=== PATIENT | male | born 1990 | race Caucasian/White ===

== ENCOUNTER 2019-12-18 14:39 | Emergency (ER) | payer OTHER, SELFPAY ==
[2019-12-18] VITALS (7 sets, daily range): BP systolic 110–143; BP diastolic 62–96; PULSE 89–99; RESP 18; TEMP 36.4; O2SAT 95–98; BMI 44.4
[2019-12-18 16:46] LABS: Alanine Aminotransferase 54 U/L (0-41); Albumin Level 4.7 g/dL (3.5-5.2); Alkaline Phosphatase 79 IU/L (40-130); Anion Gap 15.4 (5-19); Aspartate Amino Transferase 24 U/L (0-40); Basophils # 0.1 10^3/uL (0.0-0.1); Basophils % 0.6 %; Blood Urea Nitrogen 10 mg/dL (6-20); Calcium 10.2 mg/dL (8.5-10.5); Carbon Dioxide 28 mmol/L (22-29); Chloride 101 mmol/L (98-107); Eosinophils # 0.1 10^3/uL (0.0-0.8); Eosinophils % 1.3 %; Globulin 2.9 g/dL (1.3-4.6); Glucose 94 mg/dL (65-115); Hematocrit 54.6 % (42.0-52.0); Hemoglobin 17.5 g/dL (11.7-16.6); Lymphocytes # 2.1 10^3/uL (0.8-4.8); Lymphocytes % 24.3 %; Mean Corpuscular HGB Conc 32.1 g/dL (30.0-36.0); Mean Corpuscular Hemoglobin 28.7 pg (28.0-34.0); Mean Corpuscular Volume 89.5 fL (80-94); Monocytes # 0.8 10^3/uL (0.2-0.9); Neutrophils # 5.7 10^3/uL (1.8-7.7); Neutrophils % 64.6 %; Nucleated Red Blood Cells % 0 %; Osmolality Calculated 286 mOsm/kg (285-295); Platelet Count 295 10^3/cmm (130-400); Potassium 4.4 mmol/L (3.5-5.1); Red Cell Distribution Width 12.2 % (12.1-15.1); Sodium 140 mmol/L (136-145); Total Bilirubin 0.4 mg/dL (0.15-1.2); Total Protein 7.6 g/dL (6.6-8.7); White Blood Count 8.8 10^3/uL (4.0-10.0)
--- NOTE | 2019-12-18 17:28 | W.ED.GIBLEED ---
HPI - GI Bleed General: Chief complaint: GI Bleed Stated complaint: blood in stool Time Seen by Provider: 12/18/19 17:16 History of Present Illness: HPI Narrative: Patient is a 29-year-old male who comes to the ED with abdominal pain and bloody diarrhea. Past medical history of GERD, anxiety and hypertension. Past surgical history of appendectomy and cholecystectomy. Patient says symptoms started today. He has had about 4 episodes of bright red bloody diarrhea. Patient showed me a picture that he took of his stool today and there is a considerable amount of bright red blood mixed in with brown diarrhea stool. His last episode of bloody diarrhea was around 2 or 3 PM today. he has never had any symptoms like this in the past. He is also having some intense abdominal pain. Patient says he started having abdominal pain about 2 days ago but it was more mild. Today when he got up the abdominal pain was a lot worse. Abdominal pain is located in the central part of the abdomen and he rates the pain an 8 out of 10. He also feels nauseous but has not had any episodes of vomiting. Patient says the last thing he ate was a burrito from [employer] last night. Associated symptoms: Reports abdominal pain and nausea; Denies chills, fever(s), headache(s), rash or vomiting Review of Systems Const: Denies: fever(s), chills or fatigue Eyes: Denies: change in vision or eye discomfort ENMT: Denies: throat pain, odynophagia, nasal discharge or nasal congestion Card: Denies: chest pain, palpitations, edema, swelling of feet/ankles, dyspnea on exertion or orthopnea Resp: Denies: dyspnea, productive cough or non-productive cough GI: Reports: abdominal pain, nausea, diarrhea and hematochezia (bright red blood); Denies: vomiting or constipation : Denies: flank pain, difficulty urinating, dysuria or hematuria Musc: Denies: neck pain, back pain or extremity swelling Skin/Breast: Denies: rash or new lesions Neuro: Denies: headache(s), numbness in extremities or weakness in extremities [facility] ED PFSH: Medical History Anxiety Social History Smoking and tobacco status: never smoked Second hand smoke exposure: No Alcohol intake: never Lives independently: Yes Household members: spouse Marital status: Current occupational status: unemployed History of recent travel: No Current gender identity: Male Physical Exam Const: COMMON NORMALS: patient oriented x3 and alert GENERAL APPEARANCE: cooperative; not comfortable (pt appeared uncomfortable due to abdominal pain.) HENMT: COMMON NORMALS: normocephalic HEAD & SCALP: normocephalic MOUTH: Normal oral and palatal mucosa present THROAT: posterior oropharynx normal and uvula midline Eye: COMMON NORMALS: Equal, round and reactive pupils present PUPIL: Yes Equal, round and reactive pupils present Neck/C-Spine: COMMON NORMALS: supple GENERAL: Yes normal visual inspection Resp: COMMON NORMALS: normal respiratory effort, No retractions, No use of accessory muscles and clear to auscultation bilaterally AUSCULTATION: clear to auscultation bilaterally Cardio: COMMON NORMALS: regular rate, regular rhythm, S1 normal heart sound present, S2 normal heart sound present, No gallops present (Cardio), No clicks present (Cardio), No murmurs present (Cardio) and Peripheral pulses 2+ throughout RATE: regular rate RHYTHM: regular rhythm HEART SOUNDS: S1 normal heart sound present and S2 normal heart sound present PERIPHERAL PULSES: Peripheral pulses 2+ throughout GI: COMMON NORMALS: Normal to inspection, nondistended, normoactive bowel sounds present, Soft to palpation and no masses INSPECTION: Yes central obesity PALPATION: Yes Soft to palpation and Yes Tenderness to palpation present (GI) Details: other (central abdominal tenderness) : COMMON NORMALS: Yes no CVA tenderness BLADDER/KIDNEY EXAM: Yes no CVA tenderness Back/Pelvis: COMMON NORMALS: no CVA tenderness Extremity: COMMON NORMALS: normal to inspection and no pedal edema Neuro: COMMON NORMALS: patient oriented x3 and moves all extremities SENSORIUM/ORIENTATION: Yes alert Skin: COMMON NORMALS: no rashes or lesions noted GENERAL SKIN EXAM: no rashes or lesions noted and dry skin Course Vital Signs: Vital signs: Vital Signs Temperature 97.6 F 12/18/19 15:07 Pulse Rate 98 12/18/19 21:38 Respiratory Rate 18 12/18/19 21:38 Blood Pressure 118/96 12/18/19 21:38 Pulse Oximetry 95 12/18/19 21:38 MDM - GI Bleed MDM Narrative: Medical decision making narrative: Patient is a 29-year-old male who comes to the ED with abdominal pain, nausea, bloody diarrhea. Symptoms started today. Patient has a past medical history of GERD, hypertension and IBS. Patient had no episodes of bloody diarrhea while here on the unit. CT of the abdomen pelvis showed Mild dilatation and wall enhancement in the terminal ileum. This could be infectious or inflammatory, including Crohn's disease. No evidence for obstruction. Patient was diagnosed with terminal ileitis and was given IV fluids, Flagyl, ciprofloxacin, Zofran, morphine and Dilaudid while here in the ED. Patient's abdominal pain and symptoms improved. He was discharged and told to return to the ED for reevaluation in 2 days and to bring in stool sample for testing. He was sent home with a prescription for Flagyl, ciprofloxacin, loperamide, Zofran, Medrol Dosepak. I placed a GI referral with case management. Patient will see his PCP in 5 days for reevaluation. I told patient he can return to the ED at any time if symptoms worsen. Patient understood and agreed with plan. Lab Data: Attestation: I reviewed the patient's lab results. Labs: Lab Results 12/18/19 12/18/19 12/18/19 Range/Units 16:23 16:23 16:23 WBC 8.8 (4.0-10.0) 10^3/ uL RBC 6.10 H (4.1-5.3) 10^6/u L Hgb 17.5 H (11.7-16.6) g/dL Hct 54.6 H (42.0-52.0) % MCV 89.5 (80-94) fL MCH 28.7 (28.0-34.0) pg MCHC 32.1 (30.0-36.0) g/dL RDW 12.2 (12.1-15.1) % Plt Count 295 (130-400) 10^3/c mm MPV 10.0 (7.4-10.4) fL Neut % (Auto) 64.6 % Lymph % (Auto) 24.3 % [place] % (Auto) 9.0 % Eos % (Auto) 1.3 % Baso % (Auto) 0.6 % Neut # (Auto) 5.7 (1.8-7.7) 10^3/u L Lymph # (Auto) 2.1 (0.8-4.8) 10^3/u L [place] # (Auto) 0.8 (0.2-0.9) 10^3/u L Eos # (Auto) 0.1 (0.0-0.8) 10^3/u L Baso # (Auto) 0.1 (0.0-0.1) 10^3/u L Nucleated RBC % (a uto) 0 % Nucleated RBCs # 0.0 /100WBC ESR 6 (0-10) mm/hr Sodium 140 (136-145) mmol/L Potassium 4.4 (3.5-5.1) mmol/L Chloride 101 (98-107) mmol/L Carbon Dioxide 28 (22-29) mmol/L Anion Gap 15.4 (5-19) BUN 10 (6-20) mg/dL Creatinine 1.0 (0.7-1.2) mg/dL GFR Calculation 89.0 L (90-130) mL/min Glucose 94 (65-115) mg/dL Calculated Osmolal ity 286 (285-295) mOsm/k g Calcium 10.2 (8.5-10.5) mg/dL Total Bilirubin 0.4 (0.15-1.2) mg/dL AST 24 (0-40) U/L ALT 54 H (0-41) U/L Alkaline Phosphata se 79 (40-130) IU/L C-Reactive Protein (0.0-4.9) mg/L Total Protein 7.6 (6.6-8.7) g/dL Albumin 4.7 (3.5-5.2) g/dL Globulin 2.9 (1.3-4.6) g/dL /12/31 Range/Units 16:23 WBC (4.0-10.0) 10^3/ uL RBC (4.1-5.3) 10^6/u L Hgb (11.7-16.6) g/dL Hct (42.0-52.0) % MCV (80-94) fL MCH (28.0-34.0) pg MCHC (30.0-36.0) g/dL RDW (12.1-15.1) % Plt Count (130-400) 10^3/c mm MPV (7.4-10.4) fL Neut % (Auto) % Lymph % (Auto) % [place] % (Auto) % Eos % (Auto) % Baso % (Auto) % Neut # (Auto) (1.8-7.7) 10^3/u L Lymph # (Auto) (0.8-4.8) 10^3/u L [place] # (Auto) (0.2-0.9) 10^3/u L Eos # (Auto) (0.0-0.8) 10^3/u L Baso # (Auto) (0.0-0.1) 10^3/u L Nucleated RBC % (a uto) % Nucleated RBCs # /100WBC ESR (0-10) mm/hr Sodium (136-145) mmol/L Potassium (3.5-5.1) mmol/L Chloride (98-107) mmol/L Carbon Dioxide (22-29) mmol/L Anion Gap (5-19) BUN (6-20) mg/dL Creatinine (0.7-1.2) mg/dL GFR Calculation (90-130) mL/min Glucose (65-115) mg/dL Calculated Osmolal ity (285-295) mOsm/k g Calcium (8.5-10.5) mg/dL Total Bilirubin (0.15-1.2) mg/dL AST (0-40) U/L ALT (0-41) U/L Alkaline Phosphata se (40-130) IU/L C-Reactive Protein 2.9 (0.0-4.9) mg/L Total Protein (6.6-8.7) g/dL Albumin (3.5-5.2) g/dL Globulin (1.3-4.6) g/dL Imaging Data^: CT Abd/Pel: Attestation: I personally reviewed and interpreted this imaging study as follows: Radiologist's impression: [address] [address] [address] Scan Report Signed Patient: Aaron Cortes Unit #: [id number] : 1990 Age/Sex: 29 / M ADM Date: 12/18/19 Loc: ER Room/Bed: Attending Dr: Ordering Provider/Ordering MD: Gustabo Negrete Date of Service: 12/18/19 Procedure(s): CT abdomen pelvis w con* [id number] Accession Number(s): [id number] Report Number: [id number] PROCEDURE INFORMATION: Exam: CT Abdomen And Pelvis With Contrast Exam date and time: 12/18/2019 5:46 PM Age: 29 years old Clinical indication: Abdominal pain; Generalized; Prior surgery; Surgery date: 6+ months; Surgery type: Appy, gb; Patient HX: Abd pain w bloody stool and nausea; Additional info: Abdominal pain, bloody stool TECHNIQUE: Imaging protocol: Computed tomography of the abdomen and pelvis with intravenous contrast. Radiation optimization: All CT scans at this facility use at least one of these dose optimization techniques: automated exposure control; mA and/or kV adjustment per patient size (includes targeted exams where dose is matched to clinical indication); or iterative reconstruction. Contrast material: OMNI 300; Contrast volume: 95 ml; Contrast route: 20G; COMPARISON: CT abdomen pelvis w con* [id number] 04/02/2014 10:10 PM RADIATION DOSE METRICS: Total DLP: 2052.91 mGy-cm FINDINGS: Lungs: Calcified granuloma in the right lower lobe. Liver: Mild diffuse fatty infiltration of the liver. Gallbladder and bile ducts: Cholecystectomy. The bile ducts are normal. Pancreas: Normal. No ductal dilation. Spleen: Calcified granulomas in the spleen. Adrenals: Normal. No mass. Kidneys and ureters: Normal. No hydronephrosis. Stomach and bowel: The descending colon and rectum are decompressed. Stomach is unremarkable. Mildly dilated terminal ileum which measures 2.6 cm with slight wall enhancement. No visible wall thickening. The remainder of the small bowel is unremarkable. Appendix: The appendix is surgically absent. Intraperitoneal space: Unremarkable. No free air. No significant fluid collection. Vasculature: Unremarkable. No abdominal aortic aneurysm. Lymph nodes: Subcentimeter mesenteric lymph nodes are most likely reactive. Bladder: Unremarkable as visualized. Reproductive: Unremarkable as visualized. Bones/joints: Unremarkable. No acute fracture. Soft tissues: Unremarkable. CT/CT abdomen pelvis w con* [id number] IMPRESSION: 1. Mild dilatation and wall enhancement in the terminal ileum. This could be infectious or inflammatory, including Crohn's disease. No evidence for obstruction. Radiation Dose CTDIVOL = (mGy): DLP = 2052.91 (mGy-cm) Dictated By: Jimmy Leon Signed By: Jimmy Leon Signed Date/Time: 12/18/191843 DD/ 42 Discharge Plan Discharge Patient Disposition: Home, Self-Care Clinical Impression: Ileitis, terminal Qualifiers: Digestive disease complication type: with rectal bleeding Qualified Code(s): K50.011 - Crohn's disease of small intestine with rectal bleeding Condition: Stable Prescriptions: New ciprofloxacin HCl 500 mg tablet 500 mg PO BID 7 Days Qty: 14 RF: 0 loperamide 2 mg capsule 2 mg PO Q4H PRN (Reason: loose stool) Qty: 30 RF: 0 Flagyl 500 mg tablet 500 mg PO Q6H 7 Days Qty: 28 RF: 0 Zofran 4 mg tablet 4 mg PO Q8H Qty: 20 RF: 0 Medrol (German) 4 mg tablets,dose pack See Rx Instructions .ROUTE .COMPLEX Qty: 21 RF: 0 No Action losartan 100 mg tablet 100 mg PO DAILY Qty: 30 RF: 3 omeprazole 40 mg capsule,delayed release(DR/EC) 40 mg PO BID Qty: 60 RF: 2 sucralfate [Carafate] 1 gram tablet 1 gm PO Q6H PRN (Reason: UNKNOWN) RF: 0 Wellbutrin XL 150 mg tablet extended release 24 hr 150 mg PO DAILY RF: 0 Discharge Orders: Discharge Order (Routine); Ordered 12/18/19 Ordered By: Gustabo Negrete Referrals: Nitza Rodriguez MD [Primary Care Provider] - Discharge Diet: Advance as tolerated Discharge Activity: Increase activity as tolerated Patient Instructions: Full Liquid Diet, Crohn Disease (ED), Clear Liquid Diet (ED), Gastroenteritis (ED) Activity Restrictions/Additional Instructions: Schedule an appointment with your PCP within 5 days for reevaluation. Start your diet slow and advance diet slowly, I would start with clear liquid diet and then progress as tolerated. Take full course of the antibiotics as prescribed. You can take loperamide to help with diarrhea symptoms. Also provide you with some Zofran that she can take for any nausea. Take the full course of steroids as prescribed. I placed an order for a GI specialist referral for you with case management. Someone should be contacting you within the next week to set up an appointment. You can also discuss with your PCP about GI specialist referral when you see them next week. Take Tylenol for daily pain. Return to ED within the next 2 days- collect stool sample at home and bring into ED with you. Discharge Date/Time: 12/18/19 21:54 Coding Level of Care Code ED Quality Manager for [facility] Fwd Exam Comprehensive
--- NOTE | 2019-12-18 17:45 | CTR_ITS ---
PROCEDURE INFORMATION: Exam: CT Abdomen And Pelvis With Contrast Exam date and time: 12/18/2019 5:46 PM Age: 29 years old Clinical indication: Abdominal pain; Generalized; Prior surgery; Surgery date: 6+ months; Surgery type: Appy, gb; Patient HX: Abd pain w bloody stool and nausea; Additional info: Abdominal pain, bloody stool TECHNIQUE: Imaging protocol: Computed tomography of the abdomen and pelvis with intravenous contrast. Radiation optimization: All CT scans at this facility use at least one of these dose optimization techniques: automated exposure control; mA and/or kV adjustment per patient size (includes targeted exams where dose is matched to clinical indication); or iterative reconstruction. Contrast material: OMNI 300; Contrast volume: 95 ml; Contrast route: 20G; COMPARISON: CT abdomen pelvis w con* [id number] 04/02/2014 10:10 PM RADIATION DOSE METRICS: Total DLP: 2052.91 mGy-cm FINDINGS: Lungs: Calcified granuloma in the right lower lobe. Liver: Mild diffuse fatty infiltration of the liver. Gallbladder and bile ducts: Cholecystectomy. The bile ducts are normal. Pancreas: Normal. No ductal dilation. Spleen: Calcified granulomas in the spleen. Adrenals: Normal. No mass. Kidneys and ureters: Normal. No hydronephrosis. Stomach and bowel: The descending colon and rectum are decompressed. Stomach is unremarkable. Mildly dilated terminal ileum which measures 2.6 cm with slight wall enhancement. No visible wall thickening. The remainder of the small bowel is unremarkable. Appendix: The appendix is surgically absent. Intraperitoneal space: Unremarkable. No free air. No significant fluid collection. Vasculature: Unremarkable. No abdominal aortic aneurysm. Lymph nodes: Subcentimeter mesenteric lymph nodes are most likely reactive. Bladder: Unremarkable as visualized. Reproductive: Unremarkable as visualized. Bones/joints: Unremarkable. No acute fracture. Soft tissues: Unremarkable. CT/CT abdomen pelvis w con* [id number] IMPRESSION: 1. Mild dilatation and wall enhancement in the terminal ileum. This could be infectious or inflammatory, including Crohn's disease. No evidence for obstruction. Radiation Dose CTDIVOL = (mGy): DLP = 2052.91 (mGy-cm)
[2019-12-18] MEDS: ondansetron 2 mg/ML SDV 2 mL 4 MG IVP (17:57)
[2019-12-18] MEDS: sodium chloride 0.9% 1,000 ML 999 ML IV ×2 (17:57→20:19)
[2019-12-18] MEDS: morphine 4 mg/mL SDV 1 mL IVP ×2 (18:08→19:05)
[2019-12-18] MEDS: iohexol 300 mg/mL 100 mL Btl IV (18:27)
[2019-12-18] MEDS: ciprofloxacin 400 MG/200 ML PREMIX 200 MG IV (19:06)
[2019-12-18 19:26] LABS: C Reactive Protein 2.9 mg/L (0.0-4.9)
[2019-12-18 20:14] LABS: Erythrocyte Sedimentation Rate 6 mm/hr (0-10)
[2019-12-18] MEDS: HYDROmorphone 1 mg/mL INJ 1 mL IVP (20:20)
[2019-12-18] MEDS: metroNIDAZOLE IV 500 MG/100 ML PREMIX 100 MG IV (20:23)
[2019-12-18] MEDS: diphenhydrAMINE 50 mg/mL SDV 1mL 25 MG IVP ×2 (20:44→21:32)
[2019-12-18] MEDS: HYDROcodone-acetaminophen 7.5-325 mg Tablet 1 TAB PO (21:36)
--- NOTE | 2019-12-18 21:38 | PC.NURSE ---
IV D/C'd intact. Pressure dressing in place.
--- NOTE | 2019-12-20 12:08 | DCPLANNER ---
Addendum entered by Anny Gonzales 12/20/19 12:10: this was documented on wrong chart Original Note: route delivery manager had message to schedule a follow up appointment for patient with ortho. route delivery manager called the ortho clinic, spoke with Nitza, gave clinic patients information. route delivery manager was told that patients information would be printed and reviewed. Clinic will call high risk case manager and patient with appointment information
--- NOTE | 2019-12-20 12:14 | DCPLANNER ---
global product manager had message to schedule a follow up appointment with general surgery. global product manager called [facility], spoke with Debbie, gave clinic patients information. global product manager was told that patients information would be printed and reviewed. Clinic will call patient with appointment information.
--- NOTE | 2019-12-28 10:25 | DCPLANNER ---
Patient had an appointment scheduled for 12.22.19 with [facility]. Patient did attend the appointment.
== END 2019-12-18 21:54 | disposition home or self-care (01) ==
PROVIDERS: Nurse Practitioner Family; Emergency Provider Physician Assistant; PCP Family Medicine
DX: K50.011 Crohn's disease of small intestine with rectal bleeding (principal)
CPT/HCPCS: 12345; 36415; 74177; 80053; 85025; 85651; 86140; 96365; 96368; 96375; 96376; 99283; 99284; J0744; J1170; J1200; J2270; J2405; J2930; J7030; Q9967; S0030

== ENCOUNTER 2019-12-19 12:52 | Outpatient (CLI) | payer OTHER, SELFPAY | END 2019-12-19 12:53 | disposition home or self-care (01) | LOC: LAB 12:55 | PROVIDERS: PCP Family Medicine; Visit Provider Emergency Medicine | DX: K52.9 Noninfective gastroenteritis and colitis, unspecified (principal) | CPT/HCPCS: 87506 ==

== ENCOUNTER 2019-12-20 10:12 | Emergency (ER) | payer OTHER, SELFPAY ==
[2019-12-20 10:14] VITALS: BP 161/91; PULSE 107; RESP 18; TEMP 36.9; O2SAT 97; BMI 44.4
--- NOTE | 2019-12-20 10:28 | W.ED.ABDPA2 ---
HPI - Abdominal Pain General: Chief Complaint: Abdominal Pain Stated Complaint: RECTAL BLEEDING Time Seen by Provider: 12/20/19 10:14 Source: patient and family Mode of arrival: ambulatory Limitations: no limitations History of Present Illness: HPI narrative: Patient is a very nice 29-year-old male who presents to the ED today for reevaluation for his abdominal pain and bloody stools. Patient tells me he began experiencing upper abdominal pain approximately 4 days ago. He states 2 days ago he began noticing hematochezia. He is having anywhere from 2-4 bloody stools per day. Patient was seen here on 12/17 and diagnosed with ileitis and prescribed Cipro, Flagyl, Zofran, Imodium, and steroids. Patient states his abdominal pain is continuing to worsen. He reports pain seems to now radiate into his back. He states last night he began vomiting and has had a total of 3-4 episodes of nonbloody vomit has not been running fevers. No urinary symptoms. He does have a history of GERD and IBS. He reports bringing in a stool sample yesterday for testing (I contacted lab who had orders for a bacterial panel). Of note patient has pictures with his bloody stool and there does appear to be appoximately 1/2-1 cup of bright red blood mixed in with small pieces of formed stool. MD elicited complaint: abdominal pain Pertinent past history: other (GERD, IBS) Onset (ago): day(s) Pain Consistency: constant Location: Epigastric Severity: moderate Radiation: back Relieving factors: nothing Associated Symptoms: Reports chills, hematochezia, nausea and vomiting; Denies coffee ground emesis, dysuria, fever(s), hematemesis, fecal incontinence, melena and syncope Treatments prior to arrival: other (abx, zofran, steroids ) Review of Systems General: Reports: 10 or more systems reviewed and unremarkable except in HPI and below Const: Reports: chills; Denies: fever(s), body aches, change in appetite, change in weight, fatigue or malaise Eyes: Denies: change in vision, blurry vision or photophobia ENMT: Denies: throat pain, enlarged tonsils or odynophagia Card: Denies: chest pain, palpitations, edema, lightheadedness, syncope, pre-syncope or orthopnea Resp: Denies: dyspnea, productive cough, non-productive cough, hemoptysis or chest congestion GI: Reports: abdominal pain, nausea, vomiting and hematochezia; Denies: hematemesis, coffee ground emesis, fecal incontinence, pain on defecation, melena, white/light colored stool or steatorrhea : Denies: flank pain, difficulty urinating, dysuria, urinary frequency, urinary urgency or urinary hesitancy Musc: Denies: neck pain, back pain, extremity pain or extremity swelling Skin/Breast: Denies: rash Neuro: Denies: headache(s), numbness in extremities, weakness in extremities or sensory changes PFSH ED PFSH: Medical History (Updated 12/20/19 @ 12:18 by JADA Alvarez) Anxiety Social History Smoking and tobacco status: never smoked Second hand smoke exposure: No Alcohol intake: never Lives independently: Yes Household members: spouse Marital status: Current occupational status: unemployed History of recent travel: No Current gender identity: Male Physical Exam Const: COMMON NORMALS: patient oriented x3, no limitations and alert GENERAL APPEARANCE: cooperative and in distress (appears slightly uncomfortable due to pain) NUTRITIONAL APPEARANCE: obese HENMT: COMMON NORMALS: normocephalic and atraumatic HEAD & SCALP: normocephalic and atraumatic Resp: COMMON NORMALS: normal respiratory effort and clear to auscultation bilaterally AUSCULTATION: clear to auscultation bilaterally Cardio: COMMON NORMALS: regular rhythm RATE: tachycardic RHYTHM: regular rhythm GI: COMMON NORMALS: Normal to inspection, nondistended, normoactive bowel sounds present, Soft to palpation, No hepatosplenomegaly present and no masses PALPATION: Yes Soft to palpation, Yes Tenderness to palpation present (GI) (throughout upper abdomen) and Yes No hepatosplenomegaly present : COMMON NORMALS: Yes no CVA tenderness BLADDER/KIDNEY EXAM: Yes no CVA tenderness Back/Pelvis: COMMON NORMALS: no CVA tenderness Extremity: COMMON NORMALS: normal to inspection Neuro: COMMON NORMALS: patient oriented x3 SENSORIUM/ORIENTATION: Yes alert Skin: COMMON NORMALS: no rashes or lesions noted GENERAL SKIN EXAM: no rashes or lesions noted Course Vital Signs: Vital signs: Vital Signs Temperature 98.4 F 12/20/19 10:14 Pulse Rate 107 H 12/20/19 10:14 Respiratory Rate 18 12/20/19 12:16 Blood Pressure 161/91 12/20/19 10:14 Pulse Oximetry 98 12/20/19 12:16 MDM - Abdominal Pain MDM Narrative: Medical decision making narrative: After reexamining and speaking to patient further he tells me approximately 2 weeks ago he saw his PCP because he was complaining of burping and tasting blood. Again he has not had any episodes of hematemesis. He was placed on Carafate and Omeprazole at that visit. He complains of pain mainly to his epigastrium region. He does have a history of GERD. I think it is reasonable to believe patient may have developed a gastric ulcer. His H/H is stable from last visit. CT scan showing resolved ileitis from previous visit. We will have him continue taking Carafate 3-4x daily as well as 40 mg twice daily of the Omeprazole. Case management will work on getting him set up with either Dr. Marlow or general surgery for possible EGD and/or colonoscopy. Of note patient's stool sample he provided yesterday came back negative for occult blood. He did not have any episodes of diarrhea or vomiting while in the ED today. He did have pictures on his phone that showed obvious dark red blood in his stool-they did not appear melanotic. Recommend he continue current medications prescribed to him on last visit. We will give him something he can take for pain as this seems to be a main concern for him and his . Lab Data: Labs: Lab Results 12/20/19 12/20/19 12/20/19 Range/Units 10:28 10:28 10:28 WBC 17.6 H (4.0-10.0) 10^3/ uL RBC 5.95 H (4.1-5.3) 10^6/u L Hgb 17.5 H (11.7-16.6) g/dL Hct 54.8 H (42.0-52.0) % MCV 92.1 (80-94) fL MCH 29.4 (28.0-34.0) pg MCHC 31.9 (30.0-36.0) g/dL RDW 12.4 (12.1-15.1) % Plt Count 288 (130-400) 10^3/c mm MPV 10.0 (7.4-10.4) fL Neut % (Auto) 80.5 % Lymph % (Auto) 10.9 % [place] % (Auto) 7.6 % Eos % (Auto) 0.1 % Baso % (Auto) 0.2 % Neut # (Auto) 14.1 H (1.8-7.7) 10^3/u L Lymph # (Auto) 1.9 (0.8-4.8) 10^3/u L [place] # (Auto) 1.3 H (0.2-0.9) 10^3/u L Eos # (Auto) 0.0 (0.0-0.8) 10^3/u L Baso # (Auto) 0.0 (0.0-0.1) 10^3/u L Nucleated RBC % (a uto) 0 % Nucleated RBCs # 0.0 /100WBC PT 12.30 (10.5-13.3) SECO NDS INR 0.89 (0.8-1.2) APTT 20.8 L (23.9-36.7) SECO NDS Sodium 138 (136-145) mmol/L Potassium 4.5 (3.5-5.1) mmol/L Chloride 101 (98-107) mmol/L Carbon Dioxide 25 (22-29) mmol/L Anion Gap 16.5 (5-19) BUN 16 (6-20) mg/dL Creatinine 0.9 (0.7-1.2) mg/dL GFR Calculation 100.5 (90-130) mL/min Glucose 110 (65-115) mg/dL Calculated Osmolal ity 283 L (285-295) mOsm/k g Lactate (0.5-2.2) mmol/L Calcium 9.3 (8.5-10.5) mg/dL Total Bilirubin 0.2 (0.15-1.2) mg/dL AST 37 (0-40) U/L ALT 106 H (0-41) U/L Alkaline Phosphata se 100 (40-130) IU/L Total Protein 6.8 (6.6-8.7) g/dL Albumin 4.5 (3.5-5.2) g/dL Globulin 2.3 (1.3-4.6) g/dL Lipase (13-60) U/L Urine Color (Yellow) Urine Appearance (CLEAR) Urine pH (5-7) Ur Specific Gravit y (1.005-1.030) Urine Protein (Negative) Urine Glucose (UA) (Normal) Urine Ketones (Negative) Urine Blood (Negative) Urine Nitrate (Negative) Urine Bilirubin (NEGATIVE) Urine Urobilinogen (Negative) mg/dL Ur Leukocyte Illy ase (Negative) 12/20/19 12/20/19 12/20/19 Range/Units 10:28 10:28 11:00 WBC (4.0-10.0) 10^3/ uL RBC (4.1-5.3) 10^6/u L Hgb (11.7-16.6) g/dL Hct (42.0-52.0) % MCV (80-94) fL MCH (28.0-34.0) pg MCHC (30.0-36.0) g/dL RDW (12.1-15.1) % Plt Count (130-400) 10^3/c mm MPV (7.4-10.4) fL Neut % (Auto) % Lymph % (Auto) % [place] % (Auto) % Eos % (Auto) % Baso % (Auto) % Neut # (Auto) (1.8-7.7) 10^3/u L Lymph # (Auto) (0.8-4.8) 10^3/u L [place] # (Auto) (0.2-0.9) 10^3/u L Eos # (Auto) (0.0-0.8) 10^3/u L Baso # (Auto) (0.0-0.1) 10^3/u L Nucleated RBC % (a uto) % Nucleated RBCs # /100WBC PT (10.5-13.3) SECO NDS INR (0.8-1.2) APTT (23.9-36.7) SECO NDS Sodium (136-145) mmol/L Potassium (3.5-5.1) mmol/L Chloride (98-107) mmol/L Carbon Dioxide (22-29) mmol/L Anion Gap (5-19) BUN (6-20) mg/dL Creatinine (0.7-1.2) mg/dL GFR Calculation (90-130) mL/min Glucose (65-115) mg/dL Calculated Osmolal ity (285-295) mOsm/k g Lactate 1.4 (0.5-2.2) mmol/L Calcium (8.5-10.5) mg/dL Total Bilirubin (0.15-1.2) mg/dL AST (0-40) U/L ALT (0-41) U/L Alkaline Phosphata se (40-130) IU/L Total Protein (6.6-8.7) g/dL Albumin (3.5-5.2) g/dL Globulin (1.3-4.6) g/dL Lipase 33 (13-60) U/L Urine Color Straw (Yellow) Urine Appearance Clear (CLEAR) Urine pH 6.5 (5-7) Ur Specific Gravit y 1.010 (1.005-1.030) Urine Protein Neg (Negative) Urine Glucose (UA) Norm (Normal) Urine Ketones Negative (Negative) Urine Blood Neg (Negative) Urine Nitrate Negative (Negative) Urine Bilirubin Neg (NEGATIVE) Urine Urobilinogen Norm (Negative) mg/dL Ur Leukocyte Lily ase Negative (Negative) Imaging Data ^: CT Abd/Pel: Radiologist's impression: [place] [address] CT Scan Report Signed Patient: Aaron Cortes Unit #: [id number] : 1990 Age/Sex: 29 / M ADM Date: 12/20/19 Loc: ER Room/Bed: Attending Dr: Ordering Provider/Ordering MD: Paula Tovar Date of Service: 12/20/19 Procedure(s): CT abdomen pelvis w con* [id number] Accession Number(s): [id number] Report Number: [id number] WS: [id number] CT ABDOMEN AND PELVIS WITH CONTRAST HISTORY: upper abdominal pain; worsening; hematochezia TECHNIQUE: Imaging performed of the abdomen and pelvis with IV contrast. Single phase imaging of the abdomen. Coronal and sagittal reformats are submitted. All CT scans at [facility] use at least one of these dose optimization techniques: automated exposure control; mA and/or kV adjustment per patient size (includes targeted exams where dose is matched to clinical indication); or iterative reconstruction. IV CONTRAST: Omnipaque 300; 95 mL IV. Oral contrast: No DLP: 2147.34 mGy.cm COMPARISON: 12/18/2019 Lower thorax: Benign RIGHT lower lobe granuloma. Heart is normal size. No hiatal hernia. Liver/biliary system: Normal size with no intrahepatic dilatation. Gallbladder: Our cholecystectomy. Pancreas: Normal. Spleen: Normal spleen with granulomata. Adrenal glands: Normal. Right kidney: Normal. Left kidney: Normal. Aorta: Normal. Lymphadenopathy: None. Free fluid: None. GI tract: Significant improvement in the wall thickening and hyperemia at the terminal ileum. Prior appendectomy. Abdominal wall: Unremarkable abdominal wall. No hernia. Pelvis: No free fluid or adenopathy. Bones: Benign bone islands in the pelvis and hips. CT/CT abdomen pelvis w con* [id number] IMPRESSION: 1. Resolved hyperemia and inflammatory changes at the cecum. 2. No free air or ascites. Dictated By: Cathleen Carrillo DO Signed By: Cathleen Carrillo DO Signed Date/Time: 12/20/19 1154 DD/ 1150 Discharge Plan Discharge Patient Disposition: Home, Self-Care Clinical Impression: Gastric ulcer Qualifiers: Gastric ulcer chronicity: acute Gastric ulcer complication status: without hemorrhage or perforation Qualified Code(s): K25.3 - Acute gastric ulcer without hemorrhage or perforation Condition: Stable Prescriptions: New tramadol 50 mg tablet 50 mg PO Q6H PRN (Reason: pain) Qty: 14 RF: 0 No Action losartan 100 mg tablet 100 mg PO DAILY Qty: 30 RF: 3 omeprazole 40 mg capsule,delayed release(DR/EC) 40 mg PO BID Qty: 60 RF: 2 sucralfate [Carafate] 1 gram tablet 1 gm PO Q6H PRN (Reason: UNKNOWN) RF: 0 Wellbutrin XL 150 mg tablet extended release 24 hr 150 mg PO DAILY RF: 0 ciprofloxacin HCl 500 mg tablet 500 mg PO BID 7 Days Qty: 14 RF: 0 loperamide 2 mg capsule 2 mg PO Q4H PRN (Reason: loose stool) Qty: 30 RF: 0 Flagyl 500 mg tablet 500 mg PO Q6H 7 Days Qty: 28 RF: 0 Zofran 4 mg tablet 4 mg PO Q8H Qty: 20 RF: 0 Medrol (German) 4 mg tablets,dose pack See Rx Instructions .ROUTE .COMPLEX Qty: 21 RF: 0 Discharge Orders: Discharge Order (Routine); Ordered 12/20/19 Ordered By: Paula Tovar Referrals: Nitza Rodriguez MD [Primary Care Provider] - Patient Instructions: Peptic Ulcer (ED), Gastritis (ED), Diet for Ulcers and Gastritis (ED), Gastroesophageal Reflux Disease (ED) Activity Restrictions/Additional Instructions: Case management will work on getting you set up with provider to evaluate you for need for an EGD and/or colonoscopy. Follow diet recommendations as we discussed. Carafate to be taken 3-4x daily with meals. You may return to ED for any concerns you may have. Coding Level of Care Code ED Application Helper for Chg Fwd Exam Comprehensive
--- NOTE | 2019-12-20 10:29 | CT_ITS ---
WS: [id number] CT ABDOMEN AND PELVIS WITH CONTRAST HISTORY: upper abdominal pain; worsening; hematochezia TECHNIQUE: Imaging performed of the abdomen and pelvis with IV contrast. Single phase imaging of the abdomen. Coronal and sagittal reformats are submitted. All CT scans at [facility] use at least one of these dose optimization techniques: automated exposure control; mA and/or kV adjustment per patient size (includes targeted exams where dose is matched to clinical indication); or iterativ e reconstruction. IV CONTRAST: Omnipaque 300; 95 mL IV. Oral contrast: No DLP: 2147.34 mGy.cm COMPARISON: 12/18/2019 Lower thorax: Benign RIGHT lower lobe granuloma. Heart is normal size. No hiatal hernia. Liver/biliary system: Normal size with no intrahepatic dilatation. Gallbladder: Our cholecystectomy. Pancreas: Normal. Spleen: Normal spleen with granulomata. Adrenal glands: Normal. Right kidney: Normal. Left kidney: Normal. Aorta: Normal. Lymphadenopathy: None. Free fluid: None. GI tract: Significant improvement in the wall thickening and hyperemia at the terminal ileum. Prior a ppendectomy. Abdominal wall: Unremarkable abdominal wall. No hernia. Pelvis: No free fluid or adenopathy. Bones: Benign bone islands in the pelvis and hips. CT/CT abdomen pelvis w con* [id number] IMPRESSION: 1. Resolved hyperemia and inflammatory changes at the cecum. 2. No free air or ascites.
[2019-12-20 10:36] LABS: Basophils % 0.2 %; Eosinophils % 0.1 %; Hematocrit 54.8 % (42.0-52.0); Hemoglobin 17.5 g/dL (11.7-16.6); Lymphocytes # 1.9 10^3/uL (0.8-4.8); Lymphocytes % 10.9 %; Mean Corpuscular HGB Conc 31.9 g/dL (30.0-36.0); Mean Corpuscular Hemoglobin 29.4 pg (28.0-34.0); Mean Corpuscular Volume 92.1 fL (80-94); Monocytes # 1.3 10^3/uL (0.2-0.9); Monocytes % 7.6 %; Neutrophils # 14.1 10^3/uL (1.8-7.7); Neutrophils % 80.5 %; Nucleated Red Blood Cells % 0 %; Platelet Count 288 10^3/cmm (130-400); Red Blood Count 5.95 10^6/uL (4.1-5.3); Red Cell Distribution Width 12.4 % (12.1-15.1); White Blood Count 17.6 10^3/uL (4.0-10.0)
[2019-12-20 10:45] LABS: INR 0.89 (0.8-1.2)
[2019-12-20 10:46] LABS: Partial Thromboplastin Time 20.8 SECONDS (23.9-36.7)
[2019-12-20 10:51] LABS: Lactate (Lactic Acid level) 1.4 mmol/L (0.5-2.2)
[2019-12-20 10:58] LABS: Slide Review Slide Review Perform
[2019-12-20 11:03] LABS: Alanine Aminotransferase 106 U/L (0-41); Albumin Level 4.5 g/dL (3.5-5.2); Alkaline Phosphatase 100 IU/L (40-130); Anion Gap 16.5 (5-19); Aspartate Amino Transferase 37 U/L (0-40); Blood Urea Nitrogen 16 mg/dL (6-20); Calcium 9.3 mg/dL (8.5-10.5); Carbon Dioxide 25 mmol/L (22-29); Chloride 101 mmol/L (98-107); Creatinine Clr Calc Pharmacy 152.4016; Globulin 2.3 g/dL (1.3-4.6); Glomerular Filtration Rate 100.5 mL/min (90-130); Glucose 110 mg/dL (65-115); Osmolality Calculated 283 mOsm/kg (285-295); Potassium 4.5 mmol/L (3.5-5.1); Sodium 138 mmol/L (136-145); Total Bilirubin 0.2 mg/dL (0.15-1.2); Total Protein 6.8 g/dL (6.6-8.7)
[2019-12-20 11:04] LABS: Lipase 33 U/L (13-60)
[2019-12-20] MEDS: sodium chloride 0.9% 1,000 ML 999 ML IV (11:12)
[2019-12-20 11:13] VITALS: RESP 18
[2019-12-20] MEDS: ondansetron 2 mg/ML SDV 2 mL 4 MG IVP (11:13)
[2019-12-20] MEDS: morphine 4 mg/mL SDV 1 mL IVP (11:13)
[2019-12-20] MEDS: iohexol 300 mg/mL 100 mL Btl IV (11:30)
[2019-12-20 11:37] LABS: Add Urine Microscopic? NO
[2019-12-20] MEDS: lidocaine 2% viscous 15 ML, aluminum-mag hydrox-simethicon 30 ML, sucralfate oral liq 1 GM PO (11:42)
[2019-12-20 11:43] LABS: Urine Appearance Clear (CLEAR); Urine Color Straw (Yellow)
[2019-12-20 11:44] LABS: Bilirubin Urine Neg (NEGATIVE); Blood Urine Neg (Negative); Glucose Urine UA Norm (Normal); Ketones Urine Negative (Negative); Leukocyte Esterase Urine Negative (Negative); Nitrate Urine Negative (Negative); Protein Urine Neg (Negative); Urobilinogen Urine Norm (Negative); pH Urine 6.5 (5-7)
[2019-12-20 12:16] VITALS: RESP 18; O2SAT 98
[2019-12-20] MEDS: HYDROmorphone 1 mg/mL INJ 1 mL IVP (12:16)
[2019-12-20] MEDS: diphenhydrAMINE 50 mg/mL SDV 1mL IVP (12:41)
[2019-12-20 12:55] VITALS: BP 149/100; PULSE 85; RESP 18; O2SAT 95
== END 2019-12-20 12:55 | disposition home or self-care (01) ==
PROVIDERS: Emergency Provider Physician Assistant; PCP Family Medicine
DX: K25.3 Acute gastric ulcer without hemorrhage or perforation (principal)
CPT/HCPCS: 12345; 36415; 74177; 80053; 81003; 82274; 83605; 83690; 85025; 85610; 85730; 87506; 96360; 96374; 96375; 99283; J1170; J1200; J2270; J2405; J7030; Q9967

== ENCOUNTER 2019-12-26 15:00 | Emergency (ER) | payer OTHER, SELFPAY ==
[2019-12-26 15:10] VITALS: BMI 44.4
[2019-12-26 15:39] VITALS: BP 161/98; PULSE 114; RESP 16; TEMP 36.9; O2SAT 97
--- NOTE | 2019-12-26 15:42 | ED_ITS ---
HPI - General Adult General: Chief complaint: General Medical Stated complaint: had contact with +covid Time Seen by Provider: 12/26/19 15:30 History of Present Illness: HPI narrative: Patient is a 29-year-old male comes to the ED for contact with known COVID-19 positive patient. Patient's uncle lives with him and he recently tested positive for COVID-19. Patient says he has no signs or symptoms. He denies fever, chills, body aches, shortness of breath, sore throat, rhinorrhea. Associated symptoms: Deny chest pain, dyspnea, headache(s), nausea, rash, palpitations or vomiting Review of Systems Const: Denies: fever(s), chills or fatigue Eyes: Denies: change in vision or eye discomfort ENMT: Denies: throat pain, odynophagia, nasal discharge or nasal congestion Card: Denies: chest pain, palpitations, edema, swelling of feet/ankles, dyspnea on exertion or orthopnea Resp: Denies: dyspnea, productive cough or non-productive cough GI: Denies: abdominal pain, nausea, vomiting, diarrhea, constipation or hematochezia : Denies: flank pain, difficulty urinating, dysuria or hematuria Musc: Denies: neck pain, back pain or extremity swelling Skin/Breast: Denies: rash or new lesions Neuro: Denies: headache(s), numbness in extremities or weakness in extremities PFSH ED PFSH: Medical History Anxiety Blood in stool Surgical History History of laparoscopic cholecystectomy Status post laparoscopic appendectomy Family History Denies family history of Anesthesia complication Bleeding disorder Social History Smoking and tobacco status: never smoked Second hand smoke exposure: No Alcohol intake: never Lives independently: Yes Household members: spouse Marital status: Current occupational status: unemployed History of recent travel: No Current gender identity: Male Physical Exam Const: COMMON NORMALS: no acute distress, patient oriented x3, healthy appearing and alert GENERAL APPEARANCE: cooperative, comfortable and well hydrated; not ill appearing HENMT: COMMON NORMALS: normocephalic HEAD & SCALP: normocephalic MOUTH: Normal oral and palatal mucosa present THROAT: posterior oropharynx normal and uvula midline Neck/C-Spine: COMMON NORMALS: supple GENERAL: Yes normal visual inspection Resp: COMMON NORMALS: normal respiratory effort, No retractions, No use of accessory muscles and clear to auscultation bilaterally EFFORT & INSPECTION: Yes able to speak in complete sentences and No respiratory distress AUSCULTATION: clear to auscultation bilaterally Cardio: COMMON NORMALS: regular rate, regular rhythm, S1 normal heart sound present, S2 normal heart sound present, No gallops present (Cardio), No clicks present (Cardio), No murmurs present (Cardio) and Peripheral pulses 2+ throughout RATE: regular rate RHYTHM: regular rhythm HEART SOUNDS: S1 normal heart sound present and S2 normal heart sound present PERIPHERAL PULSES: Peripheral pulses 2+ throughout GI: COMMON NORMALS: Normal to inspection, nondistended, normoactive bowel sounds present, Soft to palpation, non-tender and no masses PALPATION: Yes Soft to palpation : COMMON NORMALS: Yes no CVA tenderness BLADDER/KIDNEY EXAM: Yes no CVA tenderness Back/Pelvis: COMMON NORMALS: no CVA tenderness Extremity: COMMON NORMALS: normal to inspection Neuro: COMMON NORMALS: patient oriented x3 and moves all extremities SENSORIUM/ORIENTATION: Yes alert Skin: GENERAL SKIN EXAM: dry skin Course Vital Signs: Vital signs: Vital Signs Temperature 98.4 F 12/26/19 15:39 Pulse Rate 70 12/26/19 17:06 Respiratory Rate 18 12/26/19 17:06 Blood Pressure 118/74 12/26/19 17:06 Pulse Oximetry 98 12/26/19 17:06 MDM - General Adult MDM Narrative: Medical decision making narrative: Patient is a 29-year-old male who comes to the ED for known contact with COVID-19 positive patient. Patient's uncle lives with him and he just recently tested positive for COVID- 19. Patient has no symptoms. COVID-19 testing was performed and is pending. Patient was told to self quarantine for 14 days or until COVID-19 test results. Patient agreed with and understood plan. Discharge Plan Discharge Patient Disposition: Home, Self-Care Clinical Impression: Encounter for screening laboratory testing for COVID-19 virus Condition: Stable Prescriptions: No Action losartan 100 mg tablet 100 mg PO DAILY Qty: 30 RF: 3 omeprazole 40 mg capsule,delayed release(DR/EC) 40 mg PO BID Qty: 60 RF: 2 tramadol 50 mg tablet 50 mg PO Q6H PRN (Reason: pain) Qty: 14 RF: 0 sucralfate [Carafate] 1 gram tablet 1 gm PO Q6H PRN (Reason: UNKNOWN) RF: 0 Wellbutrin XL 150 mg tablet extended release 24 hr 150 mg PO DAILY RF: 0 loperamide 2 mg capsule 2 mg PO Q4H PRN (Reason: loose stool) Qty: 30 RF: 0 Zofran 4 mg tablet 4 mg PO Q8H Qty: 20 RF: 0 Medrol (German) 4 mg tablets,dose pack See Rx Instructions .ROUTE .COMPLEX Qty: 21 RF: 0 Discharge Orders: Discharge Order (Routine); Ordered 12/26/19 Ordered By: Gustabo Negrete Referrals: Nitza Rodriguez MD [Primary Care Provider] - Discharge Diet: Regular Discharge Activity: Limit activity as instructed Activity Restrictions/Additional Instructions: Self quarantine for the next 14 days. Schedule follow-up appointment with your PCP in the next 2 weeks. You will hear back from lab on test results in the next 2 to 4 days. If test is negative you can stop doing her quarantine. Return to ED with any shortness of breath or respiratory problems. Discharge Date/Time: 12/26/19 17:08 Coding Level of Care Code ED Motor Vehicle Clerk for Ambrocio Fwrena Exam Comprehensive
[2019-12-26 17:06] VITALS: BP 118/74; PULSE 70; RESP 18; O2SAT 98
[2019-12-28 19:26] LABS: Quest SARS-CoV-2 RNA DETECTED (NOT DETECTED)
== END 2019-12-26 17:08 | disposition home or self-care (01) ==
LOC: ER 16:21
PROVIDERS: Emergency Provider Physician Assistant; PCP Family Medicine
DX: Z20.828 Contact with and (suspected) exposure to other viral communicable diseases (principal)
CPT/HCPCS: 12345; 87635; 99281; 99282

== ENCOUNTER → 2020-01-07 12:19 | Outpatient (BNVA) | payer OTHER, SELFPAY | PROVIDERS: PCP Family Medicine; Visit Provider Nurse Practitioner Family | DX: Z11.59 Encounter for screening for other viral diseases (principal) | CPT/HCPCS: 87635 ==

== ENCOUNTER 2020-01-19 06:00 | Day surgery (SDC) | payer OTHER, SELFPAY ==
[2020-01-18 11:12] VITALS: BMI 45.1
[2020-01-19 06:23] VITALS: BP 157/105; PULSE 90; RESP 18; TEMP 35.5; O2SAT 98
--- NOTE | 2020-01-19 06:32 | W.PM.OPSUD ---
Surgery/Procedure H&P Update DATE OF PROCEDURE: January 19, 2020 DATE H&P PERFORMED: 12/22/19 H&P UPDATE INFORMATION: I have reviewed H&P completed within last 30 days, I have examined patient prior to procedure and No changes to prior documentation (That the patient was tested positive for COVID-19 before few weeks and he did not have any symptoms and was self quarantine) PREOP DIAGNOSIS: Bleeding per rectum PRIMARY INDICATION FOR PROCEDURE: The same. PLANNED PROCEDURE: Operation Date: 01/19/20 07:00 Proposed Procedures p EGD/COLON 33330 [id number] K21.9 K50.011(Not Applicable) - Alexis Salgado MD s Colonoscopy(Not Applicable) - Alexis Salgado MD
[2020-01-19] MEDS: sodium chloride 0.9% 1,000 ML 30 ML IV (06:35)
--- NOTE | 2020-01-19 06:49 | ANES.PREANE2 ---
Pre-Anesthetic Assessment Pre-Anesthetic Assessment: Height/Weight: Height 1.68 m Weight 127.006 kg Temp Pulse Resp BP Pulse Ox 96 F L 90 18 157/105 98 01/19/20 06:23 01/19/20 06:23 01/19/20 06:23 01/19/20 06:23 01/19/20 06:23 Preop Diagnosis: Bleeding per rectum Proposed Procedure: Operation Date: 01/19/20 07:00 Proposed Procedures p EGD/COLON 36400 14373 K21.9 K50.011(Not Applicable) - Alexis Salgado MD s Colonoscopy(Not Applicable) - Alexis Salgado MD Was Beta Vilma taken within 24 hours: N/A Last intake: Intake Last Liquid Date 01/18/20 Last Liquid Time 21:00 Last Solid Date 01/17/20 Last Solid Time 10:00 Last Intake: 06:50 Social: Social History: No alcohol and No tobacco Exam: Pre-Anes Outpt Exam: alert, oriented x 3 and clear to auscultation bilaterally Airway: Submandibular: WNL MP: 2 Pulmonary: Pulmonary: None reported Comments: positive covid 25 days ago CV/HEM: CV/HEM: HTN : : None reported Hepatic: Hepatic: None reported GI: GI: GERD (controlled with meds ) Metabolic: Metabolic: Morbid obesity Musc/skel: Musc/skel: None reported Neuropsych: Neuropsych: Anxiety Anesthetic Plan: ASA status: 2 Anesthesia: Anesthesia Evaluation and MAC Meds/Allergies Current Medications: Current Medications Generic Name Dose Route Start Last Admin Trade Name Freq PRN Reason Stop Dose Admin Sodium Chloride 1,000 mls @ 30 ml s/hr 01/19/20 06:20 01/19/20 06:35 Sodium Chloride 0.9% IV 01/20/20 06:19 30 mls/hr .Q24H YURI Administration PFSH Anesthesia PFSH: Medical History (Updated 01/07/20 @ 10:22 by DIAMANTE Naranjo) Anxiety Blood in stool Surgical History History of laparoscopic cholecystectomy Status post laparoscopic appendectomy Family History Denies family history of Anesthesia complication Bleeding disorder Social History Smoking and tobacco status: never smoked Second hand smoke exposure: No Alcohol intake: never Lives independently: Yes Household members: spouse Marital status: Current occupational status: unemployed History of recent travel: No Current gender identity: Male Data Anesthesia Cardiac Studies: No Data to Display
[2020-01-19 07:22] VITALS: BP 108/87; PULSE 104; RESP 16; TEMP 36.4; O2SAT 97
--- NOTE | 2020-01-19 07:32 | ANE.PACU2 ---
Inpatient post-anesthesia follow up: Vital signs: Temperature 97.5 F Pulse Rate 104 Respiratory Rate 16 Blood Pressure 108/87 Pulse Oximetry 97 Oxygen Delivery Me thod Nasal Cannula Oxygen Flow Rate 3 Fraction of Inspir ed Oxygen Hydration adequate: Yes Nausea and vomiting: No Pain level: 1 Mental status: Baseline
[2020-01-19 07:37] VITALS: BP 115/74; PULSE 77; RESP 18; TEMP 36.4; O2SAT 96
== END 2020-01-19 07:45 | disposition home or self-care (01) ==
PROVIDERS: PCP Family Medicine; Visit Provider Surgery
PROC: 0DJ08ZZ Inspection of Upper Intestinal Tract, Via Natural or Artificial Opening Endoscopic (ICD-10-PCS; CPT 43235; principal; 2020-01-19 07:00)
PROC: 0DJD8ZZ Inspection of Lower Intestinal Tract, Via Natural or Artificial Opening Endoscopic (ICD-10-PCS; CPT 45378; 2020-01-19 07:00)
DX: K62.5 Hemorrhage of anus and rectum (principal); K21.9 Gastro-esophageal reflux disease without esophagitis; K29.70 Gastritis, unspecified, without bleeding; I10 Essential (primary) hypertension; E66.01 Morbid (severe) obesity due to excess calories; Z68.42 Body mass index [BMI] 45.0-49.9, adult
CPT/HCPCS: 12345; 43235; 45378; 82274; 83630; 87493; 87506; J2001; J2704; J7030

== ENCOUNTER 2020-04-23 13:16 | Emergency (ER) | payer BC, SELFPAY ==
[2020-04-23 13:37] VITALS: BP 149/73; PULSE 97; RESP 16; TEMP 36.9; O2SAT 98; BMI 45.1
--- NOTE | 2020-04-23 14:26 | W.ED.EXTPRO ---
HPI - Extremity Problem General: Chief complaint: Extremity Injury, Upper Stated complaint: INJURY TO L SHOULDER Time Seen by Provider: 04/23/20 14:24 History of Present Illness: HPI Narrative: Patient felt a pop his left shoulder when speaking a son up and it hurts to move his arm now complains about pain radiates shoulder down to the hand this happened yesterday Complaint: extremity pain Onset (ago): day(s) Pain Consistency: constant Location: left and upper extremity Severity scale (1-10): 4 Quality: aching Radiation: distal Relieving factors: immobilization Exacerbating factors: range of motion Associated symptoms: Reports no associated symptoms; Deny chest pain, fever(s) or rash Review of Systems Const: Denies: fever(s), chills or body aches Eyes: Denies: change in vision or blurry vision ENMT: Denies: throat pain or nasal congestion Card: Denies: chest pain or dyspnea on exertion Resp: Denies: dyspnea, productive cough or non-productive cough GI: Denies: abdominal pain, nausea or vomiting : Denies: difficulty urinating Musc: Reports: extremity pain (Left shoulder radiating down to left hand hurt after picking at his son felt a pop) Skin/Breast: Denies: rash Neuro: Denies: headache(s) Psych: Denies: anxiety or depression Pedro/Lymph: Denies: easy bruising PFSH ED PFSH: Medical History (Updated 04/23/20 @ 14:21 by DIAMANTE Sullivan) Anxiety Blood in stool Surgical History History of laparoscopic cholecystectomy Status post laparoscopic appendectomy Family History Denies family history of Anesthesia complication Bleeding disorder Social History Smoking and tobacco status: never smoked Second hand smoke exposure: No Alcohol intake: never Lives independently: Yes Household members: spouse Marital status: Current occupational status: unemployed History of recent travel: No Current gender identity: Male Physical Exam Const: COMMON NORMALS: no acute distress, average body habitus and patient oriented x3 HENMT: COMMON NORMALS: normocephalic HEAD & SCALP: normal to inspection and normocephalic FACE & SINUS: normal facial exam Eye: COMMON NORMALS: conjunctivae normal GENERAL EYE: appearance normal, both eyes and all related structures CONJUNCTIVA: Yes conjunctivae normal Neck/C-Spine: COMMON NORMALS: no JVD Chest: COMMONS NORMALS: normal inspection of the chest Resp: COMMON NORMALS: normal respiratory effort and clear to auscultation bilaterally AUSCULTATION: clear to auscultation bilaterally Cardio: COMMON NORMALS: no JVD, regular rate and regular rhythm RATE: regular rate RHYTHM: regular rhythm GI: COMMON NORMALS: Normal to inspection, nondistended, normoactive bowel sounds present Extremity: COMMON NORMALS: normal to inspection NARRATIVE EXTREMITY EXAM: Positive Apley scratch test positive resistive arm test pain anterior rotator cuff area Neuro: COMMON NORMALS: patient oriented x3 Course Vital Signs: Vital signs: Vital Signs Temperature 98.4 F 04/23/20 13:37 Pulse Rate 97 04/23/20 13:37 Respiratory Rate 16 04/23/20 13:37 Blood Pressure 149/73 04/23/20 13:37 Pulse Oximetry 98 04/23/20 13:37 Discharge Plan Discharge Patient Disposition: Home Clinical Impression: Rotator cuff injury Qualifiers: Encounter type: initial encounter Laterality: left Qualified Code(s): S46.002A - Unspecified injury of muscle(s) and tendon(s) of the rotator cuff of left shoulder, initial encounter Condition: Stable Prescriptions: New Daypro 600 mg tablet 600 mg PO TID Qty: 21 RF: 0 No Action losartan 100 mg tablet 100 mg PO BEDTIME Qty: 30 RF: 5 bupropion HCl [Wellbutrin XL] 300 mg tablet extended release 24 hr 300 mg PO QDAY Qty: 30 RF: 4 omeprazole 40 mg capsule,delayed release(DR/EC) See Rx Instructions .ROUTE .COMPLEX Qty: 60 RF: 4 buspirone 7.5 mg tablet 7.5 mg PO BID Qty: 60 RF: 4 cyclobenzaprine 10 mg tablet 10 mg PO TID PRN (Reason: muscle spasm) Qty: 30 RF: 0 sucralfate [Carafate] 1 gram tablet 1 gm PO BID RF: 0 Discharge Orders: Discharge Order (Routine); Ordered 04/23/20 Ordered By: Harley Kaiser Referrals: Nitza Rodriguez MD [Primary Care Provider] - Discharge Diet: Usual diet Discharge Activity: Increase activity as tolerated Patient Instructions: Rotator Cuff Injury (ED) Activity Restrictions/Additional Instructions: Follow-up with medical provider as directed. Take medications as prescribed. Return to the ER or your medical provider if condition worsens. Please read and understand discharge instructions. If any questions ask please. Ice to the area as needed. Wear sling next 2 to 3 days. Do exercises that I described to you for the next couple weeks. Coding Level of Care Code ED Dialysis Patient Care Technician for Ambrocio Stratton
[2020-04-23] MEDS: TRAMadol 50 mg Tablet PO (14:36)
== END 2020-04-23 14:49 ==
PROVIDERS: Emergency Provider Nurse Practitioner Family; PCP Family Medicine
DX: S46.002A Unspecified injury of muscle(s) and tendon(s) of the rotator cuff of left shoulder, initial encounter (principal); X50.0XXA Overexertion from strenuous movement or load, initial encounter
CPT/HCPCS: 12345; 99281; 99283

== ENCOUNTER → 2020-04-25 10:23 | Outpatient (BNVA) | payer BC, SELFPAY | PROVIDERS: PCP Family Medicine; Visit Provider Family Medicine | DX: S46.002A Unspecified injury of muscle(s) and tendon(s) of the rotator cuff of left shoulder, initial encounter (principal); X58.XXXA Exposure to other specified factors, initial encounter | CPT/HCPCS: 73030 ==

== ENCOUNTER 2020-05-01 18:38 | Emergency (ER) | payer BC, SELFPAY ==
[2020-05-01] VITALS (7 sets, daily range): BP systolic 120–162; BP diastolic 70–110; PULSE 83–113; RESP 18–20; TEMP 36.8; O2SAT 94–99; BMI 46.7
--- NOTE | 2020-05-01 18:47 | XRR_ITS ---
PROCEDURE INFORMATION: Exam: XR Right Shoulder Exam date and time: 05/01/2020 7:28 PM Age: 29 years old Clinical indication: Injury or trauma; Fall; Blunt trauma (contusions or hematomas); Shoulder; Right TECHNIQUE: Imaging protocol: XR Right shoulder. Views: 2 or more views. COMPARISON: CR XR shoulder LT min 2V* [id number] 04/25/2020 10:26 AM FINDINGS: Bones/joints: The humeral head is dislocated anteriorly.. There is no obvious fracture. Soft tissues: Normal. XR/XR shoulder RT min 2V* [id number] IMPRESSION: Anterior dislocation of the shoulder joint.
[2020-05-01] MEDS: LORazepam 2 mg/mL INJ 1 mL 1 MG IM (19:38)
[2020-05-01] MEDS: morphine 4 mg/mL SDV 1 mL IM (19:38)
--- NOTE | 2020-05-01 19:58 | W.ED.FALL ---
HPI - Fall General: Chief Complaint: Fall Stated Complaint: FALL, SHOULDER PAIN Time Seen by Provider: 05/01/20 19:29 Source: patient and EMS Mode of arrival: EMS Limitations: no limitations History of Present Illness: HPI Narrative: 29-year-old male who fell off a porch just prior to arrival. Is roughly 4 feet and landed on his right arm notes right shoulder pain. He is unable to move his shoulder and appears to have a shoulder dislocation on exam. States pain is sharp nature rates it a 7 out of 10. Denies any other injuries. Denies hitting his head. Denies any loss consciousness. Associated symptoms-after fall: Denies abdominal pain, chest pain, headache(s) or neck pain Review of Systems Const: Denies: fever(s), chills, body aches or change in appetite Eyes: Denies: blurry vision or eye discomfort ENMT: Denies: throat pain or dental pain Card: Denies: chest pain Resp: Denies: dyspnea GI: Denies: abdominal pain, nausea, vomiting or diarrhea : Denies: dysuria Musc: Denies: neck pain or back pain Skin/Breast: Denies: rash Neuro: Denies: headache(s) Psych: Denies: depression Pedro/Lymph: Denies: easy bruising All/Imm: Denies: urticaria PFSH ED PFSH: Medical History Anxiety Blood in stool Surgical History History of laparoscopic cholecystectomy Status post laparoscopic appendectomy Family History Denies family history of Anesthesia complication Bleeding disorder Social History Smoking and tobacco status: never smoked Second hand smoke exposure: No Alcohol intake: never Lives independently: Yes Household members: spouse Marital status: Current occupational status: unemployed History of recent travel: No Current gender identity: Male Physical Exam Const: COMMON NORMALS: no acute distress, patient oriented x3 and healthy appearing HENMT: COMMON NORMALS: normocephalic and atraumatic HEAD & SCALP: normocephalic and atraumatic Eye: COMMON NORMALS: Equal, round and reactive pupils present and EOMs intact bilaterally PUPIL: Yes Equal, round and reactive pupils present Neck/C-Spine: COMMON NORMALS: full ROM and supple Chest: COMMONS NORMALS: normal inspection of the chest and normal palpation of entire chest wall Resp: COMMON NORMALS: normal respiratory effort, No retractions, No use of accessory muscles and clear to auscultation bilaterally AUSCULTATION: clear to auscultation bilaterally Cardio: COMMON NORMALS: regular rate, regular rhythm and No murmurs present (Cardio) RATE: regular rate RHYTHM: regular rhythm GI: COMMON NORMALS: Normal to inspection, nondistended, normoactive bowel sounds present, Soft to palpation, non-tender and no masses PALPATION: Yes Soft to palpation Extremity: NARRATIVE EXTREMITY EXAM: Tenderness over right shoulder with obvious dislocation. Distal pulses and sensation are intact. Neuro: COMMON NORMALS: patient oriented x3, moves all extremities and no focal motor deficits Psych: COMMON NORMALS: mental status grossly normal, Normal thought process present and cooperative THOUGHT PROCESS: Normal thought process present Skin: COMMON NORMALS: no rashes or lesions noted and no wounds GENERAL SKIN EXAM: no rashes or lesions noted Procedures Orthopedic Joint Reduction Joint #1: Time Out Performed: Yes Side: right Joint Reduction Location: shoulder Analgesia: procedural sedation Shoulder Technique Used (if applicable): traction/counter-traction Post-reduction neuro exam: intact Post-reduction vascular: intact Post Reduction X-Ray Obtained: Yes Post Reduction X-Ray Results: reduced Splint Applied: Yes Patient Tolerated Procedure: well Procedural Sedation Indication: fracture/dislocation reduction ASA Class: I Time of Last PO Intake: 14:47 Preparation: monitor worker applied, pulse oximeter, supplemental O2 applied, suction/airway equipment at bedside and IV secured IV Propofol dose (mg): 100 Patient Tolerated Procedure: well Complications: none Course Vital Signs: Vital signs: Vital Signs Temperature 98.3 F 05/01/20 19:00 Pulse Rate 106 H 05/01/20 20:40 Respiratory Rate 18 05/01/20 20:40 Blood Pressure 137/96 05/01/20 20:40 Pulse Oximetry 98 05/01/20 19:00 MDM - Fall MDM Narrative: Medical decision making narrative: Patient presents here with shoulder dislocation patient was sedated here and had successful reduction. The neuro exam after is intact. Patient placed in a sling as a shoulder immobilizer would not fit around due to his size. Patient is to follow-up with orthopedics and return if worsening. He understands agrees to plan. Imaging Data^: X-ray right shoulder: Attestation: I personally reviewed and interpreted this imaging study as follows: My impression: Right shoulder dislocation Discharge Plan Discharge Patient Disposition: Home Clinical Impression: Dislocation of shoulder region Qualifiers: Encounter type: initial encounter Laterality: right Qualified Code(s): S43.004A - Unspecified dislocation of right shoulder joint, initial encounter Condition: Stable Prescriptions: New [place] 5-325 mg tablet 1 tab PO Q6H PRN (Reason: pain) Qty: 14 RF: 0 No Action betamethasone acet,sod phos [Celestone Soluspan] 6 mg/mL suspension 6 mg IM ONCE Qty: 1 RF: 0 dexamethasone sodium phosphate 4 mg/mL solution 4 mg IM ONCE Qty: 1 RF: 0 tramadol 50 mg tablet 50 mg PO Q8H PRN (Reason: pain) Qty: 30 RF: 0 losartan 100 mg tablet 100 mg PO BEDTIME Qty: 30 RF: 5 bupropion HCl [Wellbutrin XL] 300 mg tablet extended release 24 hr 300 mg PO QDAY Qty: 30 RF: 4 omeprazole 40 mg capsule,delayed release(DR/EC) See Rx Instructions .ROUTE .COMPLEX Qty: 60 RF: 4 buspirone 7.5 mg tablet 7.5 mg PO BID Qty: 60 RF: 4 cyclobenzaprine 10 mg tablet 10 mg PO TID PRN (Reason: muscle spasm) Qty: 30 RF: 0 Daypro 600 mg tablet 600 mg PO TID Qty: 21 RF: 0 sucralfate [Carafate] 1 gram tablet 1 gm PO BID RF: 0 Discharge Orders: Discharge Order (Routine); Ordered 05/01/20 Ordered By: Nelyl Georges Referrals: Omkar Edwards MD [Physician] - 1-3 days Nitza Rodriguez MD [Primary Care Provider] - Discharge Diet: Advance as tolerated Discharge Activity: Resume usual activity Patient Instructions: Shoulder Dislocation (ED) Coding Level of Care Code ED Copper Flotation Operator for Mel Fwd Exam Comprehensive
--- NOTE | 2020-05-01 20:24 | XRR_ITS ---
PROCEDURE INFORMATION: Exam: XR Right Shoulder Exam date and time: 05/01/2020 8:38 PM Age: 29 years old Clinical indication: Abnormal findings; Abnormal imaging study of the limbs; Right shoulder; Additional info: Post redutction TECHNIQUE: Imaging protocol: XR Right shoulder. Views: 1 view. COMPARISON: CR XR shoulder RT min 2V* [id number] 05/01/2020 7:06 PM FINDINGS: Bones/joints: A single postreduction view of the right shoulder now shows normal anatomic position of the humerus in relation to the glenoid. No fractures are seen. Soft tissues: Normal. XR/XR shoulder RT 1V [id number] IMPRESSION: The humerus has been reduced to normal position. No fracture seen.
[2020-05-01] MEDS: propofol 10 mg/mL SDV 20 mL 100 MG IVP (20:30)
[2020-05-01] MEDS: morphine 4 mg/mL SDV 1 mL IVP (20:52)
[2020-05-01] MEDS: HYDROcodone-acetaminophen 5-325 mg Tablet 2 TAB PO (21:22)
--- NOTE | 2020-05-02 08:48 | DCPLANNER ---
accounting manager cpa had message to schedule a follow up appointment for patient with ortho. accounting manager cpa called the ortho clinic, spoke with Shanelle, gave clinic patients information. accounting manager cpa was told that patients information would be printed and reviewed. Clinic will call patient with appointment information.
--- NOTE | 2020-05-03 14:20 | DCPLANNER ---
Patient has a follow up appointment scheduled for Tuesday, April 28, 2020 at 10:[address] Edwards. Clinic will call patient with appointment information.
--- NOTE | 2020-05-12 11:46 | DCPLANNER ---
Patient had a follow up appointment scheduled for 05.09.20 with ortho - patient did attend appointment.
== END 2020-05-01 21:33 | disposition home or self-care (01) ==
PROVIDERS: Emergency Provider Emergency Medicine; PCP Family Medicine
DX: S43.004A Unspecified dislocation of right shoulder joint, initial encounter (principal); W17.89XA Other fall from one level to another, initial encounter
CPT/HCPCS: 12345; 23650; 73020; 73030; 96372; 96374; 96375; 99283; 99284; J2060; J2270; J2704

== ENCOUNTER → 2020-05-09 10:21 | Outpatient (BNVA) | payer BC, SELFPAY | PROVIDERS: PCP Family Medicine; Referring Provider Emergency Medicine; Visit Provider Orthopaedic Surgery | DX: M25.511 Pain in right shoulder (principal) | CPT/HCPCS: 73030 ==

== ENCOUNTER 2020-06-14 17:05 | Emergency (ER) | payer BC, SELFPAY ==
--- NOTE | 2020-06-14 17:07 | XR_ITS ---
WS: [id number] Right shoulder, 3 views, 06/14/2020 Clinical Data: pain Comparison: Right shoulder, 05/09/2020 Findings: No fractures or dislocations are seen. The AC joint is normal. The adjacent right clavicle, right sca pula and ribs are normal. The soft tissues are unremarkable. XR/XR shoulder RT min 2V* [id number] Impression: Negative right shoulder.
[2020-06-14 17:09] VITALS: BP 161/92; PULSE 103; RESP 20; TEMP 36.3; O2SAT 96; BMI 45.1
--- NOTE | 2020-06-14 17:16 | ED_ITS ---
HPI - Extremity Problem General: Chief complaint: Extremity Injury, Upper Stated complaint: R SHOULDER PAIN Time Seen by Provider: 06/14/20 17:07 Source: patient Mode of arrival: ambulatory Limitations: no limitations History of Present Illness: HPI Narrative: 29-year-old male who was seen roughly a month ago for right shoulder dislocation. He states he fell today on that shoulder and felt a pop. He states he had a pain. He states is able to move his arm but is having a sharp pain in his shoulder when he moves his arm. He states pain is improved with rest. He states pain is a 3 out of 10. Denies any other injuries when he fell. Denies hitting his head. Associated symptoms: Deny chest pain, fever(s) or rash Review of Systems Const: Denies: fever(s), chills, body aches or change in appetite Eyes: Denies: blurry vision or eye discomfort ENMT: Denies: throat pain or dental pain Card: Denies: chest pain Resp: Denies: dyspnea GI: Denies: abdominal pain, nausea, vomiting or diarrhea : Denies: dysuria Musc: Reports: joint pain Skin/Breast: Denies: rash Neuro: Denies: headache(s) Psych: Denies: depression Pedro/Lymph: Denies: easy bruising All/Imm: Denies: urticaria PFSH ED PFSH: Medical History (Updated 06/14/20 @ 17:18 by Nelly Georges MD) Anxiety Blood in stool Surgical History History of laparoscopic cholecystectomy Status post laparoscopic appendectomy Family History Denies family history of Anesthesia complication Bleeding disorder Social History Smoking and tobacco status: never smoked Second hand smoke exposure: No Alcohol intake: never Lives independently: Yes Household members: spouse Marital status: Current occupational status: unemployed History of recent travel: No Current gender identity: Male Physical Exam Const: COMMON NORMALS: no acute distress, patient oriented x3 and healthy appearing HENMT: COMMON NORMALS: normocephalic and atraumatic HEAD & SCALP: normocephalic and atraumatic Eye: COMMON NORMALS: Equal, round and reactive pupils present and EOMs intact bilaterally PUPIL: Yes Equal, round and reactive pupils present Neck/C-Spine: COMMON NORMALS: full ROM and supple Chest: COMMONS NORMALS: normal inspection of the chest and normal palpation of entire chest wall Resp: COMMON NORMALS: normal respiratory effort, No retractions, No use of accessory muscles and clear to auscultation bilaterally AUSCULTATION: clear to auscultation bilaterally Cardio: COMMON NORMALS: regular rate, regular rhythm and No murmurs present (Cardio) RATE: regular rate RHYTHM: regular rhythm GI: COMMON NORMALS: Normal to inspection, nondistended, normoactive bowel sounds present, Soft to palpation, non-tender and no masses PALPATION: Yes Soft to palpation Extremity: NARRATIVE EXTREMITY EXAM: Slight tenderness over right shoulder does have pain with movement. Does not appear to be dislocated distal pulses and sensation are intact Neuro: COMMON NORMALS: patient oriented x3, moves all extremities and no focal motor deficits Psych: COMMON NORMALS: mental status grossly normal, Normal thought process present and cooperative THOUGHT PROCESS: Normal thought process present Skin: COMMON NORMALS: no rashes or lesions noted and no wounds GENERAL SKIN EXAM: no rashes or lesions noted Course Vital Signs: Vital signs: Vital Signs Temperature 97.3 F L 06/14/20 17:09 Pulse Rate 103 H 06/14/20 17:09 Respiratory Rate 20 H 06/14/20 17:09 Blood Pressure 161/92 06/14/20 17:09 Pulse Oximetry 96 06/14/20 17:09 MDM - Extremity (Nontraumatic) MDM Narrative: Medical decision making narrative: Aaron presents here with shoulder pain after a fall. He has no signs of dislocation. His x-ray is normal. We will place him on pain meds he is to follow-up with his orthopedist or his PCP in 2 to 4 days. He is return if worsening. He understands and agrees to plan. Imaging Data^: xr r shoulder: Attestation: I personally reviewed and interpreted this imaging study as fo llows: My impression: no acute abnormality Discharge Plan Discharge Patient Disposition: Home Clinical Impression: Acute shoulder pain Qualifiers: Laterality: right Qualified Code(s): M25.511 - Pain in right shoulder Condition: Stable Prescriptions: [place] 5-325 mg tablet 1 tab PO Q6H PRN (Reason: pain) Qty: 14 RF: 0 Naprosyn 500 mg tablet 500 mg PO BID PRN (Reason: pain) Qty: 20 RF: 0 No Action betamethasone acet,sod phos [Celestone Soluspan] 6 mg/mL suspension 6 mg IM ONCE Qty: 1 RF: 0 dexamethasone sodium phosphate 4 mg/mL solution 4 mg IM ONCE Qty: 1 RF: 0 tramadol 50 mg tablet 50 mg PO Q8H PRN (Reason: pain) Qty: 30 RF: 0 losartan 100 mg tablet 100 mg PO BEDTIME Qty: 30 RF: 5 bupropion HCl [Wellbutrin XL] 300 mg tablet extended release 24 hr 300 mg PO QDAY Qty: 30 RF: 4 omeprazole 40 mg capsule,delayed release(DR/EC) See Rx Instructions .ROUTE .COMPLEX Qty: 60 RF: 4 buspirone 7.5 mg tablet 7.5 mg PO BID Qty: 60 RF: 4 cyclobenzaprine 10 mg tablet 10 mg PO TID PRN (Reason: muscle spasm) Qty: 30 RF: 0 sucralfate [Carafate] 1 gram tablet See Rx Instructions PO Q6H PRN (Reason: stomach upset) Qty: 120 RF: 0 Daypro 600 mg tablet 600 mg PO TID Qty: 21 RF: 0 [place] 5-325 mg tablet 1 tab PO Q6H PRN (Reason: pain) Qty: 14 RF: 0 Discharge Orders: Discharge ED (Routine); Ordered 06/14/20 Ordered By: Nelly Georges Referrals: Nitza Rodriguez MD [Primary Care Provider] - 1-3 days Discharge Diet: Advance as tolerated Discharge Activity: Resume usual activity Patient Instructions: Shoulder Sprain (ED) Coding Level of Care Code ED Set Up Mechanic Crown Assembly Machine for Chg Fwd Exam Comprehensive
[2020-06-14] MEDS: HYDROcodone-acetaminophen 7.5-325 mg Tablet 1 TAB PO (17:20)
== END 2020-06-14 17:44 | disposition home or self-care (01) ==
PROVIDERS: Emergency Provider Emergency Medicine; PCP Family Medicine
DX: M25.511 Pain in right shoulder (principal)
CPT/HCPCS: 12345; 73030; 99281; 99283

== ENCOUNTER 2020-06-29 20:00 | Outpatient (CLI) | payer BC, SELFPAY | END 2020-06-29 20:01 | disposition home or self-care (01) | LOC: SLEEP 06-30 09:36 | PROVIDERS: PCP Family Medicine; Visit Provider Family Medicine | DX: G47.33 Obstructive sleep apnea (adult) (pediatric) (principal) | CPT/HCPCS: 95811 ==

== ENCOUNTER 2020-12-17 14:42 | Emergency (ER) | payer BC, SELFPAY ==
[2020-12-17 14:49] VITALS: BP 178/107; PULSE 98; RESP 16; TEMP 36.8; O2SAT 98; BMI 50.0
[2020-12-17 14:53] VITALS: O2SAT 98
--- NOTE | 2020-12-17 15:02 | ED_ITS ---
HPI - Abdominal Pain General: Chief Complaint: Abdominal Pain Stated Complaint: head pain, abdomen pain Time Seen by Provider: 12/17/20 14:51 History of Present Illness: HPI narrative: Patient is a 30-year-old male comes to the ED with abdominal pain. Patient says symptoms started 3 days ago. Patient also has nausea, vomiting and diarrhea as well. He reports also having some blood in his stool as well. Patient says he has had an episode like this before in the past and CT findings suggested possible Crohn's disease. His abdominal pain is generalized all in the upper abdomen. He rates his pain an 8 out of 10. Associated Symptoms: Reports diarrhea, hematochezia, nausea and vomiting; Denies chills, constipation, dysuria, fever(s) and hematuria Review of Systems Const: Denies: fever(s), chills or fatigue Eyes: Denies: change in vision or eye discomfort ENMT: Denies: throat pain, odynophagia, nasal discharge or nasal congestion Card: Denies: chest pain, palpitations, edema, swelling of feet/ankles, dyspnea on exertion or orthopnea Resp: Denies: dyspnea, productive cough or non-productive cough GI: Reports: abdominal pain, nausea, vomiting, diarrhea and hematochezia; Denies: constipation : Denies: flank pain, difficulty urinating, dysuria or hematuria Musc: Denies: neck pain, back pain or extremity swelling Skin/Breast: Denies: rash or new lesions Neuro: Denies: headache(s), numbness in extremities or weakness in extremities PFS ED PFSH: Medical History Anxiety Blood in stool Surgical History History of laparoscopic cholecystectomy Status post laparoscopic appendectomy Family History Denies family history of Anesthesia complication Bleeding disorder Social History Smoking and tobacco status: never smoked Second hand smoke exposure: No Alcohol intake: never Lives independently: Yes Household members: spouse Marital status: Current occupational status: unemployed History of recent travel: No Current gender identity: Male Physical Exam Const: COMMON NORMALS: patient oriented x3 and alert GENERAL APPEARANCE: cooperative; not comfortable (Uncomfortable due to pain) NUTRITIONAL APPEARANCE: obese HENMT: COMMON NORMALS: normocephalic HEAD & SCALP: normocephalic MOUTH: Normal oral and palatal mucosa present THROAT: posterior oropharynx normal and uvula midline Neck/C-Spine: COMMON NORMALS: supple GENERAL: Yes normal visual inspection Resp: COMMON NORMALS: normal respiratory effort, No retractions, No use of accessory muscles and clear to auscultation bilaterally AUSCULTATION: clear to auscultation bilaterally Cardio: COMMON NORMALS: regular rate, regular rhythm, S1 normal heart sound p resent, S2 normal heart sound present, No gallops present (Cardio), No clicks present (Cardio), No murmurs present (Cardio) and Peripheral pulses 2+ throughout RATE: regular rate RHYTHM: regular rhythm HEART SOUNDS: S1 normal heart sound present and S2 normal heart sound present PERIPHERAL PULSES: Peripheral pulses 2+ throughout GI: COMMON NORMALS: Normal to inspection, nondistended, normoactive bowel sounds present, Soft to palpation and no masses INSPECTION: Yes central obesity PALPATION: Yes Soft to palpation and Yes Tenderness to palpation present (GI) (generalized bilateral upper abdominal tenderness. No point tenderness ) Details: LUQ and RUQ : COMMON NORMALS: Yes no CVA tenderness BLADDER/KIDNEY EXAM: Yes no CVA tenderness Back/Pelvis: COMMON NORMALS: no CVA tenderness Extremity: COMMON NORMALS: normal to inspection Neuro: COMMON NORMALS: patient oriented x3 SENSORIUM/ORIENTATION: Yes alert GAIT: Yes Normal gait present Skin: GENERAL SKIN EXAM: dry skin Course Reevaluation(s): Reevaluation #1: After patient got IV fluids, Zofran and some Dilaudid his symptoms were controlled. Vital Signs: Vital signs: Vital Signs Temperature 98.2 F 12/17/20 14:49 Pulse Rate 94 12/17/20 18:03 Respiratory Rate 18 12/17/20 17:43 Blood Pressure 159/108 12/17/20 18:03 Pulse Oximetry 97 12/17/20 18:03 MDM - Abdominal Pain MDM Narrative: Medical decision making narrative: Patient is a 30-year-old male comes to the ED with abdominal pain, nausea vomiting and diarrhea. Upon exam patient has some mild generalized upper abdominal tenderness. Rest of exam is benign. All labs are normal. CT of abdomen pelvis showed no acute findings. Patient symptoms were controlled with IV meds and fluids. Patient was diagnosed with viral gastroenteritis and discharged home. I sent patient home with a prescription for Zofran and dicyclomine. Follow-up with PCP in 7 to 10 days reevaluation. Return to ED precautions given. Patient understood agree with plan. Lab Data: Attestation: I reviewed the patient's lab results. Labs: Lab Results 12/17/20 12/17/20 12/17/20 Range/Units 15:36 15:48 15:48 WBC 7.0 (4.0-10.0) 10^3/ uL RBC 6.01 H (4.1-5.3) 10^6/u L Hgb 17.5 H (11.7-16.6) g/dL Hct 49.9 (42.0-52.0) % MCV 83.0 (80-94) fL MCH 29.1 (28.0-34.0) pg MCHC 35.1 (30.0-36.0) g/dL RDW 12.1 (12.1-15.1) % Plt Count 281 (130-400) 10^3/c mm MPV 10.0 (7.4-10.4) fL Neut % (Auto) 64.7 % Lymph % (Auto) 22.3 % Upson % (Auto) 9.7 % Eos % (Auto) 2.1 % Baso % (Auto) 0.9 % Neut # (Auto) 4.54 (1.8-7.7) 10^3/u L Lymph # (Auto) 1.6 (0.8-4.8) 10^3/u L Upson # (Auto) 0.7 (0.2-0.9) 10^3/u L Eos # (Auto) 0.2 (0.0-0.8) 10^3/u L Baso # (Auto) 0.1 (0.0-0.1) 10^3/u L Nucleated RBC % (a uto) 0 % Nucleated RBCs # 0.0 /100WBC Sodium 135 L (136-145) mmol/L Potassium 4.1 (3.5-5.1) mmol/L Chloride 101 (98-107) mmol/L Carbon Dioxide 25 (22-29) mmol/L Anion Gap 13.1 (5-19) BUN 15 (6-20) mg/dL Creatinine 1.1 (0.7-1.2) mg/dL GFR Calculation 79.1 L (90-130) mL/min Glucose 109 (65-115) mg/dL Calculated Osmolal ity 281 L (285-295) mOsm/k g Calcium 8.6 (8.5-10.5) mg/dL Total Bilirubin 0.4 (0.15-1.2) mg/dL AST 39 (0-40) U/L ALT 45 H (0-41) U/L Alkaline Phosphata se 116 (40-130) IU/L C-Reactive Protein 7.7 H (0.0-4.9) mg/L Total Protein 6.9 (6.6-8.7) g/dL Albumin 4.1 (3.5-5.2) g/dL Globulin 2.8 (1.3-4.6) g/dL Lipase 30 (13-60) U/L Urine Color Yellow (Yellow) Urine Appearance Clear (CLEAR) Urine pH 7 (5-7) Ur Specific Gravit y 1.015 (1.005-1.030) Urine Protein Neg (Negative) Urine Glucose (UA) Norm (Normal) Urine Ketones Negative (Negative) Urine Blood Neg (Negative) Urine Nitrate Negative (Negative) Urine Bilirubin Neg (Negative) Urine Urobilinogen 4 H (Negative) mg/dL Ur Leukocyte Lily ase Negative (Negative) Urine RBC None (0-2) /hpf Urine WBC Rare (0-5) /hpf Ur Squamous Epith Cells 0-4 H (0-5) /hpf Amorphous Sediment Not Reportable Urine Bacteria Trace (NONE) /hpf Imaging Data ^: CT Abd/Pel: Attestation: I personally reviewed and interpreted this imaging study as follows: Radiologist's impression: [address] [address] [address] Scan Report Signed Patient: Aaron Cortes Unit #: [id number] : 1990 Age/Sex: 30 / M ADM Date: 12/17/20 Loc: ER Room/Bed: Attending Dr: Ordering Provider/Ordering MD: Gustabo Negrete Date of Service: 06/06/21 Procedure(s): CT abdomen pelvis w con* [id number] Accession Number(s): [id number] Report Number: [id number] PROCEDURE INFORMATION: Exam: CT Abdomen And Pelvis With Contrast Exam date and time: 12/17/2020 3:34 PM Age: 30 years old Clinical indication: Abdominal pain; Epigastric; Prior surgery; Surgery date: 6+ months; Surgery type: Gb, appy; Patient HX: C/O upper abd pain w n/v/d x 3 days; Additional info: Abdom pain, n/v/diarrhea TECHNIQUE: Imaging protocol: Computed tomography of the abdomen and pelvis with contrast. Radiation optimization: All CT scans at this facility use at least one of these dose optimization techniques: automated exposure control; mA and/or kV adjustment per patient size (includes targeted exams where dose is matched to clinical indication); or iterative reconstruction. Contrast material: OMNI 300; Contrast volume: 95 ml; Contrast route: INTRAVENOUS (IV); COMPARISON: CT abdomen pelvis w con* [id number] 12/20/2019 11:22 AM RADIATION DOSE METRICS: Total DLP (mGy-cm): 1875.21 FINDINGS: Liver: Normal. No mass. Gallbladder and bile ducts: Cholecystectomy. Nondilated biliary system. Pancreas: Normal. No ductal dilation. Spleen: Normal. No splenomegaly. Adrenal glands: Normal. No mass. Kidneys and ureters: Normal. No hydronephrosis. Stomach and bowel: Unremarkable. No obstruction. No mucosal thickening. Appendix: In appendectomy is suspected. Intraperitoneal space: Unremarkable. No free air. No significant fluid collection. Vasculature: Unremarkable. No abdominal aortic aneurysm. Lymph nodes: Unremarkable. No enlarged lymph nodes. Urinary bladder: Unremarkable as visualized. Reproductive: Unremarkable as visualized. Bones/joints: Unremarkable. No acute fracture. Soft tissues: Unremarkable. CT/CT abdomen pelvis w con* [id number] IMPRESSION: 1. Negative for acute pathology in the abdomen or pelvis. 2. No significant changes from comparison imaging. Radiation Dose CTDIVOL = (mGy): DLP = 1875.21 (mGy-cm) Dictated By: Kiran Enciso Signed By: Kiran Enciso Signed Date/Time: 12/17/201637 DD/ 35 Discharge Plan Discharge Patient Disposition: Home Clinical Impression: Viral gastroenteritis Condition: Stable Prescriptions: New ondansetron 4 mg tablet,disintegrating 4 mg PO Q8H Qty: 15 RF: 0 dicyclomine 20 mg tablet 20 mg PO QID PRN (Reason: abdominal pain) Qty: 30 RF: 0 No Action azithromycin 250 mg tablet See Rx Instructions PO .COMPLEX Qty: 6 RF: 0 benzonatate [Tessalon Perles] 100 mg capsule 100 mg PO TID PRN (Reason: cough) Qty: 20 RF: 0 losartan 100 mg tablet 100 mg PO BEDTIME Qty: 30 RF: 5 bupropion HCl [Wellbutrin XL] 300 mg tablet extended release 24 hr 300 mg PO QDAY Qty: 30 RF: 4 omeprazole 40 mg capsule,delayed release(DR/EC) See Rx Instructions .ROUTE .COMPLEX Qty: 60 RF: 4 buspirone 7.5 mg tablet 7.5 mg PO BID Qty: 60 RF: 4 cyclobenzaprine 10 mg tablet 10 mg PO TID PRN (Reason: muscle spasm) Qty: 30 RF: 0 sucralfate [Carafate] 1 gram tablet See Rx Instructions PO Q6H PRN (Reason: stomach upset) Qty: 120 RF: 0 Daypro 600 mg tablet 600 mg PO TID Qty: 21 RF: 0 Naprosyn 500 mg tablet 500 mg PO BID PRN (Reason: pain) Qty: 20 RF: 0 Discharge Orders: Discharge ED (Routine); Ordered 12/17/20 Ordered By: Gustabo Negrete Referrals: Nitza Rodriguez MD [Primary Care Provider] - Discharge Diet: Advance as tolerated Discharge Activity: Increase activity as tolerated Patient Instructions: Gastroenteritis (ED) Activity Restrictions/Additional Instructions: Follow-up with medical provider as directed in 5 to 7 days for reevaluation. Drink plenty of fluids and stay hydrated. Start with clear liquid diet and slowly advance as tolerated. Take medications as prescribed. Return to the ER or your medical provider if condition worsens. Please read and understand discharge instructions. Thank you for choosing [facility] for your healthcare needs today. Arsen roberts realize this is an emergency room and that we are providing you with a medical screening exam and this may not be complete and all inclusive of all the testing and or work up that you may need to determine your ailment or severity of your illness. It is very important that you follow up as instructed or that you return to the Emergency Department should you have concerns or if your condition changes or worsens in any way. 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
--- NOTE | 2020-12-17 15:24 | CTR_ITS ---
PROCEDURE INFORMATION: Exam: CT Abdomen And Pelvis With Contrast Exam date and time: 12/17/2020 3:34 PM Age: 30 years old Clinical indication: Abdominal pain; Epigastric; Prior surgery; Surgery date: 6+ months; Surgery type: Gb, appy; Patient HX: C/O upper abd pain w n/v/d x 3 days; Additional info: Abdom pain, n/v/diarrhea TECHNIQUE: Imaging protocol: Computed tomography of the abdomen and pelvis with contrast. Radiation optimization: All CT scans at this facility use at least one of these dose optimization techniques: automated exposure control; mA and/or kV adjustment per patient size (includes targeted exams where dose is matched to clinical indication); or iterative reconstruction. Contrast material: OMNI 300; Contrast volume: 95 ml; Contrast route: INTRAVENOUS (IV); COMPARISON: CT abdomen pelvis w con* [id number] 12/20/2019 11:22 AM RADIATION DOSE METRICS: Total DLP (mGy-cm): 1875.21 FINDINGS: Liver: Normal. No mass. Gallbladder and bile ducts: Cholecystectomy. Nondilated biliary system. Pancreas: Normal. No ductal dilation. Spleen: Normal. No splenomegaly. Adrenal glands: Normal. No mass. Kidneys and ureters: Normal. No hydronephrosis. Stomach and bowel: Unremarkable. No obstruction. No mucosal thickening. Appendix: In appendectomy is suspected. Intraperitoneal space: Unremarkable. No free air. No significant fluid collection. Vasculature: Unremarkable. No abdominal aortic aneurysm. Lymph nodes: Unremarkable. No enlarged lymph nodes. Urinary bladder: Unremarkable as visualized. Reproductive: Unremarkable as visualized. Bones/joints: Unremarkable. No acute fracture. Soft tissues: Unremarkable. CT/CT abdomen pelvis w con* [id number] IMPRESSION: 1. Negative for acute pathology in the abdomen or pelvis. 2. No significant changes from comparison imaging. Radiation Dose CTDIVOL = (mGy): DLP = 1875.21 (mGy-cm)
[2020-12-17] MEDS: iohexol 300 mg/mL 100 mL Btl IV (15:56)
[2020-12-17] MEDS: ondansetron 2 mg/ML SDV 2 mL 4 MG IVP (16:01)
[2020-12-17] MEDS: HYDROmorphone 1 mg/mL INJ 1 mL IVP ×2 (16:01→17:43)
[2020-12-17] MEDS: sodium chloride 0.9% 1,000 ML 999 ML IV (16:02)
[2020-12-17 16:06] VITALS: BP 124/90; PULSE 99; O2SAT 96
[2020-12-17 16:08] LABS: Basophils # 0.1 10^3/uL (0.0-0.1); Basophils % 0.9 %; Eosinophils # 0.2 10^3/uL (0.0-0.8); Eosinophils % 2.1 %; Hematocrit 49.9 % (42.0-52.0); Hemoglobin 17.5 g/dL (11.7-16.6); Lymphocytes # 1.6 10^3/uL (0.8-4.8); Lymphocytes % 22.3 %; Mean Corpuscular HGB Conc 35.1 g/dL (30.0-36.0); Mean Corpuscular Hemoglobin 29.1 pg (28.0-34.0); Monocytes # 0.7 10^3/uL (0.2-0.9); Monocytes % 9.7 %; Neutrophils # 4.54 10^3/uL (1.8-7.7); Neutrophils % 64.7 %; Nucleated Red Blood Cells % 0 %; Platelet Count 281 10^3/cmm (130-400); Red Blood Count 6.01 10^6/uL (4.1-5.3); Red Cell Distribution Width 12.1 % (12.1-15.1)
[2020-12-17 16:12] LABS: Glucose Urine UA Norm (Normal); Protein Urine Neg (Negative); Specific Gravity, Urine 1.015 (1.005-1.030); Urine Appearance Clear (CLEAR); Urine Color Yellow (Yellow); pH Urine 7 (5-7)
[2020-12-17 16:13] LABS: Add Urine Culture? No; Bacteria Urine TRACE /hpf; Bilirubin Urine Neg (Negative); Blood Urine Neg (Negative); Ketones Urine Negative (Negative); Leukocyte Esterase Urine Negative (Negative); Nitrate Urine Negative (Negative); Squamous Epithelial Cell Urine 0-4 /hpf (0-5); Urobilinogen Urine 4 mg/dL (Negative); WBC Urine RARE /hpf (0-5)
[2020-12-17 16:18] LABS: Alanine Aminotransferase 45 U/L (0-41); Albumin Level 4.1 g/dL (3.5-5.2); Alkaline Phosphatase 116 IU/L (40-130); Anion Gap 13.1 (5-19); Aspartate Amino Transferase 39 U/L (0-40); Blood Urea Nitrogen 15 mg/dL (6-20); C Reactive Protein 7.7 mg/L (0.0-4.9); Calcium 8.6 mg/dL (8.5-10.5); Carbon Dioxide 25 mmol/L (22-29); Chloride 101 mmol/L (98-107); Globulin 2.8 g/dL (1.3-4.6); Glomerular Filtration Rate 79.1 mL/min (90-130); Glucose 109 mg/dL (65-115); Lipase 30 U/L (13-60); Osmolality Calculated 281 mOsm/kg (285-295); Potassium 4.1 mmol/L (3.5-5.1); Sodium 135 mmol/L (136-145); Total Bilirubin 0.4 mg/dL (0.15-1.2); Total Protein 6.9 g/dL (6.6-8.7)
[2020-12-17] MEDS: diphenhydrAMINE 50 mg/mL SDV 1mL 25 MG IVP (17:42)
[2020-12-17] MEDS: lidocaine 2% viscous 15 ML, aluminum-mag hydrox-simethicon 30 ML, sucralfate oral liq 1 GM PO (17:42)
[2020-12-17 17:43] VITALS: RESP 18
[2020-12-17 18:03] VITALS: BP 159/108; PULSE 94; O2SAT 97
== END 2020-12-17 18:05 | disposition home or self-care (01) ==
PROVIDERS: Emergency Provider Physician Assistant; PCP Family Medicine
DX: A08.4 Viral intestinal infection, unspecified (principal)
CPT/HCPCS: 74177; 80053; 81001; 83690; 85025; 86140; 96361; 96374; 96375; 96376; 99284; J1170; J1200; J2405; J2930; J7030; Q9967

== ENCOUNTER 2020-12-20 12:13 | Emergency (ER) | payer BC, SELFPAY ==
[2020-12-20 12:40] VITALS: BP 163/106; PULSE 100; RESP 18; TEMP 37; O2SAT 96; BMI 50.0
--- NOTE | 2020-12-20 14:21 | ED_ITS ---
HPI - Abdominal Pain General: Chief Complaint: Abdominal Pain Stated Complaint: abdominal pain Time Seen by Provider: 12/20/20 14:18 History of Present Illness: HPI narrative: 30-year-old male presents to the emergency room from home. States he was recently here reviewing the chart was 2 days ago. He was thought to have gastritis at that time feels like he is not getting any better is concerned he may have something else going on. He told he has inflammatory bowel disease but does not from either his Crohn's or ulcerative colitis. He is not having any bloody diarrhea is not any hematochezia melena hematemesis coffee-ground emesis denies dysuria urgency or frequency. Is not having any chest pain. He previously had a cholecystectomy and an appendectomy. MD elicited complaint: abdominal pain Onset (ago): day(s) Pain Consistency: intermittent Location: Epigastric Severity: moderate Quality: cramping Radiation: none Migration to: no migration Exacerbating factors: nothing Relieving factors: nothing Associated Symptoms: Reports GI cramping, nausea and poor appetite; Denies anorexia, belching, bloating, change in bowel habits, change in stool character, chills, coffee ground emesis, constipation, diarrhea, dyspepsia, dysuria, excessive flatus, fever(s), heartburn, hematochezia, hematuria, hematemesis, fecal incontinence, loose stools, melena, syncope and vomiting Review of Systems Const: Denies: fever(s) or chills ENMT: Denies: throat pain, ear or mastoid pain, nasal discharge or nasal congestion Card: Denies: syncope Resp: Denies: dyspnea, productive cough or non-productive cough GI: Reports: nausea and GI cramping; Denies: vomiting, hematemesis, coffee ground emesis, heartburn, diarrhea, constipation, bloating, belching, excessive flatus, fecal incontinence, change in bowel habits, change in stool character, hematochezia or melena : Denies: dysuria or hematuria Skin/Breast: Denies: rash or pruritus PFSH ED PFSH: Medical History (Updated 12/20/20 @ 17:59 by Piero Sahni DO) Anxiety Blood in stool Surgical History History of laparoscopic cholecystectomy Status post laparoscopic appendectomy Family History Denies family history of Anesthesia complication Bleeding disorder Social History Smoking and tobacco status: never smoked Second hand smoke exposure: No Alcohol intake: never Lives independently: Yes Household members: spouse Marital status: Current occupational status: unemployed History of recent travel: No Current gender identity: Male Physical Exam Const: COMMON NORMALS: no acute distress GENERAL APPEARANCE: cooperative and comfortable ORIENTATION/CONSCIOUSNESS: Yes awake, Yes oriented to person, Yes oriented to place and Yes oriented to time HENMT: COMMON NORMALS: normocephalic, atraumatic, hearing grossly normal bilaterally and external ears normal HEAD & SCALP: normocephalic and atraumatic EXTERNAL EAR: Yes external ears normal Neck/C-Spine: COMMON NORMALS: no JVD Resp: COMMON NORMALS: normal respiratory effort, No retractions, No use of ac cessory muscles and clear to auscultation bilaterally AUSCULTATION: clear to auscultation bilaterally Cardio: COMMON NORMALS: no JVD, regular rate, regular rhythm and No murmurs present (Cardio) RATE: regular rate RHYTHM: regular rhythm GI: COMMON NORMALS: Soft to palpation and No hepatosplenomegaly present AUSCULTATION: Yes normoactive bowel sounds PALPATION: Yes Soft to palpation, No Tenderness to palpation present (GI), No Guarding due to palpation present (GI) and Yes No hepatosplenomegaly present Extremity: COMMON NORMALS: normal to inspection, capillary refill normal, no clubbing, cyanosis or edema, no calf tenderness and no pedal edema Neuro: SENSORIUM/ORIENTATION: Yes oriented to person, Yes oriented to place and Yes oriented to time Skin: COMMON NORMALS: no rashes or lesions noted GENERAL SKIN EXAM: no rashes or lesions noted Course Vital Signs: Vital signs: Vital Signs Temperature 98.6 F 12/20/20 12:40 Pulse Rate 89 12/20/20 18:21 Respiratory Rate 18 12/20/20 18:21 Blood Pressure 159/101 12/20/20 18:21 Pulse Oximetry 96 12/20/20 18:21 MDM - Abdominal Pain MDM Narrative: Medical decision making narrative: Patient improved some wound. He has had fluids emergency room on a PPI given promethazine to use as needed if this persists he will need EGD reviewed with him return if has further problems otherwise follow-up with primary care. Lab Data: Labs: Lab Results 12/20/20 12/20/20 12/20/20 Range/Units 14:57 14:57 15:00 WBC 12.7 H (4.0-10.0) 10^3/ uL RBC 6.58 H (4.1-5.3) 10^6/u L Hgb 18.9 H (11.7-16.6) g/dL Hct 56.6 H (42.0-52.0) % MCV 86.0 (80-94) fL MCH 28.7 (28.0-34.0) pg MCHC 33.4 (30.0-36.0) g/dL RDW 19.4 H (12.1-15.1) % Plt Count 292 (130-400) 10^3/c mm MPV 9.6 (7.4-10.4) fL Neut % (Auto) 73.1 % Lymph % (Auto) 15.6 % Bay % (Auto) 8.2 % Eos % (Auto) 1.5 % Baso % (Auto) 0.7 % Neut # (Auto) 9.30 H (1.8-7.7) 10^3/u L Lymph # (Auto) 2.0 (0.8-4.8) 10^3/u L Bay # (Auto) 1.1 H (0.2-0.9) 10^3/u L Eos # (Auto) 0.2 (0.0-0.8) 10^3/u L Baso # (Auto) 0.1 (0.0-0.1) 10^3/u L Nucleated RBC % (a uto) 0 % Nucleated RBCs # 0.0 /100WBC Sodium Cancelled Potassium Cancelled Chloride Cancelled Carbon Dioxide Cancelled Anion Gap Cancelled BUN Cancelled Creatinine Cancelled GFR Calculation Cancelled Glucose Cancelled Calculated Osmolal ity Cancelled Calcium Cancelled Total Bilirubin Cancelled AST Cancelled ALT Cancelled Alkaline Phosphata se Cancelled Total Protein Cancelled Albumin Cancelled Globulin Cancelled Lipase Cancelled Urine Color Yellow (Yellow) Urine Appearance Clear (CLEAR) Urine pH 5 (5-7) Ur Specific Gravit y 1.015 (1.005-1.030) Urine Protein Neg (Negative) Urine Glucose (UA) Norm (Normal) Urine Ketones Negative (Negative) Urine Blood Neg (Negative) Urine Nitrate Negative (Negative) Urine Bilirubin Neg (Negative) Urine Urobilinogen Norm (Negative) mg/dL Ur Leukocyte Lily ase Negative (Negative) 12/20/20 12/20/20 Range/Units 16:10 17:27 WBC (4.0-10.0) 10^3/ uL RBC (4.1-5.3) 10^6/u L Hgb (11.7-16.6) g/dL Hct (42.0-52.0) % MCV (80-94) fL MCH (28.0-34.0) pg MCHC (30.0-36.0) g/dL RDW (12.1-15.1) % Plt Count (130-400) 10^3/c mm MPV (7.4-10.4) fL Neut % (Auto) % Lymph % (Auto) % Bay % (Auto) % Eos % (Auto) % Baso % (Auto) % Neut # (Auto) (1.8-7.7) 10^3/u L Lymph # (Auto) (0.8-4.8) 10^3/u L Bay # (Auto) (0.2-0.9) 10^3/u L Eos # (Auto) (0.0-0.8) 10^3/u L Baso # (Auto) (0.0-0.1) 10^3/u L Nucleated RBC % (a uto) % Nucleated RBCs # /100WBC Sodium Cancelled 138 Potassium Cancelled 3.9 Chloride Cancelled 100 Carbon Dioxide Cancelled 26 Anion Gap Cancelled 15.9 BUN Cancelled 13 Creatinine Cancelled 0.7 GFR Calculation Cancelled 133.3 H Glucose Cancelled 80 Calculated Osmolal ity Cancelled 285 Calcium Cancelled 8.7 Total Bilirubin Cancelled 0.5 AST Cancelled 20 ALT Cancelled 34 Alkaline Phosphata se Cancelled 113 Total Protein Cancelled 6.3 L Albumin Cancelled 4.2 Globulin Cancelled 2.1 Lipase Cancelled 38 Urine Color (Yellow) Urine Appearance (CLEAR) Urine pH (5-7) Ur Specific Gravit y (1.005-1.030) Urine Protein (Negative) Urine Glucose (UA) (Normal) Urine Ketones (Negative) Urine Blood (Negative) Urine Nitrate (Negative) Urine Bilirubin (Negative) Urine Urobilinogen (Negative) mg/dL Ur Leukocyte Lily ase (Negative) Discharge Plan Discharge Patient Disposition: Home Clinical Impression: Abdominal pain Condition: Stable Prescriptions: New pantoprazole 40 mg tablet,delayed release (DR/EC) 40 mg PO DAILY 56 Days RF: 0 promethazine 25 mg tablet 25 mg PO Q6H PRN (Reason: nausea and vomiting) Qty: 30 RF: 0 No Action azithromycin 250 mg tablet See Rx Instructions PO .COMPLEX Qty: 6 RF: 0 benzonatate [Tessalon Perles] 100 mg capsule 100 mg PO TID PRN (Reason: cough) Qty: 20 RF: 0 losartan 100 mg tablet 100 mg PO BEDTIME Qty: 30 RF: 5 bupropion HCl [Wellbutrin XL] 300 mg tablet extended release 24 hr 300 mg PO QDAY Qty: 30 RF: 4 omeprazole 40 mg capsule,delayed release(DR/EC) See Rx Instructions .ROUTE .COMPLEX Qty: 60 RF: 4 buspirone 7.5 mg tablet 7.5 mg PO BID Qty: 60 RF: 4 cyclobenzaprine 10 mg tablet 10 mg PO TID PRN (Reason: muscle spasm) Qty: 30 RF: 0 sucralfate [Carafate] 1 gram tablet See Rx Instructions PO Q6H PRN (Reason: stomach upset) Qty: 120 RF: 0 Daypro 600 mg tablet 600 mg PO TID Qty: 21 RF: 0 Naprosyn 500 mg tablet 500 mg PO BID PRN (Reason: pain) Qty: 20 RF: 0 ondansetron 4 mg tablet,disintegrating 4 mg PO Q8H Qty: 15 RF: 0 dicyclomine 20 mg tablet 20 mg PO QID PRN (Reason: abdominal pain) Qty: 30 RF: 0 Discharge Orders: Discharge ED (Routine); Ordered 12/20/20 Ordered By: Piero Sahni Referrals: Nitza Rodriguez MD [Primary Care Provider] - Discharge Diet: Usual diet Discharge Activity: Increase activity as tolerated Patient Instructions: Abdominal Pain (ED), Opioid Safety Activity Restrictions/Additional Instructions: If symptoms persist follow-up with your PCP to be evaluated for a's and endoscopy of your stomach. Coding Level of Care Code ED Transportation Engineering Technician for Chg Fwd Exam Comprehensive
[2020-12-20] MEDS: sodium chloride 0.9% 1,000 ML 999 ML IV ×2 (15:00→16:50)
[2020-12-20] MEDS: ondansetron 2 mg/ML SDV 2 mL 4 MG IVP (15:02)
[2020-12-20 15:09] LABS: Basophils # 0.1 10^3/uL (0.0-0.1); Basophils % 0.7 %; Eosinophils # 0.2 10^3/uL (0.0-0.8); Eosinophils % 1.5 %; Hematocrit 56.6 % (42.0-52.0); Hemoglobin 18.9 g/dL (11.7-16.6); Lymphocytes % 15.6 %; Mean Corpuscular HGB Conc 33.4 g/dL (30.0-36.0); Mean Corpuscular Hemoglobin 28.7 pg (28.0-34.0); Mean Platelet Volume 9.6 fL (7.4-10.4); Monocytes # 1.1 10^3/uL (0.2-0.9); Monocytes % 8.2 %; Neutrophils % 73.1 %; Nucleated Red Blood Cells % 0 %; Platelet Count 292 10^3/cmm (130-400); Red Blood Count 6.58 10^6/uL (4.1-5.3); Red Cell Distribution Width 19.4 % (12.1-15.1); White Blood Count 12.7 10^3/uL (4.0-10.0)
[2020-12-20 15:31] LABS: Add Urine Microscopic? NO; Charge for UA Resulting for Rev
[2020-12-20 15:41] LABS: Bilirubin Urine Neg (Negative); Blood Urine Neg (Negative); Glucose Urine UA Norm (Normal); Ketones Urine Negative (Negative); Leukocyte Esterase Urine Negative (Negative); Nitrate Urine Negative (Negative); Protein Urine Neg (Negative); Specific Gravity, Urine 1.015 (1.005-1.030); Urine Appearance Clear (CLEAR); Urine Color Yellow (Yellow); Urobilinogen Urine Norm (Negative); pH Urine 5 (5-7)
[2020-12-20] MEDS: acetaminophen 325 mg Tablet 650 MG PO (17:14)
[2020-12-20 17:54] LABS: Alanine Aminotransferase 34 U/L (0-41); Albumin Level 4.2 g/dL (3.5-5.2); Alkaline Phosphatase 113 IU/L (40-130); Anion Gap 15.9 (5-19); Aspartate Amino Transferase 20 U/L (0-40); Blood Urea Nitrogen 13 mg/dL (6-20); Calcium 8.7 mg/dL (8.5-10.5); Carbon Dioxide 26 mmol/L (22-29); Chloride 100 mmol/L (98-107); Globulin 2.1 g/dL (1.3-4.6); Glomerular Filtration Rate 133.3 mL/min (90-130); Glucose 80 mg/dL (65-115); Lipase 38 U/L (13-60); Osmolality Calculated 285 mOsm/kg (285-295); Potassium 3.9 mmol/L (3.5-5.1); Sodium 138 mmol/L (136-145); Total Bilirubin 0.5 mg/dL (0.15-1.2); Total Protein 6.3 g/dL (6.6-8.7)
[2020-12-20 18:21] VITALS: BP 159/101; PULSE 89; RESP 18; O2SAT 96
== END 2020-12-20 18:23 | disposition home or self-care (01) ==
PROVIDERS: Physician Assistant; Emergency Provider Family Medicine; PCP Family Medicine
DX: R10.9 Unspecified abdominal pain (principal)
CPT/HCPCS: 36415; 80053; 81003; 83690; 85025; 96361; 96374; 99283; J2405; J7030

== ENCOUNTER → 2021-12-11 11:52 | Outpatient (BNVA) | payer SELFPAY | PROVIDERS: PCP Family Medicine; Visit Provider Nurse Practitioner Family | DX: I10 Essential (primary) hypertension (principal); F41.9 Anxiety disorder, unspecified; E66.9 Obesity, unspecified; J30.2 Other seasonal allergic rhinitis; R05.9 Cough, unspecified | CPT/HCPCS: 80053; 80061 ==

== ENCOUNTER → 2022-02-26 18:33 | Outpatient (BNVA) | payer OTHER, SELFPAY | PROVIDERS: PCP Family Medicine; Visit Provider Emergency Medicine | DX: M25.511 Pain in right shoulder (principal) | CPT/HCPCS: 73030 ==

== ENCOUNTER → 2022-05-02 11:22 | Outpatient (BNVA) | payer OTHER, SELFPAY | PROVIDERS: PCP Family Medicine; Visit Provider Nurse Practitioner Family | DX: E66.01 Morbid (severe) obesity due to excess calories (principal); G56.02 Carpal tunnel syndrome, left upper limb; G56.01 Carpal tunnel syndrome, right upper limb; I10 Essential (primary) hypertension; F41.9 Anxiety disorder, unspecified; K21.9 Gastro-esophageal reflux disease without esophagitis | CPT/HCPCS: 80053; 80061 ==

== ENCOUNTER → 2022-09-09 10:05 | Outpatient (BNVA) | payer OTHER, SELFPAY | PROVIDERS: PCP Family Medicine; Visit Provider Nurse Practitioner Family | DX: E66.01 Morbid (severe) obesity due to excess calories (principal); J32.0 Chronic maxillary sinusitis; F41.9 Anxiety disorder, unspecified; I10 Essential (primary) hypertension; K21.9 Gastro-esophageal reflux disease without esophagitis | CPT/HCPCS: 80053; 80061 ==

== ENCOUNTER 2023-02-15 12:03 | Emergency (ER) | payer OTHER, SELFPAY ==
[2023-02-15 12:17] VITALS: BP 126/90; PULSE 101; RESP 18; TEMP 36.4; O2SAT 96; BMI 47.2
--- NOTE | 2023-02-15 13:14 | W.ED.SKABFB ---
HPI - Skin/Abscess/Foreign Bdy General: Chief complaint: Skin/Abscess/Foreign Body Stated complaint: stung by wasps Time Seen by Provider: 02/15/23 12:27 History of Present Illness: 32-year-old male presents emerged department after getting stung by wasp on his right forearm approximately 45 minutes prior to arrival. He states he feels like he has an itchy throat and a red swollen area to the right forearm. He states the pain on his right forearm is a 2 out of 10 at present. He states he initially was going to take 50 mg of Benadryl at home but then forgot to take Benadryl and came to the emergency department instead. He states he does feel slightly nauseated at present. He denies numbness or tingling to the extremity. He denies shortness of breath or dizziness. Associated symptoms: Reports nausea Review of Systems General: Reports: 10 or more systems reviewed and unremarkable except in HPI and below ENMT: Reports: other (Scratchy throat) GI: Reports: nausea Skin/Breast: Reports: erythema, skin pain and other (Insect sting right forearm) [facility] ED PFSH: Medical History (Updated 02/15/23 @ 13:[address] MD) Anxiety Blood in stool Surgical History History of laparoscopic cholecystectomy Status post laparoscopic appendectomy Family History Denies family history of Anesthesia complication Bleeding disorder Social History Smoking and tobacco status: never smoked Second hand smoke exposure: No Alcohol intake: never Substance/Drug Use: never Lives independently: Yes Household members: spouse Marital status: Current occupational status: unemployed Current gender identity: Male Physical Exam Const: COMMON NORMALS: no acute distress, average body habitus, patient oriented x3, no limitations, healthy appearing, alert and well nourished GENERAL APPEARANCE: cooperative HENMT: COMMON NORMALS: normocephalic, hearing grossly normal bilaterally, external ears normal, TM's normal bilaterally, Normal external nose present, Normal nasal mucous membranes and turbinates present, moist oral mucous membranes and oropharynx normal HEAD & SCALP: normocephalic NOSE: Normal external nose present and Normal nasal mucous membranes and turbinates present EXTERNAL EAR: Yes external ears normal TYMPANIC MEMBRANE: TM's normal bilaterally Eye: COMMON NORMALS: Equal, round and reactive pupils present and EOMs intact bilaterally GENERAL EYE: appearance normal, both eyes and all related structures PUPIL: Yes Equal, round and reactive pupils present Neck/C-Spine: COMMON NORMALS: full ROM Chest: COMMONS NORMALS: normal inspection of the chest Resp: COMMON NORMALS: normal respiratory effort, No use of accessory muscles and clear to auscultation bilaterally EFFORT & INSPECTION: Yes able to speak in complete sentences AUSCULTATION: clear to auscultation bilaterally Cardio: COMMON NORMALS: regular rate, regular rhythm, S1 normal heart sound present, S2 normal heart sound present and Peripheral pulses 2+ throughout RATE: regular rate RHYTHM: regular rhythm HEART SOUNDS: S1 normal heart sound present and S2 normal heart sound present PERIPHERAL PULSES: Peripheral pulses 2+ throughout GI: COMMON NORMALS: Normal to inspection, nondistended, normoactive bowel sounds present, Soft to palpation and non-tender PALPATION: Yes Soft to palpation Extremity: COMMON NORMALS: full ROM and capillary refill normal RIGHT UPPER EXTREMITY: Yes lower arm (1 cm circular area of erythema and palpable edema to the dorsal aspect of t) Neuro: COMMON NORMALS: patient oriented x3 SENSORIUM/ORIENTATION: Yes alert GAIT: Yes Normal gait present MOTOR EXAM: 5/5 motor strength present throughout Psych: COMMON NORMALS: mental status grossly normal and Normal thought process present THOUGHT PROCESS: Normal thought process present Skin: NARRATIVE SKIN EXAM: Insect sting to the right dorsal forearm. GENERAL SKIN EXAM: erythema Course Vital Signs: Vital signs: Vital Signs Temperature 97.6 F 02/15/23 12:17 Pulse Rate 101 H 02/15/23 12:17 Respiratory Rate 18 02/15/23 12:17 Blood Pressure 126/90 02/15/23 12:17 Pulse Oximetry 96 02/15/23 12:17 Oxygen Delivery Me thod Room Air 02/15/23 12:17 MDM - Skin/Abscess/Foreign Bdy Medicial Decision Making Physical exam completed and documented I will provide the patient hydroxyzine, Pepcid and Zofran while here in the emergency department. I will also send him home with prescription of corticosteroids-prednisone as well as Pepcid and have him follow-up with his primary care provider as needed. Medical Records I reviewed the patient's medical records. Discharge Plan Discharge Patient Disposition: Home Clinical Impression: Allergic reaction to wasp sting Condition: Stable Prescriptions: New prednisone 20 mg tablet 40 mg PO DAILY 5 Days Qty: 10 0RF No Action ondansetron 4 mg tablet,disintegrating 4 mg PO Q8H Qty: 60 0RF bupropion HCl [Wellbutrin XL] 300 mg tablet extended release 24 hr 300 mg PO QDAY Qty: 30 4RF buspirone 7.5 mg tablet 7.5 mg PO BID Qty: 60 4RF pantoprazole [Protonix] 40 mg tablet,delayed release (DR/EC) 40 mg PO DAILY 30 Days Qty: 30 0RF cyclobenzaprine 10 mg tablet 10 mg PO TID PRN (Reason: muscle spasm) Qty: 90 0RF ketorolac 10 mg tablet 10 mg PO QID PRN (Reason: pain) 5 Days Qty: 20 0RF Discharge Orders: Discharge ED (Routine); Ordered 02/15/23 Ordered By: Alex Way Referrals: Nitza Rodriguez MD [Primary Care Provider] - Patient Instructions: Opioid Safety, Pain Management Coding Level of Care Code ED Vision Therapist for Ambrocio Stratton
[2023-02-15] MEDS: famotidine 20 mg Tablet PO (13:39)
[2023-02-15] MEDS: ondansetron 4 MG Tablet PO (13:39)
[2023-02-15] MEDS: hyDROXYzine 25 mg Capsule PO (13:39)
[2023-02-15 13:44] VITALS: BP 147/103; PULSE 96; RESP 18; O2SAT 96
== END 2023-02-15 13:45 | disposition home or self-care (01) ==
PROVIDERS: Emergency Provider Internal Medicine; PCP Family Medicine
DX: T63.461A Toxic effect of venom of wasps, accidental (unintentional), initial encounter (principal)
CPT/HCPCS: 99283; Q0162

== ENCOUNTER → 2023-02-28 11:26 | Outpatient (BNVA) | payer OTHER, SELFPAY | PROVIDERS: PCP Family Medicine; Visit Provider Nurse Practitioner Family | DX: F41.9 Anxiety disorder, unspecified (principal); I10 Essential (primary) hypertension; K21.9 Gastro-esophageal reflux disease without esophagitis; E66.01 Morbid (severe) obesity due to excess calories | CPT/HCPCS: 80053; 80061; 84443 ==

== ENCOUNTER 2023-05-22 08:04 | Day surgery (SDC) | payer BC, SELFPAY ==
[2023-05-22 08:16] VITALS: BMI 46.7
[2023-05-22] MEDS: sodium chloride 0.9% 1,000 ML 30 ML IV (08:23)
[2023-05-22 08:25] VITALS: BP 158/102
--- NOTE | 2023-05-22 08:25 | ANES.PREANE2 ---
Pre-Anesthetic Assessment Height/Weight: Height 1.75 m Weight 143.789 kg BP O2 Del Method 158/102 Room Air 05/22/23 08:25 05/22/23 08:16 Preop Diagnosis: GERD Operation Date: 05/22/23 09:15 Proposed Procedures p EGD 93811,k21.9(Not Applicable) - Aden Savage MD Familial anesthetic complications: none Was Beta Vilma taken within 24 hours: N/A Was Clonidine taken within 24 hours: N/A Last intake: Intake Last Liquid Date 05/21/23 Last Liquid Time 23:30 Last Solid Date 05/21/23 Last Solid Time 18:00 Social No alcohol and No tobacco Exam alert, oriented x 3, clear to auscultation bilaterally and regular rate & rhythm Airway Submandibular: within normal limits Cervical ROM: within normal limits Mallampati: Class II Dentition: full Pulmonary Sleep Apnea CPAP CV/HEM None reported None reported Hepatic None reported GI Gastroesophageal Reflux Disease Metabolic Morbid Obesity Neuropsych Anxiety Anesthetic Plan ASA status: 2 Anesthesia: MAC Risk of > 500 ml blood loss (7ml/kg in children): No Medications/Allergies Home Medications Medication Instructions Recorded Confirmed Last Taken Type bupropion HCl 300 mg 24 hr tablet, 300 mg PO QDAY #30 tabs 05/06/23 05/22/23 05/21/23 Rx extended release (Wellbutrin XL) buspirone 7.5 mg tablet 7.5 mg PO BID #60 tabs 05/06/23 05/22/23 05/21/23 Rx cyclobenzaprine 10 mg tablet 10 mg PO TID PRN muscle spasm #90 05/06/23 05/20/23 Unknown Rx tabs ibuprofen 800 mg tablet 800 mg PO TID PRN pain #90 tabs 05/06/23 05/20/23 Unknown Rx pantoprazole 40 mg tablet,delayed 40 mg PO BID 30 days #60 tabs 05/06/23 05/22/23 05/21/23 Rx release (Protonix) pen needle, diabetic 32 gauge x #100 ea 05/06/23 05/19/23 Unknown Rx 5/32 (Comfort EZ Pen [place]) Allergies Allergy/AdvReac Type Severity Reaction Status Date / Time latex Allergy Severe ALGY-Hives Verified 05/20/23 09:55 ketorolac [Toradol] Allergy ALGY-Hives Verified 05/20/23 09:55 Current Medications Generic Name Dose Route Start Last Admin Trade Name Yoseph PRN Reason Stop Dose Admin Sodium Chloride 1,000 mls @ 30 mls/hr 05/22/23 08:15 05/22/23 08:23 Sodium Chloride 0.9% IV 05/23/23 08:14 30 mls/hr .Q24H YURI Administration PFSH Anesthesia Medical History (Updated 05/06/23 @ 14:52 by Alicia Robertson NP) Anxiety Blood in stool Surgical History (Updated 05/19/23 @ 14:23 by WILBERTO Min) History of laparoscopic cholecystectomy Status post laparoscopic appendectomy Family History Denies family history of Anesthesia complication Bleeding disorder Social History Smoking and tobacco/nicotine status: never used tobacco/nicotine Second hand smoke exposure: No Alcohol intake: never Substance/Drug Use: never Lives independently: Yes Household members: spouse Marital status: Current occupational status: unemployed Current gender identity: Male Data Anesthesia Cardiac Studies: No Data to Display
--- NOTE | 2023-05-22 09:41 | P.HPUD_ITS ---
Surgery/Procedure H&P Update DATE OF PROCEDURE: May 22, 2023 DATE H&P PERFORMED: 05/19/23 H&P UPDATE INFORMATION: I have reviewed H&P completed within last 30 days, I have examined patient prior to procedure, No changes to prior documentation and H&P is in [facility] [place] EMR on date indicated PREOP DIAGNOSIS: GERD PLANNED PROCEDURE: Operation Date: 05/22/23 09:15 Proposed Procedures p EGD 40942,k21.9(Not Applicable) - Aden Savage MD
[2023-05-22 10:46] VITALS: BP 136/98; PULSE 111; RESP 12; TEMP 36.1; O2SAT 94
[2023-05-22 11:01] VITALS: BP 150/106; PULSE 87; RESP 16; O2SAT 96
[2023-05-22 11:13] VITALS: BP 118/79; PULSE 86; RESP 16; O2SAT 98
--- NOTE | 2023-05-22 12:00 | ANE.PACU2 ---
Inpatient post-anesthesia follow up: Airway intact: Yes Vital signs: Temperature 97.0 F Pulse Rate 86 Respiratory Rate 16 Blood Pressure 118/79 Pulse Oximetry 98 Oxygen Delivery Me thod Room Air Oxygen Flow Rate 4 Fraction of Inspir ed Oxygen Hydration adequate: Yes Nausea and vomiting: No Pain level: 2 Mental status: Baseline
== END 2023-05-22 11:16 | disposition home or self-care (01) ==
PROVIDERS: PCP Family Medicine; Visit Provider Surgery
PROC: 0DJ08ZZ Inspection of Upper Intestinal Tract, Via Natural or Artificial Opening Endoscopic (ICD-10-PCS; CPT 43235; principal; 2023-05-22 09:15)
DX: K21.00 Gastro-esophageal reflux disease with esophagitis, without bleeding; K29.80 Duodenitis without bleeding; K29.50 Unspecified chronic gastritis without bleeding; G47.30 Sleep apnea, unspecified; K21.9 Gastro-esophageal reflux disease without esophagitis; E66.01 Morbid (severe) obesity due to excess calories; Z68.42 Body mass index [BMI] 45.0-49.9, adult
CPT/HCPCS: 43239; 88305; 88342; J2704; J7030

== ENCOUNTER 2023-08-24 18:46 | Emergency (ER) | payer BC, SELFPAY ==
--- NOTE | 2023-08-24 18:48 | ECG_ITS ---
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 Measurements Intervals [place] Rate: 112 P: 54 [place]: 133 QRS: 44 QRSD: 88 T: 60 QT: 303 QTc: 415 Interpretive Statements SINUS TACHYCARDIA ABNORMAL RHYTHM ECG Compared to ECG 08/13/2018 18:44:42 Sinus rhythm no longer present Electronically Signed On 08-25-2023 14:18:02 MODEL DRESSER by Kiran Patton M.D. [id number] f
[2023-08-24 18:50] VITALS: BP 192/146; PULSE 124; RESP 17; TEMP 36.7; O2SAT 97; BMI 46.5
--- NOTE | 2023-08-24 18:56 | XRR_ITS ---
PROCEDURE INFORMATION: Exam: XR Chest Exam date and time: 08/24/2023 7:18 PM Age: 33 years old Clinical indication: Angina pectoris; Patient HX: Sudden onset chest pain; HTN; No previous cardiac HX TECHNIQUE: Imaging protocol: Radiologic exam of the chest. Views: 1 view. COMPARISON: CR XR chest 1V [id number] 08/13/2018 7:20 PM FINDINGS: Lungs: Unremarkable. No consolidation. Pleural spaces: Unremarkable. No pleural effusion. No pneumothorax. Heart/Mediastinum: Unremarkable. No cardiomegaly. Bones/joints: Unremarkable. XR/XR chest 1V portable [id number] IMPRESSION: No acute findings.
--- NOTE | 2023-08-24 18:56 | CTR_ITS ---
PROCEDURE INFORMATION: Exam: CT Abdomen And Pelvis With Contrast Exam date and time: 08/24/2023 7:25 PM Age: 33 years old Clinical indication: Abdominal pain; Generalized; Prior surgery; Surgery date: 6+ months; Surgery type: Gb. Appy; Patient HX: Diffuse abd pain with nausea; Additional info: Severe abd pain, TECHNIQUE: Imaging protocol: Computed tomography of the abdomen and pelvis with contrast. Radiation optimization: All CT scans at this facility use at least one of these dose optimization techniques: automated exposure control; mA and/or kV adjustment per patient size (includes targeted exams where dose is matched to clinical indication); or iterative reconstruction. Contrast material: OMNI 350; Contrast volume: 100 ml; Contrast route: INTRAVENOUS (IV); COMPARISON: CT abdomen pelvis w con* [id number] 12/17/2020 3:52 PM RADIATION DOSE METRICS: Total DLP (mGy-cm): 1906.13 FINDINGS: Liver: Normal. No mass. Gallbladder and bile ducts: There has been a cholecystectomy. Pancreas: Normal. No ductal dilation. Spleen: Normal. No splenomegaly. Adrenal glands: Normal. No mass. Kidneys and ureters: Normal. No hydronephrosis. Stomach and bowel: Unremarkable. No obstruction. No mucosal thickening. Appendix: There has been an appendectomy. Intraperitoneal space: Unremarkable. No free air. No significant fluid collection. Vasculature: Unremarkable. No abdominal aortic aneurysm. Lymph nodes: Unremarkable. No enlarged lymph nodes. Urinary bladder: Unremarkable as visualized. Reproductive: Unremarkable as visualized. Bones/joints: Unremarkable. No acute fracture. Soft tissues: Unremarkable. CT/CT abdomen pelvis w con* [id number] IMPRESSION: No acute intra-abdominal findings.
--- NOTE | 2023-08-24 18:59 | ED_ITS ---
HPI - Chest Pain 2 General: Chief Complaint: Chest Pain Stated Complaint: ABD\Chest Pain Time Seen by Provider: 08/24/23 18:48 History of Present Illness: 33-year-old male patient comes in today with mid abdominal pain radiating to his back after lifting a heavy object at work. 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 Patient reports lifting a heavy object onto the back of a truck when he felt sudden sharp pain in his mid abdomen going straight through to his back. Patient appears in severe pain. Patient has a history of depression and anxiety, GERD. Associated symptoms: Reports abdominal pain Review of Systems 2 General: Reports: 10 or more systems reviewed and unremarkable except in HPI and below GI: Reports: abdominal pain PFSH ED 2 PFSH: Medical History (Updated 08/24/23 @ 20:11 by DIAMANTE Ng) Blood in stool Anxiety Surgical History (Updated 06/16/23 @ 08:12 by Kamla Singh RN) History of laparoscopic cholecystectomy Status post laparoscopic appendectomy Family History Denies family history of Anesthesia complication Bleeding disorder Social History Smoking and tobacco/nicotine status: never used tobacco/nicotine Second hand smoke exposure: No Alcohol intake: never Substance/Drug Use: never Lives independently: Yes Household members: spouse Marital status: Current occupational status: unemployed Current gender identity: Male Physical Exam 2 Const: COMMON NORMALS: alert HENMT: COMMON NORMALS: normocephalic HEAD & SCALP: normocephalic Neck/C-Spine: COMMON NORMALS: full ROM Resp: COMMON NORMALS: normal respiratory effort GI: AUSCULTATION: Yes normoactive bowel sounds PALPATION: Yes Tenderness to palpation present (GI) Back/Pelvis: LUMBAR SPINE/LOWER BACK: Yes paraspinal muscle tenderness Extremity: COMMON NORMALS: normal to inspection Neuro: SENSORIUM/ORIENTATION: Yes alert Skin: COMMON NORMALS: turgor normal GENERAL SKIN EXAM: turgor normal Course 2 Vital Signs: Vital signs: Vital Signs Temperature 98.1 F 08/24/23 18:50 Pulse Rate 124 H 08/24/23 18:50 Respiratory Rate 18 08/24/23 20:14 Blood Pressure 192/146 08/24/23 18:50 Pulse Oximetry 97 08/24/23 18:50 Oxygen Delivery Me thod Room Air 08/24/23 18:50 MDM - Chest Pain Medical Decision Making 33-year-old male patient comes in today for complaints of mid abdominal pain radiating to his back. Patient has a history of GERD and depression. Patient appears in moderate to severe pain. Abdomen is tender. Respirations are even lungs are clear to auscultation. Patient was lifting a heavy object when his pain started. Differential diagnosis includes muscle strain, abdominal wall hernia, hiatal hernia, ACS, lumbar strain. Troponin was less than 6. CBC CMP was unremarkable. CT of the abdomen and pelvis noted no intra-abdominal findings. Chest x-ray was normal. Believe patient probably has a muscle strain of the abdomen and a lumbar strain. Recommend medication for pain and discomfort. Recommend follow-up with primary care. Patient reported understanding. Lab Data 08/24/23 19:04 08/24/23 19:04 Radiology Impressions Abdomen/Pelvis CT 08/24/23 18:56 IMPRESSION: No acute intra-abdominal findings. Chest X-Ray 08/24/23 18:56 IMPRESSION: No acute findings. Laboratory Results WBC 11.92 10^3/uL (3.29-11.43) H 08/24/23 19:04 RBC 6.27 10^6/uL (3.85-5.65) H 08/24/23 19:04 Hgb 18.10 g/dL (11.27-16.99) H 08/24/23 19:04 Hct 54.7 % (37-53) H 08/24/23 19:04 MCV 87.2 fl (82-101) 08/24/23 19:04 MCH 28.9 pg (27-33) 08/24/23 19:04 MCHC 33.1 g/dL (30-55) 08/24/23 19:04 RDW 12.1 % (12.1-15.1) 08/24/23 19:04 Plt Count 300 10^3/cmm (157-399) 08/24/23 19:04 MPV 9.6 fL (7.4-10.4) 08/24/23 19:04 Neut % (Auto) 72.5 % 08/24/23 19:04 Lymph % (Auto) 17.5 % 08/24/23 19:04 [place] % (Auto) 8.8 % 08/24/23 19:04 Eos % (Auto) 0.6 % 08/24/23 19:04 Baso % (Auto) 0.3 % 08/24/23 19:04 Neut # (Auto) 8.64 10^3/uL (1.8-7.7) H 08/24/23 19:04 Lymph # (Auto) 2.1 10^3/uL (0.8-4.8) 08/24/23 19:04 [place] # (Auto) 1.1 10^3/uL (0.2-0.9) H 08/24/23 19:04 Eos # (Auto) 0.1 10^3/uL (0.0-0.8) 08/24/23 19:04 Baso # (Auto) 0.0 10^3/uL (0.0-0.1) 08/24/23 19:04 Nucleated RBC % (auto) 0 % 08/24/23 19:04 Nucleated RBCs # 0.0 /100WBC 08/24/23 19:04 Sodium 141 mmol/L (136-145) 08/24/23 19:04 Potassium 3.9 mmol/L (3.5-5.1) 08/24/23 19:04 Chloride 102 mmol/L (98-107) 08/24/23 19:04 Carbon Dioxide 26 mmol/L (22-29) 08/24/23 19:04 Anion Gap 16.9 (5-19) 08/24/23 19:04 BUN 13 mg/dL (6-20) 08/24/23 19:04 Creatinine 1.0 mg/dL (0.7-1.2) 08/24/23 19:04 GFR Calculation 86.6 mL/min (90-130) L 08/24/23 19:04 Glucose 99 mg/dL (65-115) 08/24/23 19:04 Calculated Osmolality 292 mOsm/kg (285-295) 08/24/23 19:04 Calcium 9.2 mg/dL (8.5-10.5) 08/24/23 19:04 Total Bilirubin 0.6 mg/dL (0.15-1.2) 08/24/23 19:04 AST 23 U/L (0-40) 08/24/23 19:04 ALT 44 U/L (0-41) H 08/24/23 19:04 Alkaline Phosphatase 87 U/L (40-130) 08/24/23 19:04 Troponin T Baseline 7 ng/L (0-15) 08/24/23 19:04 Total Protein 7.0 g/dL (6.6-8.7) 08/24/23 19:04 Albumin 4.5 g/dL (3.5-5.2) 08/24/23 19:04 Globulin 2.5 g/dL (1.3-4.6) 08/24/23 19:04 Lipase 35 U/L (13-60) 08/24/23 19:04 All radiology interpretation(s) finalized by discharge EKG Data EKG 1: EKG interpretation date: 08/24/23 EKG interpretation time: 18:55 Prior EKG tracings: not available for review Interpretation: EKG shows a sinus tachycardia with a regular rate at [address] elevation or ectopy is noted. No prior exam available for comparison. Artifact is present on the EKG. Computer generated interpretation: Sinus tachycardia, abnormal rhythm EKG, interpretation based on default age of 41, unconfirmed report. Discharge Plan Discharge Patient Disposition: Home Clinical Impression: Abdominal muscle strain Qualifiers: Encounter type: initial encounter Qualified Code(s): S39.011A - Strain of muscle, fascia and tendon of abdomen, initial encounter Condition: Stable Prescriptions: New hydrocodone-acetaminophen 5-325 mg tablet 1 tab PO Q6H PRN (Reason: pain) Qty: 10 0RF diclofenac sodium 75 mg tablet,delayed release (DR/EC) 75 mg PO BID PRN (Reason: pain) Qty: 20 0RF No Action bupropion HCl [Wellbutrin XL] 300 mg tablet extended release 24 hr 300 mg PO QDAY Qty: 30 4RF buspirone 7.5 mg tablet 7.5 mg PO BID Qty: 60 4RF cyclobenzaprine 10 mg tablet 10 mg PO TID PRN (Reason: muscle spasm) Qty: 90 0RF pantoprazole [Protonix] 40 mg tablet,delayed release (DR/EC) 40 mg PO BID 30 Days Qty: 60 4RF (DME) pen needle, diabetic [Comfort EZ Pen [place]] 32 gauge x 5/32 needle See Rx Instructions .Route Qty: 100 2RF Rx Instructions: As directed cephalexin 500 mg capsule 500 mg PO TID 10 Days Qty: 30 0RF Rexulti 0.5 mg tablet 0.5 mg PO DAILY 30 Days Qty: 30 0RF Discharge Orders: Discharge ED (Routine); Ordered 08/24/23 Ordered By: Derrick Green Referrals: Nitza Rodriguez MD [Primary Care Provider] - Discharge Diet: Usual diet Discharge Activity: Increase activity as tolerated Patient Instructions: Muscle Strain (ED) Activity Restrictions/Additional Instructions: Home and rest. Activity as tolerated. Gentle stretching and range of motion exercises. Drink plenty of water and fluids. Follow-up with primary care for further instructions. Return to ED for new concerns. Coding Level of Care Code ED Crook Operator for Ambrocio Stratton
[2023-08-24 19:10] LABS: Basophils % 0.3 %; Eosinophils # 0.1 10^3/uL (0.0-0.8); Eosinophils % 0.6 %; Hematocrit 54.7 % (37-53); Lymphocytes # 2.1 10^3/uL (0.8-4.8); Lymphocytes % 17.5 %; Mean Corpuscular HGB Conc 33.1 g/dL (30-55); Mean Corpuscular Hemoglobin 28.9 pg (27-33); Mean Corpuscular Volume 87.2 fl (82-101); Mean Platelet Volume 9.6 fL (7.4-10.4); Monocytes # 1.1 10^3/uL (0.2-0.9); Monocytes % 8.8 %; Neutrophils # 8.64 10^3/uL (1.8-7.7); Neutrophils % 72.5 %; Nucleated Red Blood Cells % 0 %; Platelet Count 300 10^3/cmm (157-399); Red Blood Count 6.27 10^6/uL (3.85-5.65); Red Cell Distribution Width 12.1 % (12.1-15.1); White Blood Count 11.92 10^3/uL (3.29-11.43)
[2023-08-24] MEDS: ondansetron 2 mg/ML SDV 2 mL 8 MG IVP (19:10)
[2023-08-24 19:12] VITALS: RESP 20
[2023-08-24] MEDS: fentaNYL 50 mcg/mL INJ 2mL 140 MCG IVP (19:12)
[2023-08-24 19:26] VITALS: BP 140/109; PULSE 113; RESP 16; O2SAT 96
[2023-08-24] MEDS: iohexol 350 mg/mL 500 mL Btl (per mL) IV (19:27)
[2023-08-24 19:32] LABS: Alanine Aminotransferase 44 U/L (0-41); Albumin Level 4.5 g/dL (3.5-5.2); Alkaline Phosphatase 87 U/L (40-130); Anion Gap 16.9 (5-19); Aspartate Amino Transferase 23 U/L (0-40); Blood Urea Nitrogen 13 mg/dL (6-20); Calcium 9.2 mg/dL (8.5-10.5); Carbon Dioxide 26 mmol/L (22-29); Chloride 102 mmol/L (98-107); Creatinine Clr Calc Pharmacy 149.3592; Globulin 2.5 g/dL (1.3-4.6); Glomerular Filtration Rate 86.6 mL/min (90-130); Glucose 99 mg/dL (65-115); Lipase 35 U/L (13-60); Osmolality Calculated 292 mOsm/kg (285-295); Potassium 3.9 mmol/L (3.5-5.1); Sodium 141 mmol/L (136-145); Total Bilirubin 0.6 mg/dL (0.15-1.2)
[2023-08-24 19:35] LABS: Troponin(5th) Baseline 7 ng/L (0-15)
[2023-08-24] MEDS: diphenhydrAMINE 50 mg/mL SDV 1mL 25 MG IVP (19:38)
[2023-08-24] MEDS: labetalol 5 mg/mL SDV 20mL 20 MG IVP (19:40)
[2023-08-24 19:56] VITALS: BP 159/131; PULSE 109; RESP 19; O2SAT 97
[2023-08-24 20:14] VITALS: RESP 18
[2023-08-24] MEDS: HYDROmorphone 1 mg/mL INJ 1 mL IVP (20:14)
[2023-08-24 21:20] VITALS: BP 180/147; PULSE 95; RESP 18; O2SAT 94
== END 2023-08-24 21:24 | disposition home or self-care (01) ==
PROVIDERS: Emergency Provider Nurse Practitioner Family; PCP Family Medicine
DX: S39.011A Strain of muscle, fascia and tendon of abdomen, initial encounter (principal); X50.0XXA Overexertion from strenuous movement or load, initial encounter; Y99.0 Civilian activity done for income or pay
CPT/HCPCS: 71045; 74177; 80053; 83690; 84484; 85025; 93005; 96374; 96375; 99285; J1170; J1200; J2405; J3010; J3490; Q9967

== ENCOUNTER 2023-08-25 23:19 | Observation (INO) | payer BC, SELFPAY ==
[2023-08-25 23:59] VITALS: BMI 51.6
[2023-08-26] VITALS (14 sets, daily range): BP systolic 105–139; BP diastolic 77–83; PULSE 67–95; RESP 15–22; TEMP 36.4–36.7; O2SAT 93–98
--- NOTE | 2023-08-26 00:12 | P.HP_ITS ---
Providers/Chief Complaint Admitting Physician: Miguel Robins Primary Care Provider: Nitza Rodriguez MD Chief Complaint: Colitis History of Present Illness Aaron Cortes is a 33 year old male admitted directly from [facility] where he presented with RUQ abdominal pain and nausea with finding of hepatic flexure colitis on CT. He has Hx cholycystectomy. CBD not dilated. No suspicion of hepatobiliary disease. Request was made for transfer for treatment of colitis. He received Zosyn. He denies any history of recurrent abdominal pain, hematochezia or autoimmune history in himself. He has an aunt with history of Crohn's. Review of Systems Const: Denies: fever(s), chills, body aches or malaise ENMT: Denies: throat pain Card: Denies: chest pain, edema, pre-syncope or dyspnea on exertion Resp: Denies: dyspnea, productive cough, change in phlegm color or hemoptysis GI: Reports: abdominal pain and nausea; Denies: vomiting, diarrhea, constipation, hematochezia or melena : Denies: flank pain, difficulty urinating, urinary frequency or hematuria Musc: Denies: back pain, joint swelling or joint redness Skin/Breast: Denies: rash or new lesions Neuro: Denies: headache(s), numbness in extremities, weakness in extremities, dizziness, confusion or seizure-like activity Medications/Allergies Home Medications Medication Instructions Recorded Confirmed Last Taken Type bupropion HCl 300 mg 24 hr tablet, 300 mg PO QDAY #30 tabs 05/06/23 08/26/23 08/25/23 08:00 Rx extended release (Wellbutrin XL) buspirone 7.5 mg tablet 7.5 mg PO BID #60 tabs 05/06/23 08/26/23 08/25/23 08:00 Rx pantoprazole 40 mg tablet,delayed 40 mg PO BID 30 days #60 tabs 05/06/23 08/26/23 08/25/23 08:00 Rx release (Protonix) pen needle, diabetic 32 gauge x #100 ea 05/06/23 08/15/23 Unknown Rx (Comfort EZ Pen [place]) hydrocodone 5 mg-acetaminophen 325 1 tab PO Q6H PRN pain #10 tabs 08/24/23 08/26/23 Unknown Rx mg tablet Allergies Allergy/AdvReac Type Severity Reaction Status Date / Time latex Allergy Severe ALGY-Hives Verified 06/16/23 08:09 ketorolac [Toradol] Allergy ALGY-Hives Verified 06/16/23 08:09 morphine Allergy ALGY-Rash Verified 08/24/23 18:57 PFSH Acute PFSH: Medical History Blood in stool Anxiety Surgical History History of laparoscopic cholecystectomy Status post laparoscopic appendectomy Family History Denies family history of Anesthesia complication Bleeding disorder Social History Smoking and tobacco/nicotine status: never used tobacco/nicotine Second hand smoke exposure: No Alcohol intake: never Substance/Drug Use: never Lives independently: Yes Household members: spouse Marital status: Current occupational status: unemployed Current gender identity: Male Vitals/I&O/Wt Last Vital Signs Temp 97.7 F 08/26/23 00:00 Pulse 95 08/26/23 00:00 Resp 21 H 08/26/23 00:00 BP 119/77 08/26/23 00:00 Pulse Ox 96 08/26/23 00:00 Weight last 48 hrs Weight 145.15 kg Physical Exam Const: COMMON NORMALS: patient oriented x3 and alert GENERAL APPEARANCE: cooperative NUTRITIONAL APPEARANCE: obese ORIENTATION/CONSCIOUSNESS: Yes awake HENMT: COMMON NORMALS: oropharynx normal Neck/C-Spine: COMMON NORMALS: no JVD Resp: COMMON NORMALS: normal respiratory effort and clear to auscultation bilaterally AUSCULTATION: clear to auscultation bilaterally Cardio: COMMON NORMALS: no JVD, regular rhythm, S1 normal heart sound present, S2 normal heart sound present and No murmurs present (Cardio) RHYTHM: regular rhythm HEART SOUNDS: S1 normal heart sound present and S2 normal heart sound present GI: COMMON NORMALS: Normal to inspection, nondistended, normoactive bowel sounds present PALPATION: Yes Soft to palpation and Yes Tenderness to palpation present (GI) Details: RUQ Extremity: COMMON NORMALS: no joint enlargement and no pedal edema Neuro: COMMON NORMALS: patient oriented x3 and moves all extremities SENSORIUM/ORIENTATION: Yes alert Skin: COMMON NORMALS: no rashes or lesions noted GENERAL SKIN EXAM: no rashes or lesions noted A&P Assessment and plan (1) Colitis: Reviewed vitals, CBC, CMP, CT abdomen pelvis, ER documentation, discussed with ER physician, hepatic flexure colitis, cause unclear, does not have history of autoimmune condition, recurrent abdominal pain, this is appears to be first episode. Has history of cholecystectomy. CBD not dilated. Will assess for upper quadrant ultrasound as well. For now continue Zosyn empirically. He has not had diarrhea. Discussed with him to let us know in case developing diarrhea so we can collect a stool sample. Severe anuseam For now n.p.o., bowel rest, sips chips and meds. Antiemetics as needed. Severe pain and severe nausea. Pain control, currently requiring IV Dilaudid, states that he is allergic to morphine, but did respond to Dilaudid and MSF although he had to be given with Benadryl for itching/rash. Requested 0.4 mg every 4 hours as needed. Has history of colonoscopy back in 2019 which was unremarkable. Has history of gastritis. On PPI twice daily. Switch to IV at this time. Plan GERD: Takes Protonix twice daily will switch to IV for now. Attestations Medical Necessity Statement*: Place in observation for additional assessment management of colitis with severe pain, severe nausea. and High MDM includes amount and/or complexity of data reviewed/ordered [ resulted lab(s)/test(s), ordered lab(s)/test(s) and other healthcare professional discussion] and described risk of complication, morbidity or mortality of management as documented Diagnoses Colitis K52.9
--- NOTE | 2023-08-26 00:20 | US_ITS ---
WS: [id number] RIGHT UPPER QUADRANT ULTRASOUND HISTORY: RUQ pain, Hx cholecystectomy COMPARISON: 03/26/2012 Liver: 15.3 cm in length. The liver is extremely poorly visualized due to patient's body habitus and hepatic steatosis. It would be difficult to exclude a mass or hepatic abnormality. The bile ducts are not adequately visualized. Portal Vein: Not adequately visualized. Gallbladder: Surgically absent. CBD: 0.6 cm, poorly visualized. Pancreas: Not visualized. Right kidney: 10.0 cm in length. Normal size and echogenicity. No hydronephrosis or mass. Aorta and IVC: Not visualized. No ascites. IMPRESSION: 1. Extremely limited evaluation of the RIGHT upper quadrant. It would be difficult to exclude pathol ogy due to the technically limited evaluation. 2. Gallbladder is surgically absent.
[2023-08-26] MEDS: pantoprazole 40 mg SDV IVP ×2 (00:24→08:22)
[2023-08-26] MEDS: ondansetron 2 mg/ML SDV 2 mL 4 MG IVP (00:24)
[2023-08-26] MEDS: lactated ringers 1,000 ML 100 ML IV ×2 (00:25→08:22)
[2023-08-26] MEDS: diphenhydrAMINE 25 mg Capsule PO ×4 (00:58→22:43)
[2023-08-26] MEDS: HYDROmorphone 1 mg/mL INJ 1 mL 0.4 MG IVP (01:06)
[2023-08-26 01:22] LABS: SARS Covid-2 Antigen negative (Negative)
[2023-08-26 02:49] LABS: Influenza A Not Detected (NOT DETECT); Influenza A H1 Not Detected (NOT DETECT); Influenza A H1-2009 Not Detected (NOT DETECT); Influenza A H3 Not Detected (NOT DETECT); Influenza B Not Detected (NOT DETECT)
[2023-08-26 02:57] LABS: Results from Genmark
[2023-08-26] MEDS: HYDROmorphone 1 mg/mL INJ 1 mL IVP ×4 (03:15→21:15)
[2023-08-26] MEDS: piperacillin-tazobactam 3.375 GM in sodium chloride 0.9% (plus) 50 ML IV ×3 (04:17→21:08)
[2023-08-26 05:15] LABS: Basophils % 0.5 %; Eosinophils # 0.1 10^3/uL (0.0-0.8); Eosinophils % 0.7 %; Hematocrit 49.1 % (37-53); Lymphocytes # 1.8 10^3/uL (0.8-4.8); Lymphocytes % 20.7 %; Mean Corpuscular HGB Conc 32.6 g/dL (30-55); Mean Corpuscular Volume 89.1 fl (82-101); Monocytes # 0.9 10^3/uL (0.2-0.9); Monocytes % 10.1 %; Neutrophils # 5.98 10^3/uL (1.8-7.7); Neutrophils % 67.4 %; Nucleated Red Blood Cells % 0 %; Platelet Count 234 10^3/cmm (157-399); Red Blood Count 5.51 10^6/uL (3.85-5.65); Red Cell Distribution Width 12.4 % (12.1-15.1); White Blood Count 8.87 10^3/uL (3.29-11.43)
[2023-08-26 05:39] LABS: Alanine Aminotransferase 36 U/L (0-41); Albumin Level 3.7 g/dL (3.5-5.2); Alkaline Phosphatase 76 U/L (40-130); Anion Gap 12.8 (5-19); Aspartate Amino Transferase 21 U/L (0-40); Blood Urea Nitrogen 11 mg/dL (6-20); Calcium 8.4 mg/dL (8.5-10.5); Carbon Dioxide 27 mmol/L (22-29); Chloride 103 mmol/L (98-107); Globulin 2.7 g/dL (1.3-4.6); Glomerular Filtration Rate 86.6 mL/min (90-130); Glucose 98 mg/dL (65-115); Osmolality Calculated 287 mOsm/kg (285-295); Potassium 3.8 mmol/L (3.5-5.1); Sodium 139 mmol/L (136-145); Total Bilirubin 0.7 mg/dL (0.15-1.2); Total Protein 6.4 g/dL (6.6-8.7)
--- NOTE | 2023-08-26 09:11 | PC.PHAR ---
pt states he takes care of his own medications-pt states he has a build up of bupropion xl 300mg qam ext shows last filled 05/06/23 30d/s,buspar 7.5mg bid ext shows last filled 05/06/23 30d/s,protonix 40mg bid ext shows last filled 05/06/23 30d/s-pt states no longer taking flexeril 10mg tid prn ext shows last filled 05/06/23 30d/s-notes are made in the pharmacy comments
--- NOTE | 2023-08-26 09:51 | W.PM.EVENTAC ---
Event Note Event Note: No active emesis Abdomen soft Patient complaining of pain right upper quadrant No signs of peritonitis He does not have a gallbladder Hemodynamically stable Plan is to keep him in the hospital for 1 more day continue IV antibiotics and advance diet, continue IV fluids Patient is stating that his bowel movements were regular he has not noticed liquid stool Advance diet to GI soft Continue Zosyn
[2023-08-26] MEDS: lidocaine 2% viscous 15 ML, aluminum-mag hydrox-simethicon 30 ML, sucralfate oral liq 1 GM PO (10:02)
[2023-08-26] MEDS: oxyCODONE-APAP 10-325 mg Tablet 1 TAB PO ×2 (10:47→18:15)
[2023-08-27] VITALS (13 sets, daily range): BP systolic 121–154; BP diastolic 75–83; PULSE 73–86; RESP 14–20; TEMP 36.3–37.1; O2SAT 94–97
[2023-08-27] MEDS: lactated ringers 1,000 ML 50 ML IV (00:55)
[2023-08-27] MEDS: oxyCODONE-APAP 10-325 mg Tablet 1 TAB PO ×3 (00:56→19:34)
[2023-08-27] MEDS: HYDROmorphone 1 mg/mL INJ 1 mL IVP ×3 (03:38→12:27)
[2023-08-27] MEDS: piperacillin-tazobactam 3.375 GM in sodium chloride 0.9% (plus) 50 ML IV ×3 (04:44→20:38)
[2023-08-27 06:06] LABS: Basophils % 0.4 %; Eosinophils # 0.1 10^3/uL (0.0-0.8); Eosinophils % 1.6 %; Hematocrit 46.9 % (37-53); Lymphocytes # 1.6 10^3/uL (0.8-4.8); Lymphocytes % 23.8 %; Mean Corpuscular HGB Conc 32.2 g/dL (30-55); Mean Corpuscular Hemoglobin 28.7 pg (27-33); Mean Corpuscular Volume 89.2 fl (82-101); Monocytes # 0.7 10^3/uL (0.2-0.9); Monocytes % 10.2 %; Neutrophils # 4.35 10^3/uL (1.8-7.7); Neutrophils % 63.4 %; Nucleated Red Blood Cells % 0 %; Platelet Count 223 10^3/cmm (157-399); Red Blood Count 5.26 10^6/uL (3.85-5.65); Red Cell Distribution Width 12.2 % (12.1-15.1); White Blood Count 6.86 10^3/uL (3.29-11.43)
[2023-08-27 06:34] LABS: Alanine Aminotransferase 32 U/L (0-41); Albumin Level 3.6 g/dL (3.5-5.2); Alkaline Phosphatase 70 U/L (40-130); Anion Gap 13.9 (5-19); Aspartate Amino Transferase 17 U/L (0-40); Blood Urea Nitrogen 10 mg/dL (6-20); Calcium 8.2 mg/dL (8.5-10.5); Carbon Dioxide 27 mmol/L (22-29); Chloride 103 mmol/L (98-107); Globulin 2.4 g/dL (1.3-4.6); Glomerular Filtration Rate 97.8 mL/min (90-130); Glucose 122 mg/dL (65-115); Osmolality Calculated 290 mOsm/kg (285-295); Potassium 3.9 mmol/L (3.5-5.1); Sodium 140 mmol/L (136-145); Total Bilirubin 0.3 mg/dL (0.15-1.2)
--- NOTE | 2023-08-27 10:21 | MRR_ITS ---
PROCEDURE INFORMATION: Exam: MR Abdomen Without Contrast Exam date and time: 08/27/2023 5:56 PM Age: 33 years old Clinical indication: Abdominal pain; Localized; Right upper quadrant (ruq); Additional info: Cbd dilation ruq pain TECHNIQUE: Imaging protocol: Magnetic resonance imaging of the abdomen without contrast. COMPARISON: CT abdomen pelvis w con* [id number] 08/24/2023 7:25 PM FINDINGS: Liver: No mass. Gallbladder and bile ducts: Cholecystectomy. No common bile duct dilation. No filling defects in the common bile duct. Pancreas: Unremarkable. No ductal dilation. Spleen: Unremarkable. No splenomegaly. Adrenal glands: Unremarkable. No mass. Kidneys and ureters: Unremarkable. No solid mass. No hydronephrosis. Stomach and bowel: Visualized stomach and intestines are unremarkable. Intraperitoneal space: No free fluid. Vasculature: No abdominal aortic aneurysm. Bones/joints: Unremarkable. Soft tissues: Unremarkable. MR/MR MRCP [id number] IMPRESSION: Unremarkable abdomen.
[2023-08-27] MEDS: HYDROmorphone 1 mg/mL INJ 1 mL 0.4 MG IVP ×2 (17:46→22:27)
--- NOTE | 2023-08-27 18:26 | P.PN_ITS ---
Subjective 2 Subjective: Patient is stating that he is not ready to be discharged he is in a lot of pain MRCP requested Vitals/I&O/Wt Last Vital Signs Temp 97.9 F 08/27/23 16:02 Pulse 86 08/27/23 16:02 Resp 14 08/27/23 17:46 BP 151/75 08/27/23 16:02 Pulse Ox 95 08/27/23 16:02 O2 Del Method Room Air 08/27/23 16:02 08/27/23 08/27/23 08/27/23 06:59 14:59 22:59 Intake Total 1801.667 / 3688.334 1210 / 1210 50 / 1260 Output Total 750 / 1250 750 / 750 Balance 1051.667 / 2438.334 460 / 460 50 / 510 Weight last 48 hrs Weight 149.459 kg Weight 146.374 kg Weight 145.15 kg Physical Exam 2 Narrative: Reproducible pain right upper quadrant [place] I do not see any sign of peritonitis or rigidity or guarding Awake and alert morbid obese at the bedside Currently on room air Tolerating diet Breakfast tray at the bedside Patient upset after hearing discharge planning Data 08/27/23 05:26 08/28/23 04:50 A&P Assessment and plan (1) Anxiety: (2) Essential hypertension: (3) Obesity: (4) GERD (gastroesophageal reflux disease): (5) Colitis: Plan I have counseled patient not to rely on opioids anymore because he is getting constipated Will request MRCP to rule out acute GI pathological changes I do not anticipate any findings on MRCP because I think his pain is musculoskeletal in origin Full code Discharge tomorrow, tolerating diet, continue current diet plan Colitis: Improving Attestations 2 Medical Necessity Statement*: Discharge tomorrow Diagnoses Anxiety F41.9 Essential hypertension I10 Obesity E66.9 GERD (gastroesophageal reflux disease) K21.9 Colitis K52.9
[2023-08-28] VITALS: BP 105/70; PULSE 87; RESP 18; TEMP 36.4; O2SAT 94
[2023-08-28] MEDS: piperacillin-tazobactam 3.375 GM in sodium chloride 0.9% (plus) 50 ML IV (03:50)
[2023-08-28 03:51] VITALS: RESP 18
[2023-08-28] MEDS: oxyCODONE-APAP 10-325 mg Tablet 1 TAB PO ×2 (03:51→09:59)
[2023-08-28 04:00] VITALS: BP 148/88; PULSE 78; RESP 18; TEMP 36.5; O2SAT 97
[2023-08-28 05:40] VITALS: RESP 16
[2023-08-28 05:40] LABS: Alanine Aminotransferase 31 U/L (0-41); Albumin Level 3.7 g/dL (3.5-5.2); Alkaline Phosphatase 71 U/L (40-130); Anion Gap 12.8 (5-19); Aspartate Amino Transferase 18 U/L (0-40); Blood Urea Nitrogen 10 mg/dL (6-20); Calcium 8.5 mg/dL (8.5-10.5); Carbon Dioxide 28 mmol/L (22-29); Chloride 102 mmol/L (98-107); Globulin 2.5 g/dL (1.3-4.6); Glomerular Filtration Rate 86.6 mL/min (90-130); Glucose 117 mg/dL (65-115); Osmolality Calculated 288 mOsm/kg (285-295); Potassium 3.8 mmol/L (3.5-5.1); Sodium 139 mmol/L (136-145); Total Bilirubin 0.2 mg/dL (0.15-1.2); Total Protein 6.2 g/dL (6.6-8.7)
[2023-08-28] MEDS: HYDROmorphone 1 mg/mL INJ 1 mL 0.4 MG IVP (05:40)
[2023-08-28 07:41] VITALS: BP 143/82; PULSE 85; RESP 17; O2SAT 96
[2023-08-28 09:59] VITALS: RESP 16
--- NOTE | 2023-08-28 10:19 | PM.DCS ---
Discharge Providers Date of Admission: 08/25/23 23:19 Date of Discharge: August 28, 2023 Attending Provider at Admission: Miguel Robins Attending Provider at Discharge: Michelle Lou MD Primary Care Provider: Nitza Rodriguez MD Diagnoses at Discharge Discharge Diagnosis (1) Colitis: Status: Acute Reason for Visit Reason for Visit: Colitis Hospital Course Hospital Course 33-year male who was admitted to the hospital from an outside facility on request of the patient for management of mild colitis, he remained afebrile no leukocytosis, he is not experiencing any vomiting but he is complaining of significant right upper quadrant pain with nausea no emesis at all, his pain is reproducible right costochondral junction and right subcostal margin he does not have a gallbladder which is evident on his gallbladder ultrasound his gallbladder was removed 2 years ago, will request MRCP to make sure there is no retained stone otherwise he should be able to go home on oral antibiotics and opioids. I do believe his pain is related to musculoskeletal costochondritis was a muscle cramp. Patient is upset that we are not transfer him to [place]. There is no acute indication for him to be transferred from the hospital. He has already been transferred from an outside facility to our facility on his request. Patient is stating that he is allergic to morphine and he is requesting for Dilaudid earlier than the prescribed time MRCP did not show any acute pathological changes. It likely etiology of pain is muscle tear versus musculoskeletal. I have asked patient not to take hydrocodone at home and only stick with Tylenol. Physical Exam Narrative: Awake and alert Right subcostal margin tenderness on palpation Awake and alert Morbid obese Family at the bedside S1, S2 Currently on room air Discharge Data Studies Completed and Pending Completed Studies During Hospitalization Category Date Time Status US gall bladder [id number] Routine Ultrasound 08/26/23 00:20 Completed Pending at discharge Category Date Time Status Comprehensive Metabolic Panel AM LABS Lab 08/28/23 04:00 Ordered Laboratory Results WBC 6.86 10^3/uL (3.29-11.43) 08/27/23 05:26 RBC 5.26 10^6/uL (3.85-5.65) 08/27/23 05:26 Hgb 15.10 g/dL (11.27-16.99) 08/27/23 05:26 Hct 46.9 % (37-53) 08/27/23 05:26 MCV 89.2 fl (82-101) 08/27/23 05:26 MCH 28.7 pg (27-33) 08/27/23 05:26 MCHC 32.2 g/dL (30-55) 08/27/23 05:26 RDW 12.2 % (12.1-15.1) 08/27/23 05:26 Plt Count 223 10^3/cmm (157-399) 08/27/23 05:26 MPV 10.0 fL (7.4-10.4) 08/27/23 05:26 Neut % (Auto) 63.4 % 08/27/23 05:26 Lymph % (Auto) 23.8 % 08/27/23 05:26 [place] % (Auto) 10.2 % 08/27/23 05:26 Eos % (Auto) 1.6 % 08/27/23 05:26 Baso % (Auto) 0.4 % 08/27/23 05:26 Neut # (Auto) 4.35 10^3/uL (1.8-7.7) 08/27/23 05:26 Lymph # (Auto) 1.6 10^3/uL (0.8-4.8) 08/27/23 05:26 [place] # (Auto) 0.7 10^3/uL (0.2-0.9) 08/27/23 05:26 Eos # (Auto) 0.1 10^3/uL (0.0-0.8) 08/27/23 05:26 Baso # (Auto) 0.0 10^3/uL (0.0-0.1) 08/27/23 05:26 Nucleated RBC % (auto) 0 % 08/27/23 05:26 Nucleated RBCs # 0.0 /100WBC 08/27/23 05:26 Sodium 140 mmol/L (136-145) 08/27/23 05:26 Potassium 3.9 mmol/L (3.5-5.1) 08/27/23 05:26 Chloride 103 mmol/L (98-107) 08/27/23 05:26 Carbon Dioxide 27 mmol/L (22-29) 08/27/23 05:26 Anion Gap 13.9 (5-19) 08/27/23 05:26 BUN 10 mg/dL (6-20) 08/27/23 05:26 Creatinine 0.9 mg/dL (0.7-1.2) 08/27/23 05:26 GFR Calculation 97.8 mL/min (90-130) 08/27/23 05:26 Glucose 122 mg/dL (65-115) H 08/27/23 05:26 Calculated Osmolality 290 mOsm/kg (285-295) 08/27/23 05:26 Calcium 8.2 mg/dL (8.5-10.5) L 08/27/23 05:26 Total Bilirubin 0.3 mg/dL (0.15-1.2) 08/27/23 05:26 AST 17 U/L (0-40) 08/27/23 05:26 ALT 32 U/L (0-41) 08/27/23 05:26 Alkaline Phosphatase 70 U/L (40-130) 08/27/23 05:26 Total Protein 6.0 g/dL (6.6-8.7) L 08/27/23 05:26 Albumin 3.6 g/dL (3.5-5.2) 08/27/23 05:26 Globulin 2.4 g/dL (1.3-4.6) 08/27/23 05:26 Influenza A (H1) PCR Not detected (NOT DETECT) 08/26/23 00:50 Influ A (H1/09) PCR Not detected (NOT DETECT) 08/26/23 00:50 Influenza A (H3) PCR Not detected (NOT DETECT) 08/26/23 00:50 Influenza Type A (PCR) Not detected (NOT DETECT) 08/26/23 00:50 Influenza Type B (PCR) Not detected (NOT DETECT) 08/26/23 00:50 SARS-CoV-2 Ag (Rapid) negative (Negative) 08/26/23 00:50 Vitals Last Vital Signs Temp 97.6 F 08/27/23 04:00 Pulse 78 08/27/23 04:00 Resp 18 08/27/23 04:00 BP 121/82 08/27/23 04:00 Pulse Ox 96 08/27/23 04:00 O2 Del Method Room Air 08/27/23 04:00 Discharge Plan Discharge Patient Disposition: Home Condition: Stable Prescriptions: New ciprofloxacin HCl 500 mg tablet 500 mg PO BID Qty: 10 0RF metronidazole 500 mg tablet 500 mg PO BID 5 Days Qty: 10 0RF sennosides-docusate sodium [Senna-S] 8.6-50 mg tablet 1 tab-cap PO BID PRN (Reason: constipation) Qty: 5 0RF Continued buspirone 7.5 mg tablet 7.5 mg PO BID Qty: 60 4RF pantoprazole [Protonix] 40 mg tablet,delayed release (DR/EC) 40 mg PO BID 30 Days Qty: 60 4RF (DME) pen needle, diabetic [Comfort EZ Pen [place]] 32 gauge x 5/32 needle See Rx Instructions .Route Qty: 100 2RF Rx Instructions: As directed ibuprofen 800 mg tablet 800 mg PO TID PRN (Reason: Pain) diclofenac sodium 75 mg tablet,delayed release (DR/EC) 75 mg PO BID PRN (Reason: Pain) Wellbutrin XL 300 mg tablet extended release 24 hr 300 mg PO QAM hydrocodone-acetaminophen 5-325 mg tablet 1 tab PO Q6H PRN (Reason: pain) Qty: 10 0RF Discontinued cephalexin 500 mg capsule 500 mg PO TID Rx Instructions: for 10 days (rx filled 08/15/23) Discharge Orders: Discharge Order (Routine); Ordered 08/28/23 Ordered By: Michelle Lou Referrals: Nitza Rodriguez MD [Primary Care Provider] - 09/03/23 10:00 am Discharge Diet: GI Soft Discharge Activity: Increase activity as tolerated Patient Instructions: Ciprofloxacin (By mouth), Metronidazole (By mouth), Colitis (ED), GI (Gastrointestinal) Soft Diet (GEN), Opioid Safety Discharge Attestations Time Spent in Discharge Care*: greater than 30 min Quality Metrics Clinical Quality Measures [ No reported AMI, CVA or VTE this stay] Coding Level of Care Code Acute Code for [facility] Fwd Diagnoses Colitis K52.9
== END 2023-08-28 11:53 | disposition home or self-care (01) ==
PROVIDERS: Admitting Provider Internal Medicine; PCP Family Medicine; Visit Provider Internal Medicine
DX: K52.9 Noninfective gastroenteritis and colitis, unspecified (principal); F41.9 Anxiety disorder, unspecified; I10 Essential (primary) hypertension; E66.01 Morbid (severe) obesity due to excess calories; Z68.43 Body mass index [BMI] 50.0-59.9, adult; K21.9 Gastro-esophageal reflux disease without esophagitis; Z79.891 Long term (current) use of opiate analgesic; K59.00 Constipation, unspecified; Z90.49 Acquired absence of other specified parts of digestive tract
CPT/HCPCS: 36415; 74181; 76705; 80053; 85025; 87426; 87631; C9113; G0378; G0379; J1170; J2405; J2543; J7120

== ENCOUNTER 2023-08-29 14:30 | Emergency (ER) | payer BC, SELFPAY ==
[2023-08-29 14:42] VITALS: BP 152/110; PULSE 119; RESP 17; TEMP 36.6; O2SAT 97; BMI 50.8
--- NOTE | 2023-08-29 15:08 | ED_ITS ---
HPI - Allergic Reaction General: Chief complaint: Allergic Reaction Stated complaint: allergic reaction Time Seen by Provider: 08/29/23 14:47 Source: patient Mode of arrival: ambulatory Limitations: no limitations History of Present Illness: HPI narrative: Patient is a 33-year-old male presents to ED today for complaints of an allergic reaction/itching/facial rash that started today. Patient states he was recently in the hospital for treatment of colitis and given antibiotics (Zosyn) while there. He was also given pain medications. He remembers feeling itchy then and states he was treated with IV Benadryl. Upon discharge he was placed on Cipro and Flagyl. He states without the Benadryl the rash has appeared. He is complaining of diffuse pruritus with rash to his face and neck MD complaint: allergic reaction and facial swelling Onset (ago): hour(s) Exposure: medication Associated symptoms: Reports itching; Deny dizziness, nausea or vomiting Severity: mild Treatment prior to arrival: none Previous Allergic Reaction History: none Review of Systems Const: Denies: fever(s), chills, body aches, fatigue or malaise Eyes: Denies: change in vision, blurry vision, blind spots, photophobia, floaters or seeing flashes ENMT: Reports: other (throat itching, denies throat swelling); Denies: throat pain, odynophagia, nasal discharge, nasal congestion or sinus pain Card: Denies: chest pain, palpitations, lightheadedness, syncope or pre- syncope Resp: Denies: dyspnea GI: Denies: nausea or vomiting Musc: Denies: neck pain, back pain, extremity pain or joint pain Skin/Breast: Reports: rash and pruritus Neuro: Denies: headache(s), numbness in extremities, weakness in extremities, sensory changes or dizziness PFS ED PFSH: Medical History Colitis Blood in stool Anxiety Surgical History History of laparoscopic cholecystectomy Status post laparoscopic appendectomy Family History Denies family history of Anesthesia complication Bleeding disorder Social History Smoking and tobacco/nicotine status: never used tobacco/nicotine Second hand smoke exposure: No Alcohol intake: never Substance/Drug Use: never Lives independently: Yes Household members: spouse Marital status: Current occupational status: unemployed Current gender identity: Male Physical Exam Const: COMMON NORMALS: no acute distress, patient oriented x3, no limitations, alert and well nourished GENERAL APPEARANCE: cooperative ORIENTATION/CONSCIOUSNESS: Yes awake, Yes oriented to person, Yes oriented to place and Yes oriented to time HENMT: COMMON NORMALS: normocephalic, atraumatic and Normal external nose present HEAD & SCALP: normal to inspection, normocephalic and atraumatic FACE & SINUS: normal facial exam and other (scattered redness to face/anterior and posterior neck) NOSE: Normal external nose present MOUTH: Normal oral and palatal mucosa present, lip normal and other (no angioedema) Eye: GENERAL EYE: appearance normal, both eyes and all related structures and normal light reflex DIRECT OPHTHALMOSCOPY: Yes normal light reflex Neck/C-Spine: COMMON NORMALS: no lymphadenopathy Resp: COMMON NORMALS: normal respiratory effort and clear to auscultation bilaterally AUSCULTATION: clear to auscultation bilaterally Cardio: COMMON NORMALS: regular rate and regular rhythm RATE: regular rate RHYTHM: regular rhythm Neuro: CRAIG COMA SCALE: document GCS findings [place] coma scale eye opening: Spontaneous [place] coma scale verbal response: Orientated [place] coma scale motor response: [place] commands Craig coma scale total score: 15 COMMON NORMALS: patient oriented x3 SENSORIUM/ORIENTATION: Yes alert, Yes oriented to person, Yes oriented to place and Yes oriented to time Skin: RASHES: rashes noted Course Vital Signs: Vital signs: Vital Signs Temperature 97.8 F 08/29/23 14:42 Pulse Rate 113 H 08/29/23 15:55 Respiratory Rate 16 08/29/23 15:55 Blood Pressure 173/102 08/29/23 15:55 Pulse Oximetry 95 08/29/23 15:55 Oxygen Delivery Me thod Room Air 08/29/23 15:55 MDM - Allergic Reaction Medical Decision Making Patient here for diffuse pruritus and rash to his face and neck. Patient states he began feeling itchy while he was in the hospital receiving IV Zosyn and Dilaudid. He states he was discharged home with Cipro and Flagyl as they were treating a mild colitis. Patient states he has had Dilaudid before without allergic reaction. My guess is that his symptoms are related to a Penicillin rash. As he was just discharged yesterday it most likely will take time to get out of his system. He has no concern for anaphylactic reaction. He was given IV Solu-Medrol, Benadryl, and Pepcid here with relief of his itching. He can continue Benadryl at home. Will place him on a steroid taper. Medical Records I reviewed the patient's medical records. No radiology studies performed this visit Discharge Plan Discharge Patient Disposition: Home Clinical Impression: Allergic reaction Qualifiers: Encounter type: initial encounter Qualified Code(s): T78.40XA - Allergy, unspecified, initial encounter Condition: Stable Prescriptions: New prednisone 10 mg tablet 10 mg PO DAILY 10 Days Qty: 20 0RF Rx Instructions: Take 5 tabs on day 1-2, 4 tabs on day 3, 3 tabs on day 4, 2 tabs on day 5, and 1 tab on day 6 No Action buspirone 7.5 mg tablet 7.5 mg PO BID Qty: 60 4RF pantoprazole [Protonix] 40 mg tablet,delayed release (DR/EC) 40 mg PO BID 30 Days Qty: 60 4RF (DME) pen needle, diabetic [Comfort EZ Pen [place]] 32 gauge x 5/32 needle See Rx Instructions .Route Qty: 100 2RF Rx Instructions: As directed ibuprofen 800 mg tablet 800 mg PO TID PRN (Reason: Pain) diclofenac sodium 75 mg tablet,delayed release (DR/EC) 75 mg PO BID PRN (Reason: Pain) Wellbutrin XL 300 mg tablet extended release 24 hr 300 mg PO QAM ciprofloxacin HCl 500 mg tablet 500 mg PO BID Qty: 10 0RF metronidazole 500 mg tablet 500 mg PO BID 5 Days Qty: 10 0RF Senna-S 8.6-50 mg tablet 1 tab-cap PO BID PRN (Reason: constipation) Qty: 5 0RF hydrocodone-acetaminophen 5-325 mg tablet 1 tab PO Q6H PRN (Reason: pain) Qty: 10 0RF Discharge Orders: Discharge ED (Routine); Ordered 08/29/23 Ordered By: Paula Tovar Referrals: Nitza Rodriguez MD [Primary Care Provider] - Patient Instructions: Allergic Reaction Activity Restrictions/Additional Instructions: As we discussed you may continue Benadryl 50 mg up to every 4-6 hours as needed for rash and itching. We will place you on steroids. You can continue your current medications. Coding Level of Care Code ED Phlebotomy Manager for [facility]
[2023-08-29] MEDS: famotidine 20 mg/2 mL INJ 40 MG IVP (15:25)
[2023-08-29] MEDS: diphenhydrAMINE 50 mg/mL SDV 1mL IVP (15:25)
[2023-08-29] MEDS: methylPREDNISolone sod succ 125 mg/2 mL INJ IVP (15:25)
[2023-08-29 15:55] VITALS: BP 173/102; PULSE 113; RESP 16; O2SAT 95
== END 2023-08-29 16:22 | disposition home or self-care (01) ==
PROVIDERS: Emergency Provider Physician Assistant; PCP Family Medicine
DX: L27.0 Generalized skin eruption due to drugs and medicaments taken internally (principal); T36.0X5A Adverse effect of penicillins, initial encounter
CPT/HCPCS: 96374; 96375; 99284; J1200; J2930; J3490

== ENCOUNTER → 2023-09-18 16:24 | Outpatient (BNVA) | payer BC, SELFPAY | PROVIDERS: PCP Family Medicine; Visit Provider Nurse Practitioner Family | DX: Z72.51 High risk heterosexual behavior (principal) | CPT/HCPCS: 86695; 86696 ==

== ENCOUNTER 2023-11-26 11:11 | Emergency (ER) | payer BC, SELFPAY ==
[2023-11-26 11:16] VITALS: BP 178/112; PULSE 100; RESP 18; TEMP 36.7; O2SAT 96
--- NOTE | 2023-11-26 11:21 | CT_ITS ---
WS: [id number] CT CHEST, ABDOMEN, AND PELVIS TECHNIQUE: Contrast-enhanced CT of the chest, abdomen, and pelvis with coronal and sagittal reformatt ed images. CLINICAL INFORMATION: trauma COMPARISON: None. DLP: 1826.[address] scans at [facility] use at least one of these dose optimization techniques: automated e xposure control; mA and/or kV adjustment per patient size (includes targeted exams where dose is matc hed to clinical indication); or iterative reconstruction. CT CHEST: Lungs are well aerated. No acute pulmonary infiltrates. Slight bibasal atelectasis. No pneumothorax. Calcified granuloma RIGHT lower lobe. Normal caliber thoracic aorta. No mediastinal or hilar lymphade nopathy. No axillary lymphadenopathy. Normal visualized thoracic spine. Shallow inspiration. Small es ophageal hernia. No visualized rib fractures. CT ABDOMEN AND PELVIS: Diffuse fatty infiltration of the liver. Prior cholecystectomy. No evidence of hepatic laceration. No rmal spleen. Small esophageal hernia. Normal pancreas. Adrenal glands are normal. Normal renal parenc hymal enhancement. Normal caliber abdominal aorta. No free fluid in the pelvis. Normal lumbar spine. CT/CT chest abdpel w/*[id number] IMPRESSION: No acute traumatic findings in the chest abdomen or pelvis
--- NOTE | 2023-11-26 11:23 | ED_ITS ---
HPI - Fall 2 General: Chief Complaint: Fall Stated Complaint: Fall, Sob Time Seen by Provider: 11/26/23 11:17 History of Present Illness: Patient tripped on some stairs and fell hitting the side of his chest and his abdomen on the right side. He is having upper abdominal pain and lower right chest and rib pain. Patient has history of obesity, depression and anxiety. He is not short of breath. Did not hit his head. No loss of consciousness. No altered mental status. He has a bruise on his right abdomen. Review of Systems 2 Narrative: Constitutional symptoms: Negative except as documented in HPI. Skin symptoms: Negative except as documented in HPI. Eye symptoms: Negative except as documented in HPI. ENMT symptoms: Negative except as documented in HPI. Respiratory symptoms: Negative except as documented in HPI. Cardiovascular symptoms: Negative except as documented in HPI. Gastrointestinal symptoms: Negative except as documented in HPI. Genitourinary symptoms: Negative except as documented in HPI. Musculoskeletal symptoms: Negative except as documented in HPI. Neurologic symptoms: Negative except as documented in HPI. Psychiatric symptoms: Negative except as documented in HPI. Endocrine symptoms: Negative except as documented in HPI. PFSH ED 2 PFSH: Medical History Colitis Blood in stool Anxiety Surgical History History of laparoscopic cholecystectomy Status post laparoscopic appendectomy Family History Denies family history of Anesthesia complication Bleeding disorder Social History Smoking and tobacco/nicotine status: never used tobacco/nicotine Second hand smoke exposure: No Alcohol intake: never Substance/Drug Use: never Lives independently: Yes Household members: spouse Marital status: Current occupational status: unemployed Current gender identity: Male Physical Exam 2 Narrative: EXAM NARRATIVE: General: Alert, patient appears in some distress from pain. Skin: Warm, dry. Head: Normocephalic, atraumatic. Neck: Supple, trachea midline. Eye: Extraocular movements are intact. Ears, nose, mouth and throat: mucosa moist. Cardiovascular: Regular, Normal peripheral perfusion. Respiratory: Lungs are clear to auscultation, respirations are non-labored, breath sounds are equal, Symmetrical chest wall expansion. Patient has tenderness to palpation over his lower right lateral chest wall. Gastrointestinal: Soft, right upper quadrant tenderness to palpation, Non distended, Normal bowel sounds. Musculoskeletal: Normal ROM, no deformity. Neurological: Alert and oriented, No focal neurological deficit observed. Psychiatric: Cooperative, appropriate mood & affect. Course 2 Vital Signs: Vital signs: Vital Signs Temperature 98.0 F 11/26/23 11:16 Pulse Rate 79 11/26/23 13:00 Respiratory Rate 16 11/26/23 13:00 Blood Pressure 164/85 11/26/23 13:00 Pulse Oximetry 93 11/26/23 13:00 Oxygen Delivery Me thod Room Air 11/26/23 13:00 MDM - Fall Medical Decision Making Medical decision making: Differential diagnosis including but not limited to and based on the above HPI, review of systems and physical exam: Patient with traumatic right lower chest and right upper quadrant pain. CT of the chest abdomen pelvis with contrast was ordered. Also basic lab work with a lactate. Orders placed to evaluate differential diagnosis based on the above differential, HPI and physical exam Lab Review: Laboratory results were reviewed and interpreted by myself the emergency room physician. White count is 6. Hemoglobin is 17. BUN and creatinine are [address] of the chest abdomen pelvis: There is no acute process. Fatty liver. Otherwise unremarkable. No rib fractures. No pneumothorax. This was reviewed and interpreted by myself the emergency room physician. I also reviewed the radiology report and discussed the findings with the radiologist on-call. I reviewed the patient's medical record. Reexamination: Patient with no increased work of breathing. No altered mental status. He states pain is still present so some Dilaudid was given. Assessment and plan: Rib contusions Abdominal contusion -P.o. [place] and IV Dilaudid and Zofran. - Discharged home - Discussed findings and plan with patient. Answered any questions. - All laboratory values were reviewed and interpreted personally by myself, the ER physician - All imaging was reviewed and interpreted personally by myself, the ER physician. - Evaluation and treatment of this problem were appropriate in the emergency setting Lab Data 11/26/23 11:36 11/26/23 11:36 Radiology Impressions Chest/Abdomen/Pelvis CT 11/26/23 11:21 IMPRESSION: No acute traumatic findings in the chest abdomen or pelvis Laboratory Results WBC 6.44 10^3/uL (3.29-11.43) 11/26/23 11:36 RBC 5.89 10^6/uL (3.85-5.65) H 11/26/23 11:36 Hgb 17.20 g/dL (11.27-16.99) H 11/26/23 11:36 Hct 51.2 % (37-53) 11/26/23 11:36 MCV 86.9 fl (82-101) 11/26/23 11:36 MCH 29.2 pg (27-33) 11/26/23 11:36 MCHC 33.6 g/dL (30-55) 11/26/23 11:36 RDW 12.1 % (12.1-15.1) 11/26/23 11:36 Plt Count 265 10^3/cmm (157-399) 11/26/23 11:36 MPV 9.6 fL (7.4-10.4) 11/26/23 11:36 Neut % (Auto) 64.1 % 11/26/23 11:36 Lymph % (Auto) 21.4 % 11/26/23 11:36 Wise % (Auto) 9.5 % 11/26/23 11:36 Eos % (Auto) 3.6 % 11/26/23 11:36 Baso % (Auto) 0.9 % 11/26/23 11:36 Neut # (Auto) 4.13 10^3/uL (1.8-7.7) 11/26/23 11:36 Lymph # (Auto) 1.4 10^3/uL (0.8-4.8) 11/26/23 11:36 Wise # (Auto) 0.6 10^3/uL (0.2-0.9) 11/26/23 11:36 Eos # (Auto) 0.2 10^3/uL (0.0-0.8) 11/26/23 11:36 Baso # (Auto) 0.1 10^3/uL (0.0-0.1) 11/26/23 11:36 Nucleated RBC % (auto) 0 % 11/26/23 11:36 Nucleated RBCs # 0.0 /100WBC 11/26/23 11:36 Sodium 143 mmol/L (136-145) 11/26/23 11:36 Potassium 4.0 mmol/L (3.5-5.1) 11/26/23 11:36 Chloride 107 mmol/L (98-107) 11/26/23 11:36 Carbon Dioxide 24 mmol/L (22-29) 11/26/23 11:36 Anion Gap 16.0 (5-19) 11/26/23 11:36 BUN 12 mg/dL (6-20) 11/26/23 11:36 Creatinine 0.8 mg/dL (0.7-1.2) 11/26/23 11:36 GFR Calculation 112.0 mL/min (90-130) 11/26/23 11:36 Glucose 95 mg/dL (65-115) 11/26/23 11:36 Calculated Osmolality 296 mOsm/kg (285-295) H 11/26/23 11:36 Lactic Acid 1.3 mmol/L (0.5-2.2) 11/26/23 11:36 Calcium 9.2 mg/dL (8.5-10.5) 11/26/23 11:36 Total Bilirubin 0.6 mg/dL (0.15-1.2) 11/26/23 11:36 AST 32 U/L (0-40) 11/26/23 11:36 ALT 48 U/L (0-41) H 11/26/23 11:36 Alkaline Phosphatase 112 U/L (40-130) 11/26/23 11:36 Total Protein 7.1 g/dL (6.6-8.7) 11/26/23 11:36 Albumin 4.1 g/dL (3.5-5.2) 11/26/23 11:36 Globulin 3.0 g/dL (1.3-4.6) 11/26/23 11:36 All radiology interpretation(s) finalized by discharge Discharge Plan Discharge Patient Disposition: Home Clinical Impression: Rib contusion, Abdominal wall contusion Condition: Stable Prescriptions: New cyclobenzaprine 10 mg tablet 10 mg PO Q8H Qty: 20 0RF diclofenac sodium 50 mg tablet,delayed release (DR/EC) 50 mg PO Q12H Qty: 20 0RF Miralax 17 gram/dose powder 17 g PO DAILY Qty: 510 0RF Rx Instructions: Take 1 scoop daily while taking pain medications. hydrocodone-acetaminophen 10-300 mg tablet 1 tab PO Q8H PRN (Reason: pain) Qty: 20 0RF No Action (DME) pen needle, diabetic [Comfort EZ Pen [place]] 32 gauge x 5/32 needle See Rx Instructions .Route Qty: 100 2RF Rx Instructions: As directed aripiprazole [Abilify] 2 mg tablet 2 mg PO DAILY 30 Days Qty: 30 0RF Wellbutrin XL 300 mg tablet extended release 24 hr 300 mg PO QAM 90 Days Qty: 90 1RF buspirone 7.5 mg tablet 7.5 mg PO BID Qty: 60 4RF pantoprazole [Protonix] 40 mg tablet,delayed release (DR/EC) 40 mg PO BID 30 Days Qty: 60 4RF sennosides-docusate sodium [Senna-S] 8.6-50 mg tablet 1 tab-cap PO BID PRN (Reason: constipation) Qty: 5 0RF Discharge Orders: Discharge ED (Routine); Ordered 11/26/23 Ordered By: Fay Mazariegos Referrals: Nitza Rodriguez MD [Primary Care Provider] - 4-7 days Discharge Diet: Usual diet Discharge Activity: Increase activity as tolerated Patient Instructions: Rib Contusion (ED), Opioid Safety, Pain Management Activity Restrictions/Additional Instructions: Thank you for choosing [facility] for your healthcare needs today. Please realize this is an emergency room and that we are providing you with a medical screening exam and this may not be complete and all inclusive of all the testing and or work up that you may need to determine your ailment or severity of your illness. You have been screened and evaluated and felt safe for discharge. Health conditions do change or evolve sometimes and as such it is important that you follow up with your Primary Doctor to be re checked, 3-5 days is a general good time frame for follow up. You are always welcome to return to the ED for re assessment if your symptoms are worsening or you have new concerns Coding Level of Care Code ED Manager Location for [facility]
[2023-11-26 11:47] LABS: Basophils # 0.1 10^3/uL (0.0-0.1); Basophils % 0.9 %; Eosinophils # 0.2 10^3/uL (0.0-0.8); Eosinophils % 3.6 %; Hematocrit 51.2 % (37-53); Lymphocytes # 1.4 10^3/uL (0.8-4.8); Lymphocytes % 21.4 %; Mean Corpuscular HGB Conc 33.6 g/dL (30-55); Mean Corpuscular Hemoglobin 29.2 pg (27-33); Mean Corpuscular Volume 86.9 fl (82-101); Mean Platelet Volume 9.6 fL (7.4-10.4); Monocytes # 0.6 10^3/uL (0.2-0.9); Monocytes % 9.5 %; Neutrophils # 4.13 10^3/uL (1.8-7.7); Neutrophils % 64.1 %; Nucleated Red Blood Cells % 0 %; Platelet Count 265 10^3/cmm (157-399); Red Blood Count 5.89 10^6/uL (3.85-5.65); Red Cell Distribution Width 12.1 % (12.1-15.1); White Blood Count 6.44 10^3/uL (3.29-11.43)
[2023-11-26 12:02] LABS: Alanine Aminotransferase 48 U/L (0-41); Albumin Level 4.1 g/dL (3.5-5.2); Alkaline Phosphatase 112 U/L (40-130); Aspartate Amino Transferase 32 U/L (0-40); Blood Urea Nitrogen 12 mg/dL (6-20); Calcium 9.2 mg/dL (8.5-10.5); Carbon Dioxide 24 mmol/L (22-29); Chloride 107 mmol/L (98-107); Creatinine Clr Calc Pharmacy 180.6375; Glucose 95 mg/dL (65-115); Osmolality Calculated 296 mOsm/kg (285-295); Sodium 143 mmol/L (136-145); Total Bilirubin 0.6 mg/dL (0.15-1.2); Total Protein 7.1 g/dL (6.6-8.7)
[2023-11-26 12:03] LABS: Lactic Sepsis W/Reflex 1.3 mmol/L (0.5-2.2)
[2023-11-26] MEDS: HYDROcodone-acetaminophen 10-325 mg Tablet 1 TAB PO (12:09)
[2023-11-26] MEDS: ondansetron 2 mg/ML SDV 2 mL 4 MG IVP (12:09)
[2023-11-26 12:21] VITALS: PULSE 90; RESP 16; O2SAT 94
[2023-11-26] MEDS: iohexol 350 mg/mL 500 mL Btl (per mL) IV (12:26)
[2023-11-26 13:00] VITALS: BP 164/85; PULSE 79; RESP 16; O2SAT 93
[2023-11-26] MEDS: HYDROmorphone 1 mg/mL INJ 1 mL IVP (13:47)
[2023-11-26 13:50] VITALS: BP 162/90; PULSE 89; RESP 14; O2SAT 94
== END 2023-11-26 14:00 | disposition home or self-care (01) ==
PROVIDERS: Emergency Provider Emergency Medicine; PCP Family Medicine
DX: S20.211A Contusion of right front wall of thorax, initial encounter (principal); S30.1XXA Contusion of abdominal wall, initial encounter; W01.0XXA Fall on same level from slipping, tripping and stumbling without subsequent striking against object, initial encounter
CPT/HCPCS: 36415; 71260; 74177; 80053; 83605; 85025; 96374; 96375; 99285; J1170; J2405; Q9967

== ENCOUNTER 2023-12-30 18:58 | Emergency (ER) | payer OTHER, SELFPAY ==
[2023-12-30 20:01] VITALS: PULSE 99; RESP 18; TEMP 36.8; O2SAT 97; BMI 50.8
[2023-12-30 20:05] VITALS: BP 169/111; PULSE 106; RESP 18; TEMP 36.8; O2SAT 96
--- NOTE | 2023-12-30 20:45 | XRR_ITS ---
PROCEDURE INFORMATION: Exam: XR Lumbosacral Spine Exam date and time: 12/30/2023 8:55 PM Age: 33 years old Clinical indication: Low back pain; Additional info: Back pain while lifting TECHNIQUE: Imaging protocol: Radiologic exam of the lumbosacral spine. Views: 2 or 3 views. COMPARISON: CT chest abdpel w/*[id number] 11/26/2023 12:25 PM FINDINGS: Bones/joints: Multilevel lumbar facet joint arthropathy. Negative for lumbar spine fracture. Normal alignment. Relatively mild narrowing of multiple intervertebral discs. Soft tissues: Unremarkable. Intraperitoneal space: Right upper quadrant surgical clips. XR/XR lumbar spine 2-3V* [id number] IMPRESSION: Negative for acute lumbar spine pathology.
--- NOTE | 2023-12-30 20:48 | ED_ITS ---
Documented by User: [email or web address] Olmstead 12/30/23 22:58 HPI - Back Pain/Injury General: Chief Complaint: Back Pain/Injury Stated Complaint: lower back pain Time Seen by Provider: 12/30/23 20:38 Source: patient Mode of arrival: ambulatory Limitations: no limitations History of Present Illness: Patient is a 33-year-old male presenting to the emergency department complaining of right lower back pain onset approximately 1 hour prior to arrival. 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 He has never had this before. Denies any bowel or bladder incontinence, saddle anesthesia, or other symptoms at this time. Has not taken anything for pain to this point. No other pertinent medical history to report. MD elicited complaint: back pain Onset (ago): minute(s) Timing: constant Severity: severe Similar Symptoms Previously: No Quality: sharp Location: right lower back Radiation: right upper leg Exacerbating factors: movement Relieving factors: none Context: while lifting Associated symptoms: Deny abdominal pain, chills, dysuria, fatigue, fever(s), nausea or vomiting Work related injury: Yes Review of Systems General: Reports: 10 or more systems reviewed and unremarkable except in HPI and below Const: Denies: fever(s), chills or fatigue Eyes: Denies: change in vision ENMT: Denies: throat pain, ear or mastoid pain or nasal discharge Card: Denies: chest pain, palpitations, swelling of feet/ankles or lightheadedness Resp: Denies: dyspnea, productive cough or wheezing GI: Denies: abdominal pain, nausea, vomiting, diarrhea or constipation : Denies: flank pain, difficulty urinating, dysuria or urinary frequency Musc: Reports: back pain and extremity pain; Denies: neck pain or joint pain Skin/Breast: Denies: rash Neuro: Denies: headache(s), numbness in extremities or weakness in extremities PFSH ED PFSH: Medical History Colitis Blood in stool Anxiety Surgical History History of laparoscopic cholecystectomy Status post laparoscopic appendectomy Family History Denies family history of Anesthesia complication Bleeding disorder Social History Smoking and tobacco/nicotine status: never used tobacco/nicotine Second hand smoke exposure: No Alcohol intake: never Substance/Drug Use: never Lives independently: Yes Household members: spouse Marital status: Current occupational status: unemployed Current gender identity: Male Physical Exam Const: COMMON NORMALS: no acute distress, patient oriented x3 and no limitations GENERAL APPEARANCE: cooperative, well developed and in distress NUTRITIONAL APPEARANCE: obese ORIENTATION/CONSCIOUSNESS: Yes awake, Yes oriented to person, Yes oriented to place and Yes oriented to time HENMT: COMMON NORMALS: normocephalic, atraumatic and hearing grossly normal bilaterally HEAD & SCALP: normocephalic and atraumatic Eye: COMMON NORMALS: Equal, round and reactive pupils present, EOMs intact bilaterally and conjunctivae normal CONJUNCTIVA: Yes conjunctivae normal PUPIL: Yes Equal, round and reactive pupils present Neck/C-Spine: COMMON NORMALS: full ROM, supple and no JVD Resp: COMMON NORMALS: normal respiratory effort, No retractions, No use of accessory muscles and clear to auscultation bilaterally AUSCULTATION: clear to auscultation bilaterally Cardio: COMMON NORMALS: no JVD, regular rate, regular rhythm, No clicks present (Cardio), No murmurs present (Cardio) and No rub (Cardio) RATE: regular rate RHYTHM: regular rhythm Back/Pelvis: COMMON NORMALS: thoracic and lumbar spine normal to inspection THORACIC SPINE/UPPER BACK: Yes normal to inspection LUMBAR SPINE/LOWER BACK: Yes normal to inspection, Yes ROM limited, Yes pain with ROM, Yes paraspinal muscle tenderness Lumbar paraspinal muscle tenderness: right, Yes paraspinal muscle spasm Lumbar paraspinal muscle spasm: right and Yes straight leg raise positive right Extremity: COMMON NORMALS: normal to inspection, full ROM and capillary refill normal Neuro: COMMON NORMALS: patient oriented x3, moves all extremities, no focal motor deficits and no sensory deficits noted SENSORIUM/ORIENTATION: Yes oriented to person, Yes oriented to place and Yes oriented to time Psych: COMMON NORMALS: mental status grossly normal and Normal thought process present THOUGHT PROCESS: Normal thought process present Skin: COMMON NORMALS: no rashes or lesions noted GENERAL SKIN EXAM: no rashes or lesions noted Course Vital Signs: Vital signs: Vital Signs Temperature 98.3 F 12/30/23 20:05 Pulse Rate 95 12/30/23 23:13 Respiratory Rate 18 12/30/23 20:05 Blood Pressure 169/111 12/30/23 20:05 Pulse Oximetry 93 12/30/23 23:13 Oxygen Delivery Me thod Room Air 12/30/23 20:05 MDM - Back Pain/Injury Medical Decision Making Patient seen in the emergency department for low back pain after lifting 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 No red flag back symptoms reported. No history of similar. Vitals on arrival unremarkable condition has remained stable through ED course. He did appear in pain on examination, and has any movement at the lower back causing him a great amount of pain. X-ray of the lumbar spine was negative. He was given hydrocodone, muscle relaxer, and steroid in the emergency department and upon recheck noted some improvement, though pain is still present. Patient likely dealing with a back strain, will treat with muscle relaxer and steroid at home. Strict return precautions given and patient will follow-up with primary care as needed. Labs Radiology Impressions Lumbar Spine X-Ray 12/30/23 20:45 IMPRESSION: Negative for acute lumbar spine pathology. All radiology interpretation(s) finalized by discharge Discharge Plan Discharge Patient Disposition: Home Clinical Impression: Low back strain Qualifiers: Encounter type: initial encounter Qualified Code(s): S39.012A - Strain of muscle, fascia and tendon of lower back, initial encounter Condition: Stable Prescriptions: New prednisone 20 mg tablet 60 mg PO ONCE 5 Days Qty: 15 0RF methocarbamol 750 mg tablet 750 mg PO Q8H 5 Days Qty: 15 0RF No Action (DME) pen needle, diabetic [Comfort EZ Pen [place]] 32 gauge x 5/32 needle See Rx Instructions .Route Qty: 100 2RF Rx Instructions: As directed aripiprazole [Abilify] 2 mg tablet 2 mg PO DAILY 30 Days Qty: 30 0RF Wellbutrin XL 300 mg tablet extended release 24 hr 300 mg PO QAM 90 Days Qty: 90 1RF buspirone 7.5 mg tablet 7.5 mg PO BID Qty: 60 4RF pantoprazole [Protonix] 40 mg tablet,delayed release (DR/EC) 40 mg PO BID 30 Days Qty: 60 4RF sennosides-docusate sodium [Senna-S] 8.6-50 mg tablet 1 tab-cap PO BID PRN (Reason: constipation) Qty: 5 0RF cyclobenzaprine 10 mg tablet 10 mg PO Q8H Qty: 20 0RF diclofenac sodium 50 mg tablet,delayed release (DR/EC) 50 mg PO Q12H Qty: 20 0RF Miralax 17 gram/dose powder 17 g PO DAILY Qty: 510 0RF Rx Instructions: Take 1 scoop daily while taking pain medications. hydrocodone-acetaminophen 10-300 mg tablet 1 tab PO Q8H PRN (Reason: pain) Qty: 20 0RF hydrocodone-acetaminophen 10-325 mg tablet 1 tab PO Q8H PRN (Reason: pain) Qty: 20 0RF Discharge Orders: Discharge ED (Routine); Ordered 12/30/23 Ordered By: Aden Matta Referrals: Nitza Rodriguez MD [Primary Care Provider] - Discharge Diet: Usual diet Discharge Activity: Increase activity as tolerated Patient Instructions: Low Back Strain (ED), Lower Back Exercises (ED) Activity Restrictions/Additional Instructions: Muscle relaxer and steroid as prescribed. Tylenol/ibuprofen at home. Ice/heat for added relief. Gentle range of motion exercises as tolerated. Return with any new or worsening symptoms. Otherwise, follow-up with primary care. Stand Alone Forms: Work/School Release Coding Level of Care Code ED [address] Manager for [facility] Documented by User: Piero Sahni DO 12/31/23 05:21 HPI - Back Pain/Injury General: Chief Complaint: Back Pain/Injury Stated Complaint: lower back pain Time Seen by Provider: 12/30/23 20:38 PFSH ED PFSH: Medical History Colitis Blood in stool Anxiety Surgical History History of laparoscopic cholecystectomy Status post laparoscopic appendectomy Family History Denies family history of Anesthesia complication Bleeding disorder Social History Smoking and tobacco/nicotine status: never used tobacco/nicotine Second hand smoke exposure: No Alcohol intake: never Substance/Drug Use: never Lives independently: Yes Household members: spouse Marital status: Current occupational status: unemployed Current gender identity: Male Course Vital Signs: Vital signs: Vital Signs Temperature 98.3 F 12/30/23 20:05 Pulse Rate 95 12/30/23 23:13 Respiratory Rate 18 12/30/23 20:05 Blood Pressure 169/111 12/30/23 20:05 Pulse Oximetry 93 12/30/23 23:13 Oxygen Delivery Me thod Room Air 12/30/23 20:05 MDM - Back Pain/Injury Medical Decision Making Patient seen in the emergency department for low back pain after lifting 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 No red flag back symptoms reported. No history of similar. Vitals on arrival unremarkable condition has remained stable through ED course. He did appear in pain on examination, and has any movement at the lower back causing him a great amount of pain. X-ray of the lumbar spine was negative. He was given hydrocodone, muscle relaxer, and steroid in the emergency department and upon recheck noted some improvement, though pain is still present. Patient likely dealing with a back strain, will treat with muscle relaxer and steroid at home. Strict return precautions given and patient will follow-up with primary care as needed. Chart reviewed Labs Radiology Impressions Lumbar Spine X-Ray 12/30/23 20:45 IMPRESSION: Negative for acute lumbar spine pathology. Discharge Plan Discharge Patient Disposition: Home Clinical Impression: Low back strain Qualifiers: Encounter type: initial encounter Qualified Code(s): S39.012A - Strain of musc le, fascia and tendon of lower back, initial encounter Condition: Stable Prescriptions: New prednisone 20 mg tablet 60 mg PO ONCE 5 Days Qty: 15 0RF methocarbamol 750 mg tablet 750 mg PO Q8H 5 Days Qty: 15 0RF No Action (DME) pen needle, diabetic [Comfort EZ Pen [place]] 32 gauge x 5/32 needle See Rx Instructions .Route Qty: 100 2RF Rx Instructions: As directed aripiprazole [Abilify] 2 mg tablet 2 mg PO DAILY 30 Days Qty: 30 0RF Wellbutrin XL 300 mg tablet extended release 24 hr 300 mg PO QAM 90 Days Qty: 90 1RF buspirone 7.5 mg tablet 7.5 mg PO BID Qty: 60 4RF pantoprazole [Protonix] 40 mg tablet,delayed release (DR/EC) 40 mg PO BID 30 Days Qty: 60 4RF sennosides-docusate sodium [Senna-S] 8.6-50 mg tablet 1 tab-cap PO BID PRN (Reason: constipation) Qty: 5 0RF cyclobenzaprine 10 mg tablet 10 mg PO Q8H Qty: 20 0RF diclofenac sodium 50 mg tablet,delayed release (DR/EC) 50 mg PO Q12H Qty: 20 0RF Miralax 17 gram/dose powder 17 g PO DAILY Qty: 510 0RF Rx Instructions: Take 1 scoop daily while taking pain medications. hydrocodone-acetaminophen 10-300 mg tablet 1 tab PO Q8H PRN (Reason: pain) Qty: 20 0RF hydrocodone-acetaminophen 10-325 mg tablet 1 tab PO Q8H PRN (Reason: pain) Qty: 20 0RF Discharge Orders: Discharge ED (Routine); Ordered 12/30/23 Ordered By: Aden Matta Referrals: Nitza Rodriguez MD [Primary Care Provider] - Discharge Diet: Usual diet Discharge Activity: Increase activity as tolerated Patient Instructions: Low Back Strain (ED), Lower Back Exercises (ED) Activity Restrictions/Additional Instructions: Muscle relaxer and steroid as prescribed. Tylenol/ibuprofen at home. Ice/heat for added relief. Gentle range of motion exercises as tolerated. Return with any new or worsening symptoms. Otherwise, follow-up with primary care. Stand Alone Forms: Work/School Release Coding Level of Care Code ED [address] Manager for [facility]
[2023-12-30] MEDS: orphenadrine 30 mg/mL Inj 2 mL 60 MG IM (21:11)
[2023-12-30] MEDS: dexamethasone 10 mg/mL INJ IM (21:12)
[2023-12-30] MEDS: HYDROcodone-acetaminophen 7.5-325 mg Tablet 1 TAB PO ×2 (21:15→23:12)
[2023-12-30 22:00] VITALS: PULSE 96; O2SAT 96
[2023-12-30 23:13] VITALS: PULSE 95; O2SAT 93
== END 2023-12-30 23:16 | disposition home or self-care (01) ==
PROVIDERS: Emergency Provider Physician Assistant; PCP Family Medicine
DX: S39.012A Strain of muscle, fascia and tendon of lower back, initial encounter (principal); X50.0XXA Overexertion from strenuous movement or load, initial encounter; Y93.F2 Activity, caregiving, lifting; Y92.238 Other place in hospital as the place of occurrence of the external cause; Y99.0 Civilian activity done for income or pay
CPT/HCPCS: 72100; 96372; 99284; J1100; J2360

== ENCOUNTER 2024-02-08 14:40 | Emergency (ER) | payer BC, SELFPAY ==
[2024-02-08 14:45] VITALS: BP 159/101; PULSE 91; RESP 16; TEMP 36.5; O2SAT 96; BMI 50.8
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
[2024-02-08] MEDS: diphenhydrAMINE 50 mg/mL SDV 1mL IVP (17:46)
[2024-02-08] MEDS: metoclopramide 5 mg/mL SDV 2 mL 10 MG IVP (17:46)
[2024-02-08] MEDS: sodium chloride 0.9% 1,000 ML 999 ML IV (17:46)
[2024-02-08] MEDS: dexamethasone 10 mg/mL INJ IVP (17:46)
== END 2024-02-08 19:05 | disposition home or self-care (01) ==
PROVIDERS: Emergency Provider Nurse Practitioner Family; PCP Family Medicine
DX: G43.919 Migraine, unspecified, intractable, without status migrainosus (principal)
CPT/HCPCS: 96374; 96375; 99284; J1100; J1200; J2765; J7030

== ENCOUNTER → 2024-04-01 14:53 | Outpatient (BNVA) | payer BC, SELFPAY | PROVIDERS: PCP Family Medicine; Visit Provider Student in an Organized Health Care Education/Training Program | DX: R20.0 Anesthesia of skin; R20.2 Paresthesia of skin; M79.642 Pain in left hand | CPT/HCPCS: 73130 ==

== ENCOUNTER 2024-04-25 12:05 | Emergency (ER) | payer BC, SELFPAY ==
[2024-04-25 12:13] VITALS: BP 171/126; PULSE 91; RESP 18; TEMP 36.5; O2SAT 97; BMI 52.2
--- NOTE | 2024-04-25 13:58 | ED_ITS ---
HPI - Abdominal Pain General: Chief Complaint: Abdominal Pain Stated Complaint: abd pain and back Time Seen by Provider: 04/25/24 13:38 History of Present Illness: 33-year-old male patient comes in today for abdominal pain radiating to the back. Patient states he was helping move a television when it slipped and the weight of the television came directly on him causing him to feel a pop and pull in his right upper quadrant of his abdomen. Incident occurred yesterday patient had worsening pain and discomfort. Patient appears nontoxic. Respirations are even. Related Data Previous Rx's Medication Instructions Recorded bupropion HCl 300 mg 24 hr tablet, 300 mg PO QAM 90 days #90 tabs 11/07/23 extended release (Wellbutrin XL) buspirone 7.5 mg tablet 7.5 mg PO BID #60 tabs 11/07/23 pantoprazole 40 mg tablet,delayed 40 mg PO BID 30 days #60 tabs 11/07/23 release (Protonix) baclofen 20 mg tablet 20 mg PO Q8H PRN muscle pain #15 04/25/24 tabs hydrocodone 7.5 mg-acetaminophen 1 tab PO Q6H PRN pain #10 tabs 04/25/24 325 mg tablet naloxone 4 mg/actuation nasal spray 4 mg intranasal Q2M PRN opioid 04/25/24 overdose #2 ea Allergies Allergy/AdvReac Type Severity Reaction Status Date / Time latex Allergy Severe ALGY-Hives Verified 04/25/24 12:18 ketorolac [Toradol] Allergy ALGY-Hives Verified 04/25/24 12:18 morphine Allergy ALGY-Rash Verified 04/25/24 12:18 Review of Systems General: Reports: 10 or more systems reviewed and unremarkable except in HPI and below PFSH ED PFSH: Medical History Colitis Blood in stool Anxiety Surgical History History of laparoscopic cholecystectomy Status post laparoscopic appendectomy Family History Denies family history of Anesthesia complication Bleeding disorder Social History Smoking and tobacco/nicotine status: never used tobacco/nicotine Second hand smoke exposure: No Alcohol intake: never Substance/Drug Use: never Lives independently: Yes Household members: spouse Marital status: Current occupational status: unemployed Current gender identity: Male Physical Exam Const: COMMON NORMALS: alert HENMT: COMMON NORMALS: normocephalic HEAD & SCALP: normocephalic Neck/C-Spine: COMMON NORMALS: full ROM Resp: COMMON NORMALS: normal respiratory effort Cardio: COMMON NORMALS: regular rate RATE: regular rate Back/Pelvis: COMMON NORMALS: thoracic and lumbar spine normal to inspection Extremity: COMMON NORMALS: full ROM Neuro: SENSORIUM/ORIENTATION: Yes alert Skin: COMMON NORMALS: turgor normal GENERAL SKIN EXAM: turgor normal Course Vital Signs: Vital signs: Vital Signs Temperature 97.7 F 04/25/24 12:13 Pulse Rate 91 04/25/24 12:13 Respiratory Rate 18 04/25/24 12:13 Blood Pressure 171/126 04/25/24 12:13 Pulse Oximetry 97 04/25/24 12:13 Oxygen Delivery Me thod Room Air 04/25/24 12:13 MDM - Abdominal Pain Medical Decision Making 33-year-old male patient comes in today for abdominal muscle pain. On exam patient has some tenderness to the right upper quadrant of the abdomen and to the right paraspinous muscles. Bowel sounds are present. No protrusion or induration is noted to the skin. Differential diagnosis includes abdominal muscle strain, constipation, hernia. No signs of severe injury or hernia are noted on exam. Patient was recommended to use medication for pain and muscle laxation. Patient was recommended to follow-up with primary care for further instructions return to ED for worsening symptoms. No radiology studies performed this visit Discharge Plan Discharge Patient Disposition: Home Clinical Impression: Abdominal muscle strain Condition: Stable Prescriptions: New hydrocodone-acetaminophen 7.5-325 mg tablet 1 tab PO Q6H PRN (Reason: pain) Qty: 10 0RF baclofen 20 mg tablet 20 mg PO Q8H PRN (Reason: muscle pain) Qty: 15 0RF naloxone 4 mg/actuation spray,non-aerosol 4 mg intranasal Q2M PRN (Reason: opioid overdose) Qty: 2 0RF Rx Instructions: alternate nostrils w each dose until help arrives No Action Wellbutrin XL 300 mg tablet extended release 24 hr 300 mg PO QAM 90 Days Qty: 90 1RF buspirone 7.5 mg tablet 7.5 mg PO BID Qty: 60 4RF pantoprazole [Protonix] 40 mg tablet,delayed release (DR/EC) 40 mg PO BID 30 Days Qty: 60 4RF Discharge Orders: Discharge ED (Routine); Ordered 04/25/24 Ordered By: Derrick Green Referrals: Nitza Rodriguez MD [Primary Care Provider] - Discharge Diet: Usual diet Discharge Activity: Increase activity as tolerated Patient Instructions: Muscle Strain (ED) Activity Restrictions/Additional Instructions: Activity as tolerated. Use ice to the area to help with pain and discomfort. Gentle stretching and range of motion exercises. Drink plenty of water with medications. You may use [id number] Tylenol or ibuprofen for further pain relief. Muscle rubs also like diclofenac gel, menthol rubs may also be beneficial to help with pain control. Follow-up with primary care for further instructions. Return to ER for new concerns such as high fever, blood in vomit or stool, or new concerns. Stand Alone Forms: Work/School Release Coding Level of Care Code ED Oracle Programmer Analyst for Ambrocio Stratton
[2024-04-25] MEDS: HYDROcodone-acetaminophen 10-325 mg Tablet 1 TAB PO (13:59)
[2024-04-25] MEDS: orphenadrine 30 mg/mL Inj 2 mL 60 MG IM (13:59)
[2024-04-25 14:01] VITALS: BP 163/112; PULSE 85; O2SAT 97
--- NOTE | 2024-04-25 14:08 | CTR_ITS ---
PROCEDURE INFORMATION: Exam: CT Abdomen And Pelvis Without Contrast Exam date and time: 04/25/2024 2:16 PM Age: 33 years old Clinical indication: Abdominal pain; Generalized; Prior surgery; Surgery date: 6+ months; Surgery type: Gb appy; Additional info: Abd pain, concern for hernia TECHNIQUE: Imaging protocol: Computed tomography of the abdomen and pelvis without contrast. Radiation optimization: All CT scans at this facility use at least one of these dose optimization techniques: automated exposure control; mA and/or kV adjustment per patient size (includes targeted exams where dose is matched to clinical indication); or iterative reconstruction. COMPARISON: CT chest abdpel w/*[id number] 11/26/2023 12:25 PM RADIATION DOSE METRICS: Total DLP (mGy-cm): 1431.53 FINDINGS: Liver: Hepatic steatosis. No mass. Gallbladder and biliary ducts: Cholecystectomy. No ductal dilation. Pancreas: Normal. No ductal dilation. Spleen: Normal. No splenomegaly. Adrenal glands: Normal. No mass. Kidneys and ureters: Normal. No hydronephrosis. Stomach and bowel: Unremarkable. No obstruction. No mucosal thickening. Appendix: Appendectomy. Intraperitoneal space: Unremarkable. No free air. No significant fluid collection. Vasculature: Unremarkable. No abdominal aortic aneurysm. Lymph nodes: Unremarkable. No enlarged lymph nodes. Urinary bladder: Unremarkable as visualized. Reproductive: Unremarkable as visualized. Bones/joints: No acute fracture. Soft tissues: Mild subcutaneous fat stranding along the anterolateral abdominal wall. CT/CT abdomen pelvis [facility] [id number] IMPRESSION: No acute findings. No hernia.
[2024-04-25] MEDS: promethazine 25 mg/mL SDV 1 mL IM (15:09)
[2024-04-25 15:10] VITALS: BP 131/106; PULSE 90; O2SAT 96
[2024-04-25 15:58] VITALS: BP 126/85; PULSE 91; O2SAT 96
== END 2024-04-25 15:59 | disposition home or self-care (01) ==
PROVIDERS: Emergency Provider Nurse Practitioner Family; PCP Family Medicine
DX: S39.011A Strain of muscle, fascia and tendon of abdomen, initial encounter (principal); X50.0XXA Overexertion from strenuous movement or load, initial encounter
CPT/HCPCS: 74176; 96372; 99284; J2360; J2550

== ENCOUNTER 2024-07-03 14:16 | Emergency (ER) | payer BC, SELFPAY ==
[2024-07-03] VITALS (17 sets, daily range): BP systolic 121–174; BP diastolic 72–160; PULSE 116–130; RESP 13–29; TEMP 37.9; O2SAT 92–98; BMI 49.7
--- NOTE | 2024-07-03 14:30 | XRR_ITS ---
PROCEDURE INFORMATION: Exam: XR Chest Exam date and time: 07/03/2024 2:35 PM Age: 34 years old Clinical indication: Cough and fever and shortness of breath; Patient HX: SOB; Chest congestion; Fever; Tachycardia TECHNIQUE: Imaging protocol: Radiologic exam of the chest. Views: 1 view. COMPARISON: CT chest abdpel w/*[id number] 11/26/2023 12:25 PM FINDINGS: Lungs: Unremarkable. No consolidation. Pleural spaces: Unremarkable. No pleural effusion. No pneumothorax. Heart/Mediastinum: Unremarkable. No cardiomegaly. Bones/joints: Unremarkable. XR/XR chest 1V portable [id number] IMPRESSION: No acute findings.
--- NOTE | 2024-07-03 14:38 | ED_ITS ---
HPI - Nausea/Vomiting/Diarrhea 2 General: Chief complaint: Shortness of Breath/Dyspnea Stated complaint: SOB Time Seen by Provider: 07/03/24 14:31 History of Present Illness: Presents to the ER with complaints of nausea vomiting diarrhea fever headache cough onset 3 days ago. Has mild shortness of breath mainly due to the increased abdominal pain when takes a big deep breath. Patient says everything he puts in comes right back up or goes right out. Patient's partner has the exact same thing. 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 [employer] Related Data Home Medications Medication Instructions Recorded Confirmed acetaminophen 325 mg tablet 650 mg PO QID PRN Pain 07/03/24 07/03/24 (Tylenol) [id number]-acetaminophen 30 ml PO Q6H PRN Cold Symptoms 07/03/24 07/03/24 6.25 mg-30 [id number] oral liqd ibuprofen 200 mg tablet (Advil) 800 mg PO Q6H PRN Pain 07/03/24 07/03/24 Previous Rx's Medication Instructions Recorded bupropion HCl 300 mg 24 hr tablet, 300 mg PO QAM 90 days #90 tabs 11/07/23 extended release (Wellbutrin XL) buspirone 7.5 mg tablet 7.5 mg PO BID #60 tabs 11/07/23 pantoprazole 40 mg tablet,delayed 40 mg PO BID 30 days #60 tabs 11/07/23 release (Protonix) Allergies Allergy/AdvReac Type Severity Reaction Status Date / Time latex Allergy Severe ALGY-Hives Verified 06/03/24 08:13 ketorolac [Toradol] Allergy ALGY-Hives Verified 06/03/24 08:13 morphine Allergy ALGY-Rash Verified 06/03/24 08:13 Review of Systems 2 General: Reports: 10 or more systems reviewed and unremarkable except in HPI and below PFSH ED 2 PFSH: Medical History Colitis Blood in stool Anxiety Surgical History History of laparoscopic cholecystectomy Status post laparoscopic appendectomy Family History Denies family history of Anesthesia complication Bleeding disorder Social History Smoking and tobacco/nicotine status: never used tobacco/nicotine Second hand smoke exposure: No Alcohol intake: never Substance/Drug Use: never Lives independently: Yes Household members: spouse Marital status: Current occupational status: unemployed Current gender identity: Male Physical Exam 2 Const: COMMON NORMALS: no acute distress, average body habitus, patient oriented x3, no limitations, healthy appearing, alert and well nourished HENMT: COMMON NORMALS: normocephalic, atraumatic, hearing grossly normal bilaterally, external ears normal, Normal external nose present and moist oral mucous membranes HEAD & SCALP: normocephalic and atraumatic NOSE: Normal external nose present EXTERNAL EAR: Yes external ears normal Eye: COMMON NORMALS: Equal, round and reactive pupils present, EOMs intact bilaterally, conjunctivae normal and no scleral icterus CONJUNCTIVA: Yes conjunctivae normal PUPIL: Yes Equal, round and reactive pupils present Neck/C-Spine: COMMON NORMALS: full ROM, no lymphadenopathy, supple, no meningeal signs, no JVD and Thyroid normal THYROID: Thyroid normal Chest: COMMONS NORMALS: normal inspection of the chest and normal palpation of entire chest wall Resp: COMMON NORMALS: normal respiratory effort, No retractions, No use of accessory muscles and clear to auscultation bilaterally AUSCULTATION: clear to auscultation bilaterally Cardio: COMMON NORMALS: no JVD, regular rhythm, S1 normal heart sound present, S2 normal heart sound present, No gallops present (Cardio), No clicks present (Cardio), No murmurs present (Cardio) and No rub (Cardio); negative for regular rate (Tachycardic) RATE: abnormal rate (Tachycardic) RHYTHM: regular rhythm HEART SOUNDS: S1 normal heart sound present and S2 normal heart sound present GI: COMMON NORMALS: Normal to inspection, nondistended, normoactive bowel sounds present, Soft to palpation, No hepatosplenomegaly present and no masses; negative for non-tender (Mildly tender to palpate over epigastric and right upper quadrant) PALPATION: Yes Soft to palpation and Yes No hepatosplenomegaly present Neuro: COMMON NORMALS: patient oriented x3 SENSORIUM/ORIENTATION: Yes alert MENINGEAL SIGNS: Yes no meningeal signs Course 2 Vital Signs: Vital signs: Vital Signs Temperature 100.3 F H 07/03/24 14:25 Pulse Rate 127 H 07/03/24 16:30 Respiratory Rate 18 07/03/24 16:32 Blood Pressure 162/92 07/03/24 16:30 Pulse Oximetry 94 07/03/24 16:32 Oxygen Delivery Me thod Room Air 07/03/24 14:25 MDM - Nausea/Vomiting/Diarrhea Medical Decision Making Received total of 2 L of fluid, 1 g of Tylenol, 1 mg of Dilaudid, 4 mg of Zofran, lab work included CBC CMP lactic acid procalcitonin urinalysis lipase magnesium all essentially unremarkable. We will get a COVID RSV and flu screening. We will discharge patient home. Medical Records I reviewed the patient's medical records. Lab Data I reviewed the patient's lab results. 07/03/24 15:05 07/03/24 15:05 Radiology Impressions Chest X-Ray 07/03/24 14:30 IMPRESSION: No acute findings. Laboratory Results WBC 7.41 10^3/uL (3.29-11.43) 07/03/24 15:05 RBC 6.00 10^6/uL (3.85-5.65) H 07/03/24 15:05 Hgb 17.00 g/dL (11.27-16.99) H 07/03/24 15:05 Hct 52.6 % (37-53) 07/03/24 15:05 MCV 87.7 fl (82-101) 07/03/24 15:05 MCH 28.3 pg (27-33) 07/03/24 15:05 MCHC 32.3 g/dL (30-55) 07/03/24 15:05 RDW 12.6 % (12.1-15.1) 07/03/24 15:05 Plt Count 216 10^3/cmm (157-399) 07/03/24 15:05 MPV 9.4 fL (7.4-10.4) 07/03/24 15:05 Neut % (Auto) 71.3 % 07/03/24 15:05 Lymph % (Auto) 12.8 % 07/03/24 15:05 Jenkins % (Auto) 13.5 % 07/03/24 15:05 Eos % (Auto) 1.2 % 07/03/24 15:05 Baso % (Auto) 0.5 % 07/03/24 15:05 Neut # (Auto) 5.28 10^3/uL (1.8-7.7) 07/03/24 15:05 Lymph # (Auto) 1.0 10^3/uL (0.8-4.8) 07/03/24 15:05 Jenkins # (Auto) 1.0 10^3/uL (0.2-0.9) H 07/03/24 15:05 Eos # (Auto) 0.1 10^3/uL (0.0-0.8) 07/03/24 15:05 Baso # (Auto) 0.0 10^3/uL (0.0-0.1) 07/03/24 15:05 Nucleated RBC % (auto) 0 % 07/03/24 15:05 Nucleated RBCs # 0.0 /100WBC 07/03/24 15:05 Sodium 139 mmol/L (136-145) 07/03/24 15:05 Potassium 3.6 mmol/L (3.5-5.1) 07/03/24 15:05 Chloride 102 mmol/L (98-107) 07/03/24 15:05 Carbon Dioxide 26 mmol/L (22-29) 07/03/24 15:05 Anion Gap 14.6 (5-19) 07/03/24 15:05 BUN 12 mg/dL (6-20) 07/03/24 15:05 Creatinine 1.2 mg/dL (0.7-1.2) 07/03/24 15:05 GFR Calculation 69.7 mL/min (90-130) L 07/03/24 15:05 Glucose 86 mg/dL (65-115) 07/03/24 15:05 Calculated Osmolality 287 mOsm/kg (285-295) 07/03/24 15:05 Lactic Acid 1.6 mmol/L (0.5-2.2) 07/03/24 15:05 Calcium 9.4 mg/dL (8.5-10.5) 07/03/24 15:05 Magnesium 1.9 mg/dL (1.7-2.3) 07/03/24 15:05 Total Bilirubin 0.4 mg/dL (0.15-1.2) 07/03/24 15:05 AST 24 U/L (0-40) 07/03/24 15:05 ALT 44 U/L (0-41) H 07/03/24 15:05 Alkaline Phosphatase 146 U/L (40-130) H 07/03/24 15:05 Total Protein 7.3 g/dL (6.6-8.7) 07/03/24 15:05 Albumin 4.2 g/dL (3.5-5.2) 07/03/24 15:05 Globulin 3.1 g/dL (1.3-4.6) 07/03/24 15:05 Lipase 29 U/L (13-60) 07/03/24 15:05 Procalcitonin 0.18 ng/mL (0-0.5) 07/03/24 15:05 Urine Color Yellow (Yellow) 07/03/24 15:50 Urine Appearance Clear (CLEAR) 07/03/24 15:50 Urine pH 5.5 (5-7) 07/03/24 15:50 Ur Specific [place] 1.023 (1.005-1.030) 07/03/24 15:50 Urine Protein Negative (Negative) 07/03/24 15:50 Urine Glucose (UA) Negative (Normal) 07/03/24 15:50 Urine Ketones Negative (Negative) 07/03/24 15:50 Urine Blood Negative (Negative) 07/03/24 15:50 Urine Nitrate Negative (Negative) 07/03/24 15:50 Urine Bilirubin Negative (Negative) 07/03/24 15:50 Urine Urobilinogen 1.0 mg/dL (Negative) 07/03/24 15:50 Ur Leukocyte Esterase Negative (Negative) 07/03/24 15:50 Urine RBC 0-2 /hpf (0-2) 07/03/24 15:50 Urine WBC 0-5 /hpf (0-5) 07/03/24 15:50 Ur Squamous Epith Cells 0-5 /hpf (0-5) 07/03/24 15:50 Amorphous Sediment Not Reportable 07/03/24 15:50 Urine Bacteria None seen /hpf (NONE) 07/03/24 15:50 Hyaline Casts 0-4 /lpf H 07/03/24 15:50 All radiology interpretation(s) finalized by discharge Discharge Plan Discharge Patient Disposition: Home Clinical Impression: Gastroenteritis Fever Qualifiers: Fever type: unspecified Qualified Code(s): R50.9 - Fever, unspecified Condition: Stable Prescriptions: No Action Wellbutrin XL 300 mg tablet extended release 24 hr 300 mg PO QAM 90 Days Qty: 90 1RF buspirone 7.5 mg tablet 7.5 mg PO BID Qty: 60 4RF pantoprazole [Protonix] 40 mg tablet,delayed release (DR/EC) 40 mg PO BID 30 Days Qty: 60 4RF acetaminophen [Tylenol] 325 mg Tablet 650 mg PO QID PRN (Reason: Pain) ibuprofen [Advil] 200 mg Tablet 800 mg PO Q6H PRN (Reason: Pain) NyQuil D 6.41-67-61-500 mg/15 mL Liquid 30 ml PO Q6H PRN (Reason: Cold Symptoms) Discharge Orders: Discharge ED (Routine); Ordered 07/03/24 Ordered By: Ariel Mccall Referrals: Nitza Rodriguez MD [Primary Care Provider] - 1 week Patient Instructions: Fever in Adults (ED), Gastroenteritis (ED) Activity Restrictions/Additional Instructions: Thank you for choosing [facility] for your healthcare needs today. Please realize that you were seen in the emergency department and that we are providing you with an emergency medical screening exam and this may not be a complete and all exclusive of all testing and/or medical workup we may need to determine your element or severity of your illness. It is very important that you follow-up as instructed with your primary care provider or specialist for the additional evaluation and to discuss your medical treatment plan. You may return to the emergency department should you have concerns or if your condition changes or worsens in any way. Coding Level of Care Code ED Last Repairer Helper for Ambrocio Stratton
[2024-07-03] MEDS: sodium chloride 0.9% 1,000 ML 999 ML IV (15:05)
[2024-07-03] MEDS: ondansetron 2 mg/ML SDV 2 mL 4 MG IVP (15:05)
[2024-07-03] MEDS: HYDROmorphone 1 mg/mL INJ 1 mL 0.5 MG IVP ×2 (15:05→16:32)
[2024-07-03 15:12] LABS: Basophils % 0.5 %; Eosinophils # 0.1 10^3/uL (0.0-0.8); Eosinophils % 1.2 %; Hematocrit 52.6 % (37-53); Lymphocytes % 12.8 %; Mean Corpuscular HGB Conc 32.3 g/dL (30-55); Mean Corpuscular Hemoglobin 28.3 pg (27-33); Mean Corpuscular Volume 87.7 fl (82-101); Mean Platelet Volume 9.4 fL (7.4-10.4); Monocytes % 13.5 %; Neutrophils # 5.28 10^3/uL (1.8-7.7); Neutrophils % 71.3 %; Nucleated Red Blood Cells % 0 %; Platelet Count 216 10^3/cmm (157-399); Red Cell Distribution Width 12.6 % (12.1-15.1); White Blood Count 7.41 10^3/uL (3.29-11.43)
--- NOTE | 2024-07-03 15:24 | ECG_ITS ---
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 Measurements Intervals [place] Rate: 120 P: 34 [place]: 112 QRS: 28 QRSD: 71 T: 51 QT: 277 QTc: 393 Interpretive Statements SINUS TACHYCARDIA WITH SHORT DE INTERVAL Compared to ECG 08/24/2023 18:54:25 Short DE interval now present Electronically Signed On 07-05-2024 20:19:49 OPTICAL ENGINEERING MANAGER by Ruddy Stewart M.D. [id number]
[2024-07-03 15:31] LABS: Alanine Aminotransferase 44 U/L (0-41); Albumin Level 4.2 g/dL (3.5-5.2); Alkaline Phosphatase 146 U/L (40-130); Anion Gap 14.6 (5-19); Aspartate Amino Transferase 24 U/L (0-40); Blood Urea Nitrogen 12 mg/dL (6-20); Calcium 9.4 mg/dL (8.5-10.5); Carbon Dioxide 26 mmol/L (22-29); Chloride 102 mmol/L (98-107); Creatinine Clr Calc Pharmacy 116.6132; Globulin 3.1 g/dL (1.3-4.6); Glomerular Filtration Rate 69.7 mL/min (90-130); Glucose 86 mg/dL (65-115); Lipase 29 U/L (13-60); Magnesium 1.9 mg/dL (1.7-2.3); Osmolality Calculated 287 mOsm/kg (285-295); Potassium 3.6 mmol/L (3.5-5.1); Sodium 139 mmol/L (136-145); Total Bilirubin 0.4 mg/dL (0.15-1.2); Total Protein 7.3 g/dL (6.6-8.7)
--- NOTE | 2024-07-03 15:31 | ECG_ITS ---
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 Measurements Intervals [place] Rate: 130 P: 34 [place]: 131 QRS: 13 QRSD: 80 T: 61 QT: 279 QTc: 411 Interpretive Statements SINUS TACHYCARDIA NONSPECIFIC T-WAVE ABNORMALITY ABNORMAL RHYTHM ECG INTERPRETATION BASED ON A DEFAULT AGE OF 40 YEARS Compared to ECG 08/24/2023 18:54:25 T-wave abnormality now present Electronically Signed On 07-05-2024 20:20:01 SECURITY REPRESENTATIVE by Ruddy Stewart M.D. [id number]
[2024-07-03 15:32] LABS: Lactic Sepsis W/Reflex 1.6 mmol/L (0.5-2.2)
[2024-07-03 15:37] LABS: Procalcitonin 0.18 ng/mL (0-0.5)
[2024-07-03 15:58] LABS: Bilirubin Urine Negative (Negative); Blood Urine Negative (Negative); Glucose Urine UA Negative (Normal); Ketones Urine Negative (Negative); Leukocyte Esterase Urine Negative (Negative); Nitrate Urine Negative (Negative); Protein Urine Negative (Negative); Specific Gravity, Urine 1.023 (1.005-1.030); Urine Appearance Clear (CLEAR); Urine Color Yellow (Yellow); pH Urine 5.5 (5-7)
[2024-07-03 16:00] LABS: Add Urine Microscopic? YES; Bacteria Urine None Seen /hpf; Hyaline Casts Urine 0-4 /lpf; RBC Urine 0-2 /hpf (0-2); Squamous Epithelial Cell Urine 0-5 /hpf (0-5); WBC Urine 0-5 /hpf (0-5)
[2024-07-03] MEDS: acetaminophen 500 mg Tablet 1000 MG PO (16:06)
[2024-07-03 19:44] LABS: Covid PCR NEGATIVE (Negative); Influenza A NEGATIVE (Negative); Influenza B NEGATIVE (Negative); Respiratory Syncytial Virus Ce NEGATIVE (Negative)
== END 2024-07-03 18:56 | disposition home or self-care (01) ==
PROVIDERS: Emergency Provider Emergency Medicine; PCP Family Medicine
DX: K52.9 Noninfective gastroenteritis and colitis, unspecified (principal); R50.9 Fever, unspecified
CPT/HCPCS: 0241U; 36415; 71045; 80053; 81001; 83605; 83690; 83735; 84145; 85025; 93005; 96374; 96375; 96376; 99285; J1171; J2405; J7030

== ENCOUNTER 2024-07-04 15:02 | Emergency (ER) | payer BC, SELFPAY ==
[2024-07-04] VITALS (29 sets, daily range): BP systolic 126–168; BP diastolic 74–126; PULSE 78–124; RESP 12–35; TEMP 36.8–37.4; O2SAT 91–99
--- NOTE | 2024-07-04 15:31 | ECG_ITS ---
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 Measurements Intervals [place] Rate: 118 P: 40 [place]: 119 QRS: 42 QRSD: 69 T: 51 QT: 293 QTc: 411 Interpretive Statements SINUS TACHYCARDIA WITH SHORT CA INTERVAL Compared to ECG 07/03/2024 15:24:01 No significant changes Electronically Signed On 07-05-2024 20:12:27 COFFEE ATTENDANT by Ruddy Stewart M.D. [id number]
--- NOTE | 2024-07-04 15:51 | XRR_ITS ---
PROCEDURE INFORMATION: Exam: XR Chest Exam date and time: 07/04/2024 4:14 PM Age: 34 years old Clinical indication: Fever and shortness of breath; Additional info: Fever and chills, shortness of breath TECHNIQUE: Imaging protocol: Radiologic exam of the chest. Views: 1 view. COMPARISON: CR (CHEST, ) 07/03/2024 2:35 PM FINDINGS: Lungs: Unremarkable. No consolidation. Pleural spaces: Unremarkable. No pleural effusion. No pneumothorax. Heart/Mediastinum: Unremarkable. No cardiomegaly. Bones/joints: Unremarkable. XR/XR chest 1V portable [id number] IMPRESSION: No acute findings.
--- NOTE | 2024-07-04 15:51 | CTR_ITS ---
PROCEDURE INFORMATION: Exam: CT Abdomen And Pelvis With Contrast Exam date and time: 07/04/2024 4:19 PM Age: 34 years old Clinical indication: Abdominal pain; Generalized; Prior surgery; Surgery date: 6+ months; Surgery type: Gb; Additional info: Abdominal pain, fever and chills TECHNIQUE: Imaging protocol: Computed tomography of the abdomen and pelvis with contrast. Radiation optimization: All CT scans at this facility use at least one of these dose optimization techniques: automated exposure control; mA and/or kV adjustment per patient size (includes targeted exams where dose is matched to clinical indication); or iterative reconstruction. Contrast material: OMNI 350; Contrast volume: 100 ml; Contrast route: INTRAVENOUS (IV); COMPARISON: CT abdomen pelvis wo con [id number] 04/25/2024 2:16 PM RADIATION DOSE METRICS: Total DLP (mGy-cm): 1959.6 FINDINGS: Lungs: Right lower lobe pneumonia. Liver: Hepatic steatosis. Gallbladder and biliary ducts: Cholecystectomy. Pancreas: Normal. No ductal dilation. Spleen: Normal. No splenomegaly. Adrenal glands: Normal. No mass. Kidneys and ureters: Normal. No hydronephrosis. Stomach and bowel: Prominent fluid in the small bowel without dilation may reflect an enteritis. Appendix: No evidence of appendicitis. Intraperitoneal space: Unremarkable. No free air. No significant fluid collection. Vasculature: Unremarkable. No abdominal aortic aneurysm. Lymph nodes: Unremarkable. No enlarged lymph nodes. Urinary bladder: Unremarkable as visualized. Reproductive: Unremarkable as visualized. Bones/joints: Unremarkable. No acute fracture. Soft tissues: Unremarkable. CT/CT abdomen pelvis w con* [id number] IMPRESSION: 1. Prominent fluid in the small bowel without dilation may reflect an enteritis. 2. Right lower lobe pneumonia suspected, dedicated chest CT advised for further evaluation. 3. Hepatic steatosis. 4. Cholecystectomy.
[2024-07-04] MEDS: iohexol 350 mg/mL 500 mL Btl (per mL) IV (16:23)
[2024-07-04 16:27] LABS: Basophils % 0.5 %; Eosinophils # 0.1 10^3/uL (0.0-0.8); Eosinophils % 1.5 %; Hematocrit 51.9 % (37-53); Lymphocytes # 1.1 10^3/uL (0.8-4.8); Lymphocytes % 14.8 %; Mean Corpuscular HGB Conc 32.6 g/dL (30-55); Mean Corpuscular Hemoglobin 28.5 pg (27-33); Mean Corpuscular Volume 87.4 fl (82-101); Mean Platelet Volume 9.3 fL (7.4-10.4); Monocytes # 0.8 10^3/uL (0.2-0.9); Monocytes % 10.9 %; Neutrophils # 5.39 10^3/uL (1.8-7.7); Neutrophils % 71.8 %; Nucleated Red Blood Cells % 0 %; Platelet Count 192 10^3/cmm (157-399); Red Blood Count 5.94 10^6/uL (3.85-5.65); Red Cell Distribution Width 12.6 % (12.1-15.1); White Blood Count 7.51 10^3/uL (3.29-11.43)
[2024-07-04] MEDS: sodium chloride 0.9% 1,000 ML 999 ML IV ×2 (16:31→18:10)
[2024-07-04 16:32] LABS: Troponin(5th) Baseline 8 ng/L (0-15)
[2024-07-04] MEDS: acetaminophen 325 mg Tablet 650 MG PO (16:33)
[2024-07-04 16:34] LABS: Lactic Sepsis W/Reflex 1.1 mmol/L (0.5-2.2)
[2024-07-04] MEDS: ondansetron 2 mg/ML SDV 2 mL 4 MG IVP ×2 (16:34→20:07)
[2024-07-04 16:35] LABS: Alanine Aminotransferase 52 U/L (0-41); Albumin Level 4.2 g/dL (3.5-5.2); Alkaline Phosphatase 173 U/L (40-130); Aspartate Amino Transferase 33 U/L (0-40); Blood Urea Nitrogen 12 mg/dL (6-20); Calcium 8.9 mg/dL (8.5-10.5); Carbon Dioxide 25 mmol/L (22-29); Chloride 100 mmol/L (98-107); Creatinine Clr Calc Pharmacy 126.4794; Globulin 2.4 g/dL (1.3-4.6); Glomerular Filtration Rate 77.1 mL/min (90-130); Glucose 94 mg/dL (65-115); Lipase 23 U/L (13-60); Osmolality Calculated 288 mOsm/kg (285-295); Sodium 139 mmol/L (136-145); Total Bilirubin 0.7 mg/dL (0.15-1.2); Total Protein 6.6 g/dL (6.6-8.7)
[2024-07-04] MEDS: HYDROmorphone 1 mg/mL INJ 1 mL 0.5 MG IVP ×3 (16:39→20:00)
--- NOTE | 2024-07-04 17:53 | ECG_ITS ---
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 Measurements Intervals [place] Rate: 100 P: 28 OR: 141 QRS: 18 QRSD: 92 T: 36 QT: 336 QTc: 435 Interpretive Statements SINUS TACHYCARDIA ABNORMAL RHYTHM ECG Compared to ECG 07/04/2024 15:31:46 Short OR interval no longer present Electronically Signed On 07-05-2024 20:30:13 TELEPHONE MESSENGER by Ruddy Stewart M.D. [id number]
--- NOTE | 2024-07-04 17:56 | ED_ITS ---
HPI - Abdominal Pain 2 General: Chief Complaint: Abdominal Pain Stated Complaint: sob, fever Time Seen by Provider: 07/04/24 15:23 History of Present Illness: Patient is a 34-year-old male that presents to the emergency department with fevers, chills, tachycardia and abdominal pain. Onset of symptoms 3 days ago but worsening over the last 24 hours. He was seen yesterday in the emergency department and underwent an extensive evaluation. He arrives today with ongoing abdominal pain and tachycardia. His heart rates in the 130s. Tmax today 103 Related Data Home Medications Medication Instructions Recorded Confirmed acetaminophen 325 mg tablet 650 mg PO QID PRN Pain 07/03/24 07/03/24 (Tylenol) [id number]-PF-acetaminophen 30 ml PO Q6H PRN Cold Symptoms 07/03/24 07/03/24 6.25 mg-30 [id number]/15mL oral liqd ibuprofen 200 mg tablet (Advil) 800 mg PO Q6H PRN Pain 07/03/24 07/03/24 Previous Rx's Medication Instructions Recorded bupropion HCl 300 mg 24 hr tablet, 300 mg PO QAM 90 days #90 tabs 11/07/23 extended release (Wellbutrin XL) buspirone 7.5 mg tablet 7.5 mg PO BID #60 tabs 11/07/23 pantoprazole 40 mg tablet,delayed 40 mg PO BID 30 days #60 tabs 11/07/23 release (Protonix) azithromycin 250 mg tablet 250 mg PO DAILY 4 days #6 tabs 07/04/24 hydrocodone 5 mg-acetaminophen 325 1 tab PO Q6H PRN pain #14 tabs 07/04/24 mg tablet Allergies Allergy/AdvReac Type Severity Reaction Status Date / Time latex Allergy Severe ALGY-Hives Verified 07/04/24 15:09 ketorolac [Toradol] Allergy ALGY-Hives Verified 07/04/24 15:09 morphine Allergy ALGY-Rash Verified 07/04/24 15:09 Review of Systems 2 General: Reports: 10 or more systems reviewed and unremarkable except in HPI and below PFSH ED 2 PFSH: Medical History Colitis Blood in stool Anxiety Surgical History History of laparoscopic cholecystectomy Status post laparoscopic appendectomy Family History Denies family history of Anesthesia complication Bleeding disorder Social History Smoking and tobacco/nicotine status: never used tobacco/nicotine Second hand smoke exposure: No Alcohol intake: never Substance/Drug Use: never Lives independently: Yes Household members: spouse Marital status: Current occupational status: unemployed Current gender identity: Male Physical Exam 2 Const: COMMON NORMALS: no acute distress, average body habitus, patient oriented x3, no limitations, healthy appearing, alert and well nourished HENMT: COMMON NORMALS: normocephalic, atraumatic, hearing grossly normal bilaterally, external ears normal, Normal external nose present and moist oral mucous membranes HEAD & SCALP: normocephalic and atraumatic NOSE: Normal external nose present EXTERNAL EAR: Yes external ears normal Eye: COMMON NORMALS: Equal, round and reactive pupils present, EOMs intact bilaterally, conjunctivae normal and no scleral icterus CONJUNCTIVA: Yes conjunctivae normal PUPIL: Yes Equal, round and reactive pupils present Neck/C-Spine: COMMON NORMALS: full ROM, no lymphadenopathy, supple, no meningeal signs, no JVD and Thyroid normal THYROID: Thyroid normal Chest: COMMONS NORMALS: normal inspection of the chest and normal palpation of entire chest wall Resp: COMMON NORMALS: normal respiratory effort, No retractions, No use of accessory muscles and clear to auscultation bilaterally AUSCULTATION: clear to auscultation bilaterally Cardio: COMMON NORMALS: no JVD, regular rhythm, S1 normal heart sound present, S2 normal heart sound present, No gallops present (Cardio), No clicks present (Cardio), No murmurs present (Cardio) and No rub (Cardio); negative for regular rate (Tachycardic) RATE: abnormal rate (Tachycardic) RHYTHM: regular rhythm HEART SOUNDS: S1 normal heart sound present and S2 normal heart sound present GI: COMMON NORMALS: Normal to inspection, nondistended, normoactive bowel sounds present, Soft to palpation, No hepatosplenomegaly present and no masses; negative for non-tender (Mildly tender to palpate over epigastric and right upper quadrant) PALPATION: Yes Soft to palpation and Yes No hepatosplenomegaly present Neuro: COMMON NORMALS: patient oriented x3 SENSORIUM/ORIENTATION: Yes alert MENINGEAL SIGNS: Yes no meningeal signs Course 2 Vital Signs: Vital signs: Vital Signs Temperature 98.2 F 07/04/24 18:00 Pulse Rate 97 07/04/24 18:45 Respiratory Rate 18 07/04/24 18:45 Blood Pressure 130/74 07/04/24 18:45 Pulse Oximetry 93 07/04/24 18:45 Oxygen Delivery Me thod Room Air 07/04/24 18:10 MDM - Abdominal Pain Medical Decision Making Patient evaluated in the emergency department today for fever, chills, tachycardia, general malaise and fatigue He underwent a laboratory evaluation that included a CBC, CMP, troponin series, lactic acid and lipase. He also underwent a chest x-ray. Laboratory studies reveal no significant leukocytosis, anemias, electrolyte abnormalities. He does have mild elevation in his liver enzymes. He has no renal disease. Troponin series within normal limits. His chest x-ray was read out as no acute findings but we did obtain a CT of his abdomen and pelvis which revealed prominent fluid collection in the small bowel without dilation that is likely related to enteritis. The other finding was a right lower lobe pneumonia suspected. Incidental finding of hepatic steatosis. I obtained a CT chest which reveals a right lower lobe airspace opacification and air bronchograms. There is a trace pleural effusion. Recommendation for 1 month follow-up to assess for resolution of this infiltrate in his right lower lobe. Patient's initial heart rate was in the 130s but after a liter bolus it came down to 115. I treated his pain as well with Dilaudid and this seemed to help quite a bit. He was given a second liter of fluid which brought his heart rate down to low 100. His fever broke and he is now afebrile. I talked with him about the diagnostic findings and started the patient on azithromycin for atypical coverage. The respiratory panel was negative. We are going to allow him to discharge home with azithromycin. They need to return to the emergency department if he develops any further signs of hypoxemia or tachycardia that does not improve. They are agreeable Lab Data 07/04/24 16:07 07/04/24 16:07 Labs/Radiology: Radiology Impressions Abdomen/Pelvis CT 07/04/24 15:51 IMPRESSION: 1. Prominent fluid in the small bowel without dilation may reflect an enteritis. 2. Right lower lobe pneumonia suspected, dedicated chest CT advised for further evaluation. 3. Hepatic steatosis. 4. Cholecystectomy. Chest X-Ray 07/04/24 15:51 IMPRESSION: No acute findings. Chest CT 07/04/24 17:58 IMPRESSION: 1. Right lower lobe airspace opacification with air bronchograms likely reflecting a pneumonic infiltrate, short-term 1 month follow-up advised to assess for resolution. 2. Trace right pleural effusion. 3. Please refer to same-day CT abdomen pelvis for findings in this area. 4. Scattered subcentimeter short axis nonspecific mediastinal lymph nodes. Laboratory Results WBC 7.51 10^3/uL (3.29-11.43) 07/04/24 16:07 RBC 5.94 10^6/uL (3.85-5.65) H 07/04/24 16:07 Hgb 16.90 g/dL (11.27-16.99) 07/04/24 16:07 Hct 51.9 % (37-53) 07/04/24 16:07 MCV 87.4 fl (82-101) 07/04/24 16:07 MCH 28.5 pg (27-33) 07/04/24 16:07 MCHC 32.6 g/dL (30-55) 07/04/24 16:07 RDW 12.6 % (12.1-15.1) 07/04/24 16:07 Plt Count 192 10^3/cmm (157-399) 07/04/24 16:07 MPV 9.3 fL (7.4-10.4) 07/04/24 16:07 Neut % (Auto) 71.8 % 07/04/24 16:07 Lymph % (Auto) 14.8 % 07/04/24 16:07 [place] % (Auto) 10.9 % 07/04/24 16:07 Eos % (Auto) 1.5 % 07/04/24 16:07 Baso % (Auto) 0.5 % 07/04/24 16:07 Neut # (Auto) 5.39 10^3/uL (1.8-7.7) 07/04/24 16:07 Lymph # (Auto) 1.1 10^3/uL (0.8-4.8) 07/04/24 16:07 [place] # (Auto) 0.8 10^3/uL (0.2-0.9) 07/04/24 16:07 Eos # (Auto) 0.1 10^3/uL (0.0-0.8) 07/04/24 16:07 Baso # (Auto) 0.0 10^3/uL (0.0-0.1) 07/04/24 16:07 Nucleated RBC % (auto) 0 % 07/04/24 16:07 Nucleated RBCs # 0.0 /100WBC 07/04/24 16:07 Sodium 139 mmol/L (136-145) 07/04/24 16:07 Potassium 4.0 mmol/L (3.5-5.1) 07/04/24 16:07 Chloride 100 mmol/L (98-107) 07/04/24 16:07 Carbon Dioxide 25 mmol/L (22-29) 07/04/24 16:07 Anion Gap 18.0 (5-19) 07/04/24 16:07 BUN 12 mg/dL (6-20) 07/04/24 16:07 Creatinine 1.1 mg/dL (0.7-1.2) 07/04/24 16:07 GFR Calculation 77.1 mL/min (90-130) L 07/04/24 16:07 Glucose 94 mg/dL (65-115) 07/04/24 16:07 Calculated Osmolality 288 mOsm/kg (285-295) 07/04/24 16:07 Lactic Acid 1.1 mmol/L (0.5-2.2) 07/04/24 16:07 Calcium 8.9 mg/dL (8.5-10.5) 07/04/24 16:07 Total Bilirubin 0.7 mg/dL (0.15-1.2) 07/04/24 16:07 AST 33 U/L (0-40) 07/04/24 16:07 ALT 52 U/L (0-41) H 07/04/24 16:07 Alkaline Phosphatase 173 U/L (40-130) H 07/04/24 16:07 Troponin T Baseline 8 ng/L (0-15) 07/04/24 16:07 Troponin T 120 Minute 9.12 ng/L (0-15) 07/04/24 17:41 Delta Troponin T 1.12 ABS# (0-10) 07/04/24 17:41 Total Protein 6.6 g/dL (6.6-8.7) 07/04/24 16:07 Albumin 4.2 g/dL (3.5-5.2) 07/04/24 16:07 Globulin 2.4 g/dL (1.3-4.6) 07/04/24 16:07 Lipase 23 U/L (13-60) 07/04/24 16:07 Adenovirus (PCR) Not detected (NOT DETECT) 07/04/24 16:44 C. pneumoniae DNA (PCR) Not detected (NOT DETECT) 07/04/24 16:44 Coronavirus 229E (PCR) Not detected (NOT DETECT) 07/04/24 16:44 Human Metapneumovir PCR Not detected (NOT DETECT) 07/04/24 16:44 Influenza A (H1) PCR Not detected (NOT DETECT) 07/04/24 16:44 Influ A (H1/09) PCR Not detected (NOT DETECT) 07/04/24 16:44 Influenza A (H3) PCR Not detected (NOT DETECT) 07/04/24 16:44 Influenza Type A (PCR) Not detected (NOT DETECT) 07/04/24 16:44 Influenza Type B (PCR) Not detected (NOT DETECT) 07/04/24 16:44 M. pneumoniae (PCR) Not detected (NOT DETECT) 07/04/24 16:44 Parainfluenza 1 (PCR) Not detected (NOT DETECT) 07/04/24 16:44 Parainfluenza 2 (PCR) Not detected (NOT DETECT) 07/04/24 16:44 Parainfluenza 3 (PCR) Not detected (NOT DETECT) 07/04/24 16:44 Parainfluenza 4 (PCR) Not detected (NOT DETECT) 07/04/24 16:44 RSV Type A (PCR) Not detected (NOT DETECT) 07/04/24 16:44 RSV Type B (PCR) Not detected (NOT DETECT) 07/04/24 16:44 Entero/Rhino (PCR) Not detected (NOT DETECT) 07/04/24 16:44 SARS-CoV-2 (PCR) Not detected (NOT DETECT) 07/04/24 16:44 All radiology interpretation(s) finalized by discharge Discharge Plan Discharge Patient Disposition: Home Clinical Impression: Pneumonia, Tachycardia, Enteritis Condition: Stable Prescriptions: New azithromycin 250 mg tablet 250 mg PO DAILY 4 Days Qty: 6 0RF Rx Instructions: start on day 2 of therapy hydrocodone-acetaminophen 5-325 mg tablet 1 tab PO Q6H PRN (Reason: pain) Qty: 14 0RF No Action Wellbutrin XL 300 mg tablet extended release 24 hr 300 mg PO QAM 90 Days Qty: 90 1RF buspirone 7.5 mg tablet 7.5 mg PO BID Qty: 60 4RF pantoprazole [Protonix] 40 mg tablet,delayed release (DR/EC) 40 mg PO BID 30 Days Qty: 60 4RF acetaminophen [Tylenol] 325 mg Tablet 650 mg PO QID PRN (Reason: Pain) ibuprofen [Advil] 200 mg Tablet 800 mg PO Q6H PRN (Reason: Pain) NyQuil D 6.68-67-52-500 mg/15 mL Liquid 30 ml PO Q6H PRN (Reason: Cold Symptoms) Discharge Orders: Discharge ED (Routine); Ordered 07/04/24 Ordered By: Albert Harris Referrals: Nitza Rodriguez MD [Primary Care Provider] - Discharge Diet: Advance as tolerated Discharge Activity: Resume usual activity Patient Instructions: Bacterial Pneumonia (DC), Enteritis (ED), Opioid Safety, Pain Management Activity Restrictions/Additional Instructions: Please return to the emergency department for new, concerning, worsening symptoms. Take your antibiotics as prescribed Use your pain medications conservatively Coding Level of Care Code ED [facility]
--- NOTE | 2024-07-04 17:58 | CTR_ITS ---
PROCEDURE INFORMATION: Exam: CT Chest Without Contrast; Diagnostic Exam date and time: 07/04/2024 6:29 PM Age: 34 years old Clinical indication: Cough and fever and shortness of breath; Patient HX: Right lower lobe pneumonia' SOB; Fever; Cough TECHNIQUE: Imaging protocol: Diagnostic computed tomography of the chest without contrast. Radiation optimization: All CT scans at this facility use at least one of these dose optimization techniques: automated exposure control; mA and/or kV adjustment per patient size (includes targeted exams where dose is matched to clinical indication); or iterative reconstruction. COMPARISON: CT chest abdpel w/*[id number] 11/26/2023 12:25 PM RADIATION DOSE METRICS: Total DLP (mGy-cm): 678.79 FINDINGS: Lungs: Right lower lobe airspace opacification with air bronchograms likely reflecting a pneumonic infiltrate, short-term 1 month follow-up advised to assess for resolution. Pleural spaces: Trace right pleural effusion. Heart: Unremarkable. No cardiomegaly. No pericardial effusion. Negative for coronary artery atherosclerotic calcifications. Lymph nodes: Scattered subcentimeter short axis nonspecific mediastinal lymph nodes. Vasculature: Unremarkable. No aortic aneurysm. Bones/joints: Unremarkable. No acute fracture. Soft tissues: Unremarkable. Other findings: Please refer to same-day CT abdomen pelvis for findings in this area. CT/CT chest [facility] [id number] IMPRESSION: 1. Right lower lobe airspace opacification with air bronchograms likely reflecting a pneumonic infiltrate, short-term 1 month follow-up advised to assess for resolution. 2. Trace right pleural effusion. 3. Please refer to same-day CT abdomen pelvis for findings in this area. 4. Scattered subcentimeter short axis nonspecific mediastinal lymph nodes.
[2024-07-04 18:06] LABS: Troponin 5 2HR 9.12 ng/L (0-15); Troponin 5 2HR Delta 1.12 ABS# (0-10)
[2024-07-04] MEDS: azithromycin 250 mg Tablet 500 MG PO (18:12)
[2024-07-04 18:36] LABS: Adenovirus Not Detected (NOT DETECT); Chlamydia Pneumoniae Not Detected (NOT DETECT); Coronavirus 229E,HKU1,NL63,OC4 Not Detected (NOT DETECT); Human Metapneumovirus Not Detected (NOT DETECT); Human Rhinovirus/Enterovirus Not Detected (NOT DETECT); Influenza A Not Detected (NOT DETECT); Influenza A H1 Not Detected (NOT DETECT); Influenza A H1-2009 Not Detected (NOT DETECT); Influenza A H3 Not Detected (NOT DETECT); Influenza B Not Detected (NOT DETECT); Mycoplasma Pneumoniae Not Detected (NOT DETECT); Parainfluenza Virus Type 1 Not Detected (NOT DETECT); Parainfluenza Virus Type 2 Not Detected (NOT DETECT); Parainfluenza Virus Type 3 Not Detected (NOT DETECT); Parainfluenza Virus Type 4 Not Detected (NOT DETECT); Respiratory Syncytial Virus A Not Detected (NOT DETECT); Respiratory Syncytial Virus B Not Detected (NOT DETECT); SARS-COV-2 Not Detected (NOT DETECT)
== END 2024-07-04 20:08 | disposition home or self-care (01) ==
PROVIDERS: Emergency Provider Nurse Practitioner; PCP Family Medicine
DX: J18.9 Pneumonia, unspecified organism (principal); R00.0 Tachycardia, unspecified; K52.9 Noninfective gastroenteritis and colitis, unspecified; Z11.52 Encounter for screening for COVID-19
CPT/HCPCS: 36415; 71045; 71250; 74177; 80053; 83605; 83690; 84484; 85025; 87486; 87581; 87633; 93005; 99285; J1171; J2405; J7030; Q0144

== ENCOUNTER 2024-10-03 11:16 | Emergency (ER) | payer SELFPAY ==
[2024-10-03 11:47] VITALS: BP 174/101; PULSE 90; RESP 18; TEMP 36.6; O2SAT 97; BMI 51.6
[2024-10-03 12:05] VITALS: BP 139/88; PULSE 89; O2SAT 97
--- NOTE | 2024-10-03 12:18 | CTR_ITS ---
PROCEDURE INFORMATION: Exam: CT Head Without Contrast Exam date and time: 10/03/2024 12:30 PM Age: 34 years old Clinical indication: Pain; Headache not specified; Additional info: Woke up with severe right sided h/a 2am, no HX of migraine, wake up headache TECHNIQUE: Imaging protocol: Computed tomography of the head without contrast. Sagittal, oblique axial, and coronal reformatted images were also reviewed. Radiation optimization: All CT scans at this facility use at least one of these dose optimization techniques: automated exposure control; mA and/or kV adjustment per patient size (includes targeted exams where dose is matched to clinical indication); or iterative reconstruction. COMPARISON: No relevant prior studies available. RADIATION DOSE METRICS: Total DLP (mGy-cm): 1060.38 FINDINGS: Brain: No acute intracranial hemorrhage. No acute infarct. No intra-axial or extra-axial masses. Batres-white matter differentiation is preserved. No cerebral edema. No extra-axial fluid collections. No midline shift. No evidence for Chiari 1 malformation. Cerebral ventricles: No hydrocephalus. Paranasal sinuses: Visualized paranasal sinuses are clear. Mastoid air cells: Visualized mastoid air cells are clear. Orbital cavities: No acute abnormality in the visualized orbits. Bones: Unremarkable. No acute fracture. Soft tissues: The extracranial soft tissues are unremarkable. CT/CT head wo con* [id number] IMPRESSION: Negative CT scan of the brain.
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
[2024-10-03] MEDS: acetaminophen 1,000 MG/100 ML PIGGYBACK 400 MG IV (12:20)
[2024-10-03] MEDS: ondansetron 2 mg/ML SDV 2 mL 4 MG IVP (12:21)
[2024-10-03] MEDS: diphenhydrAMINE 50 mg/mL SDV 1mL 25 MG IVP (12:23)
[2024-10-03] MEDS: sodium chloride 0.9% 1,000 ML 999 ML IV (12:28)
[2024-10-03] MEDS: prochlorperazine 10 mg/2 mL Inj IVP (12:28)
[2024-10-03] MEDS: magnesium sulfate premix 2 GM/50 ML PIGGYBACK IV (13:18)
[2024-10-03 13:25] VITALS: BP 138/107; PULSE 87; O2SAT 95
[2024-10-03 14:00] VITALS: BP 160/89; PULSE 96; O2SAT 95
[2024-10-03 14:32] VITALS: BP 160/84; PULSE 91; O2SAT 94
== END 2024-10-03 14:33 | disposition home or self-care (01) ==
PROVIDERS: Emergency Provider Emergency Medicine; PCP Family Medicine
DX: G43.909 Migraine, unspecified, not intractable, without status migrainosus (principal)
CPT/HCPCS: 70450; 96365; 96367; 96375; 99285; J0131; J0780; J1200; J2405; J3475; J7030

== ENCOUNTER 2024-10-31 13:33 | Emergency (ER) | payer SELFPAY ==
[2024-10-31 13:39] VITALS: PULSE 88; TEMP 36.6; O2SAT 97; BMI 48.4
--- NOTE | 2024-10-31 14:36 | CTR_ITS ---
PROCEDURE INFORMATION: Exam: CT Abdomen And Pelvis With Contrast Exam date and time: 10/31/2024 3:09 PM Age: 34 years old Clinical indication: Abdominal pain; Additional info: Severe upper abd pain, reported HX of ulverative col TECHNIQUE: Imaging protocol: Computed tomography of the abdomen and pelvis with contrast. Radiation optimization: All CT scans at this facility use at least one of these dose optimization techniques: automated exposure control; mA and/or kV adjustment per patient size (includes targeted exams where dose is matched to clinical indication); or iterative reconstruction. Contrast material: OMNI 350; Contrast volume: 100 ml; Contrast route: INTRAVENOUS (IV); COMPARISON: CT abdomen pelvis w con* [id number] 07/04/2024 4:19 PM RADIATION DOSE METRICS: Total DLP (mGy-cm): 1368.46 FINDINGS: Lungs: Calcified granuloma at the right lung base. Otherwise the lung bases are clear. Liver: Hypodensity along the falciform ligament likely reflecting focal fatty deposition. Gallbladder and biliary ducts: Status post cholecystectomy. Pancreas: Mild parenchymal atrophy of the pancreatic head. No pancreatic ductal dilatation. Spleen: Normal. No splenomegaly. Adrenal glands: Normal. No mass. Kidneys and ureters: Normal. No hydronephrosis. Stomach and bowel: Submucosal fat deposition of the cecum and ascending colon which is nonspecific but can be seen in the setting of chronic inflammatory bowel disease. No small or large bowel obstruction. Appendix: Status post appendectomy. Intraperitoneal space: No intraperitoneal free air or fluid. Vasculature: Unremarkable. No abdominal aortic aneurysm. Lymph nodes: Unremarkable. No enlarged lymph nodes. Urinary bladder: Unremarkable as visualized. Reproductive: Unremarkable as visualized. Bones/joints: Unremarkable. No acute fracture. Soft tissues: Unremarkable. CT/CT abdomen pelvis w con* [id number] IMPRESSION: 1. No acute abnormality in the abdomen and pelvis. 2. Hepatic steatosis. 3. Status post cholecystectomy.
--- NOTE | 2024-10-31 14:44 | W.ED.ABDPA2 ---
Documented by User: JADA Olmstead 10/31/24 16:07 HPI - Abdominal Pain General: Chief Complaint: Abdominal Pain Stated Complaint: abd pain Time Seen by Provider: 10/31/24 14:27 Source: patient Mode of arrival: ambulatory Limitations: no limitations History of Present Illness: Patient is a 34-year-old male with past medical history of colitis and anxiety who is presenting to the emergency department complaining of upper abdominal pain for the past week. States that he has had this pain in the past, normally takes Protonix or a GI cocktail and it will help with this pain. Also states that with prior episodes of this pain he was told he has pustules in his intestines. Pain began all of a sudden, has been constant since onset and he does not note any specific alleviating or exacerbating factors to it. He does note that it radiates somewhat towards right upper quadrant, however notes that he has a history of cholecystectomy as well as appendectomy. He is not running any fevers, but does note having nausea as well as increasing diarrhea. With diarrhea is not reporting any blood or black appearance. Denies any recent antibiotic use or exotic foods. Has been drinking same source of water. Blood pressure mildly elevated during time of exam, but the rest of his vitals are unremarkable. He is not reporting any chest pain or shortness of breath. States that the pain is stabbing/burning, it has eased up at this time. No urinary symptoms. MD elicited complaint: abdominal pain Pertinent past history: other (Colitis) Onset (ago): week(s) Pain Consistency: constant Location: Epigastric Severity: moderate Quality: stabbing and burning Radiation: RUQ Exacerbating factors: nothing Relieving factors: nothing Associated Symptoms: Reports diarrhea and nausea; Denies bloating, chills, constipation, dysuria, fever(s), hematochezia and vomiting Treatments prior to arrival: antacids Related Data Home Medications ?Medication ?Instructions ?Recorded ?Confirmed buspirone 10 mg tablet 10 mg PO BID 10/03/24 10/31/24 colestipol 1 gram tablet 2 g PO BID 10/03/24 10/31/24 pantoprazole 20 mg tablet,delayed 20 mg PO DAILY 10/03/24 10/31/24 release Previous Rx's ?Medication ?Instructions ?Recorded bupropion HCl 300 mg 24 hr tablet, 300 mg PO QAM 90 days #90 tabs 11/07/23 extended release (Wellbutrin XL) Allergies Allergy/AdvReac Type Severity Reaction Status Date / Time latex Allergy Severe ALGY-Hives Verified 10/31/24 13:44 ketorolac (Toradol) Allergy ALGY-Hives Verified 10/31/24 13:44 morphine Allergy ALGY-Rash Verified 10/31/24 13:44 Review of Systems General: Reports: 10 or more systems reviewed and unremarkable except in HPI and below Const: Denies: fever(s), chills, change in appetite, change in weight or diaphoresis ENMT: Denies: throat pain or hoarseness Card: Denies: chest pain, palpitations or lightheadedness Resp: Denies: dyspnea, productive cough or wheezing GI: Reports: abdominal pain, nausea and diarrhea; Denies: vomiting, constipation, bloating or hematochezia : Denies: flank pain, difficulty urinating, dysuria, urinary frequency or urinary urgency Musc: Denies: neck pain or back pain Skin/Breast: Denies: rash or new lesions Neuro: Denies: headache(s) or dizziness PFSH ED PFSH: Medical History Colitis Blood in stool Anxiety Surgical History History of laparoscopic cholecystectomy Status post laparoscopic appendectomy Family History Denies family history of Anesthesia complication Bleeding disorder Social History Smoking and tobacco/nicotine status: never used tobacco/nicotine Second hand smoke exposure: No Alcohol intake: never Substance/Drug Use: never Lives independently: Yes Household members: spouse Marital status: Current occupational status: unemployed Current gender identity: Male Physical Exam Const: COMMON NORMALS: patient oriented x3, no limitations, alert and well nourished GENERAL APPEARANCE: cooperative and anxious NUTRITIONAL APPEARANCE: obese morbidly obese ORIENTATION/CONSCIOUSNESS: Yes awake Eye: COMMON NORMALS: Equal, round and reactive pupils present, EOMs intact bilaterally, conjunctivae normal and normal visual ledezma by confrontation CONJUNCTIVA: Yes conjunctivae normal PUPIL: Yes Equal, round and reactive pupils present Neck/C-Spine: COMMON NORMALS: full ROM, supple, no meningeal signs and no JVD Resp: COMMON NORMALS: normal respiratory effort, No retractions, No use of accessory muscles and clear to auscultation bilaterally AUSCULTATION: clear to auscultation bilaterally, no crackles, no rales, no rhonchi and no wheezes Cardio: COMMON NORMALS: no JVD, regular rate, regular rhythm, S1 normal heart sound present, S2 normal heart sound present, No gallops present (Cardio), No clicks present (Cardio), No murmurs present (Cardio), No rub (Cardio) and Peripheral pulses 2+ throughout RATE: regular rate RHYTHM: regular rhythm HEART SOUNDS: S1 normal heart sound present and S2 normal heart sound present PERIPHERAL PULSES: Peripheral pulses 2+ throughout GI: COMMON NORMALS: Normal to inspection, nondistended, normoactive bowel sounds present, Soft to palpation, No hepatosplenomegaly present and no masses AUSCULTATION: Yes normoactive bowel sounds PALPATION: Yes Soft to palpation, Yes Tenderness to palpation present (GI) Details: LUQ and RUQ, Yes Guarding due to palpation present (GI) (Voluntary), No Rigid due to palpation and Yes No hepatosplenomegaly present RECTAL EXAM: Yes deferred Extremity: COMMON NORMALS: normal to inspection and full ROM Neuro: COMMON NORMALS: patient oriented x3, moves all extremities, no focal motor deficits and no sensory deficits noted SENSORIUM/ORIENTATION: Yes alert MENINGEAL SIGNS: Yes no meningeal signs Psych: COMMON NORMALS: mental status grossly normal, cooperative and speech normal SPEECH: Yes normal speech Skin: COMMON NORMALS: no rashes or lesions noted GENERAL SKIN EXAM: no rashes or lesions noted Course Vital Signs: Vital signs: Vital Signs Temperature 97.9 F 10/31/24 13:39 Pulse Rate 88 10/31/24 16:20 Blood Pressure 148/127 10/31/24 16:20 Pulse Oximetry 97 10/31/24 16:20 Oxygen Delivery Me thod Room Air 10/31/24 13:39 MDM - Abdominal Pain Medical Decision Making Patient presented for upper abdominal pain for the past few days, history of similar in the past. Vitals have been unremarkable, exam positive for tenderness to palpation to the upper abdominal quadrants with voluntary guarding. History of appendectomy and cholecystectomy. No signs of infection on his blood work, blood count was also normal and he did not report any black tarry stools or hematochezia. Metabolic panel was normal, urinalysis clean of any infection. Lipase unremarkable. CT abdomen pelvis also did not demonstrate any acute abnormalities. He reported to me that he is already on Carafate as well as Protonix, but has not seen GI or general surgery in a few years. Will refer him to general surgery for further evaluation, if he continues to have pain he likely will need upper endoscopy for further evaluation. At this time however, no concern for acute abdominal process and will have him discharged home. He was given pain medications and nausea medications here and notes that he is feeling quite a bit better. They discussed return precautions, of which she verbalized understanding. Lab Data 10/31/24 15:04 10/31/24 15:04 Labs/Radiology: Radiology Impressions Abdomen/Pelvis CT 10/31/24 14:36 IMPRESSION: 1. No acute abnormality in the abdomen and pelvis. 2. Hepatic steatosis. 3. Status post cholecystectomy. Laboratory Results WBC 7.87 10^3/uL (3.29-11.43) 10/31/24 15:04 RBC 6.15 10^6/uL (3.85-5.65) H 10/31/24 15:04 Hgb 17.70 g/dL (11.27-16.99) H 10/31/24 15:04 Hct 53.1 % (37-53) H 10/31/24 15:04 MCV 86.3 fl (82-101) 10/31/24 15:04 MCH 28.8 pg (27-33) 10/31/24 15:04 MCHC 33.3 g/dL (30-55) 10/31/24 15:04 RDW 12.2 % (12.1-15.1) 10/31/24 15:04 Plt Count 281 10^3/cmm (157-399) 10/31/24 15:04 MPV 9.6 fL (7.4-10.4) 10/31/24 15:04 Neut % (Auto) 67.7 % 10/31/24 15:04 Lymph % (Auto) 21.1 % 10/31/24 15:04 Porter % (Auto) 8.8 % 10/31/24 15:04 Eos % (Auto) 1.4 % 10/31/24 15:04 Baso % (Auto) 0.5 % 10/31/24 15:04 Neut # (Auto) 5.33 10^3/uL (1.8-7.7) 10/31/24 15:04 Lymph # (Auto) 1.7 10^3/uL (0.8-4.8) 10/31/24 15:04 Porter # (Auto) 0.7 10^3/uL (0.2-0.9) 10/31/24 15:04 Eos # (Auto) 0.1 10^3/uL (0.0-0.8) 10/31/24 15:04 Baso # (Auto) 0.0 10^3/uL (0.0-0.1) 10/31/24 15:04 Nucleated RBC % (auto) 0 % 10/31/24 15:04 Nucleated RBCs # 0.0 /100WBC 10/31/24 15:04 Sodium 140 mmol/L (136-145) 10/31/24 15:04 Potassium 4.0 mmol/L (3.5-5.1) 10/31/24 15:04 Chloride 102 mmol/L (98-107) 10/31/24 15:04 Carbon Dioxide 24 mmol/L (22-29) 10/31/24 15:04 Anion Gap 18.0 (5-19) 10/31/24 15:04 BUN 19 mg/dL (6-20) 10/31/24 15:04 Creatinine 0.9 mg/dL (0.7-1.2) 10/31/24 15:04 GFR Calculation 97.2 mL/min (90-130) 10/31/24 15:04 Glucose 84 mg/dL (65-115) 10/31/24 15:04 Calculated Osmolality 291 mOsm/kg (285-295) 10/31/24 15:04 Calcium 9.2 mg/dL (8.5-10.5) 10/31/24 15:04 Total Bilirubin 0.5 mg/dL (0.15-1.2) 10/31/24 15:04 AST 21 U/L (0-40) 10/31/24 15:04 ALT 26 U/L (0-41) 10/31/24 15:04 Alkaline Phosphatase 77 U/L (40-130) 10/31/24 15:04 Total Protein 7.2 g/dL (6.6-8.7) 10/31/24 15:04 Albumin 4.5 g/dL (3.5-5.2) 10/31/24 15:04 Globulin 2.7 g/dL (1.3-4.6) 10/31/24 15:04 Lipase 37 U/L (13-60) 10/31/24 15:04 Urine Color Yellow (Yellow) 10/31/24 13:48 Urine Appearance Clear (CLEAR) 10/31/24 13:48 Urine pH 5.0 (5-7) 10/31/24 13:48 Ur Specific Cutler 1.028 (1.005-1.030) 10/31/24 13:48 Urine Protein Negative (Negative) 10/31/24 13:48 Urine Glucose (UA) Negative (Normal) 10/31/24 13:48 Urine Ketones 2+ (Negative) H 10/31/24 13:48 Urine Blood Negative (Negative) 10/31/24 13:48 Urine Nitrate Negative (Negative) 10/31/24 13:48 Urine Bilirubin Negative (Negative) 10/31/24 13:48 Urine Urobilinogen 0.2 mg/dL (Negative) 10/31/24 13:48 Ur Leukocyte Esterase Negative (Negative) 10/31/24 13:48 Urine RBC 0-2 /hpf (0-2) 10/31/24 13:48 Urine WBC 0-5 /hpf (0-5) 10/31/24 13:48 Ur Squamous Epith Cells 5-10 /hpf (0-5) H 10/31/24 13:48 Amorphous Sediment Not Reportable 10/31/24 13:48 Urine Bacteria 1+ /hpf (NONE) H 10/31/24 13:48 Hyaline Casts 6.61 /lpf 10/31/24 13:48 All radiology interpretation(s) finalized by discharge Discharge Plan Discharge Patient Disposition: Home Clinical Impression: Chronic upper abdominal pain Condition: Stable Prescriptions: No Action Wellbutrin XL 300 mg tablet extended release 24 hr 300 mg PO QAM 90 Days Qty: 90 1RF pantoprazole 20 mg tablet,delayed release (DR/EC) 20 mg PO DAILY buspirone 10 mg tablet 10 mg PO BID colestipol 1 gram tablet 2 g PO BID Discharge Orders: Discharge ED (Routine); Ordered 10/31/24 Ordered By: Aden Matta Referrals: Nitza Rodriguez MD [Primary Care Provider] - Patient Instructions: Abdominal Pain (ED) Activity Restrictions/Additional Instructions: Continue taking pantoprazole at home, take Carafate. Follow-up with general surgery. GI soft diet. Return with any fevers, persistent vomiting, or other major concerns. Print Language: Czech Coding Level of Care Code ED Submarine Advisory Team Watch Officer for Chg Fwd Documented by User: Piero Sahni DO 10/31/24 16:55 HPI - Abdominal Pain General: Chief Complaint: Abdominal Pain Stated Complaint: abd pain Time Seen by Provider: 10/31/24 14:27 Related Data Home Medications ?Medication ?Instructions ?Recorded ?Confirmed buspirone 10 mg tablet 10 mg PO BID 10/03/24 10/31/24 colestipol 1 gram tablet 2 g PO BID 10/03/24 10/31/24 pantoprazole 20 mg tablet,delayed 20 mg PO DAILY 10/03/24 10/31/24 release Previous Rx's ?Medication ?Instructions ?Recorded bupropion HCl 300 mg 24 hr tablet, 300 mg PO QAM 90 days #90 tabs 11/07/23 extended release (Wellbutrin XL) Allergies Allergy/AdvReac Type Severity Reaction Status Date / Time latex Allergy Severe ALGY-Hives Verified 10/31/24 13:44 ketorolac (Toradol) Allergy ALGY-Hives Verified 10/31/24 13:44 morphine Allergy ALGY-Rash Verified 10/31/24 13:44 [facility] ED PFSH: Medical History Colitis Blood in stool Anxiety Surgical History History of laparoscopic cholecystectomy Status post laparoscopic appendectomy Family History Denies family history of Anesthesia complication Bleeding disorder Social History Smoking and tobacco/nicotine status: never used tobacco/nicotine Second hand smoke exposure: No Alcohol intake: never Substance/Drug Use: never Lives independently: Yes Household members: spouse Marital status: Current occupational status: unemployed Current gender identity: Male Course Vital Signs: Vital signs: Vital Signs Temperature 97.9 F 10/31/24 13:39 Pulse Rate 88 10/31/24 16:20 Blood Pressure 148/127 10/31/24 16:20 Pulse Oximetry 97 10/31/24 16:20 Oxygen Delivery Me thod Room Air 10/31/24 13:39 MDM - Abdominal Pain Medical Decision Making Patient presented for upper abdominal pain for the past few days, history of similar in the past. Vitals have been unremarkable, exam positive for tenderness to palpation to the upper abdominal quadrants with voluntary guarding. History of appendectomy and cholecystectomy. No signs of infection on his blood work, blood count was also normal and he did not report any black tarry stools or hematochezia. Metabolic panel was normal, urinalysis clean of any infection. Lipase unremarkable. CT abdomen pelvis also did not demonstrate any acute abnormalities. He reported to me that he is already on Carafate as well as Protonix, but has not seen GI or general surgery in a few years. Will refer him to general surgery for further evaluation, if he continues to have pain he likely will need upper endoscopy for further evaluation. At this time however, no concern for acute abdominal process and will have him discharged home. He was given pain medications and nausea medications here and notes that he is feeling quite a bit better. They discussed return precautions, of which she verbalized understanding. Chart reviewed and patient discussed with midlevel. Agree with assessment and plan. Lab Data 10/31/24 15:04 10/31/24 15:04 Labs/Radiology: Radiology Impressions Abdomen/Pelvis CT 10/31/24 14:36 IMPRESSION: 1. No acute abnormality in the abdomen and pelvis. 2. Hepatic steatosis. 3. Status post cholecystectomy. Laboratory Results WBC 7.87 10^3/uL (3.29-11.43) 10/31/24 15:04 RBC 6.15 10^6/uL (3.85-5.65) H 10/31/24 15:04 Hgb 17.70 g/dL (11.27-16.99) H 10/31/24 15:04 Hct 53.1 % (37-53) H 10/31/24 15:04 MCV 86.3 fl (82-101) 10/31/24 15:04 MCH 28.8 pg (27-33) 10/31/24 15:04 MCHC 33.3 g/dL (30-55) 10/31/24 15:04 RDW 12.2 % (12.1-15.1) 10/31/24 15:04 Plt Count 281 10^3/cmm (157-399) 10/31/24 15:04 MPV 9.6 fL (7.4-10.4) 10/31/24 15:04 Neut % (Auto) 67.7 % 10/31/24 15:04 Lymph % (Auto) 21.1 % 10/31/24 15:04 Porter % (Auto) 8.8 % 10/31/24 15:04 Eos % (Auto) 1.4 % 10/31/24 15:04 Baso % (Auto) 0.5 % 10/31/24 15:04 Neut # (Auto) 5.33 10^3/uL (1.8-7.7) 10/31/24 15:04 Lymph # (Auto) 1.7 10^3/uL (0.8-4.8) 10/31/24 15:04 Porter # (Auto) 0.7 10^3/uL (0.2-0.9) 10/31/24 15:04 Eos # (Auto) 0.1 10^3/uL (0.0-0.8) 10/31/24 15:04 Baso # (Auto) 0.0 10^3/uL (0.0-0.1) 10/31/24 15:04 Nucleated RBC % (auto) 0 % 10/31/24 15:04 Nucleated RBCs # 0.0 /100WBC 10/31/24 15:04 Sodium 140 mmol/L (136-145) 10/31/24 15:04 Potassium 4.0 mmol/L (3.5-5.1) 10/31/24 15:04 Chloride 102 mmol/L (98-107) 10/31/24 15:04 Carbon Dioxide 24 mmol/L (22-29) 10/31/24 15:04 Anion Gap 18.0 (5-19) 10/31/24 15:04 BUN 19 mg/dL (6-20) 10/31/24 15:04 Creatinine 0.9 mg/dL (0.7-1.2) 10/31/24 15:04 GFR Calculation 97.2 mL/min (90-130) 10/31/24 15:04 Glucose 84 mg/dL (65-115) 10/31/24 15:04 Calculated Osmolality 291 mOsm/kg (285-295) 10/31/24 15:04 Calcium 9.2 mg/dL (8.5-10.5) 10/31/24 15:04 Total Bilirubin 0.5 mg/dL (0.15-1.2) 10/31/24 15:04 AST 21 U/L (0-40) 10/31/24 15:04 ALT 26 U/L (0-41) 10/31/24 15:04 Alkaline Phosphatase 77 U/L (40-130) 10/31/24 15:04 Total Protein 7.2 g/dL (6.6-8.7) 10/31/24 15:04 Albumin 4.5 g/dL (3.5-5.2) 10/31/24 15:04 Globulin 2.7 g/dL (1.3-4.6) 10/31/24 15:04 Lipase 37 U/L (13-60) 10/31/24 15:04 Urine Color Yellow (Yellow) 10/31/24 13:48 Urine Appearance Clear (CLEAR) 10/31/24 13:48 Urine pH 5.0 (5-7) 10/31/24 13:48 Ur Specific Cutler 1.028 (1.005-1.030) 10/31/24 13:48 Urine Protein Negative (Negative) 10/31/24 13:48 Urine Glucose (UA) Negative (Normal) 10/31/24 13:48 Urine Ketones 2+ (Negative) H 10/31/24 13:48 Urine Blood Negative (Negative) 10/31/24 13:48 Urine Nitrate Negative (Negative) 10/31/24 13:48 Urine Bilirubin Negative (Negative) 10/31/24 13:48 Urine Urobilinogen 0.2 mg/dL (Negative) 10/31/24 13:48 Ur Leukocyte Esterase Negative (Negative) 10/31/24 13:48 Urine RBC 0-2 /hpf (0-2) 10/31/24 13:48 Urine WBC 0-5 /hpf (0-5) 10/31/24 13:48 Ur Squamous Epith Cells 5-10 /hpf (0-5) H 10/31/24 13:48 Amorphous Sediment Not Reportable 10/31/24 13:48 Urine Bacteria 1+ /hpf (NONE) H 10/31/24 13:48 Hyaline Casts 6.61 /lpf 10/31/24 13:48 Discharge Plan Discharge Patient Disposition: Home Clinical Impression: Chronic upper abdominal pain Condition: Stable Prescriptions: No Action Wellbutrin XL 300 mg tablet extended release 24 hr 300 mg PO QAM 90 Days Qty: 90 1RF pantoprazole 20 mg tablet,delayed release (DR/EC) 20 mg PO DAILY buspirone 10 mg tablet 10 mg PO BID colestipol 1 gram tablet 2 g PO BID Discharge Orders: Discharge ED (Routine); Ordered 10/31/24 Ordered By: Aden Matta Referrals: Nitza Rodriguez MD [Primary Care Provider] - Patient Instructions: Abdominal Pain (ED) Activity Restrictions/Additional Instructions: Continue taking pantoprazole at home, take Carafate. Follow-up with general surgery. GI soft diet. Return with any fevers, persistent vomiting, or other major concerns. Print Language: Czech Coding Level of Care Code ED Submarine Advisory Team Watch Officer for Ambrocio Stratton
[2024-10-31 14:45] LABS: Bilirubin Urine Negative (Negative); Blood Urine Negative (Negative); Glucose Urine UA Negative (Normal); Ketones Urine 2+ (Negative); Leukocyte Esterase Urine Negative (Negative); Nitrate Urine Negative (Negative); Protein Urine Negative (Negative); Specific Gravity, Urine 1.028 (1.005-1.030); Urine Appearance Clear (CLEAR); Urine Color Yellow (Yellow); Urobilinogen Urine 0.2 mg/dL (Negative)
[2024-10-31 14:50] LABS: Add Urine Microscopic? YES; Hyaline Casts Urine 6.61 /lpf; RBC Urine 0-2 /hpf (0-2); WBC Urine 0-5 /hpf (0-5)
[2024-10-31 15:00] LABS: Bacteria Urine 1+ /hpf; UA Slide Review UA Slide Review Perf
[2024-10-31 15:09] LABS: Basophils % 0.5 %; Eosinophils # 0.1 10^3/uL (0.0-0.8); Eosinophils % 1.4 %; Hematocrit 53.1 % (37-53); Lymphocytes # 1.7 10^3/uL (0.8-4.8); Lymphocytes % 21.1 %; Mean Corpuscular HGB Conc 33.3 g/dL (30-55); Mean Corpuscular Hemoglobin 28.8 pg (27-33); Mean Corpuscular Volume 86.3 fl (82-101); Mean Platelet Volume 9.6 fL (7.4-10.4); Monocytes # 0.7 10^3/uL (0.2-0.9); Monocytes % 8.8 %; Neutrophils # 5.33 10^3/uL (1.8-7.7); Neutrophils % 67.7 %; Nucleated Red Blood Cells % 0 %; Platelet Count 281 10^3/cmm (157-399); Red Blood Count 6.15 10^6/uL (3.85-5.65); Red Cell Distribution Width 12.2 % (12.1-15.1); White Blood Count 7.87 10^3/uL (3.29-11.43)
[2024-10-31] MEDS: iohexol 350 mg/mL 500 mL Btl (per mL) IV (15:19)
[2024-10-31] MEDS: HYDROmorphone 0.5 MG/0.5 ML INJ 1 MG IVP (15:20)
[2024-10-31] MEDS: ondansetron 2 mg/ML SDV 2 mL 8 MG IVP (15:20)
[2024-10-31 15:30] LABS: Alanine Aminotransferase 26 U/L (0-41); Albumin Level 4.5 g/dL (3.5-5.2); Alkaline Phosphatase 77 U/L (40-130); Aspartate Amino Transferase 21 U/L (0-40); Blood Urea Nitrogen 19 mg/dL (6-20); Calcium 9.2 mg/dL (8.5-10.5); Carbon Dioxide 24 mmol/L (22-29); Chloride 102 mmol/L (98-107); Creatinine Clr Calc Pharmacy 153.0879; Globulin 2.7 g/dL (1.3-4.6); Glomerular Filtration Rate 97.2 mL/min (90-130); Glucose 84 mg/dL (65-115); Lipase 37 U/L (13-60); Osmolality Calculated 291 mOsm/kg (285-295); Sodium 140 mmol/L (136-145); Total Bilirubin 0.5 mg/dL (0.15-1.2); Total Protein 7.2 g/dL (6.6-8.7)
[2024-10-31 16:20] VITALS: BP 148/127; PULSE 88; O2SAT 97
--- NOTE | 2024-11-01 07:26 | DCPLANNER ---
messaged gen surgery for er f/u
== END 2024-10-31 16:21 | disposition home or self-care (01) ==
PROVIDERS: Emergency Provider Physician Assistant; PCP Family Medicine
DX: R10.10 Upper abdominal pain, unspecified (principal)
CPT/HCPCS: 36415; 74177; 80053; 81001; 83690; 85025; 96374; 96375; 99285; J1171; J2405

== ENCOUNTER 2025-01-31 15:28 | Emergency (ER) | payer SELFPAY ==
--- OUTSIDE RECORDS SUMMARY | 2025-01-24 14:03 | XMS_ITS | Encounter Summary ---
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 2:26 PM CDT 01/24/2025 2:35 PM CDT us Leann Smallwood MD CHEMISTRY ORDERABLES Final Resu [facility] CLIA # [id number] [address] [place] [address] * (ABNORMAL) COMPREHENSIVE METABOLIC PANEL (01/24/2025 2:26 PM CDT) [facility] SODIUM 140 136 - 145 mmol/L 01/24/2025 2:56 PM CDT [facility] POTASSIUM 4.0 3.5 - 5.1 mmol/L 01/24/2025 2:56 PM CDT [facility] CHLORIDE 104 98 - 107 mmol/L 01/24/2025 2:56 PM CDT [facility] CO2 25 22 - 29 mmol/L 01/24/2025 2:56 PM [facility] CALCIUM 10.3(H) 8.6 - 10.0 mg/dL 01/24/2025 2:56 PM [facility] BUN 15 6 - 20 mg/dL 01/24/2025 2:56 PM [facility] CREATININE 0.87 0.67 - 1.17 mg/dL 01/24/2025 2:56 PM [facility] GLUCOSE 110(H) 74 - 99 mg/dL 01/24/2025 2:56 PM [facility] TOTAL PROTEIN 6.8 6.6 - 8.7 g/dL 01/24/2025 2:56 PM [facility] ALBUMIN 4.3 3.5 - 5.2 g/dL 01/24/2025 2:56 PM [facility] BILIRUBIN TOTAL 0.4 0.0 - 1.2 mg/dL 01/24/2025 2:56 PM [facility] ALKALINE PHOSPHATASE 123 40 - 129 U/L 01/24/2025 2:56 PM [facility] AST 38 0 - 50 U/L 01/24/2025 2:56 PM [facility] ALT 57(H) 0 - 50 U/L 01/24/2025 2:56 PM [facility] GFR >60 >=60 mL/min/1.7 3 sq meter 01/24/2025 2:56 PM [facility] Comment:eGFR calculated with 2020 CKD-EPI equation. Vegetarian diet, extremely high or low muscle mass, and may affect results. Cystatin C with Glomerular Filtration Rate is a suitable alternative for these patients. ANION GAP 11 5 - 20 mmol/L 01/24/2025 2:56 PM [facility] Blood BLOOD SPECIMEN / Unknown Venipuncture / Unknown 01/24/2025 2:26 PM CDT 01/24/2025 2:35 PM CDT Leann Smallwood MD CHEMISTRY ORDERABLES Final Resu lt [facility] CLIA # [id number] [address] [place] [phone] * SEDIMENTATION RATE (01/24/2025 2:26 PM CDT) Pathologist [facility] ESR (SEDIMENTATION RATE) 6 0 - 15 mm/Hr 01/24/2025 2:41 PM CDT [facility] Blood BLOOD SPECIMEN / Unknown Venipuncture / Unknown 01/24/2025 2:26 PM CDT 01/24/2025 2:35 PM CDT [facility] - 01/24/2025 2:41 PM CDT Tube Lot: [id number] Exp Date: 07/13/2026 QC1 LOT [id number] EXP.07/18/2025 QC2 LOT [id number] EXP.07/18/2025 Leann Smallwood MD HEMATOLOGY ORDERABLES Final Res ult Performing Organization Address City/State/[facility] Co de Phone Number [facility] CLIA # [id number] [address] [place] [phone] * (ABNORMAL) CBC WITH DIFFERENTIAL (01/24/2025 2:26 PM CDT) [facility] WBC 6.8 4.2 - 9.1 K/uL 01/24/2025 2:39 PM CDT [facility] RBC 6.01 4.63 - 6.08 M/uL 01/24/2025 2:39 PM CDT [facility] HEMOGLOBIN 17.5 13.7 - 17.5 g/dL 01/24/2025 2:39 PM CDT [facility] HEMATOCRIT 50.8 40.1 - 51.0 % 01/24/2025 2:39 PM CDT [facility] MCV 84.5 79.0 - 92.2 fL 01/24/2025 2:39 PM CDT [facility] MCH 29.1 25.7 - 32.2 pg 01/24/2025 2:39 PM [facility] MCHC 34.4 32.3 - 36.5 g/dL 01/24/2025 2:39 PM [facility] RDW 12.2 11.0 - 14.5 % 01/24/2025 2:39 PM [facility] RDW-STDEV 37.2 36.9 - 56.9 fL 01/24/2025 2:39 PM [facility] PLATELETS 249 130 - 400 K/uL 01/24/2025 2:39 PM [facility] MPV 9.6(L) 10.0 - 14.8 fL 01/24/2025 2:39 PM [facility] NEUTROPHILS 66 34 - 68 % 01/24/2025 2:39 PM [facility] LYMPHOCYTES 21(L) 22 - 53 % 01/24/2025 2:39 PM [facility] MONOCYTES 11 5 - 12 % 01/24/2025 2:39 PM [facility] EOSINOPHILS 2 1 - 7 % 01/24/2025 2:39 PM [facility] BASOPHILS 1 0 - 1 % 01/24/2025 2:39 PM [facility] IMMATURE GRANULOCYTES 0 % 01/24/2025 2:39 PM [facility] NEUTROPHIL ABSOLUTE 4.46 1.78 - 5.38 K/uL 01/24/2025 2:39 PM [facility] LYMPHOCYTE ABSOLUTE 1.41 1.20 - 3.40 K/uL 01/24/2025 2:39 PM [facility] MONOCYTE ABSOLUTE 0.72 0.30 - 0.82 K/uL 01/24/2025 2:39 PM [facility] EOSINOPHIL ABSOLUTE 0.15 0.04 - 0.54 K/uL 01/24/2025 2:39 PM [facility] BASOPHILS ABSOLUTE 0.04 0.01 - 0.08 K/uL 01/24/2025 2:39 PM [facility] IMMATURE GRANULOCYTES ABSOLUTE 0.03 K/uL 01/24/2025 2:39 PM [facility] Blood BLOOD SPECIMEN / Unknown Venipuncture / Unknown 01/24/2025 2:26 PM CDT 01/24/2025 2:35 PM CDT us Leann Smallwood MD HEMATOLOGY ORDERABLES Final Res ult [facility] CLIA # [id number] [address] [place] [phone] documented in this encounter Visit Diagnoses Diagnosis Abdominal muscle strain, initial encounter- Primary Abdominal muscle strain, initial encounter documented in this encounter Administered Medications Inactive Administered Medications - up to 3 most recent administrations Medication Order MAR Action Action Date Dose Rate Site dicyclomine (BENTYL) capsule 20 mg 20 mg, Oral, ONE TIME ONLY, 1 dose, On Fri01/24/25 at 1630, Routine Given 01/24/2025 4:36 PM CDT 20 mg diphenhydrAMINE (BENADRYL) injection 25 mg 25 mg, IV, ONE TIME ONLY, 1 dose, On Fri01/24/25 at 1630, Routine Given 01/24/2025 4:31 PM CDT 25 mg HYDROmorphone (PF) (DILAUDID) injection 0.3 mg 0.3 mg, IV, ONE TIME ONLY, 1 dose, On Fri01/24/25 at 1445, Routine Given 01/24/2025 2:51 PM CDT 0.3 mg HYDROmorphone (PF) (DILAUDID) injection 1 mg 1 mg, IV, ONE TIME ONLY, 1 dose, On Fri01/24/25 at 1515, Routine Given 01/24/2025 3:19 PM CDT 1 mg iopamidoL (ISOVUE-300) 61% injection (single-use vial) 100 mL 100 mL, IV, INTRA-PROCEDURE ONCE, 1 dose, Starting on Fri01/24/25 at 1543, Until Fri01/24/25 at 1544, Routine Contrast Given 01/24/2025 3:44 PM CDT 100 mL ondansetron (ZOFRAN) 4 mg/2 mL injection 4 mg 4 mg, IV, ONE TIME ONLY, 1 dose, On Fri01/24/25 at 1515, Routine Given 01/24/2025 3:17 PM CDT 4 mg oxyCODONE-acetaminophen (PERCOCET) 5-325 mg per tablet 1 Tablet 1 Tablet, Oral, ONE TIME ONLY, 1 dose, On Fri01/24/25 at 1630, Routine Given 01/24/2025 4:36 PM CDT 1 Tablet prochlorperazine (COMPAZINE) injection 5 mg 5 mg, IV, ONE TIME ONLY, 1 dose, On Fri01/24/25 at 1630, Routine Given 01/24/2025 4:33 PM CDT 5 mg sodium chloride bacteriostatic 0.9 % injection 10 mL 10 mL, IV, SEE ADMIN INSTRUCTIONS, Starting on Fri01/24/25 at 1543, Until Fri01/24/25 at 1858, Routine Given 01/24/2025 3:44 PM CDT 10 mL sodium chloride flush injection 10 mL 10 mL, IV, EVERY 12 HOURS (BlD), First dose on Fri01/24/25 at 1445, Until Discontinued, Routine sodium chloride flush injection 10 mL 10 mL, IV, SEE ADMIN INSTRUCTIONS, Starting on Fri01/24/25 at 1432, Until Fri01/24/25 at 1858, Routine Given 01/24/2025 4:36 PM CDT 10 mL Given 01/24/2025 4:33 PM CDT 10 mL Given 01/24/2025 3:21 PM CDT 10 mL documented in this encounter Active and Recently Administered Medications Times are shown in CDT. Scheduled Medication Order 01/22/2025 01/23/2025 01/24/2025 dicyclomine (BENTYL) capsule 20 mg (COMPLETED) 20 mg, Oral, ONE TIME ONLY, 1 dose, On Fri01/24/25 at 1630, Routine 1636 (Given - Provid er: Aylin Talbert, AZRA) diphenhydrAMINE (BENADRYL) injection 25 mg (COMPLETED) 25 mg, IV, ONE TIME ONLY, 1 dose, On Fri01/24/25 at 1630, Routine 1631 (Given - Provid er: Aylin Talbert, AZRA) HYDROmorphone (PF) (DILAUDID) injection 0.3 mg (COMPLETED) 0.3 mg, IV, ONE TIME ONLY, 1 dose, On Fri01/24/25 at 1445, Routine 1451 (Given - Provid er: Aylin Talbert RN) HYDROmorphone (PF) (DILAUDID) injection 1 mg (COMPLETED) 1 mg, IV, ONE TIME ONLY, 1 dose, On Fri01/24/25 at 1515, Routine 1519 (Given - Provid er: Aylin Talbert RN) iopamidoL (ISOVUE-300) 61% injection (single-use vial) 100 mL (COMPLETED) 100 mL, IV, INTRA-PROCEDURE ONCE, 1 dose, Starting on Fri01/24/25 at 1543, Until Fri01/24/25 at 1544, Routine 1544 (Contrast Given - Provider: Kimberley [place], RT) ondansetron (ZOFRAN) 4 mg/2 mL injection 4 mg (COMPLETED) 4 mg, IV, ONE TIME ONLY, 1 dose, On Fri01/24/25 at 1515, Routine 1517 (Given - Provid er: Aylin Talbert RN) oxyCODONE-acetaminophen (PERCOCET) 5-325 mg per tablet 1 Tablet (COMPLETED) 1 Tablet, Oral, ONE TIME ONLY, 1 dose, On Fri01/24/25 at 1630, Routine 1636 (Given - Provid er: Aylin Talbert RN) prochlorperazine (COMPAZINE) injection 5 mg (COMPLETED) 5 mg, IV, ONE TIME ONLY, 1 dose, On Fri01/24/25 at 1630, Routine 1633 (Given - Provid er: Aylin Talbert RN) sodium chloride bacteriostatic 0.9 % injection 10 mL 10 mL, IV, SEE ADMIN INSTRUCTIONS, Starting on Fri01/24/25 at 1543, Until Fri01/24/25 at 1858, Routine 1544 (Given - Provid er: Kimberley [place], RT) sodium chloride flush injection 10 mL 10 mL, IV, EVERY 12 HOURS (BlD), First dose on Fri01/24/25 at 1445, Until Discontinued, Routine 1445 (Due) sodium chloride flush injection 10 mL 10 mL, IV, SEE ADMIN INSTRUCTIONS, Starting on Fri01/24/25 at 1432, Until Fri01/24/25 at 1858, Routine 1451 (Given - Provid er: Aylin D Gali, RN)1454 (Given - Provider: Aylin Talbert, AZRA)1519 (Given - Provider: Aylin Talbert, RN)1521 (Given - Provider: Aylin Talbert, AZRA)1633 (Given - Provider: Aylin Talbert, ZARA)1636 (Given - Provider: Aylin Talbert, AZRA) documented in this encounter Care Teams Knit Goods Press Hand Relationship Specialty Start Date End Date Gabriele Kemp MD [address] [place] [phone] PCP - General Family Practice 01/24/25 documented as of this encounter
--- OUTSIDE RECORDS SUMMARY | 2025-01-31 15:39 | XMS_ITS | Encounter Summary ---
Author Organization [facility] Address 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
--- OUTSIDE RECORDS SUMMARY | 2025-01-31 15:39 | XMS_ITS | Encounter Summary ---
Author Organization [facility] Address 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
--- OUTSIDE RECORDS SUMMARY | 2025-01-31 15:40 | XMS_ITS | Clinical Summary ---
Author Organization [facility] Address [address] [place] [address] Care Team Providers Care Lecturer Of Portuguese Name Role Phone Pao Avila AMBIKA Primary Care Provider [phone] Allergies Active Allergy Reactions Criticality Noted Date Comments Ketorolac Tromethamine Rash Low 12/22/2011 Latex Hives High 03/16/2010 Meperidine Hives High 02/23/2012 Morphine Hives High 04/08/2012 Medications ibuprofen (MOTRIN) 800 mg tablet Take 800 mg by mouth every 6 hours as needed for Pain, Mild. Active Active Problems Problem Noted Date Diagnosed Date Irritable bowel syndrome 05/04/2010 Immunizations Immunization Administration Dates Next Due (M-M-R II/PRIORIX)(12 MO UP) MEASLES, MUMPS AND RUBELLA VIRUS VACCINE, 0.5 ML IM/SUBCUT 10/14/1995,09/22/1992 Dt Dtp Dtap Vaccine 10/14/1995, 3,01/14/1992,1991,1991 HIB, Unspecified Formulation 09/22/1992, 01/14/1992,1991,1991 Hepatitis B Vaccine 02/04/1996,10/14/1995,1994 IPV/OPV 10/14/1995, 3,1991,1991 Family History Medical History Relation Name Comments Colon Cancer Neg Hx Social History Tobacco Use Types Packs/Day Years Used Date Smoking Tobacco: Never Smokeless Tobacco: Never Alcohol Use Standard Drinks/Week Comments No 0 (1 standard drink = 0.6 oz pur e alcohol) Sex and Gender Information Value Date Recorded Sex Assigned at Not on file Legal Sex Male 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 Gender Identity Not on file Sexual Orientation Not on file Occupation Industry Job Start Date Job End Date Not on file Not on file Not on file Not on file Last Filed Vital Signs Vital Sign Reading Time Taken Comments Blood Pressure 115/65 2019 4:55 PM SAILMAKER Pulse 116 06/17/2012 5:29 PM SAILMAKER Temperature 36.6 C (97.8 F) 2019 4:55 PM SAILMAKER Respiratory Rate 16 2019 4:55 PM SAILMAKER Oxygen Saturation 98% 2019 4:55 PM SAILMAKER Inhaled Oxygen Concentration - - Weight 129.2 kg (284 lb 12.8 oz) 2019 3:21 PM SAILMAKER Height 167.6 cm (5' 6 ) 2019 3:21 PM SAILMAKER Body Mass Index 45.97 2019 3:21 PM SAILMAKER Plan of Treatment Health Maintenance Due Date Last Done Comments DTAP/TDAP/TD VACCINES (6 - Tdap) 2002 10/14/1995, 02/02/1993, 01/14/1992, Additional history exists HPV VACCINES (1 - Male 3-dos e series) 2006 INFLUENZA VACCINE (#1) 2025 HEPATITIS B VACCINES Completed 02/04/1996, 10/14/1995, 05/20/[address] [place] [address] [facility] Advance Directives For more information, please contact: [phone] * Full Code (Latest Code Status on File) Date Activated Date Inactivated Comments 03/21/2010 7:46 AM 03/22/2010 2:31 AM Care Teams Lecturer Of Portuguese Relationship Specialty Start Date End Date Pao Avila APN [address] [place] [phone] PCP - General NURSE PRACTITIONER 06/22/19
--- OUTSIDE RECORDS SUMMARY | 2025-01-31 15:40 | XMS_ITS | Encounter Summary ---
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
--- OUTSIDE RECORDS SUMMARY | 2025-01-31 15:40 | XMS_ITS | Clinical Summary ---
Author Organization [facility] Address [address] [facility] Attn: Epic Prelude ADT RUBINA TORRES [id number] Care Team Providers Care Electrical Cad Technician Name Role Phone Gabriele Kemp MD Primary Care Provider Allergies Active Allergy Reactions Criticality Noted Date Comments Ketorolac Tromethamine Itching Low 12/22/2011 Latex Hives High 03/16/2010 Morphine Hives High 04/08/2012 Medications ibuprofen (MOTRIN) 800 mg tablet Take 800 mg by mouth every 6 hours as needed for Pain, Mild. 9 Active pantoprazole (PROTONIX) 40 mg Tablet, Delayed Release (E.C.) Take 1 Tablet (40 mg) by mouth 2 times daily. 60 Tablet 3 3 Active Additional Information Patient taking differently:40 mg OralTHREE TIMES DAILY, Reported on 01/24/2025 busPIRone (BUSPAR) 7.5 mg Tablet Take 7.5 mg by mouth daily. Active baclofen (LIORESAL) 5 mg tablet Take 1 Tablet (5 mg) by mouth 3 times daily for 5 days. 15 Tablet 5 01/30/20 25 oxyCODONE-aceta minophen (PERCOCET) 5-325 mg tabletIndicatio ns:Abdominal muscle strain, initial encounter Take 1 Tablet by mouth every 6 hours as needed for Pain, Moderate. Max Daily Amount: 4 Tablets 12 Tablet 5 01/28/20 25 ondansetron (ZOFRAN ODT) 4 mg Tablet, Rapid Dissolve Place 1 Tablet (4 mg) under tongue every 8 hours as needed for Nausea/Emesis. Dissolve tablet on top of tongue, then swallow with saliva. 9 Tablet 5 01/28/20 25 celecoxib (CeleBREX) 100 mg capsule Take 1 Capsule (100 mg) by mouth 2 times daily for 5 days. 10 Capsule 5 01/30/20 25 Active Problems Problem Noted Date Diagnosed Date Abdominal muscle strain, initial encounter 01/24 Acute colitis 08/25/2023 Irritable bowel syndrome 05/04/2010 Encounters Date Type Department Care Team Description 01/26/2025 External Device Data [facility] ABSTRACTION Provider, Abstract 01/26/2025 External Device Data [facility] ABSTRACTION Provider, Abstract 01/24/2025 2:03 PM CDT - 01/24/2025 4:53 PM CDT Emergency [facility] Emergency Medicine [address] [place] [address] Leann Smallwood MD Abdominal muscle strain, initial encounter (Primary Dx) Discharge Disposition: Home or Self Care 11/16/2024 External Device Data [facility] ABSTRACTION Provider, Abstract 11/02/2024 External Device Data [facility] ABSTRACTION Provider, Abstract 11/02/2024 External Device Data [facility] ABSTRACTION Provider, Abstract from Last 3 Months Immunizations Immunization Administration Dates Next Due (M-M-R [...] Date Smoking Tobacco: Never Smokeless Tobacco: Never Tobacco Cessation:Counseling Given: Not Answered Alcohol Use Standard Drinks/Week Comments Not Currently 0 (1 standard drink = 0.6 oz pur e alcohol) Sex and Gender Information Value Date Recorded Sex Assigned at Not on file Legal Sex Male 1:37 AM [employer] Gender Identity Not on file Sexual Orientation Not on file Last Filed Vital Signs [...] Mass Index 52.29 01/24/2025 2:07 PM CDT Plan of Treatment Health Maintenance Due Date Last Done Comments DTAP/TDAP/TD VACCINES (6 - Tdap) 2002 10/14/1995, 02/02/1993, 02/02/1993, Additional history exists COVID-19 Vaccine ( season) 2024 11/25/2020, 10/28/2020 INFLUENZA VACCINE (#1) 2025 HEPATITIS B VACCINES Completed 02/04/1996, 02/04/1996, 10/14/1995, Additional history exists HPV VACCINES Aged Out No longer eligi ble based on patient's age to complete this topic Procedures Procedure Name Priority Date/Time Associated Diagnosis Comments TELEMETRY REPORT 01/25/2025 7:[address] ABDOMEN PELVIS W CONTRAST Stat 01/24/2025 3:44 PM CDT LACTIC ACID Stat 01/24/2025 2:35 PM CDT BRAIN NATRIURETIC PEPTIDE, BNP OR PROBNP Stat 01/24/2025 2:26 PM CDT C-REACTIVE PROTEIN Stat 01/24/2025 2: 26 PM CDT LIPASE Stat 01/24/2025 2:26 PM CDT COMPREHENSIVE METABOLIC PANEL Stat 01/24/2025 2:26 PM CDT SEDIMENTATION RATE Stat 01/24/2025 2: 26 PM CDT CBC WITH DIFFERENTIAL Stat 01/24/2025 2:26 PM CDT from Last 3 Months Results * TELEMETRY REPORT (01/25/2025 7:58 AM [...] are identified. IMPRESSION: No acute intra-abdominal findings. Leann Smallwood MD CT ORDERABLES Final Result * LACTIC ACID (01/24/2025 2:35 PM CDT) LACTIC ACID 1.6 <=2.0 mmol/L 01/24/2025 3:10 PM T [facility] Blood BLOOD SPECIMEN / Unknown Venipuncture / Unknown 01/24/2025 2:35 PM CDT 01/24/2025 2:48 PM CDT us Leann Smallwood MD CHEMISTRY ORDERABLES Final Resu lt [facility] CLIA # [id number] [address] [place] [address] * (ABNORMAL) CBC WITH DIFFERENTIAL (01/24/2025 2:26 PM CDT) WBC 6.8 4.2 - 9.1 K/uL 01/24/2025 2:39 PM T [facility] RBC 6.01 4.63 - 6.08 M/uL 01/24/2025 2:39 PM [facility] HEMOGLOBIN 17.5 13.7 - 17.5 g/dL 01/24/2025 2:39 PM [facility] HEMATOCRIT 50.8 40.1 - 51.0 % 01/24/2025 2:39 PM [facility] MCV 84.5 79.0 - 92.2 fL 01/24/2025 2:39 PM [facility] MCH 29.1 25.7 - 32.2 pg 01/24/2025 2:39 PM [facility] MCHC 34.4 32.3 - 36.5 g/dL 01/24/2025 2:39 PM [facility] RDW 12.2 11.0 - 14.5 % 01/24/2025 2:39 PM [facility] RDW-STDEV 37.2 36.9 - 56.9 fL 01/24/2025 2:39 PM [facility] PLATELETS 249 130 - 400 K/uL 01/24/2025 2:39 PM [facility] MPV 9.6(L) 10.0 - 14.8 fL 01/24/2025 2:39 PM CDT [facility] NEUTROPHILS 66 34 - 68 % 01/24/2025 2:39 PM CDT [facility] LYMPHOCYTES 21(L) 22 - 53 % 01/24/2025 2:39 PM CDT [facility] MONOCYTES 11 5 - 12 % 01/24/2025 2:39 PM CDT [facility] EOSINOPHILS 2 1 - 7 % 01/24/2025 2:39 PM CDT [facility] BASOPHILS 1 0 - 1 % 01/24/2025 2:39 PM CDT [facility] IMMATURE GRANULOCYTES 0 % 01/24/2025 2:39 PM CDT [facility] NEUTROPHIL ABSOLUTE 4.46 1.78 - 5.38 K/uL 01/24/2025 2:39 PM CDT [facility] LYMPHOCYTE ABSOLUTE 1.41 1.20 - 3.40 K/uL 01/24/2025 2:39 PM CDT [facility] MONOCYTE ABSOLUTE 0.72 0.30 - 0.82 K/uL 01/24/2025 2:39 PM CDT [facility] EOSINOPHIL ABSOLUTE 0.15 0.04 - 0.54 K/uL 01/24/2025 2:39 PM CDT [facility] BASOPHILS ABSOLUTE 0.04 0.01 - 0.08 K/uL 01/24/2025 2:39 PM CDT [facility] IMMATURE GRANULOCYTES ABSOLUTE 0.03 K/uL 01/24/2025 2:39 PM CDT [facility] Blood BLOOD SPECIMEN / Unknown Venipuncture / Unknown 01/24/2025 2:26 PM CDT 01/24/2025 2:35 PM CDT us Leann Smallwood MD HEMATOLOGY ORDERABLES Final Res ult [facility] CLIA # [id number] [address] [place] [address] * SEDIMENTATION RATE (01/24/2025 2:26 PM CDT) Pathologist [facility] ESR (SEDIMENTATION RATE) 6 0 - 15 mm/Hr 01/24/2025 2:41 PM CDT [facility] Blood BLOOD SPECIMEN / Unknown Venipuncture / Unknown 01/24/2025 2:26 PM CDT 01/24/2025 2:35 PM CDT Narrative [facility] - 01/24/2025 2:41 PM CDT Tube Lot: #[id number] Exp Date: 07/13/2026 QC1 LOT [id number] EXP.07/18/2025 QC2 LOT [id number] EXP.07/18/2025 Leann Smallwood MD HEMATOLOGY ORDERABLES Final Res ult Performing Organization Address City/[facility]/ZIP Co de [facility] Number [id number] [address] [place] [address] [phone] * (ABNORMAL) C-REACTIVE PROTEIN (01/24/2025 2:26 PM CDT) Pathologist [facility] CRP 7.4(H) <5.0 mg/L 01/24/2025 2:55 PM CDT [facility] Blood BLOOD SPECIMEN / Unknown Venipuncture / Unknown 01/24/2025 2:26 PM CDT 01/24/2025 2:35 PM CDT Leann Smallwood MD CHEMISTRY ORDERABLES Final Resu lt Performing Organization Address City/[facility]/ZIP Co de Phone Number [facility] CLIA # [id number] [address] [place] [address] * BRAIN NATRIURETIC PEPTIDE, BNP OR PROBNP (01/24/2025 2:26 PM CDT) Pathologist [facility] PROBNP, N TERMINAL <36 0 - 125 pg/mL 01/24/2025 2:56 PM CDT [facility] Comment: INTERPRETIVE COMMENT based on diagnosis: Diagnostic [...] ORDERABLES Final Resu lt Performing Organization Address [facility]/ZIP Co de Phone Number [facility] CLIA # [id number] [address] [place] [address] [phone] * LIPASE (01/24/2025 2:26 PM CDT) LIPASE 33 13 - 60 U/L 01/24/2025 2:56 PM CDT [facility] Blood BLOOD SPECIMEN / Unknown Venipuncture / Unknown 01/24/2025 2:26 PM CDT 01/24/2025 2:35 PM CDT us Leann Smallwood MD CHEMISTRY ORDERABLES Final Resu lt Performing Organization Address [facility]/ZIP Co de Phone Number [facility] CLIA # [id number] [address] [place] [phone] * (ABNORMAL) COMPREHENSIVE METABOLIC PANEL (01/24/2025 2:26 PM CDT) SODIUM 140 136 - 145 mmol/L 01/24/2025 2:56 PM CDT [facility] POTASSIUM 4.0 3.5 - 5.1 mmol/L 01/24/2025 2:56 PM CDT [facility] CHLORIDE 104 98 - 107 mmol/L 01/24/2025 2:56 PM CDT [facility] CO2 25 22 - 29 mmol/L 01/24/2025 2:56 PM [facility] CALCIUM 10.3(H) 8.6 - 10.0 mg/dL 01/24/2025 2:56 PM [facility] BUN 15 6 - 20 mg/dL 01/24/2025 2:56 PM [facility] CREATININE 0.87 0.67 - 1.17 mg/dL 01/24/2025 2:56 PM [facility] GLUCOSE 110(H) 74 - 99 mg/dL 01/24/2025 2:56 PM [facility] TOTAL PROTEIN 6.8 6.6 - 8.7 g/dL 01/24/2025 2:56 PM [facility] ALBUMIN 4.3 3.5 - 5.2 g/dL 01/24/2025 2:56 PM [facility] BILIRUBIN TOTAL 0.4 0.0 - 1.2 mg/dL 01/24/2025 2:56 PM [facility] ALKALINE PHOSPHATASE 123 40 - 129 U/L 01/24/2025 2:56 PM [facility] AST 38 0 - 50 U/L 01/24/2025 2:56 PM [facility] ALT 57(H) 0 - 50 U/L 01/24/2025 2:56 PM [facility] GFR >60 >=60 mL/min/1.7 3 sq meter 01/24/2025 2:56 PM [facility] Comment:eGFR calculated with 2020 CKD-EPI equation. Vegetarian diet, extremely high or low muscle mass, and may affect results. Cystatin C with Glomerular Filtration Rate is a suitable alternative for these patients. ANION GAP 11 5 - 20 mmol/L 01/24/2025 2:56 PM [facility] Blood BLOOD SPECIMEN / Unknown Venipuncture / Unknown 01/24/2025 2:26 PM CDT 01/24/2025 2:35 PM CDT us Leann Smallwood MD CHEMISTRY ORDERABLES Final Resu lt [facility] CLIA # [id number] [address] [place] [phone] from Last 3 Months Advance Directives For more information, please contact: [phone] * Full Code (Latest Code Status on File) Date Activated Date Inactivated Comments 08/06/2022 10:40 AM 08/06/2022 2:21 PM Care Teams Electrical Cad Technician Relationship Specialty Start Date End Date Gabriele Kemp MD [address] [place] [phone] PCP - General Family Practice 01/24/25
[2025-01-31 15:45] VITALS: BP 129/97; PULSE 107; RESP 18; TEMP 36.6; O2SAT 97; BMI 51.6
--- NOTE | 2025-01-31 16:21 | XRR_ITS ---
PROCEDURE INFORMATION: Exam: XR Chest Exam date and time: 01/31/2025 4:31 PM Age: 34 years old Clinical indication: Shortness of breath; Additional info: SOB TECHNIQUE: Imaging protocol: Radiologic exam of the chest. Views: 1 view. COMPARISON: CT chest [place] [id number] 07/04/2024 6:29 PM FINDINGS: Lungs: Hypoinflated, but appear clear. No consolidation. Pleural spaces: No significant pleural effusion. No pneumothorax. Heart/Mediastinum: Within normal limits. Bones/joints: Intact. Other findings: None. XR/XR chest 1V portable [id number] IMPRESSION: No acute findings.
--- NOTE | 2025-01-31 18:49 | W.ED.ABDPA2 ---
HPI - Abdominal Pain General: Chief Complaint: Abdominal Pain Stated Complaint: rib pain Time Seen by Provider: 01/31/25 18:47 History of Present Illness: 34-year-old male presents emergency room complaining of epigastric discomfort after doing some heavy lifting. Has not had any vomiting or diarrhea no dysuria urgency or frequency no fever sweats chills no chest pain no shortness of breath Associated Symptoms: Denies chills, dysuria and fever(s) Related Data Home Medications ?Medication ?Instructions ?Recorded ?Confirmed buspirone 10 mg tablet 10 mg PO BID 10/03/24 10/31/24 colestipol 1 gram tablet 2 g PO BID 10/03/24 10/31/24 pantoprazole 20 mg tablet,delayed 20 mg PO DAILY 10/03/24 10/31/24 release Previous Rx's ?Medication ?Instructions ?Recorded bupropion HCl 300 mg 24 hr tablet, 300 mg PO QAM 90 days #90 tabs 11/07/23 extended release (Wellbutrin XL) hydrocodone 5 mg-acetaminophen 325 1 tab PO Q6H PRN pain #12 tabs 01/31/25 mg tablet Allergies Allergy/AdvReac Type Severity Reaction Status Date / Time latex Allergy Severe ALGY-Hives Verified 01/31/25 15:49 ketorolac (Toradol) Allergy ALGY-Hives Verified 01/31/25 15:49 morphine Allergy ALGY-Rash Verified 01/31/25 15:49 Review of Systems Const: Denies: fever(s) or chills Card: Denies: chest pain Resp: Denies: dyspnea GI: Denies: abdominal pain : Denies: dysuria, urinary frequency or urinary urgency Musc: Denies: neck pain or back pain Skin/Breast: Denies: rash PFSH ED PFSH: Medical History Colitis Blood in stool Anxiety Surgical History History of laparoscopic cholecystectomy Status post laparoscopic appendectomy Family History Denies family history of Anesthesia complication Bleeding disorder Social History Smoking and tobacco/nicotine status: never used tobacco/nicotine Second hand smoke exposure: No Alcohol intake: never Substance/Drug Use: never Lives independently: Yes Household members: spouse Marital status: Current occupational status: unemployed Current gender identity: Male Physical Exam Const: GENERAL APPEARANCE: cooperative ORIENTATION/CONSCIOUSNESS: Yes awake, Yes oriented to person, Yes oriented to place and Yes oriented to time HENMT: COMMON NORMALS: normocephalic, atraumatic and hearing grossly normal bilaterally HEAD & SCALP: normocephalic and atraumatic Resp: COMMON NORMALS: normal respiratory effort, No retractions, No use of accessory muscles and clear to auscultation bilaterally AUSCULTATION: clear to auscultation bilaterally Cardio: COMMON NORMALS: regular rate, regular rhythm and No murmurs present (Cardio) RATE: regular rate RHYTHM: regular rhythm GI: COMMON NORMALS: No hepatosplenomegaly present AUSCULTATION: Yes normoactive bowel sounds PALPATION: Yes Tenderness to palpation present (GI) (Mild epigastric tenderness light touch), No Guarding due to palpation present (GI) and Yes No hepatosplenomegaly present Extremity: COMMON NORMALS: normal to inspection, capillary refill normal, no clubbing, cyanosis or edema, no calf tenderness and no pedal edema Neuro: SENSORIUM/ORIENTATION: Yes oriented to person, Yes oriented to place and Yes oriented to time Skin: COMMON NORMALS: no rashes or lesions noted GENERAL SKIN EXAM: no rashes or lesions noted Course Vital Signs: Vital signs: Vital Signs Temperature 97.8 F 01/31/25 15:45 Pulse Rate 92 01/31/25 21:59 Respiratory Rate 18 01/31/25 21:59 Blood Pressure 152/98 01/31/25 21:59 Pulse Oximetry 96 01/31/25 21:59 MDM - Abdominal Pain Medical Decision Making Abdominal wall strain. Minimal touch along the epigastric area patient has pain there is no bulging no evidence of herniation white count normal CT of the abdomen does not show any acute changes. Discharged home have him follow-up as needed also noted patient is polycythemic suspect he has sleep apnea based on a BMI of greater than 50. He can follow this up with his primary care doctor Lab Data 01/31/25 19:55 01/31/25 19:55 Labs/Radiology: Radiology Impressions Chest X-Ray 01/31/25 16:21 IMPRESSION: No acute findings. Abdomen/Pelvis CT 01/31/25 20:20 IMPRESSION: 1. No acute findings. 2. Mild hepatomegaly with diffuse fatty infiltration and focal fatty deposition adjacent to the falciform ligament. 3. Status post cholecystectomy and appendectomy. Laboratory Results WBC 8.01 10^3/uL (3.29-11.43) 01/31/25 19:55 RBC 6.09 10^6/uL (3.85-5.65) H 01/31/25 19:55 Hgb 17.40 g/dL (11.27-16.99) H 01/31/25 19:55 Hct 52.4 % (37-53) 01/31/25 19:55 MCV 86.0 fl (82-101) 01/31/25 19:55 MCH 28.6 pg (27-33) 01/31/25 19:55 MCHC 33.2 g/dL (30-55) 01/31/25 19:55 RDW 12.3 % (12.1-15.1) 01/31/25 19:55 Plt Count 263 10^3/cmm (157-399) 01/31/25 19:55 MPV 9.3 fL (7.4-10.4) 01/31/25 19:55 Neut % (Auto) 63.3 % 01/31/25 19:55 Lymph % (Auto) 24.7 % 01/31/25 19:55 [place] % (Auto) 8.6 % 01/31/25 19:55 Eos % (Auto) 2.4 % 01/31/25 19:55 Baso % (Auto) 0.6 % 01/31/25 19:55 Neut # (Auto) 5.07 10^3/uL (1.8-7.7) 01/31/25 19:55 Lymph # (Auto) 2.0 10^3/uL (0.8-4.8) 01/31/25 19:55 [place] # (Auto) 0.7 10^3/uL (0.2-0.9) 01/31/25 19:55 Eos # (Auto) 0.2 10^3/uL (0.0-0.8) 01/31/25 19:55 Baso # (Auto) 0.1 10^3/uL (0.0-0.1) 01/31/25 19:55 Nucleated RBC % (auto) 0 % 01/31/25 19:55 Nucleated RBCs # 0.0 /100WBC 01/31/25 19:55 Sodium 142 mmol/L (136-145) 01/31/25 19:55 Potassium 3.8 mmol/L (3.5-5.1) 01/31/25 19:55 Chloride 104 mmol/L (98-107) 01/31/25 19:55 Carbon Dioxide 24 mmol/L (22-29) 01/31/25 19:55 Anion Gap 17.8 (5-19) 01/31/25 19:55 BUN 12 mg/dL (6-20) 01/31/25 19:55 Creatinine 0.9 mg/dL (0.7-1.2) 01/31/25 19:55 GFR Calculation 97.2 mL/min (90-130) 01/31/25 19:55 Glucose 92 mg/dL (65-115) 01/31/25 19:55 Calculated Osmolality 293 mOsm/kg (285-295) 01/31/25 19:55 Calcium 8.9 mg/dL (8.5-10.5) 01/31/25 19:55 Total Bilirubin 0.5 mg/dL (0.15-1.2) 01/31/25 19:55 AST 28 U/L (0-40) 01/31/25 19:55 ALT 40 U/L (0-41) 01/31/25 19:55 Alkaline Phosphatase 125 U/L (40-130) 01/31/25 19:55 Total Protein 7.1 g/dL (6.6-8.7) 01/31/25 19:55 Albumin 4.3 g/dL (3.5-5.2) 01/31/25 19:55 Globulin 2.8 g/dL (1.3-4.6) 01/31/25 19:55 Lipase 30 U/L (13-60) 01/31/25 19:55 All radiology interpretation(s) finalized by discharge Discharge Plan Discharge Patient Disposition: Home Clinical Impression: Strain of abdominal wall Condition: Stable Prescriptions: New hydrocodone-acetaminophen 5-325 mg tablet 1 tab PO Q6H PRN (Reason: pain) Qty: 12 0RF No Action Wellbutrin XL 300 mg tablet extended release 24 hr 300 mg PO QAM 90 Days Qty: 90 1RF pantoprazole 20 mg tablet,delayed release (DR/EC) 20 mg PO DAILY buspirone 10 mg tablet 10 mg PO BID colestipol 1 gram tablet 2 g PO BID Discharge Orders: Discharge ED (Routine); Ordered 01/31/25 Ordered By: Piero Sahni Referrals: Nitza Rodriguez MD [Primary Care Provider, Family Practice] Discharge Diet: Usual diet Discharge Activity: Increase activity as tolerated Patient Instructions: Opioid Safety, Pain Management, Patient Portal & Anh Instructions Activity Restrictions/Additional Instructions: [facility]. It is very important that you follow up as instructed or that you return to the Emergency Department should you have concerns or if your condition changes or worsens in any way. You are seen in the emergency room for abdominal pain. Evaluation of your heart and CT of your abdomen did not show any acute findings. Suspect based on your history you strained muscles in the upper abdominal wall which is causing your pain. You can use the pain medication as prescribed ice minimize activity for the next few days you can also use ibuprofen if needed Print Language: Cypriot Coding Level of Care Code ED Grill Cook for Ambrocio Stratton
--- NOTE | 2025-01-31 18:51 | ECG_ITS ---
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 Measurements Intervals [place] Rate: 104 P: 52 WV: 116 QRS: 28 QRSD: 92 T: 40 QT: 338 QTc: 445 Interpretive Statements SINUS TACHYCARDIA WITH SHORT WV INTERVAL Compared to ECG 07/04/2024 17:43:36 Short WV interval now present Electronically Signed On 02-03-2025 09:05:57 CDT by Ruddy Stewart M.D. [email or web address]
[2025-01-31 20:04] LABS: Hematocrit 52.4 % (37-53); Hemoglobin 17.40 g/dL (11.27-16.99); Mean Corpuscular HGB Conc 33.2 g/dL (30-55); Mean Corpuscular Hemoglobin 28.6 pg (27-33); Mean Corpuscular Volume 86.0 fl (82-101); Nucleated Red Blood Cells % 0 %; Platelet Count 263 10^3/cmm (157-399); Red Blood Count 6.09 10^6/uL (3.85-5.65); White Blood Count 8.01 10^3/uL (3.29-11.43)
--- NOTE | 2025-01-31 20:20 | CTR_ITS ---
PROCEDURE INFORMATION: Exam: CT Abdomen And Pelvis Without Contrast Exam date and time: 01/31/2025 8:54 PM Age: 34 years old Clinical indication: Abdominal pain; Generalized; Prior surgery; Surgery date: 6+ months; Surgery type: Gb, appy TECHNIQUE: Imaging protocol: Computed tomography of the abdomen and pelvis without contrast. Radiation optimization: All CT scans at this facility use at least one of these dose optimization techniques: automated exposure control; mA and/or kV adjustment per patient size (includes targeted exams where dose is matched to clinical indication); or iterative reconstruction. COMPARISON: CT abdomen pelvis w con* [id number] 10/31/2024 3:09 PM RADIATION DOSE METRICS: Total DLP (mGy-cm): 1626.93 FINDINGS: Lungs: A calcified granuloma is again seen at the right lung base, stable. Visualized lung bases are otherwise clear. Liver: The liver is enlarged measuring 18 cm in length. There is mild diffuse decreased attenuation throughout the liver compatible with fatty infiltration. A small focus of increased hypodensity adjacent to the falciform ligament likely represents relative focal fatty deposition, stable in appearance. Gallbladder and biliary ducts: The gallbladder is surgically absent. No significant biliary dilatation. Pancreas: Unremarkable. Spleen: Small calcified granulomata are again seen within the spleen. Adrenal glands: Unremarkable. Kidneys and ureters: Unremarkable. No significant hydronephrosis. Stomach and bowel: Unremarkable. Bowel loops are normal in caliber. No evidence for obstruction. No significant mucosal thickening. Appendix: Status post appendectomy. Intraperitoneal space: Unremarkable. No free air. No significant fluid collection. Vasculature: The abdominal aorta is normal in caliber. No abdominal aortic aneurysm. Lymph nodes: Unremarkable. No enlarged lymph nodes. Urinary bladder: Unremarkable as visualized. Reproductive: Unremarkable as visualized. Bones/joints: Intact. No acute fracture. Soft tissues: Unremarkable. CT/CT abdomen pelvis wo con [id number] IMPRESSION: 1. No acute findings. 2. Mild hepatomegaly with diffuse fatty infiltration and focal fatty deposition adjacent to the falciform ligament. 3. Status post cholecystectomy and appendectomy.
[2025-01-31 20:31] VITALS: BP 130/104; RESP 14; O2SAT 98
[2025-01-31 20:31] LABS: Alanine Aminotransferase 40 U/L (0-41); Albumin Level 4.3 g/dL (3.5-5.2); Alkaline Phosphatase 125 U/L (40-130); Anion Gap 17.8 (5-19); Aspartate Amino Transferase 28 U/L (0-40); Blood Urea Nitrogen 12 mg/dL (6-20); Calcium 8.9 mg/dL (8.5-10.5); Carbon Dioxide 24 mmol/L (22-29); Chloride 104 mmol/L (98-107); Creatinine Clr Calc Pharmacy 159.0799; Globulin 2.8 g/dL (1.3-4.6); Glucose 92 mg/dL (65-115); Lipase 30 U/L (13-60); Osmolality Calculated 293 mOsm/kg (285-295); Potassium 3.8 mmol/L (3.5-5.1); Sodium 142 mmol/L (136-145); Total Protein 7.1 g/dL (6.6-8.7)
[2025-01-31] MEDS: diphenhydrAMINE 50 mg/mL SDV 1mL IVP (20:47)
[2025-01-31] MEDS: HYDROmorphone 0.5 MG/0.5 ML INJ IVP ×2 (20:48→21:55)
[2025-01-31 21:59] VITALS: BP 152/98; PULSE 92; RESP 18; O2SAT 96
== END 2025-01-31 22:01 | disposition home or self-care (01) ==
PROVIDERS: Emergency Medicine; Emergency Provider Family Medicine; PCP Family Medicine
DX: S39.011A Strain of muscle, fascia and tendon of abdomen, initial encounter (principal); X50.0XXA Overexertion from strenuous movement or load, initial encounter
CPT/HCPCS: 36415; 71045; 74176; 80053; 83690; 85025; 93005; 96374; 96375; 96376; 99285; J1171; J1200

== ENCOUNTER 2025-05-08 11:44 | Emergency (ER) | payer BC, SELFPAY ==
[2025-05-08 11:46] VITALS: BP 168/118; PULSE 98; RESP 18; TEMP 37.1; O2SAT 100
--- OUTSIDE RECORDS SUMMARY | 2025-05-08 11:50 | XMS_ITS | Encounter Summary ---
Author Organization [facility] Address [address] [place] [address] Care Team Providers Care Firewood Cutter Name Role Phone Gabriele Kemp MD Primary Care Provider Encounter Details Date Type Department Care Team (Late st Contact Info) Description 05/04/2025 External Device Data [facility] ABSTRACTION Provider, Abstract NO ADDRESS ON FILE Social History Tobacco Use Types Packs/Day Years Used Date Smoking Tobacco: Never Smokeless Tobacco: Never Alcohol Use Standard Drinks/Week Comments Not Currently 0 (1 standard drink = 0.6 oz pur e alcohol) Feeling Safe Answer Date Recorded Are you in a relationship wi th someone who hurts you emotionally and/or physically? 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
--- OUTSIDE RECORDS SUMMARY | 2025-05-08 11:50 | XMS_ITS | Encounter Summary ---
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
--- OUTSIDE RECORDS SUMMARY | 2025-05-08 11:50 | XMS_ITS | Encounter Summary ---
Author Organization [facility] Address 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
--- OUTSIDE RECORDS SUMMARY | 2025-05-08 11:50 | XMS_ITS | Clinical Summary ---
Author Organization [facility] Address [address] [place] [address] Care Team Providers Care Sterilization Specialist Name Role Phone Pao Avila AMBIKA Primary Care Provider [phone] Allergies Active Allergy Reactions Criticality Noted Date [...] on file Legal Sex Male 3:43 AM CONSTRUCTION ELECTRICIAN Gender Identity Not on file Sexual Orientation Not on file Occupation Industry Job Start Date Job End Date Not on file Not on file Not on file Not on file Last Filed Vital Signs Vital Sign Reading Time Taken Comments Blood Pressure 115/65 2019 4:55 PM CONSTRUCTION ELECTRICIAN Pulse 116 06/17/2012 5:29 PM CONSTRUCTION ELECTRICIAN Temperature 36.6 C (97.8 F) 2019 4:55 PM CONSTRUCTION ELECTRICIAN Respiratory Rate 16 2019 4:55 PM CONSTRUCTION ELECTRICIAN Oxygen Saturation 98% 2019 4:55 PM CONSTRUCTION ELECTRICIAN Inhaled Oxygen Concentration - - Weight 129.2 kg (284 lb 12.8 oz) 2019 3:21 PM CONSTRUCTION ELECTRICIAN Height 167.6 cm (5' 6 ) 2019 3:21 PM CONSTRUCTION ELECTRICIAN Body Mass Index 45.97 2019 3:21 PM CONSTRUCTION ELECTRICIAN Plan of Treatment Health Maintenance Due Date Last Done Comments DTAP/TDAP/TD VACCINES (6 - Tdap) 2002 10/14/1995, 02/02/1993, 01/14/1992, Additional history exists HPV VACCINES (1 - 3-dose SCD M series) 2018 INFLUENZA VACCINE (#1) 2025 HEPATITIS B VACCINES Completed 02/04/1996, 10/14/1995, 05/20/[address] [place] [address] [facility] Advance Directives For more information, please contact: [phone] * Full Code (Latest Code Status on File) Date Activated Date Inactivated Comments 03/21/2010 7:46 AM 03/22/2010 2:31 AM Care Teams Sterilization Specialist Relationship Specialty Start Date End Date Pao Avila APN [address] [place] [phone] PCP - General NURSE PRACTITIONER 06/22/19
--- OUTSIDE RECORDS SUMMARY | 2025-05-08 11:50 | XMS_ITS | Clinical Summary ---
Author Organization [facility] Address [address] [facility] Attn: Epic Prelude ADT [place] [address] Care Team Providers Care Graphic Engineer Name Role Phone Gabriele Kemp MD Primary Care Provider [phone] Allergies Active Allergy Reactions Criticality Noted Date Comments Ketorolac Tromethamine Itching Low 12/22/2011 Latex Hives High 03/16/2010 Morphine Hives High 04/08/2012 Medications pantoprazole (PROTONIX) 40 mg Tablet, Delayed Release (E.C.) Take 1 Tablet (40 mg) by mouth 2 times daily. 60 Tablet 3 3 Active Additional Information Patient taking differently:40 mg OralTHREE TIMES DAILY, Reported on 01/24/2025 busPIRone (BUSPAR) 7.5 mg Tablet Take 7.5 mg by mouth daily. Active Active Problems Problem Noted Date Diagnosed Date Abdominal wall pain in epigastric region 025 Abdominal muscle strain, initial encounter 01/24 Acute colitis 08/25/2023 Irritable bowel syndrome 05/04/2010 Encounters Date Type Department Care Team Description 05/04/2025 External Device Data STL ABSTRACTION Provider, Abstract 05/04/2025 External Device Data STL ABSTRACTION Provider, Abstract 04/26/2025 External Device Data STL ABSTRACTION Provider, Abstract 03/29/2025 External Device Data STL ABSTRACTION Provider, Abstract 03/29/2025 External Device Data STL ABSTRACTION Provider, Abstract 03/22/2025 External Device Data STL ABSTRACTION Provider, Abstract 03/02/2025 External Device Data STL ABSTRACTION Provider, Abstract 03/01/2025 External Device Data STL ABSTRACTION Provider, Abstract [...] on file Legal Sex Male 1:37 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 Gender Identity Not on file Sexual Orientation Not on file Last Filed Vital Signs Vital Sign Reading Time Taken Comments Blood Pressure 155/99 02/02/2025 1:00 PM CDT Pulse 84 02/02/2025 1:00 PM CDT Temperature 36.4 C (97.6 F) 02/02/2025 11:46 AM CDT Respiratory Rate 18 02/02/2025 1:00 PM CDT Oxygen Saturation 92% 02/02/2025 1:00 PM CDT Inhaled Oxygen Concentration - - Weight 146.4 kg (322 lb 12.8 oz) 2024 11:46 AM CDT Height 167.6 cm (5' 6 ) 02/02/2025 11:4 6 AM CDT Body Mass Index 52.1 02/02/2025 11:46 AM CDT Plan of Treatment Health Maintenance Due Date Last Done Comments DTAP/TDAP/TD VACCINES (6 - Tdap) 2002 10/14/1995, 02/02/1993, 02/02/1993, Additional history exists HPV VACCINES (1 - 3-dose SCD M series) 2018 INFLUENZA VACCINE (#1) 2025 COVID-19 Vaccine (3 - 2024-2 6 season) 2025 11/25/2020, 10/28/2020 HEPATITIS B VACCINES Completed 02/04/1996, 02/04/1996, 10/14/1995, Additional history exists Advance Directives For more information, please contact: [phone] * Full Code (Latest Code Status on File) Date Activated Date Inactivated Comments 08/06/2022 10:40 AM 08/06/2022 2:21 PM Care Teams Graphic Engineer Relationship Specialty Start Date End Date Gabriele Kemp MD [address] [place] [phone] PCP - General Family Practice 01/24/25
--- NOTE | 2025-05-08 11:53 | ECG_ITS ---
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
--- NOTE | 2025-05-08 11:53 | CTR_ITS ---
PROCEDURE INFORMATION: Exam: CT Head Without Contrast Exam date and time: 05/08/2025 11:52 AM Age: 34 years old Clinical indication: Stroke-like symptoms; Headache; Additional info: Symptoms of acute stroke TECHNIQUE: Imaging protocol: Computed tomography of the head without contrast. Radiation optimization: All CT scans at this facility use at least one of these dose optimization techniques: automated exposure control; mA and/or kV adjustment per patient size (includes targeted exams where dose is matched to clinical indication); or iterative reconstruction. Other technique: STROKE PROTOCOL was implemented. COMPARISON: CT head wo con* [id number] 10/03/2024 12:30 PM RADIATION DOSE METRICS: Total DLP (mGy-cm): 1102.8 FINDINGS: Brain: Normal. No hemorrhage. Unremarkable white matter. No mass effect. Cerebral ventricles: No ventriculomegaly. Paranasal sinuses: Visualized sinuses are unremarkable. No fluid levels. Mastoid air cells: Visualized mastoid air cells are well aerated. Bones: Unremarkable. No acute fracture. Soft tissues: Unremarkable. CT/CT head thrombolytic [id number] IMPRESSION: No large territorial infarct or intracranial bleed. ASSESSMENT: ASPECTS ([place] Stroke Program Early CT Score) is 10.
--- NOTE | 2025-05-08 11:54 | CTR_ITS ---
PROCEDURE INFORMATION: Exam: CT Cervical Spine Without Contrast Exam date and time: 05/08/2025 11:52 AM Age: 34 years old Clinical indication: Injury or trauma; Fall; Blunt trauma TECHNIQUE: Imaging protocol: Computed tomography of the cervical spine without contrast. Radiation optimization: All CT scans at this facility use at least one of these dose optimization techniques: automated exposure control; mA and/or kV adjustment per patient size (includes targeted exams where dose is matched to clinical indication); or iterative reconstruction. COMPARISON: CT head wo con* [id number] 10/03/2024 12:30 PM RADIATION DOSE METRICS: Total DLP (mGy-cm): 340.1 FINDINGS: Bones: No acute fracture. Normal alignment. No significant disc bulge or herniation. No severe spinal canal stenosis. No significant neural foraminal narrowing. Mastoid air cells: Partial opacification of the left mastoid air cells. Lungs: Lung apices are normal. Soft tissues: Unremarkable. CT/CT cervical spin wo con* [id number] IMPRESSION: No acute posttraumatic changes in the cervical spine.
--- NOTE | 2025-05-08 12:10 | ED_ITS ---
HPI - Head Injury 2 General: Chief complaint: Head Injury Stated complaint: head, back pain post fall, nausea Time Seen by Provider: 05/08/25 11:53 Source: patient Mode of arrival: ambulatory Limitations: no limitations History of Present Illness: 34-year-old male states he had fell out of a truck last night hit the left side of his head when he fell. He states that he woke up at 1 AM with worsening headache along with some nausea states he has had some slight blurry vision in his left eye as well. He denies any slurred speech or weakness. Patient states his headache is currently a 7 out of 10. Has had some slight dizziness as well Related Data Home Medications ?Medication ?Instructions ?Recorded ?Confirmed buspirone 10 mg tablet 10 mg PO BID 10/03/24 colestipol 1 gram tablet 2 g PO BID 10/03/24 10/31/24 pantoprazole 20 mg tablet,delayed 20 mg PO DAILY 10/0310/31/24 release phentermine 37.5 mg tablet 37.5 mg PO DAILY 04/20/25 1 Previous Rx's ?Medication ?Instructions ?Recorded bupropion HCl 300 mg 24 hr tablet, 300 mg PO QAM 90 da ys #90 tabs 11/07/23 extended release (Wellbutrin XL) hydrocodone 5 mg-acetaminophen 325 1 tab PO Q6H PRN pa in #12 tabs 01/31/25 mg tablet Allergies Allergy/AdvReac Type Severity Reaction Status Date / Time latex Allergy Severe ALGY-Hives Verified 04/20/25 10:29 ketorolac (Toradol) Allergy ALGY-Hives Verified 04/20/25 10:29 morphine Allergy ALGY-Rash Verified 04/20/25 10:29 Review of Systems 2 Neuro: Reports: headache(s) PFSH ED 2 PFSH: Medical History Colitis Blood in stool Anxiety Surgical History History of laparoscopic cholecystectomy Status post laparoscopic appendectomy Family History Denies family history of Anesthesia complication Bleeding disorder Social History Smoking and tobacco/nicotine status: never used tobacco/nicotine Second hand smoke exposure: No Alcohol intake: never Substance/Drug Use: never Lives independently: Yes Household members: spouse Marital status: Current occupational status: unemployed Current gender identity: Male Physical Exam 2 Const: COMMON NORMALS: no acute distress, patient oriented x3 and healthy appearing HENMT: COMMON NORMALS: normocephalic HEAD & SCALP: normocephalic OTHER: Abrasion noted to left forehead Eye: COMMON NORMALS: Equal, round and reactive pupils present and EOMs intact bilaterally VISUAL JULES: No peripheral vision loss, No central vision loss, No left visual field cut, No right visual field cut, No bitemporal visual field cut, No binasal visual field cut and No visual field cut by quadrant PUPIL: Y es Equal, round and reactive pupils present Neck/C-Spine: COMMON NORMALS: full ROM and supple Chest: COMMONS NORMALS: normal inspection of the chest and normal palpation of entire chest wall Resp: COMMON NORMALS: normal respiratory effort Cardio: COMMON NORMALS: regular rate, regular rhythm and No murmurs present (Cardio) RATE: regular rate RHYTHM: regular rhythm Extremity: COMMON NORMALS: normal to inspection and full ROM Neuro: COMMON NORMALS: patient oriented x3, moves all extremities and no focal motor deficits Psych: COMMON NORMALS: mental status grossly normal, Normal thought process present and cooperative THOUGHT PROCESS: Normal thought process present Skin: COMMON NORMALS: no rashes or lesions noted and no wounds GENERAL SKIN EXAM: no rashes or lesions noted Course 2 Vital Signs: Vital signs: Vital Signs Temperature 98.7 F 05/08/25 11:46 Pulse Rate 98 05/08/25 11:46 Respiratory Rate 16 05/08/25 13:31 Blood Pressure 143/88 05/08/25 13:31 Pulse Oximetry 92 05/08/25 13:31 Oxygen Delivery Me thod Room Air 05/08/25 11:46 MDM - Head Injury Medcial Decision Making Patient presents with headache after closed injury from last night. Differential includes subarachnoid hemorrhage, skull fracture, epidural and subdural hematoma. These were ruled out with head CT here showed no acute abnormality. Patient had stroke alert called from triage but he has no stroke symptoms here or more concussion symptoms. EKG here showed normal sinus rhythm heart rate [address] elevation QRS 85 QTc 377. Did review his images including head CT that showed no acute abnormalities. His blood work here was normal his headache is improved here after Reglan and Benadryl and Toradol. Likely has concussive symptoms. I did go over these findings with him he is stable for discharge follow-up with PCP return if worsening he understands agrees to plan. Medical Records I reviewed the patient's medical records. Lab Data I reviewed the patient's lab results. 05/08/25 12:11 05/08/25 12:[address] 05/08/25 11:53 IMPRESSION: No large territorial infarct or intracranial bleed. ASSESSMENT: ASPECTS ([place] Stroke Program Early CT Score) is 10. ADDENDUM: 05/08/25 1211 THIS REPORT CONTAINS FINDINGS THAT MAY BE CRITICAL TO PATIENT CARE. As of 12:10 PM CDT on 05/08/2025 operations center staff confirmed that DAKOTA FOWLER has received the exam report and indicated that no conference call was necessary to discuss the exam findings. Cervical Spine CT 05/08/25 11:54 IMPRESSION: No acute posttraumatic changes in the cervical spine. Laboratory Results WBC 5.02 10^3/uL (3.29-11.43) 05/08/25 12:11 RBC 5.94 10^6/uL (3.85-5.65) H 05/08/25 12:11 Hgb 17.00 g/dL (11.27-16.99) H 05/08/25 12:11 Hct 51.4 % (37-53) 05/08/25 12:11 MCV 86.5 fl (82-101) 05/08/25 12:11 MCH 28.6 pg (27-33) 05/08/25 12:11 MCHC 33.1 g/dL (30-55) 05/08/25 12:11 RDW 12.5 % (12.1-15.1) 05/08/25 12:11 Plt Count 251 10^3/cmm (157-399) 05/08/25 12:11 MPV 9.4 fL (7.4-10.4) 05/08/25 12:11 Neut % (Auto) 55.1 % 05/08/25 12:11 Lymph % (Auto) 30.9 % 05/08/25 12:11 Gulf % (Auto) 10.8 % 05/08/25 12:11 Eos % (Auto) 2.0 % 05/08/25 12:11 Baso % (Auto) 0.8 % 05/08/25 12:11 Neut # (Auto) 2.77 10^3/uL (1.8-7.7) 05/08/25 12:11 Lymph # (Auto) 1.6 10^3/uL (0.8-4.8) 05/08/25 12:11 Gulf # (Auto) 0.5 10^3/uL (0.2-0.9) 05/08/25 12:11 Eos # (Auto) 0.1 10^3/uL (0.0-0.8) 05/08/25 12:11 Baso # (Auto) 0.0 10^3/uL (0.0-0.1) 05/08/25 12:11 Nucleated RBC % (auto) 0 % 05/08/25 12:11 Nucleated RBCs # 0.0 /100WBC 05/08/25 12:11 PT 12.80 SECONDS (12.1-14.9) 05/08/25 12:11 INR 0.90 (0.8-1.2) 05/08/25 12:11 APTT 26.6 SECONDS (23.9-36.7) 05/08/25 12:11 Sodium 140 mmol/L (136-145) 05/08/25 12:11 Potassium 3.9 mmol/L (3.5-5.1) 05/08/25 12:11 Chloride 103 mmol/L (98-107) 05/08/25 12:11 Carbon Dioxide 24 mmol/L (22-29) 05/08/25 12:11 Anion Gap 16.9 (5-19) 05/08/25 12:11 BUN 11 mg/dL (6-20) 05/08/25 12:11 Creatinine 0.8 mg/dL (0.7-1.2) 05/08/25 12:11 GFR Calculation 111.3 mL/min (90-130) 05/08/25 12:11 Glucose 90 mg/dL (65-115) 05/08/25 12:11 POC Glucose 92 mg/dL (70-110) 05/08/25 12:04 Calculated Osmolality 289 mOsm/kg (285-295) 05/08/25 12:11 Calcium 9.1 mg/dL (8.5-10.5) 05/08/25 12:11 Total Bilirubin 0.6 mg/dL (0.15-1.2) 05/08/25 12:11 AST 29 U/L (0-40) 05/08/25 12:11 ALT 47 U/L (0-41) H 05/08/25 12:11 Alkaline Phosphatase 103 U/L (40-130) 05/08/25 12:11 Total Protein 6.7 g/dL (6.6-8.7) 05/08/25 12:11 Albumin 4.4 g/dL (3.5-5.2) 05/08/25 12:11 Globulin 2.3 g/dL (1.3-4.6) 05/08/25 12:11 All radiology interpretation(s) finalized by discharge EKG Data EKG 1: I personally reviewed and interpreted this EKG as follows: EKG interpretation date: 05/08/25 EKG interpretation time: 12:06 Interpretation: nsr hr [address] elevation qrs 85 qtc 377 Discharge Plan Discharge Patient Disposition: Home Clinical Impression: CHI (closed head injury), Headache Condition: Stable Prescriptions: No Action phentermine 37.5 mg tablet 37.5 mg PO DAILY Rx Instructions: must administer 30 minutes before or 1-2 hours after breakfast Wellbutrin XL 300 mg tablet extended release 24 hr 300 mg PO QAM 90 Days Qty: 90 1RF pantoprazole 20 mg tablet,delayed release (DR/EC) 20 mg PO DAILY buspirone 10 mg tablet 10 mg PO BID colestipol 1 gram tablet 2 g PO BID hydrocodone-acetaminophen 5-325 mg tablet 1 tab PO Q6H PRN (Reason: pain) Qty: 12 0RF Discharge Orders: Discharge ED (Routine); Ordered 05/08/25 Ordered By: Dakota Fowler Referrals: Gabriele Kemp MD [Primary Care Provider, Family Practice] - 4-7 days Discharge Diet: Advance as tolerated Discharge Activity: Resume usual activity Patient Instructions: Concussion (ED), Head Injury (ED) Print Language: Romanian Coding Level of Care Code ED Health Service Coordinator for Chg Fwrena NIH stroke score NIHSS Level Of Consciousness - 1a: 0 Level Of Consciousness Questions - 1b: Both Correct Level Of Consciousness Commands - 1c: Both Correct Best Gaze - 2: Normal Visual Jules - 3: No Visual Loss Facial Palsy - 4: Normal Motor Arm Right - 5: No Drift Motor Arm Left - 5: No Drift Motor Leg Right - 6: No Drift Motor Leg Left - 6: No Drift Best Language - 9: No Aphasia Dysarthia - 10: Normal Extinction And Inattention - 11: 0
[2025-05-08 12:25] LABS: Hematocrit 51.4 % (37-53); Hemoglobin 17.00 g/dL (11.27-16.99); Mean Corpuscular HGB Conc 33.1 g/dL (30-55); Mean Corpuscular Hemoglobin 28.6 pg (27-33); Mean Corpuscular Volume 86.5 fl (82-101); Nucleated Red Blood Cells % 0 %; Platelet Count 251 10^3/cmm (157-399); Red Blood Count 5.94 10^6/uL (3.85-5.65); White Blood Count 5.02 10^3/uL (3.29-11.43)
[2025-05-08 12:37] LABS: INR 0.90 (0.8-1.2); Prothrombin Time 12.80 SECONDS (12.1-14.9)
[2025-05-08 12:38] LABS: Partial Thromboplastin Time 26.6 SECONDS (23.9-36.7)
[2025-05-08 12:45] LABS: Alanine Aminotransferase 47 U/L (0-41); Albumin Level 4.4 g/dL (3.5-5.2); Alkaline Phosphatase 103 U/L (40-130); Anion Gap 16.9 (5-19); Aspartate Amino Transferase 29 U/L (0-40); Blood Urea Nitrogen 11 mg/dL (6-20); Calcium 9.1 mg/dL (8.5-10.5); Carbon Dioxide 24 mmol/L (22-29); Chloride 103 mmol/L (98-107); Creatinine Clr Calc Pharmacy 174.9197; Globulin 2.3 g/dL (1.3-4.6); Glucose 90 mg/dL (65-115); Osmolality Calculated 289 mOsm/kg (285-295); Potassium 3.9 mmol/L (3.5-5.1); Sodium 140 mmol/L (136-145); Total Protein 6.7 g/dL (6.6-8.7)
[2025-05-08] MEDS: HYDROmorphone 0.5 MG/0.5 ML INJ IVP ×2 (13:21→14:38)
[2025-05-08] MEDS: diphenhydrAMINE 50 mg/mL SDV 1mL IVP (13:22)
[2025-05-08] MEDS: metoclopramide 5 mg/mL SDV 2 mL 10 MG IVP (13:23)
[2025-05-08 13:31] VITALS: BP 143/88; RESP 16; O2SAT 92
[2025-05-08] MEDS: ondansetron 2 mg/ML SDV 2 mL 4 MG IVP (14:38)
[2025-05-08 14:45] VITALS: BP 128/75; PULSE 94; O2SAT 97
== END 2025-05-08 14:48 | disposition home or self-care (01) ==
PROVIDERS: Emergency Provider Emergency Medicine; PCP Family Medicine
DX: S09.8XXA Other specified injuries of head, initial encounter (principal); R51.9 Headache, unspecified; V89.9XXA Person injured in unspecified vehicle accident, initial encounter
CPT/HCPCS: 36415; 36416; 70450; 72125; 80053; 82962; 85025; 85610; 85730; 93005; 96374; 96375; 96376; 99285; J1171; J1200; J2405; J2765

== ENCOUNTER 2025-05-15 09:58 | Emergency (ER) | payer BC, SELFPAY ==
[2025-05-15 09:59] VITALS: BP 175/87; PULSE 91; RESP 15; TEMP 36.8; O2SAT 95; BMI 50.0
--- NOTE | 2025-05-15 10:00 | W.ED.FALL ---
HPI - Fall General: Stated Complaint: back pain s/p fall Time Seen by Provider: 05/15/25 10:00 Related Data Home Medications ?Medication ?Instructions ?Recorded ?Confirmed buspirone 10 mg tablet 10 mg PO BID 10/03/24 05/08/25 colestipol 1 gram tablet 2 g PO BID 10/03/24 05/08/25 pantoprazole 20 mg tablet,delayed 20 mg PO DAILY 10/03/24 05/08/25 release phentermine 37.5 mg tablet 37.5 mg PO DAILY 04/20/25 05/08/25 Previous Rx's ?Medication ?Instructions ?Recorded bupropion HCl 300 mg 24 hr tablet, 300 mg PO QAM 90 days #90 tabs 11/07/23 extended release (Wellbutrin XL) Allergies Allergy/AdvReac Type Severity Reaction Status Date / Time latex Allergy Severe ALGY-Hives Verified 04/20/25 10:29 ketorolac (Toradol) Allergy ALGY-Hives Verified 04/20/25 10:29 morphine Allergy ALGY-Rash Verified 04/20/25 10:29 PFSH ED PFSH: Medical History (Updated 05/08/25 @ 13:30 by Nelly Georges MD) Colitis Blood in stool Anxiety Surgical History History of laparoscopic cholecystectomy Status post laparoscopic appendectomy Family History Denies family history of Anesthesia complication Bleeding disorder Social History Smoking and tobacco/nicotine status: never used tobacco/nicotine Second hand smoke exposure: No Alcohol intake: never Substance/Drug Use: never Lives independently: Yes Household members: spouse Marital status: Current occupational status: unemployed Current gender identity: Male Discharge Plan Discharge Condition: Stable Prescriptions: No Action phentermine 37.5 mg tablet 37.5 mg PO DAILY Rx Instructions: must administer 30 minutes before or 1-2 hours after breakfast Wellbutrin XL 300 mg tablet extended release 24 hr 300 mg PO QAM 90 Days Qty: 90 1RF pantoprazole 20 mg tablet,delayed release (DR/EC) 20 mg PO DAILY buspirone 10 mg tablet 10 mg PO BID colestipol 1 gram tablet 2 g PO BID Referrals: Gabriele Kemp MD [Primary Care Provider, Family Practice] Print Language: Urdu Coding Level of Care Code ED Emr Analyst for Ambrocio Stratton
--- OUTSIDE RECORDS SUMMARY | 2025-05-15 10:01 | XMS_ITS | Clinical Summary ---
Author Organization [facility] Address [address] [place] [place] [address] Care Team Providers Care Lead Generation Marketing Manager Name Role Phone Pao Avila AMBIKA Primary Care Provider [phone] Allergies Active Allergy Reactions Criticality Noted Date [...] on file Legal Sex Male 3:43 AM JET PILOT Gender Identity Not on file Sexual Orientation Not on file Occupation Industry Job Start Date Job End Date Not on file Not on file Not on file Not on file Last Filed Vital Signs Vital Sign Reading Time Taken Comments Blood Pressure 115/65 2019 4:55 PM JET PILOT Pulse 116 06/17/2012 5:29 PM JET PILOT Temperature 36.6 C (97.8 F) 2019 4:55 PM JET PILOT Respiratory Rate 16 2019 4:55 PM JET PILOT Oxygen Saturation 98% 2019 4:55 PM JET PILOT Inhaled Oxygen Concentration - - Weight 129.2 kg (284 lb 12.8 oz) 2019 3:21 PM JET PILOT Height 167.6 cm (5' 6 ) 2019 3:21 PM JET PILOT Body Mass Index 45.97 2019 3:21 PM JET PILOT Plan of Treatment Health Maintenance Due Date Last Done Comments DTAP/TDAP/TD VACCINES (6 - Tdap) 2002 10/14/1995, 02/02/1993, 01/14/1992, Additional history exists HPV VACCINES (1 - 3-dose SCD M series) 2018 INFLUENZA VACCINE (#1) 2025 HEPATITIS B VACCINES Completed 02/04/1996, 10/14/1995, 05/20/[address] [place] [address] [facility] Advance Directives For more information, please contact: [phone] * Full Code (Latest Code Status on File) Date Activated Date Inactivated Comments 03/21/2010 7:46 AM 03/22/2010 2:31 AM Care Teams Lead Generation Marketing Manager Relationship Specialty Start Date End Date Pao Avila APN [address] [place] [phone] PCP - General NURSE PRACTITIONER 06/22/19
--- OUTSIDE RECORDS SUMMARY | 2025-05-15 10:01 | XMS_ITS | Clinical Summary ---
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
--- OUTSIDE RECORDS SUMMARY | 2025-05-15 10:01 | XMS_ITS | Encounter Summary ---
Author Organization [facility] Address [address] [place] [address] Care Team Providers Care Narcotics Agent Name Role Phone Pao Avila APN Primary Care Provider [phone] Encounter Details Date Type Department Care Team (Late st Contact Info) Description 03/29/1999 Outpatient Historical [facility] [address] [place] [id number] Social History Tobacco Use Types Packs/Day Years Used Date Smoking Tobacco: Never Assessed Sex and Gender Information Value Date Recorded Sex Assigned at Not on file Legal Sex Male 3:43 AM LICENSED ESTHETICIAN Gender Identity Not on file Sexual Orientation Not on file documented as of this encounter Plan of Treatment Not on file documented as of this encounter Visit Diagnoses Not on filedocumented in this encounter Care Teams Narcotics Agent Relationship Specialty Start Date End Date Pao Avila APN [address] [place] [phone] PCP - General NURSE PRACTITIONER 06/22/19 documented as of this encounter
[2025-05-15 10:05] VITALS: BP 154/107; PULSE 104; RESP 16; O2SAT 96
--- NOTE | 2025-05-15 10:05 | ED_ITS ---
HPI - Back Pain/Injury General: Chief Complaint: Back Pain/Injury Stated Complaint: back pain s/p fall Time Seen by Provider: 05/15/25 10:00 Source: patient Mode of arrival: EMS Limitations: no limitations History of Present Illness: Patient is a 34-year-old male who presents to ED today with a complaint of back pain. Patient states yesterday he was picking up his grandmother at the long-term yesterday evening when he twisted and heard a pop near the right side of his mid back. Patient states his back was already hurt from a fall a few days ago. Patient states he was seen here in the emergency department and had imaging although documentation states he only had a CT of his head and cervical spine performed. No imaging of his back. Patient is not having any trouble ambulating. He denies numbness, tingling, loss of sensation to his legs. He has no other injuries or complaints at this time. MD elicited complaint: back pain Pertinent past history: prior back pain Onset (ago): day(s) (yesterday) Timing: constant Severity: severe Pain scale (0-10): 8 Similar Symptoms Previously: Yes Location: right upper back Radiation: none Exacerbating factors: movement Relieving factors: none Context: while lifting Associated symptoms: Reports no associated symptoms; Deny abdominal pain, chills, difficulty walking, dysuria, fatigue, fever(s) or hematuria Related Data Home Medications ?Medication ?Instructions ?Recorded ?Confirmed buspirone 10 mg tablet 10 mg PO BID 10/03/24 colestipol 1 gram tablet 2 g PO BID 10/03/24 05/15/25 pantoprazole 20 mg tablet,delayed 20 mg PO DAILY 10/0305/15/25 release phentermine 37.5 mg tablet 37.5 mg PO DAILY 04/20/25 1 07/15/24 Previous Rx's ?Medication ?Instructions ?Recorded bupropion HCl 300 mg 24 hr tablet, 300 mg PO QAM 90 da ys #90 tabs 11/07/23 extended release (Wellbutrin XL) ibuprofen 800 mg tablet 800 mg PO Q8H PRN pain #20 t abs 05/15/25 methocarbamol 500 mg tablet 1,000 mg (2 x 500 mg) PO Q 8H #30 05/15/25 tabs methylprednisolone 4 mg tablets in See Rx Instructions PO .COMPLEX 05/15/25 a dose pack (Medrol (German)) #21 ea Allergies Allergy/AdvReac Type Severity Reaction Status Date / Time latex Allergy Severe ALGY-Hives Verified 04/20/25 10:29 ketorolac (Toradol) Allergy ALGY-Hives Verified 04/20/25 10:29 morphine Allergy ALGY-Rash Verified 04/20/25 10:29 Review of Systems Const: Denies: fever(s), chills, body aches, fatigue or malaise Card: Denies: chest pain Resp: Denies: dyspnea GI: Denies: abdominal pain : Denies: flank pain, dysuria or hematuria Musc: Reports: back pain; Denies: neck pain, extremity pain, extremity swelling, joint pain, joint swelling or joint redness Skin/Breast: Denies: rash Neuro: Denies: headache(s), numbness in extremities, weakness in extremities, sensory changes or difficulty walking PFSH ED PFSH: Medical History Colitis Blood in stool Anxiety Surgical History History of laparoscopic cholecystectomy Status post laparoscopic appendectomy Family History Denies family history of Anesthesia complication Bleeding disorder Social History Smoking and tobacco/nicotine status: never used tobacco/nicotine Second hand smoke exposure: No Alcohol intake: never Substance/Drug Use: never Lives independently: Yes Household members: spouse Marital status: Current occupational status: unemployed Current gender identity: Male Physical Exam Const: COMMON NORMALS: no acute distress, patient oriented x3, no limitations, alert and well nourished GENERAL APPEARANCE: cooperative NUTRITIONAL APPEARANCE: obese (BMI 50.0) ORIENTATION/CONSCIOUSNESS: Yes awake, Yes oriented to person, Yes oriented to place and Yes oriented to time HENMT: COMMON NORMALS: normocephalic and atraumatic HEAD & SCALP: normal to inspection, normocephalic and atraumatic Neck/C-Spine: COMMON NORMALS: full ROM GENERAL: Yes normal visual inspection CERVICAL SPINE: No pain with cervical ROM, No Cervical spine tenderness, No Paracervical muscle tenderness, No Trapezius muscle tenderness and No Lhermitte's sign positive Resp: COMMON NORMALS: normal respiratory effort and clear to auscultation bilaterally AUSCULTATION: clear to auscultation bilaterally Cardio: COMMON NORMALS: regular rate and regular rhythm RATE: regular rate RHYTHM: regular rhythm GI: COMMON NORMALS: Normal to inspection, nondistended, normoactive bowel sounds present, Soft to palpation, non-tender and no masses PALPATION: Yes Soft to palpation : COMMON NORMALS: Yes no CVA tenderness BLADDER/KIDNEY EXAM: Yes no CVA tenderness Back/Pelvis: COMMON NORMALS: no CVA tenderness, thoracic and lumbar spine normal to inspection and straight leg raise negative bilaterally THORACIC SPINE/UPPER BACK: No thoracic spinal tenderness, Yes paraspinal muscle tenderness Thoracic paraspinal muscle tenderness: right and No paraspinal muscle spasm LUMBAR SPINE/LOWER BACK: No lumbar spinal tenderness, No paraspinal muscle tenderness, No paraspinal muscle spasm and Yes straight leg raise negative bilaterally PELVIS: Yes buttocks normal and No sciatic notch tenderness SACROILIAC JOINTS: Yes SI joints normal SACRUM: no tenderness COCCYX: no tenderness Extremity: COMMON NORMALS: normal to inspection and capillary refill normal GENERAL: Yes normal exam except as noted Neuro: CRAIG COMA SCALE: document GCS findings Craig coma scale eye opening: Spontaneous Cragi coma scale verbal response: Orientated [place] coma scale motor response: Obey commands [place] coma scale total score: 15 COMMON NORMALS: patient oriented x3, moves all extremities, no focal motor deficits, no sensory deficits noted and gait normal SENSORIUM/ORIENTATION: Yes alert, Yes oriented to person, Yes oriented to place and Yes oriented to time Skin: COMMON NORMALS: no rashes or lesions noted GENERAL SKIN EXAM: no rashes or lesions noted Course Vital Signs: Vital signs: Vital Signs Temperature 98.2 F 05/15/25 09:59 Pulse Rate 104 H 05/15/25 10:05 Respiratory Rate 16 05/15/25 10:05 Blood Pressure 140/107 05/15/25 11:09 Pulse Oximetry 93 05/15/25 11:09 Oxygen Delivery Me thod Room Air 05/15/25 11:09 MDM - Back Pain/Injury Medical Decision Making Patient believes he had imaging of his back on his last visit a few days ago following this fall thus imaging was not generally ordered but after review of documentation it does not look like he did. Did go ahead and order plain films of his thoracic spine which were unremarkable. Patient feeling better after IV medications given here. Will place him on steroids, muscle relaxers, anti- inflammatories and recommend follow-up with primary care in 1 to 2 weeks if symptoms are not improving. Return to ED precautions discussed. Differential Diagnosis Likely lumbar radiculopathy, sciatica, strain of lumbar region and thoracic back pain Medical Records I reviewed the patient's medical records. Labs Radiology Impressions Thoracic Spine X-Ray 05/15/25 10:25 IMPRESSION: No acute findings. All radiology interpretation(s) finalized by discharge Discharge Plan Discharge Patient Disposition: Home Clinical Impression: Strain of thoracic back region Condition: Stable Prescriptions: New methocarbamol 500 mg tablet 1,000 mg PO Q8H Qty: 30 0RF ibuprofen 800 mg tablet 800 mg PO Q8H PRN (Reason: pain) Qty: 20 0RF methylprednisolone [Medrol (German)] 4 mg tablets,dose pack See Rx Instructions .ROUTE .COMPLEX Qty: 21 0RF Rx Instructions: orally per package directions No Action phentermine 37.5 mg tablet 37.5 mg PO DAILY Rx Instructions: must administer 30 minutes before or 1-2 hours after breakfast Wellbutrin XL 300 mg tablet extended release 24 hr 300 mg PO QAM 90 Days Qty: 90 1RF pantoprazole 20 mg tablet,delayed release (DR/EC) 20 mg PO DAILY buspirone 10 mg tablet 10 mg PO BID colestipol 1 gram tablet 2 g PO BID Discharge Orders: Discharge ED (Routine); Ordered 05/15/25 Ordered By: Paula Tovar Referrals: Gabriele Kemp MD [Primary Care Provider, Family Practice] Patient Instructions: Thoracic Back Strain (ED), Patient Portal & Anh Instructions Activity Restrictions/Additional Instructions: As we discussed, I will place you on muscle relaxers, steroids, anti- inflammatories to help with your back discomfort. You may also do ice and heat. Recommend follow-up with primary care in 1 to 2 weeks if symptoms are not improving. Radiologist did over read your x-ray films as we discussed and no acute findings were found. Print Language: Chadian Coding Level of Care Code ED Motion Picture Narrator for Ambrocio Stratton
[2025-05-15] MEDS: orphenadrine 30 mg/mL Inj 2 mL 60 MG IVP (10:14)
[2025-05-15] MEDS: metoclopramide 5 mg/mL SDV 2 mL 10 MG IVP (10:19)
[2025-05-15] MEDS: diphenhydrAMINE 50 mg/mL SDV 1mL 25 MG IVP (10:19)
--- NOTE | 2025-05-15 10:25 | XRR_ITS ---
PROCEDURE INFORMATION: Exam: XR Thoracic Spine Exam date and time: 05/15/2025 10:47 AM Age: 34 years old Clinical indication: Pain in thoracic spine; With radiculopathy; Bilateral; [place] pop in upper back when lifting; Additional info: Injury TECHNIQUE: Imaging protocol: Radiologic exam of the thoracic spine. Views: 3 views. COMPARISON: CT cervical spin wo con* [id number] 05/08/2025 11:52 AM FINDINGS: Bones/joints: Normal. No acute fracture. Normal alignment. Soft tissues: Unremarkable. XR/XR thoracic spine 3V* [id number] IMPRESSION: No acute findings.
--- NOTE | 2025-05-15 10:34 | PC.PHAR ---
Pt uses [facility] for prescriptions. Pt has several medications on his list that we verify with him when he checks in but last filled in July 2024. Pt did state he has stockpile. Last fill dates at [facility] are in the pharmacy notes.
[2025-05-15 11:09] VITALS: BP 140/107; O2SAT 93
[2025-05-15] MEDS: HYDROmorphone 0.5 MG/0.5 ML INJ 1 MG IVP (11:29)
[2025-05-15 11:35] VITALS: BP 125/95; PULSE 97; RESP 16; O2SAT 96
== END 2025-05-15 11:36 | disposition home or self-care (01) ==
PROVIDERS: Emergency Provider Physician Assistant; PCP Family Medicine
DX: S29.012A Strain of muscle and tendon of back wall of thorax, initial encounter (principal); X58.XXXA Exposure to other specified factors, initial encounter
CPT/HCPCS: 72072; 96374; 96375; 99284; J1100; J1171; J1200; J2360; J2765

== ENCOUNTER 2025-06-07 10:11 | Day surgery (SDC) | payer BC, SELFPAY ==
[2025-06-07] VITALS (14 sets, daily range): BP systolic 119–154; BP diastolic 78–121; PULSE 97–110; RESP 18; TEMP 36.3–36.6; O2SAT 90–99; BMI 50.8
--- NOTE | 2025-06-07 10:34 | W.PM.OPSFHP ---
Same Day Surgery H&P Indication for Procedure/HPI DATE OF PROCEDURE: June 07, 2025 CHIEF COMPLAINT/INDICATIONFOR SURGICAL PROCEDURE: Left carpal tunnel syndrome, left cubital tunnel syndrome PREOP DIAGNOSIS: Left carpal tunnel syndrome, left cubital tunnel syndrome PLANNED PROCEDURE: Operation Date: 06/07/25 12:55 Proposed Procedures p LEFT Carpal Tunnel Release(Left) - Jayjay Caden, DO s LEFT Cubital Tunnel Release(Left) - Jayjay Caden, DO s POSSIBLE Ulnar Nerve Transposition(Left) - Jayjay Caden, DO Medications/Allergies* Home Medications ?Medication ?Instructions ?Recorded ?Confirmed ?Type buspirone 10 mg tablet 10 mg PO BID 10/03/24 06/06/25 History pantoprazole 20 mg tablet,delayed 20 mg PO DAILY 10/03/24 06/06/25 History release Allergies/Adverse Reactions Allergy/AdvReac Type Severity Reaction Status Date / Time latex Allergy Severe ALGY-Hives Verified 06/06/25 10:35 ketorolac (Toradol) Allergy ALGY-Hives Verified 06/06/25 10:35 morphine Allergy ALGY-Rash Verified 06/06/25 10:35 Pertinent History/Comorbid Conditions* Medical History (Updated 05/23/25 @ 00:00 by JAQUAN Kumar) Colitis Blood in stool Anxiety Surgical History (Updated 12/23/19 @ 13:34 by Alexis Salgado MD) History of laparoscopic cholecystectomy Status post laparoscopic appendectomy Family History (Updated 12/22/19 @ 16:25 by Alicia Peñaloza RN) Denies family history of Anesthesia complication Bleeding disorder Social History Smoking and tobacco/nicotine status: never used tobacco/nicotine Second hand smoke exposure: No Alcohol intake: never Substance/Drug Use: never Lives independently: Yes Household members: spouse Marital status: Current occupational status: unemployed Current gender identity: Male Pertinent Exam Findings alert, oriented x 3, operative site marked and procedure specific exam findings Please refer to anesthesia preoperative valuation for heart and lung findings Please refer to detailed orthopedic examination on 04/20/2025 listed below: Left upper extremity examination Normal C-spine ROM, No pain. Negative Spurlings left Normal ROM elbow. Positive Tinel's @ elbow left Positive Tinel's over the left carpal tunnel as well as positive median nerve compression test Positive Phalen's Subtle intrinsic weakness left hand Thenar weakness but no intrinsic atrophy noted. Hand warm well-perfused. Negative Tinel's over Guyon's Negative compression over Guyon's Decreased sensation dorsal ulnar cutaneous nerve Recommendations Risks and benefits of procedure reviewed and Patient/family agree to proceed Surgery/Procedure today Other Plans: Plan to proceed to the OR today for left carpal tunnel release, left cubital tunnel release with possible nerve transposition. Patient understands the ins and outs procedure the risk benefits complication alternative surgical nonsurgical treatment options. Understanding risk of surgery patient like to proceed with surgical invention. All questions answered at this time. Coding Level of Care Code Acute Code for Chg Fwd
[2025-06-07] MEDS: acetaminophen 1,000 MG/100 ML PIGGYBACK 400 MG IV (10:50)
--- NOTE | 2025-06-07 11:00 | ANES.PREANE2 ---
Pre-Anesthetic Assessment Height/Weight: Height 1.68 m Weight 142.882 kg Temp Pulse Resp BP Pulse Ox O2 Del Method 97.9 F 99 18 154/121 99 Room Air 06/07/25 10:29 06/07/25 10:29 06/07/25 10:29 06/07/25 10:29 06/07/25 10:29 06/07/25 10:29 Preop Diagnosis: Left carpal tunnel syndrome, left cubital tunnel syndrome Operation Date: 06/07/25 12:55 Proposed Procedures p LEFT Carpal Tunnel Release(Left) - Jayjay Caden, DO s LEFT Cubital Tunnel Release(Left) - Jayjay Carson, DO s POSSIBLE Ulnar Nerve Transposition(Left) - Jayjay Carson, DO Familial anesthetic complications: None Was Beta Vilma taken within 24 hours: N/A Was Clonidine taken within 24 hours: N/A Last intake: Intake Last Liquid Date 06/06/25 Last Liquid Time 22:00 Last Solid Date 06/06/25 Last Solid Time 22:00 Social No alcohol and No tobacco Exam alert, oriented x 3, clear to auscultation bilaterally and regular rate & rhythm Airway Mallampati: Class IV Dentition: full Pulmonary Sleep Apnea CV/HEM Hypertension GI Gastroesophageal Reflux Disease Metabolic Morbid Obesity Neuropsych segura's palsy Anesthetic Plan ASA status: 3 Anesthesia: General Risk of > 500 ml blood loss (7ml/kg in children): No Other Pertinent Information declines pre-op block, post-op prn Medications/Allergies Home Medications ?Medication ?Instructions ?Recorded ?Confirmed ?Last Taken ?Type bupropion HCl 300 mg 24 hr tablet, 300 mg PO QAM 90 days #90 tabs 11/07/23 06/06/25 06/06/25 Rx extended release (Wellbutrin XL) buspirone 10 mg tablet 10 mg PO BID 10/03/24 06/06/25 06/02/25 History pantoprazole 20 mg tablet,delayed 20 mg PO DAILY 10/03/24 06/06/25 06/06/25 History release hydrocodone 5 mg-acetaminophen 325 1 tab PO Q6H PRN pain 5 days #20 06/07/25 Unknown Rx mg tablet tabs Allergies Allergy/AdvReac Type Severity Reaction Status Date / Time latex Allergy Severe ALGY-Hives Verified 06/06/25 10:35 ketorolac (Toradol) Allergy ALGY-Hives Verified 06/06/25 10:35 morphine Allergy ALGY-Rash Verified 06/06/25 10:35 Current Medications Generic Name Dose Route Start Last Admin Trade Name Yoseph PRN Reason Stop Dose Admin Sodium Chloride 1,000 mls @ 30 mls/hr 06/07/25 10:30 06/07/25 10:50 Sodium Chloride 0.9% IV 06/08/25 10:29 30 mls/hr .Q24H YURI Administration PFSH Anesthesia Medical History (Updated 05/23/25 @ 00:00 by JAQUAN Kumar) Colitis Blood in stool Anxiety Surgical History History of laparoscopic cholecystectomy Status post laparoscopic appendectomy Family History Denies family history of Anesthesia complication Bleeding disorder Social History Smoking and tobacco/nicotine status: never used tobacco/nicotine Second hand smoke exposure: No Alcohol intake: never Substance/Drug Use: never Lives independently: Yes Household members: spouse Marital status: Current occupational status: unemployed Current gender identity: Male
[2025-06-07] MEDS: midazolam 1 mg/mL INJ 2 mL 2 MG IVP (11:05)
[2025-06-07] MEDS: ceFAZolin 3,000 MG in sodium chloride 0.9% (plus) 100 ML 200 MG IV (11:59)
[2025-06-07] MEDS: ROPivacaine 0.5% SDV 30 mL 150 MG INJECTION (12:35)
[2025-06-07] MEDS: lidocaine-epi 1% 20 mL INJ INJECTION (12:35)
--- NOTE | 2025-06-07 12:53 | W.PM.BPON ---
Date of Procedure: 06/07/2025 Surgeon: Jayjay Negrete DO Marine Animal Trainer(s): None Procedure(s) performed: Left carpal tunnel release Left cubital tunnel release (ulnar nerve decompression at the elbow) Findings of the procedure(s): Patient underwent procedure as planned anesthesia complications taken recovery in stable condition patient had no subluxation of the ulnar nerve as a result and in situ left cubital tunnel release was performed no transposition was performed Estimated blood loss: 10 mL Specimen(s) removed: None Post-operative diagnosis: Left carpal tunnel syndrome, left cubital tunnel syndrome
--- NOTE | 2025-06-07 12:55 | PM.OP ---
Operative Report Date of procedure: June 07, 2025 Surgeon: Jayjay Negrete DO Procedure: Preop Dx Left Carpal tunnel syndrome Left Cubital tunnel syndrome Postop Diagnosis: Same Procedure done: Left carpal tunnel release Left?cubital tunnel tunnel release (ulnar nerve decompression at elbow) Surgeon: Jayjay Negrete DO Estimated blood loss: 10mL Tourniquet? 14 minutes IV fluids: 900 mL Complications: None Findings: See operative report narrative Condition: stable Disposition: same day Brief History: Patient's been seen and worked up in the outpatient setting and findings consistent with preoperative diagnosis.? Patient has Left carpal tunnel syndrome as well as Left?cubital tunnel syndrome which has been worked up in the outpatient setting has physical exam findings consistent with this as well as confirmatory nerve conduction/EMG nerve conduction study consistent with diagnosis for left cubital tunnel syndrome and confirmatory physical exam findings for both carpal tunnel and cubital tunnel syndrome on the left.? Patient's failed conservative treatment.? As result through shared decision making agreed to proceed with? Left carpal tunnel and Left?cubital tunnel release with possible ulnar nerve transposition. we talked about treatment options as far as nonoperative and operative intervention.? Understands risk benefits complication alternatives surgical nonsurgical treatment options.? Understanding his risks he agrees to proceed with surgical intervention. Understanding these risks he agrees to proceed with surgery.? Consent obtained in preop. Procedure: Patient seen evaluate in the preoperative holding area.? Consent was reviewed and signed with patient.? Correct extremity marked.? Patient seen evaluated by anesthesia department once cleared for surgery was then taken back to the operative suite placed in supine position all bony prominences well-padded patient properly secured to bed.? Left upper extremity placed onto armboard.? Nonsterile tourniquet applied Left upper arm.? Patient then underwent anesthesia per the anesthesia department.? Patient's Left upper extremity was then prepped and draped in standard orthopedic fashion.? Final timeout performed.? Patient received appropriate preoperative antibiotics. Esmarch was used exsanguinate the Left upper extremity.? Tourniquet was insufflated to 250 mmHg. I started with the carpal tunnel release first.? I made a standard open carpal tunnel release starting with the distal most extent in the palm at the Vila's cardinal line and the incision line was made in line with the fourth ray and ended just distal to the wrist crease.? Sharp scalpel incision was made through skin and subcutaneous tissue I then utilizing self retainer then began to dissect with dissection scissors split longitudinally the palmar fascia.? Next I then utilizing my catalog library assistant Roxana retractors subsequently utilizing scalpel feathered through the palmaris brevis as well as through the transverse carpal ligament distally.? Once I encountered the floor of the transverse carpal ligament and entered into the carpal tunnel I then switched to dissection scissors.? Carefully released the distal extent of the transverse carpal ligament to the palmar fat.? Care was to protect the recurrent branch and not injured this during this part of the case.? Next I then placed a [place] underneath the transverse carpal ligament proximally to protect the nerve in the carpal tunnel contents.? And then I subsequently under loupe magnification utilize my dissection scissors to release the transverse carpal ligament into the antebrachial fascia under direct visualization with care to keep my scissors with a curved ulnarly away from the palmar cutaneous branch.? The transverse carpal was then completely decompressed proximally and a [place] was then placed both distally and proximally throughout the carpal tunnel and had complete decompression of the nerve.? The nerve did appear to have hourglass shape as it went through the carpal tunnel.? With significant irritation noted around the nerve.? No masses were noted within the contents of the carpal tunnel.? This completed the carpal tunnel release and then I subsequently irrigated the wound bed and placed a wet Ray-Rakan into the incision for later closure. Next marked out the landmarks of the Left elbow of the medial epicondyle and olecranon and made a curvilinear incision following the course of the ulnar nerve at the medial aspect of the elbow.? Sharp scalpel incision was made through skin and subcutaneous tissue.? Next I switched to Littler dissection scissors and spread in plane of the medial antebrachial cutaneous nerve branching which was protected throughout this part of the dissection.? Then I directly came down over the fascia and identified the 2 heads of the FCU fascia and split this in the middle and subsequently identified my ulnar nerve distally.? This was then completely released distally under direct visualization and loupe magnification.? Once the nerve was then identified I then subsequently tracked this proximally and released this through Ayon's ligament as well as complete decompression of the nerve proximally all the way past the intermuscular septum bluntly.? The nerve was completely released and decompressed both proximally and distally.? Ulnar nerve neurolysis performed and completed both proximally and distally with dissection scissors.? I then took the elbow through range of motion and there was no instability or subluxating of the ulnar nerve.? No transposition. This completed?cubital tunnel release.? ?Next the wound bed was thoroughly irrigated.? Tourniquet was deflated.? Hemostasis was satisfactory at the?cubital tunnel release surgery site. I then inspected the carpal tunnel incision and this was found to have satisfactory hemostasis and all this was maintained through bipolar electrocautery.? At this point time I sequentially closed?cubital tunnel site with 3-0 Vicryl suture in a running horizontal mattress nylon stitch.? ? The carpal tunnel release surgery was then closed in standard interrupted mattress fashion.? Dressing was Xeroform 4 x 4's ABD Curlex soft roll and an Ervin wrap has a bulky soft dressing. Patient was then awakened from anesthesia and taken to PACU in stable condition. Disposition: Patient taken to PACU in stable condition recovering well.? Patient will receive appropriate discharge instructions as well as pain medication postoperatively.? We will follow-up with me in the office in 2 weeks.? Patient understands agrees with current plan.? All questions answered.? He understands if any questions or concerns and contact the office for follow-up appointment..
[2025-06-07] MEDS: fentaNYL 50 mcg/mL INJ 2mL IVP ×2 (13:20→13:30)
[2025-06-07] MEDS: ondansetron 2 mg/ML SDV 2 mL 4 MG IVP ×2 (13:27→13:56)
[2025-06-07] MEDS: HYDROcodone-acetaminophen 5-325 mg Tablet 1 TAB PO (13:56)
[2025-06-07] MEDS: HYDROmorphone 0.5 MG/0.5 ML INJ IVP (14:34)
[2025-06-07] MEDS: diphenhydrAMINE 50 mg/mL SDV 1mL 12.5 MG IVP (15:01)
--- NOTE | 2025-06-07 15:25 | ANE.PACU2 ---
Inpatient post-anesthesia follow up: Airway intact: Yes Vital signs: Temperature 97.4 F Pulse Rate 105 Respiratory Rate 18 Blood Pressure 128/78 Pulse Oximetry 94 Oxygen Delivery Me thod Room Air Oxygen Flow Rate Fraction of Inspir ed Oxygen Hydration adequate: Yes Nausea and vomiting: No Pain level: 1 Mental status: Baseline
== END 2025-06-07 15:28 | disposition home or self-care (01) ==
PROVIDERS: PCP Family Medicine; Visit Provider Student in an Organized Health Care Education/Training Program
PROC: (CPT 64721; principal; 2025-06-07 12:55)
PROC: (CPT 64718; 2025-06-07 12:55)
DX: G56.02 Carpal tunnel syndrome, left upper limb (principal); G56.22 Lesion of ulnar nerve, left upper limb; I10 Essential (primary) hypertension; K21.9 Gastro-esophageal reflux disease without esophagitis; E66.01 Morbid (severe) obesity due to excess calories; Z68.43 Body mass index [BMI] 50.0-59.9, adult; Z79.891 Long term (current) use of opiate analgesic; G47.30 Sleep apnea, unspecified; F41.9 Anxiety disorder, unspecified
CPT/HCPCS: 64718; 64721; J0131; J0330; J0690; J1100; J1171; J1200; J2250; J2405; J2704; J2795; J3010; J7030; J9999

== ENCOUNTER 2025-06-08 10:38 | Emergency (ER) | payer BC, SELFPAY ==
--- OUTSIDE RECORDS SUMMARY | 2025-06-08 10:45 | XMS_ITS | Encounter Summary ---
Author Organization [employer] [facility] Address 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
--- OUTSIDE RECORDS SUMMARY | 2025-06-08 10:45 | XMS_ITS | Clinical Summary ---
Author Organization [facility] Address [address] 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
--- OUTSIDE RECORDS SUMMARY | 2025-06-08 10:45 | XMS_ITS | Clinical Summary ---
Author Organization [facility] Address [address] [place] [address] Care Team Providers Care It Compliance Analyst Name Role Phone Pao Avila AMBIKA Primary Care Provider [phone] Allergies Active Allergy Reactions Criticality Noted Date [...] on file Legal Sex Male 3:43 AM CERTIFIED TOWER CLIMBER Gender Identity Not on file Sexual Orientation Not on file Occupation Industry Job Start Date Job End Date Not on file Not on file Not on file Not on file Last Filed Vital Signs Vital Sign Reading Time Taken Comments Blood Pressure 115/65 2019 4:55 PM CERTIFIED TOWER CLIMBER Pulse 116 06/17/2012 5:29 PM CERTIFIED TOWER CLIMBER Temperature 36.6 C (97.8 F) 2019 4:55 PM CERTIFIED TOWER CLIMBER Respiratory Rate 16 2019 4:55 PM CERTIFIED TOWER CLIMBER Oxygen Saturation 98% 2019 4:55 PM CERTIFIED TOWER CLIMBER Inhaled Oxygen Concentration - - Weight 129.2 kg (284 lb 12.8 oz) 2019 3:21 PM CERTIFIED TOWER CLIMBER Height 167.6 cm (5' 6 ) 2019 3:21 PM CERTIFIED TOWER CLIMBER Body Mass Index 45.97 2019 3:21 PM CERTIFIED TOWER CLIMBER Plan of Treatment Health Maintenance Due Date Last Done Comments DTAP/TDAP/TD VACCINES (6 - Tdap) 2002 10/14/1995, 02/02/1993, 01/14/1992, Additional history exists HPV VACCINES (1 - 3-dose SCD M series) 2018 INFLUENZA VACCINE (#1) 2025 HEPATITIS B VACCINES Completed 02/04/1996, 10/14/1995, 05/20/[address] [place] [address] [facility] Advance Directives For more information, please contact: [phone] * Full Code (Latest Code Status on File) Date Activated Date Inactivated Comments 03/21/2010 7:46 AM 03/22/2010 2:31 AM Care Teams It Compliance Analyst Relationship Specialty Start Date End Date Pao Avila APN [address] [place] [phone] PCP - General NURSE PRACTITIONER 06/22/19
--- OUTSIDE RECORDS SUMMARY | 2025-06-08 10:45 | XMS_ITS | Encounter Summary ---
Author Organization [facility] Address 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
--- OUTSIDE RECORDS SUMMARY | 2025-06-08 10:45 | XMS_ITS | Encounter Summary ---
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
--- OUTSIDE RECORDS SUMMARY | 2025-06-08 10:45 | XMS_ITS | Encounter Summary ---
Author Organization [facility] Address 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
[2025-06-08 10:53] VITALS: BP 169/128; PULSE 113; RESP 18; TEMP 36.8; O2SAT 96
--- NOTE | 2025-06-08 10:54 | W.ED.EXTPRO ---
HPI - Extremity Problem General: Chief complaint: Extremity Injury, Upper Stated complaint: finger tingling and cold post op Time Seen by Provider: 06/08/25 10:52 History of Present Illness: 34-year-old male with a history of obesity, anxiety, depression, and left carpal tunnel syndrome for which he had surgery yesterday who presents to the emergency room with worsening pain. He says the hydrocodone has been taking have not worked at all since the medications wore off that he had at surgery yesterday. He said his fingers felt cold and were tingling for a bit. This is since improved but he is having severe pain. He appears neurovascular intact at this time Related Data Home Medications ?Medication ?Instructions ?Recorded ?Confirmed buspirone 10 mg tablet 10 mg PO BID 10/03/24 06/08/25 pantoprazole 20 mg tablet,delayed 20 mg PO DAILY 10/03/24 06/08/25 release losartan 50 mg tablet 50 mg PO DAILY 06/08/25 06/08/25 Previous Rx's ?Medication ?Instructions ?Recorded bupropion HCl 300 mg 24 hr tablet, 300 mg PO QAM 90 days #90 tabs 11/07/23 extended release (Wellbutrin XL) hydrocodone 5 mg-acetaminophen 325 1 tab PO Q6H PRN pain 5 days #20 06/07/25 mg tablet tabs ondansetron 4 mg disintegrating 4 mg PO Q8H PRN nausea and 06/07/25 tablet vomiting 3 days #9 tabs oxycodone 10 mg tablet 10 mg PO Q6H PRN pain #30 tabs 06/08/25 Allergies Allergy/AdvReac Type Severity Reaction Status Date / Time latex Allergy Severe ALGY-Hives Verified 06/06/25 10:35 ketorolac (Toradol) Allergy ALGY-Hives Verified 06/06/25 10:35 morphine Allergy ALGY-Rash Verified 06/06/25 10:35 Review of Systems Narrative: Constitutional symptoms: Negative except as documented in HPI. Skin symptoms: Negative except as documented in HPI. Eye symptoms: Negative except as documented in HPI. ENMT symptoms: Negative except as documented in HPI. Respiratory symptoms: Negative except as documented in HPI. Cardiovascular symptoms: Negative except as documented in HPI. Gastrointestinal symptoms: Negative except as documented in HPI. Genitourinary symptoms: Negative except as documented in HPI. Musculoskeletal symptoms: Negative except as documented in HPI. Neurologic symptoms: Negative except as documented in HPI. Psychiatric symptoms: Negative except as documented in HPI. Endocrine symptoms: Negative except as documented in HPI. PFSH ED PFSH: Medical History (Updated 06/08/25 @ 12:25 by Fay Mazariegos MD) Colitis Blood in stool Anxiety Surgical History History of laparoscopic cholecystectomy Status post laparoscopic appendectomy Family History Denies family history of Anesthesia complication Bleeding disorder Social History Smoking and tobacco/nicotine status: never used tobacco/nicotine Second hand smoke exposure: No Alcohol intake: never Substance/Drug Use: never Lives independently: Yes Household members: spouse Marital status: Current occupational status: unemployed Current gender identity: Male Physical Exam Narrative: EXAM NARRATIVE: General: Alert, no acute distress. Skin: warm and dry Head: Normocephalic Neck: Trachea midline Eye: Extraocular movements are intact. Ears, nose, mouth and throat: Oral mucosa moist Respiratory: Respirations are non-labored Musculoskeletal: Patient's left arm is in a splint. Fingers are neurovascularly intact. Good cap refill. Oxygen saturation on his fingers is 99% Gastrointestinal: Abdomen does not appear distended Neurological: Alert and oriented, No focal neurological deficit observed. Psychiatric: Cooperative, appropriate mood & affect. Course Vital Signs: Vital signs: Vital Signs Temperature 98.3 F 06/08/25 10:53 Pulse Rate 59 L 06/08/25 11:27 Respiratory Rate 20 H 06/08/25 11:02 Blood Pressure 137/92 06/08/25 11:27 Pulse Oximetry 94 06/08/25 11:27 Oxygen Delivery Me thod Room Air 06/08/25 10:53 MDM - Extremity (Nontraumatic) Medical Decision Making Medical decision making Patient's reason for coming to the emergency room: Postoperative arm pain. Social determinants: Patient is employed I reviewed the patient's medical record. I reviewed Dr. Negrete's op note from yesterday. I reviewed the patient's current home meds Patient went home on hydrocodone and says they are working. Alternate historians: None Differential diagnosis: including but not limited to and based on the above HPI, review of systems and physical exam: Concern for postop pain. We try to treat this. He says he has high tolerance to pain medications and often requires more than most people would. He said he required a large Gillis fentanyl before surgery yesterday. Reexamination: Patient says he is feeling quite a bit better now. He says he is having some itching and requests Benadryl. No increased work of breathing. Hand remains neurovascularly intact Assessment and plan: Postoperative pain ?Total of 2 mg Dilaudid, 10 mg oxycodone, 8 mg p.o. and 8 mg IV Zofran and 50 mg of Benadryl - Discharged home - Discussed plan with patient. Answered any questions. - Evaluation and treatment of this problem were appropriate in the emergency setting. No radiology studies performed this visit Discharge Plan Discharge Patient Disposition: Home Clinical Impression: Post-operative pain Condition: Stable Prescriptions: New oxycodone 10 mg tablet 10 mg PO Q6H PRN (Reason: pain) Qty: 30 0RF No Action Wellbutrin XL 300 mg tablet extended release 24 hr 300 mg PO QAM 90 Days Qty: 90 1RF pantoprazole 20 mg tablet,delayed release (DR/EC) 20 mg PO DAILY buspirone 10 mg tablet 10 mg PO BID hydrocodone-acetaminophen 5-325 mg tablet 1 tab PO Q6H PRN (Reason: pain) 5 Days Qty: 20 0RF ondansetron 4 mg tablet,disintegrating 4 mg PO Q8H PRN (Reason: nausea and vomiting) 3 Days Qty: 9 0RF losartan 50 mg tablet 50 mg PO DAILY Discharge Orders: Discharge ED (Routine); Ordered 06/08/25 Ordered By: Fay Mazariegos Referrals: Gabriele Kemp MD [Primary Care Provider, Family Practice] Discharge Diet: Usual diet Discharge Activity: Increase activity as tolerated Patient Instructions: Opioid Safety, Pain Management, Patient Portal & Anh Instructions Activity Restrictions/Additional Instructions: Keep follow-up with Dr. Negrete as instructed Thank you for choosing [facility] for your healthcare needs today. You have been screened and evaluated and felt safe for discharge. Health conditions do change or evolve sometimes and as such it is important that you follow up with your Primary Doctor to be re checked, 3-5 days is a general good time frame for follow up. You are always welcome to return to the ED for re assessment if your symptoms are worsening or you have new concerns Print Language: Gibraltarian Coding Level of Care Code ED Grab Operator for Ambrocio Stratton
[2025-06-08 10:58] VITALS: PULSE 101; O2SAT 93
[2025-06-08 11:02] VITALS: RESP 20; O2SAT 98
[2025-06-08] MEDS: oxyCODONE 5 mg IR Tab/Cap 10 MG PO (11:02)
[2025-06-08] MEDS: ondansetron hcl ODT 4 mg Tab 8 MG PO (11:04)
[2025-06-08 11:27] VITALS: BP 137/92; PULSE 59; O2SAT 94
[2025-06-08] MEDS: ondansetron 2 mg/ML SDV 2 mL 8 MG IVP (11:39)
[2025-06-08] MEDS: HYDROmorphone 0.5 MG/0.5 ML INJ 1 MG IVP ×2 (11:39→12:35)
[2025-06-08] MEDS: diphenhydrAMINE 50 mg/mL SDV 1mL IVP (12:35)
[2025-06-08 12:58] VITALS: BP 117/90; PULSE 108; O2SAT 93
== END 2025-06-08 13:12 | disposition home or self-care (01) ==
PROVIDERS: Emergency Provider Emergency Medicine; PCP Family Medicine
DX: G89.18 Other acute postprocedural pain (principal)
CPT/HCPCS: 96374; 96375; 96376; 99284; J1171; J1200; J2405; J9999; Q0162

== ENCOUNTER 2025-07-04 07:16 | Day surgery (SDC) | payer BC, SELFPAY ==
[2025-07-04] VITALS (9 sets, daily range): BP systolic 124–196; BP diastolic 77–123; PULSE 76–106; RESP 12–30; TEMP 36.2–36.5; O2SAT 90–98; BMI 50.0
[2025-07-04] MEDS: acetaminophen 1,000 MG/100 ML PIGGYBACK 400 MG IV (07:50)
--- NOTE | 2025-07-04 08:22 | ANES.PREANE2 ---
Pre-Anesthetic Assessment Height/Weight: Height 5 ft 6 in Weight 310 lb Temp Pulse Resp BP Pulse Ox O2 Del Method 97.5 F L 94 17 189/123 96 Room Air 07/04/25 07:40 07/04/25 07:40 07/04/25 07:40 07/04/25 07:40 07/04/25 07:40 07/04/25 07:40 Preop Diagnosis: Carpal/cubital tunnel syndrome Operation Date: 07/04/25 09:20 Proposed Procedures p RIGHT Carpal Tunnel Release(Right) - Jayjay Caden, DO s RIGHT Cubital Tunnel Release W/ POSSIBLE Ulnar Nerve Decompression(Right) - Jayjay Loganatt, DO Was Beta Vilma taken within 24 hours: N/A Was Clonidine taken within 24 hours: N/A Last intake: Intake Last Liquid Date 07/03/25 Last Liquid Time 22:00 Last Solid Date 07/03/25 Last Solid Time 18:00 Social No alcohol and No tobacco Exam alert, oriented x 3, clear to auscultation bilaterally and regular rate & rhythm Airway Submandibular: Other (Large neck circumference) Cervical ROM: within normal limits Mallampati: Class III Dentition: full Anesthetic Plan ASA status: 3 Anesthesia: General and Regional (specify below) Other: No prior issues with anesthesia Patient had similar procedure in May under [facility] without peripheral nerve block. 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, wears CPAP nightly Plan for general anesthesia with video laryngoscopy and preoperative block Medications/Allergies Home Medications ?Medication ?Instructions ?Recorded ?Confirmed ?Last Taken ?Type bupropion HCl 300 mg 24 hr tablet, 300 mg PO QAM 90 days #90 tabs 11/07/23 06/30/25 07/03/25 Rx extended release (Wellbutrin XL) buspirone 10 mg tablet 10 mg PO BID 10/03/24 06/30/25 07/03/25 History pantoprazole 20 mg tablet,delayed 20 mg PO DAILY 10/03/24 06/30/25 07/03/25 History release losartan 50 mg tablet 50 mg PO DAILY 06/08/25 06/30/25 07/03/25 History Allergies Allergy/AdvReac Type Severity Reaction Status Date / Time latex Allergy Severe ALGY-Hives Verified 06/16/25 09:07 ketorolac (Toradol) Allergy ALGY-Hives Verified 06/16/25 09:07 morphine Allergy ALGY-Rash Verified 06/16/25 09:07 Current Medications Generic Name Dose Route Start Last Admin Trade Name Freq PRN Reason Stop Dose Admin Sodium Chloride 1,000 mls @ 30 mls/hr 07/04/25 07:30 07/04/25 07:50 Sodium Chloride 0.9% IV 07/05/25 07:29 30 mls/hr .Q24H YURI Administration PFSH Anesthesia Medical History Colitis Blood in stool Anxiety Surgical History (Updated 06/16/25 @ 09:15 by JADA Jiménez) History of laparoscopic cholecystectomy Status post laparoscopic appendectomy Family History Denies family history of Anesthesia complication Bleeding disorder Social History Smoking and tobacco/nicotine status: never used tobacco/nicotine Second hand smoke exposure: No Alcohol intake: never Substance/Drug Use: never Lives independently: Yes Household members: spouse Marital status: Current occupational status: unemployed Current gender identity: Male
[2025-07-04] MEDS: midazolam 1 mg/mL INJ 2 mL 2 MG IVP (08:31)
--- NOTE | 2025-07-04 09:11 | ANES.PROC ---
Anesthesia Procedures Procedure/Date: 07/04/25 Right supra clavicular nerve block for postoperative pain control Nerve Block ^: Nerve Block 1: Main Anesthesia: other (100 mcg fentanyl and 2 mg Versed given for block) Time Out Performed: Yes Consent: requested by attending/covering physician and from patient Laterality: Right Nerve block location: supraclavicular Anesthesia monitors applied: pulse oximetry, EKG, BP cuff and oxygen Nerve block position: supine Anesthetic Used: ropivicaine 0.5% Amount of anesthesia used (mL): 30 Ultrasound used to: recognize landmarks Nerve Stimulator Used?: Yes Interscalene/Femoral BLK: other needle (pjunk 4inch) Injection: neg aspiration of heme Patient Tolerated Procedure: well Complications: none Additional Comments: Decadron 4 mg added to block
--- NOTE | 2025-07-04 09:22 | P.HP_ITS ---
Same Day Surgery H&P Indication for Procedure/HPI DATE OF PROCEDURE: July 04, 2025 CHIEF COMPLAINT/INDICATIONFOR SURGICAL PROCEDURE: Right carpal tunnel, cubital tunnel syndrome PREOP DIAGNOSIS: Right carpal/cubital tunnel syndrome PLANNED PROCEDURE: Operation Date: 07/04/25 09:20 Proposed Procedures p RIGHT Carpal Tunnel Release(Right) - Jayjay Negrete DO s RIGHT Cubital Tunnel Release W/ POSSIBLE Ulnar Nerve Decompression(Right) - Jayjay Negrete DO Medications/Allergies* Home Medications ?Medication ?Instructions ?Recorded ?Confirmed ?Type buspirone 10 mg tablet 10 mg PO BID 10/03/24 History pantoprazole 20 mg tablet,delayed 20 mg PO DAILY 10/0306/30/25 History release losartan 50 mg tablet 50 mg PO DAILY 06/08/2506/13 History Allergies/Adverse Reactions Allergy/AdvReac Type Severity Reaction Status Date / Time latex Allergy Severe ALGY-Hives Verified 06/16/25 09:07 ketorolac (Toradol) Allergy ALGY-Hives Verified 06/16/25 09:07 morphine Allergy ALGY-Rash Verified 06/16/25 09:07 Current Medications: Generic Name Dose Route Start Last Admin Trade Name Freq PRN Reason Stop Dose Admin Sodium Chloride 1,000 mls @ 30 mls/hr 07/04/25 07:30 07/04/25 07:50 Sodium Chloride 0.9% IV 07/05/25 07:29 30 mls/hr .Q24H YURI Administration Midazolam HCl 2 mg 07/04/25 07:25 07/04/25 08:31 Midazolam 1 Mg/Ml Inj 2 Ml IVP 2 mg Q5M PRN Administration Preop Anxiety Pertinent History/Comorbid Conditions* Medical History (Updated 06/16/25 @ 00:00 by JAQUAN Kumar) Colitis Blood in stool Anxiety Surgical History (Updated 06/16/25 @ 09:15 by JADA Jiménez) History of laparoscopic cholecystectomy Status post laparoscopic appendectomy Family History (Updated 12/22/19 @ 16:25 by Alicia Peñaloza RN) Denies family history of Anesthesia complication Bleeding disorder Social History Smoking and tobacco/nicotine status: never used tobacco/nicotine Second hand smoke exposure: No Alcohol intake: never Substance/Drug Use: never Lives independently: Yes Household members: spouse Marital status: Current occupational status: unemployed Current gender identity: Male Pertinent Exam Findings alert, oriented x 3, operative site marked and procedure specific exam findings Please refer to anesthesia preoperative valuation for heart and lung findings Positive Tinel's over the carpal tunnel and cubital tunnel to the right upper extremity Please refer to detailed physical examination examination on 04/20/2025 listed below: Left upper extremity examination Normal C-spine ROM, No pain. Negative Spurlings left Normal ROM elbow. Positive Tinel's @ elbow left Positive Tinel's over the left carpal tunnel as well as positive median nerve compression test Positive Phalen's Subtle intrinsic weakness left hand Thenar weakness but no intrinsic atrophy noted. Hand warm well-perfused. Negative Tinel's over Guyon's Negative compression over Guyon's Decreased sensation dorsal ulnar cutaneous nerve Recommendations Risks and benefits of procedure reviewed and Patient/family agree to proceed Surgery/Procedure today Other Plans: Patient at this point in time as positive nerve study bilaterally particular for the cubital tunnel at this point in time we have done a carpal tunnel and cubital tunnel due to him having positive findings on the carpal tunnel on examination we done this on the left side over a month ago and at this point in time he is ready to proceed with surgical intervention for the right side he understands the ins and outs procedure the risk benefits complication alternative surgical nonsurgical treatment options. Understanding risk of surgery patient like to proceed with surgical invention. All questions answered at this time. Plan to proceed to the OR today for right carpal tunnel release, right cubital tunnel release with possible nerve transposition. Coding Level of Care Code Acute Code for [facility]
[2025-07-04] MEDS: ceFAZolin 3,000 MG in sodium chloride 0.9% (plus) 100 ML 200 MG IV (09:54)
--- NOTE | 2025-07-04 10:37 | P.BOP_ITS ---
Date of Procedure: 07/04/2025 Surgeon: Jayjay Negrete DO [employer] Clerk(s): SHERMAN Garza Procedure(s) performed: Right carpal tunnel release Right cubital tunnel release (ulnar nerve decompression at the elbow) Findings of the procedure(s): Underwent procedure as planned without issues or complications there was no subluxation of the ulnar nerve with range of motion as result no transposition performed. Patient tolerated well without issues or complications taken recovery stable condition Estimated blood loss: 5 mL Specimen(s) removed: None Post-operative diagnosis: Right carpal tunnel syndrome, right cubital tunnel syndrome
--- NOTE | 2025-07-04 10:38 | P.OP_ITS ---
Operative Report Date of procedure: July 04, 2025 Surgeon: Jayjay Negrete DO [employer] Head: SHERMAN Garza Procedure: Preoperative diagnosis: Right carpal tunnel syndrome, Right cubital tunnel syndrome Postoperative diagnosis same Procedure done: Right carpal tunnel release Right cubital tunnel release (ulnar nerve decompression at the elbow) Surgeon: Jayjay Negrete DO Estimated blood loss: 5 mL Tourniquet 18 minutes IV fluids: 600mL Complications: None Findings: See operative report narrative Condition: stable Disposition: same day Brief History: Patient's been seen and worked up in the outpatient setting and findings consistent with preoperative diagnosis.? Patient has Right carpal tunnel syndrome as well as Right?cubital tunnel syndrome which has been worked up in the outpatient setting has physical exam findings consistent with this as well as confirmatory nerve conduction/EMG nerve conduction study consistent with di agnosis. As result through shared decision making agreed to proceed with? Right carpal tunnel and Right?cubital tunnel release with possible ulnar nerve transposition we talked about treatment options as far as nonoperative and operative intervention.? Understands risk benefits complication alternatives surgical nonsurgical treatment options.? Understanding risks pt agrees to proceed with surgical intervention. Understanding these risks pt agrees to proceed with surgery.? Consent obtained in preop. Procedure: Patient seen evaluate in the preoperative holding area.? Consent was reviewed and signed with patient.? Correct extremity marked.? Patient seen evaluated by anesthesia department once cleared for surgery was then taken back to the operative suite placed in supine position all bony prominences well-padded patient properly secured to bed.? Right upper extremity placed onto armboard.? Nonsterile tourniquet applied Right upper arm.? Patient then underwent anesthesia per the anesthesia department.? Patient's Right upper extremity was then prepped and draped in standard orthopedic fashion.? Final timeout performed.? Patient received appropriate preoperative antibiotics. Esmarch was used exsanguinate the Right upper extremity.? Tourniquet was insufflated to 250 mmHg. I started with the carpal tunnel release first.? I made a standard open carpal tunnel release starting with the distal most extent in the palm at the Vila's cardinal line and the incision line was made in line with the fourth ray and ended just distal to the wrist crease.? Sharp scalpel incision was made through skin and subcutaneous tissue I then utilizing self retainer then began to dissect with dissection scissors split longitudinally the palmar fascia.? Next I then utilizing my assistant to the president Roxana retractors subsequently utilizing scalpel feathered through the palmaris brevis as well as through the transverse carpal ligament distally.? Once I encountered the floor of the transverse carpal li gament and entered into the carpal tunnel I then switched to dissection scissors.? Carefully released the distal extent of the transverse carpal ligament to the palmar fat.? Care was to protect the recurrent branch and not injured this during this part of the case.? Next I then placed a [place] underneath the transverse carpal ligament proximally to protect the nerve in the carpal tunnel contents.? And then I subsequently under loupe magnification utilize my dissection scissors to release the transverse carpal ligament into the antebrachial fascia under direct visualization with care to keep my scissors with a curved ulnarly away from the palmar cutaneous branch.? The transverse carpal was then completely decompressed proximally and a [place] was then placed both distally and proximally throughout the carpal tunnel and had complete decompression of the nerve.? The nerve did appear to have hourglass shape as it went through the carpal tunnel.? With significant irritation noted around the ne rve.? No masses were noted within the contents of the carpal tunnel.? This completed the carpal tunnel release and then I subsequently irrigated the wound bed and placed a wet Ray-Rakan into the incision for later closure. Next marked out the landmarks of the Right elbow of the medial epicondyle and olecranon and made a curvilinear incision following the course of the ulnar nerve at the medial aspect of the elbow.? Sharp scalpel incision was made through skin and subcutaneous tissue.? Next I switched to Littler dissection scissors and spread in plane of the medial antebrachial cutaneous nerve branching which was protected throughout this part of the dissection.? Then I directly came down over the fascia and identified the 2 heads of the FCU fascia and split this Right in the middle and subsequently identified my ulnar nerve distally.? This was then completely released distally under direct visualization and loupe magnification.? Once the nerve was then identified I then subsequently tracked this proximally and released this through Ayon's ligament as well as complete decompression of the nerve proximally all the way past the intermuscular septum.? The nerve was completely released and decompressed both proximally and distally.? Ulnar nerve neurolysis performed and completed both proximally and distally with dissection scissors.? I then took the elbow through range of motion and there was no instability or subluxating of the ulnar nerve.? This completed?cubital tunnel release.? Next the wound bed was thoroughly irrigated.? Tourniquet was deflated.? Hemostasis was satisfactory at the?cubital tunnel release surgery site. I then inspected the carpal tunnel incision and this was found to have satisfactory hemostasis and all this was maintained through bipolar electrocautery.? At this point time I sequentially closed?cubital tunnel site with 3-0 Vicryl suture in a running horizontal mattress nylon stitch.? ? The carpal tunnel release surgery was then closed in standard interrupted mattress fashion.? Dressing was Xeroform 4 x 4's ABD Curlex soft roll and an Ervin wrap has a bulky soft dressing. Patient was then awakened from anesthesia and taken to PACU in stable condition. Disposition: Patient taken to PACU in stable condition recovering well.? Patient will receive appropriate discharge instructions as well as pain medication postoperatively.? We will follow-up with ortho in the office in 2 weeks.? Patient understands agrees with current plan.? All questions answered.? Pt understands if any questions or concerns and contact the office for follow-up appointment.
[2025-07-04] MEDS: diphenhydrAMINE 50 mg/mL SDV 1mL 12.5 MG IVP (12:00)
--- NOTE | 2025-07-04 12:13 | ANE.PACU2 ---
Inpatient post-anesthesia follow up: Airway intact: Yes Vital signs: Temperature 97.7 F Pulse Rate 85 Respiratory Rate 19 Blood Pressure 124/90 Pulse Oximetry 90 Oxygen Delivery Me thod Nasal Cannula Oxygen Flow Rate 3 Fraction of Inspir ed Oxygen Hydration adequate: Yes Nausea and vomiting: No Pain level: 1 Mental status: Baseline
== END 2025-07-04 12:00 | disposition home or self-care (01) ==
PROVIDERS: PCP Family Medicine; Visit Provider Student in an Organized Health Care Education/Training Program
PROC: (CPT 64721; principal; 2025-07-04 09:20)
PROC: (CPT 64718; 2025-07-04 09:20)
DX: G56.01 Carpal tunnel syndrome, right upper limb (principal); G56.21 Lesion of ulnar nerve, right upper limb; I10 Essential (primary) hypertension; K21.9 Gastro-esophageal reflux disease without esophagitis; G47.33 Obstructive sleep apnea (adult) (pediatric); Z99.89 Dependence on other enabling machines and devices; F41.9 Anxiety disorder, unspecified
CPT/HCPCS: 64718; 64721; 64415; J0131; J0690; J1100; J1200; J2250; J2405; J2704; J3010; J3490; J7030; J9999